=== PATIENT | male | born 1950 | race Caucasian/White ===

== ENCOUNTER 2020-04-09 20:00 | Inpatient (IN) | payer MEDICARE, SELFPAY ==
[2020-04-09] VITALS (35 sets, daily range): BP systolic 135–148; BP diastolic 77–84; PULSE 89–108; RESP 18–38; TEMP 36.4–36.7; O2SAT 84–98; BMI 25.0
--- NOTE | 2020-04-09 20:06 | ECG_ITS ---
[facility] Test Date: 2020-04-09 Pat Name: Mirza Sanchez Department: Room: Gender: Male Set Up Worker: : 1950 Requested By: Edilma Taylor Order Number: [id number] Monique MD: Diane Nelson M.D. Measurements Intervals [place] Rate: 101 P: 15 IN: 146 QRS: 13 QRSD: 89 T: 18 QT: 329 QTc: 427 Interpretive Statements SINUS TACHYCARDIA LEFT ATRIAL ENLARGEMENT [-0.15mV P WAVE IN V1/V2] No previous ECG available for comparison Electronically Signed On 04-09-2020 21:30:41 BOOKIE by Diane Nelson M.D. [id number]
--- NOTE | 2020-04-09 20:06 | XRR_ITS ---
PROCEDURE INFORMATION: Exam: XR Chest, 1 View Exam date and time: 04/09/2020 8:15 PM Age: 69 years old Clinical indication: Shortness of breath; Additional info: SOB TECHNIQUE: Imaging protocol: XR of the chest Views: 1 view. COMPARISON: No relevant prior studies available. FINDINGS: Lungs: There are extensive prominent nearly diffuse bilateral interstitial pulmonary infiltrates predominantly in the lung periphery. This may represent an acute interstitial pneumonia possibly viral in nature. Pleural space: Unremarkable. No pleural effusion. No pneumothorax. Heart/Mediastinum: Unremarkable. No cardiomegaly. Bones/joints: Unremarkable. XR/XR chest 1V portable [id number] IMPRESSION: Prominent bilateral interstitial pulmonary infiltrates consistent with med acute interstitial pneumonia probably viral in nature.
[2020-04-09 20:43] LABS: Basophils # 0.1 10^3/uL (0.0-0.1); Basophils % 0.7 %; Eosinophils # 0.2 10^3/uL (0.0-0.8); Eosinophils % 1.1 %; Hemoglobin 14.5 g/dL (11.7-16.6); Lymphocytes # 1.6 10^3/uL (0.8-4.8); Lymphocytes % 8.5 %; Mean Corpuscular HGB Conc 32.2 g/dL (30.0-36.0); Mean Corpuscular Hemoglobin 28.5 pg (28.0-34.0); Mean Corpuscular Volume 88.4 fL (80-94); Mean Platelet Volume 11.6 fL (7.4-10.4); Monocytes % 21.8 %; Neutrophils # 11.73 10^3/uL (1.8-7.7); Neutrophils % 63.7 %; Nucleated Red Blood Cells # 0.1 /100WBC; Nucleated Red Blood Cells % 0.3 %; Platelet Count 146 10^3/cmm (130-400); Red Blood Count 5.09 10^6/uL (4.1-5.3); Red Cell Distribution Width 17.2 % (12.1-15.1); White Blood Count 18.4 10^3/uL (4.0-10.0)
[2020-04-09 20:47] LABS: ABG PCO2 29.8 mmHg (35-45); ABG PH Result 7.46 (7.35-7.45); Arterial Blood Gas Hematocrit 46.3 % (42-52); Base Excess ABG -1.3 mmol/L (-2.0-2.0); Blood Gas Allen Test Pos; Blood Gas Sample Site Radial, left; Blood Gas Sample Type Arterial; Carboxyhemoglobin 1.8 %THgb (0.4-20.1); HCO3 ABG 21.3 mmol/L (22-26); HGB O2 Sat 94.6 % (95-100); Methemoglobin 0.6 % (0.4-1.5); Oxygen Device NC; PO2 ABG 81.6 mmHg (80.0-100.0); Total Hemoglobin 15.1 g/dL (14-18)
[2020-04-09 21:01] LABS: Troponin(5th) Baseline 6 ng/L (0-15)
[2020-04-09] MEDS: cefTRIAXone 1,000 MG in sodium chloride 0.9% (plus) 50 ML 100 MG IV (21:09)
[2020-04-09] MEDS: sodium chloride 0.9% 1,000 ML 999 ML IV ×2 (21:09→23:09)
[2020-04-09 21:10] LABS: Alanine Aminotransferase 27 U/L (0-41); Albumin Level 3.9 g/dL (3.5-5.2); Alkaline Phosphatase 49 IU/L (40-130); Anion Gap 14.1 (5-19); Aspartate Amino Transferase 23 U/L (0-40); Blood Urea Nitrogen 14 mg/dL (8-23); Calcium 8.8 mg/dL (8.5-10.5); Carbon Dioxide 21 mmol/L (22-29); Chloride 101 mmol/L (98-107); Globulin 2.5 g/dL (1.3-4.6); Glucose 106 mg/dL (65-115); NT Pro B Type Natriuretic Pept 94 pg/mL (0-125); Osmolality Calculated 275 mOsm/kg (285-295); Potassium 4.1 mmol/L (3.5-5.1); Sodium 132 mmol/L (136-145); Total Bilirubin 1.5 mg/dL (0.15-1.2); Total Protein 6.4 g/dL (6.6-8.7)
[2020-04-09] MEDS: ipratropium-albuterol 3 mL Neb INHALATION (21:10)
[2020-04-09] MEDS: azithromycin 500 MG in sodium chloride 0.9% 250 ML 250 MG IV (21:59)
[2020-04-09 22:05] LABS: Lactic Sepsis W/Reflex 1.1 mmol/L (0.5-2.2)
[2020-04-09 22:07] LABS: Influenza A by IFA Negative (Negative); Influenza B by IFA Negative (Negative); SARS Covid-2 Antigen Negative (Negative)
--- NOTE | 2020-04-09 22:17 | PC.NURSE ---
EKG done at 2215 and shown to ER doctor
--- NOTE | 2020-04-09 22:23 | ECG_ITS ---
[facility] Test Date: 2020-04-09 Pat Name: Mirza Sanchez Department: Room: Gender: Male Heel Turner: : 1950 Requested By: Rickey Douglas Order Number: [id number] Amaya MD: Lilian Phillips M.D. Measurements Intervals [place] Rate: 94 P: 54 [place]: 151 QRS: 50 QRSD: 85 T: 33 QT: 339 QTc: 424 Interpretive Statements SINUS RHYTHM LEFT ATRIAL ENLARGEMENT [-0.15mV P WAVE IN V1/V2] Compared to ECG 04/09/2020 20:36:34 Sinus tachycardia no longer present Electronically Signed On 04-13-2020 10:11:04 CHEMISTRY INSTRUCTOR by Lilian Phillips M.D. [id number]
--- NOTE | 2020-04-09 22:26 | ED_ITS ---
HPI - SOB/Dyspnea General: Chief Complaint: Shortness of Breath/Dyspnea Stated Complaint: pneumonia, low o2 Time Seen by Provider: 04/09/20 20:18 History of Present Illness: HPI Narrative: The patient is a 69-year-old male recently diagnosed with pneumonia a few days ago who comes to the ER complaining of increased cough, shortness of breath over the past couple days. He he was satting 84% on room air and is requiring 4 L to saturate in the low 90s. MD elicited complaint: shortness of breath and cough Pertinent past history: pneumonia Severity: moderate Exacerbating factors: exertion Relieving factors: oxygen Associated symptoms: Reports chest congestion, cough and other (fatigue); Deny abdominal pain, chest pain, dizziness, extremity pain, orthopnea, palpitations or polyuria Treatment prior to arrival: other (doxycycline) Review of Systems General: Reports: 10 or more systems reviewed and unremarkable except in HPI and below Const: Reports: chills and fatigue Eyes: Denies: change in vision, blurry vision or eye redness ENMT: Denies: throat pain, swelling of lips/tongue, ear or mastoid pain or nasal congestion Card: Denies: chest pain, palpitations, irregular heart rhythm, edema, dyspnea on exertion or orthopnea Resp: Reports: dyspnea, productive cough and chest congestion GI: Denies: abdominal pain, diarrhea or GI cramping : Denies: flank pain, urinary frequency or urinary urgency Musc: Denies: neck pain, back pain, extremity pain, joint pain, joint redness, limited range of motion or muscle weakness Skin/Breast: Denies: rash, pruritus, erythema, skin pain or skin tenderness Neuro: Denies: headache(s), numbness in extremities, weakness in extremities, sensory changes, difficulty walking, dizziness, confusion or Slurred speech present Psych: Denies: anxiety or depression Endo: Denies: polyuria All/Imm: Denies: urticaria, throat swelling or tongue swelling Physical Exam Const: COMMON NORMALS: no acute distress, average body habitus, patient oriented x3, no limitations, healthy appearing, alert and well nourished GENERAL APPEARANCE: cooperative, comfortable, well kempt and well developed ORIENTATION/CONSCIOUSNESS: Yes awake, Yes oriented to person, Yes oriented to place and Yes oriented to time HENMT: COMMON NORMALS: normocephalic, external ears normal and Normal external nose present HEAD & SCALP: normal to inspection and normocephalic NOSE: Normal external nose present EXTERNAL EAR: Yes external ears normal MOUTH: Normal oral and palatal mucosa present THROAT: posterior oropharynx normal Eye: COMMON NORMALS: Equal, round and reactive pupils present and EOMs intact bilaterally GENERAL EYE: appearance normal, both eyes and all related structures PUPIL: Yes Equal, round and reactive pupils present Neck/C-Spine: COMMON NORMALS: full ROM, no lymphadenopathy, no meningeal signs and no JVD GENERAL: Yes normal visual inspection Lymph: LYMPHATIC: no lymphadenopathy noted Chest: COMMONS NORMALS: normal inspection of the chest and normal palpation of entire chest wall Resp: EFFORT & INSPECTION: Yes able to speak in complete sentences, Yes tachyp neic, Yes respiratory distress and Yes uses accessory muscles AUSCULTATION: diminished lung sounds Cardio: COMMON NORMALS: no JVD, regular rate, regular rhythm, S1 normal heart sound present, S2 normal heart sound present and Peripheral pulses 2+ throughout RATE: regular rate RHYTHM: regular rhythm HEART SOUNDS: S1 normal heart sound present and S2 normal heart sound present PERIPHERAL PULSES: Peripheral pulses 2+ throughout GI: COMMON NORMALS: Normal to inspection, nondistended, normoactive bowel sounds present, Soft to palpation, non-tender and no masses INSPECTION: Yes normal to inspection PALPATION: Yes Soft to palpation : COMMON NORMALS: Yes no CVA tenderness BLADDER/KIDNEY EXAM: Yes no CVA tenderness Back/Pelvis: COMMON NORMALS: no CVA tenderness, thoracic and lumbar spine normal to inspection, no thoracic nor lumbar tenderness and thoraco-lumbar ROM normal Extremity: COMMON NORMALS: normal to inspection, full ROM, capillary refill normal, no joint enlargement and no pedal edema GENERAL: Yes normal exam except as noted Neuro: COMMON NORMALS: patient oriented x3, CN's II-XII intact bilaterally, moves all extremities, no focal motor deficits, no sensory deficits noted and gait normal SENSORIUM/ORIENTATION: Yes alert, Yes oriented to person, Yes oriented to place and Yes oriented to time MENINGEAL SIGNS: Yes no meningeal signs Psych: COMMON NORMALS: mental status grossly normal, Normal thought process present, cooperative, normal affect and speech normal APPEARANCE: Yes well kempt ATTITUDE: Yes calm SPEECH: Yes normal speech THOUGHT PROCESS: Normal thought process present Skin: COMMON NORMALS: no rashes or lesions noted GENERAL SKIN EXAM: no rashes or lesions noted Course ED course: The patient came in complaining of increased shortness of breath after being diagnosed with pneumonia a few days ago and failing outpatient doxycycline. Chest x-ray shows pretty diffuse bilateral pneumonia. He came in tachycardic as well and requiring 4 L of oxygen to saturate in the low 90s. He is septic from pneumonia source. Levofloxacin and nebs were given in the ER as well as [address] Singh accepts to cardiac stepdown unit. Vital Signs: Vital signs: Vital Signs Temperature 98.0 F 04/09/20 20:15 Pulse Rate 91 04/09/20 22:10 Respiratory Rate 28 H 04/09/20 22:10 Blood Pressure 146/84 04/09/20 22:15 Pulse Oximetry 98 04/09/20 22:15 MDM - SOB/Dyspnea Differential Diagnosis: Shortness of Breath Differential Diagnosis: Likely acute exacerbation of chronic obstructive airways disease, congestive heart failure, community acquired pneumonia and asthma with exacerbation Lab Data: Labs: Lab Results 04/09/20 04/09/20 04/09/20 Range/Units 20:36 20:36 20:36 WBC 18.4 H (4.0-10.0) 10^3/ uL RBC 5.09 (4.1-5.3) 10^6/u L Hgb 14.5 (11.7-16.6) g/dL Hct 45.0 (42.0-52.0) % MCV 88.4 (80-94) fL MCH 28.5 (28.0-34.0) pg MCHC 32.2 (30.0-36.0) g/dL RDW 17.2 H (12.1-15.1) % Plt Count 146 (130-400) 10^3/c mm MPV 11.6 H (7.4-10.4) fL Neut % (Auto) 63.7 % Lymph % (Auto) 8.5 % [place] % (Auto) 21.8 % Eos % (Auto) 1.1 % Baso % (Auto) 0.7 % Neut # (Auto) 11.73 H (1.8-7.7) 10^3/u L Lymph # (Auto) 1.6 (0.8-4.8) 10^3/u L [place] # (Auto) 4.0 H (0.2-0.9) 10^3/u L Eos # (Auto) 0.2 (0.0-0.8) 10^3/u L Baso # (Auto) 0.1 (0.0-0.1) 10^3/u L Nucleated RBC % (a uto) 0.3 % Nucleated RBCs # 0.1 /100WBC Specimen Type Sample Site ABG pH (7.35-7.45) ABG pCO2 (35-45) mmHg ABG pO2 (80.0-100.0) mmH g ABG HCO3 (22-26) mmol/L ABG Base Excess (-2.0-2.0) mmol/ L Adonis Test Hematocrit (42-52) % Hgb O2 Saturation (95-100) % Carboxyhemoglobin (0.4-20.1) %THgb Methemoglobin (0.4-1.5) % Total Hemoglobin (14-18) g/dL O2 Delivery Device O2 Liters/Min % FiO2 % Supervisor Instrument Repair ID Sodium 132 L (136-145) mmol/L Potassium 4.1 (3.5-5.1) mmol/L Chloride 101 (98-107) mmol/L Carbon Dioxide 21 L (22-29) mmol/L Anion Gap 14.1 (5-19) BUN 14 (8-23) mg/dL Creatinine 0.8 (0.7-1.2) mg/dL GFR Calculation Not Reportable Glucose 106 (65-115) mg/dL Calculated Osmolal ity 275 L (285-295) mOsm/k g Lactic Acid (0.5-2.2) mmol/L Calcium 8.8 (8.5-10.5) mg/dL Total Bilirubin 1.5 H (0.15-1.2) mg/dL AST 23 (0-40) U/L ALT 27 (0-41) U/L Alkaline Phosphata se 49 (40-130) IU/L Troponin T Baselin e 6 (0-15) ng/L NT-Pro-B Natriuret Pep 94 (0-125) pg/mL Total Protein 6.4 L (6.6-8.7) g/dL Albumin 3.9 (3.5-5.2) g/dL Globulin 2.5 (1.3-4.6) g/dL Influenza Type A A g (Negative) Influenza Type B A g (Negative) SARS-CoV-2 Ag (Rap id) (Negative) 04/09/20 04/09/20 04/09/20 Range/Units 20:38 20:51 20:51 WBC (4.0-10.0) 10^3/ uL RBC (4.1-5.3) 10^6/u L Hgb (11.7-16.6) g/dL Hct (42.0-52.0) % MCV (80-94) fL MCH (28.0-34.0) pg MCHC (30.0-36.0) g/dL RDW (12.1-15.1) % Plt Count (130-400) 10^3/c mm MPV (7.4-10.4) fL Neut % (Auto) % Lymph % (Auto) % [place] % (Auto) % Eos % (Auto) % Baso % (Auto) % Neut # (Auto) (1.8-7.7) 10^3/u L Lymph # (Auto) (0.8-4.8) 10^3/u L [place] # (Auto) (0.2-0.9) 10^3/u L Eos # (Auto) (0.0-0.8) 10^3/u L Baso # (Auto) (0.0-0.1) 10^3/u L Nucleated RBC % (a uto) % Nucleated RBCs # /100WBC Specimen Type Arterial Sample Site Radial, left ABG pH 7.46 H (7.35-7.45) ABG pCO2 29.8 L (35-45) mmHg ABG pO2 81.6 (80.0-100.0) mmH g ABG HCO3 21.3 L (22-26) mmol/L ABG Base Excess -1.3 (-2.0-2.0) mmol/ L Adonis Test Pos Hematocrit 46.3 (42-52) % Hgb O2 Saturation 94.6 L (95-100) % Carboxyhemoglobin 1.8 (0.4-20.1) %THgb Methemoglobin 0.6 (0.4-1.5) % Total Hemoglobin 15.1 (14-18) g/dL O2 Delivery Device Nc O2 Liters/Min 5.0 % FiO2 40.0 % Supervisor Instrument Repair ID [id number] Sodium (136-145) mmol/L Potassium (3.5-5.1) mmol/L Chloride (98-107) mmol/L Carbon Dioxide (22-29) mmol/L Anion Gap (5-19) BUN (8-23) mg/dL Creatinine (0.7-1.2) mg/dL GFR Calculation Glucose (65-115) mg/dL Calculated Osmolal ity (285-295) mOsm/k g Lactic Acid (0.5-2.2) mmol/L Calcium (8.5-10.5) mg/dL Total Bilirubin (0.15-1.2) mg/dL AST (0-40) U/L ALT (0-41) U/L Alkaline Phosphata se (40-130) IU/L Troponin T Baselin e (0-15) ng/L NT-Pro-B Natriuret Pep (0-125) pg/mL Total Protein (6.6-8.7) g/dL Albumin (3.5-5.2) g/dL Globulin (1.3-4.6) g/dL Influenza Type A A g Negative (Negative) Influenza Type B A g Negative (Negative) SARS-CoV-2 Ag (Rap id) Negative (Negative) 04/09/20 Range/Units 21:34 WBC (4.0-10.0) 10^3/ uL RBC (4.1-5.3) 10^6/u L Hgb (11.7-16.6) g/dL Hct (42.0-52.0) % MCV (80-94) fL MCH (28.0-34.0) pg MCHC (30.0-36.0) g/dL RDW (12.1-15.1) % Plt Count (130-400) 10^3/c mm MPV (7.4-10.4) fL Neut % (Auto) % Lymph % (Auto) % [place] % (Auto) % Eos % (Auto) % Baso % (Auto) % Neut # (Auto) (1.8-7.7) 10^3/u L Lymph # (Auto) (0.8-4.8) 10^3/u L [place] # (Auto) (0.2-0.9) 10^3/u L Eos # (Auto) (0.0-0.8) 10^3/u L Baso # (Auto) (0.0-0.1) 10^3/u L Nucleated RBC % (a uto) % Nucleated RBCs # /100WBC Specimen Type Sample Site ABG pH (7.35-7.45) ABG pCO2 (35-45) mmHg ABG pO2 (80.0-100.0) mmH g ABG HCO3 (22-26) mmol/L ABG Base Excess (-2.0-2.0) mmol/ L Adonis Test Hematocrit (42-52) % Hgb O2 Saturation (95-100) % Carboxyhemoglobin (0.4-20.1) %THgb Methemoglobin (0.4-1.5) % Total Hemoglobin (14-18) g/dL O2 Delivery Device O2 Liters/Min % FiO2 % Supervisor Instrument Repair ID Sodium (136-145) mmol/L Potassium (3.5-5.1) mmol/L Chloride (98-107) mmol/L Carbon Dioxide (22-29) mmol/L Anion Gap (5-19) BUN (8-23) mg/dL Creatinine (0.7-1.2) mg/dL GFR Calculation Glucose (65-115) mg/dL Calculated Osmolal ity (285-295) mOsm/k g Lactic Acid 1.1 (0.5-2.2) mmol/L Calcium (8.5-10.5) mg/dL Total Bilirubin (0.15-1.2) mg/dL AST (0-40) U/L ALT (0-41) U/L Alkaline Phosphata se (40-130) IU/L Troponin T Baselin e (0-15) ng/L NT-Pro-B Natriuret Pep (0-125) pg/mL Total Protein (6.6-8.7) g/dL Albumin (3.5-5.2) g/dL Globulin (1.3-4.6) g/dL Influenza Type A A g (Negative) Influenza Type B A g (Negative) SARS-CoV-2 Ag (Rap id) (Negative) Discharge Plan Discharge Prescriptions: No Action doxycycline hyclate 100 mg capsule 100 mg PO BID@1000,2200 RF: 0 Trelegy Ellipta See Rx Instructions .ROUTE .COMPLEX RF: 0 Coding Level of Care Code ED All Source Intelligence Analyst for [employer]g Fwd Exam Comprehensive
--- NOTE | 2020-04-09 22:49 | P.HP_ITS ---
Providers/Chief Complaint Chief Complaint: pneumonia, low o2 History of Present Illness Mirza Sanchez is a 69 year old male with no significant past medical history other than hypertension presented today with chief complaint of worsening shortness of breath. Patient is stating that he has been getting short of breath for last few weeks, his tested positive for Covid last , he went to primary care physician who diagnosed him with pneumonia he has been getting doxycycline for that which he started on , he went back on Tuesday to get tested for Covid, he has not received results back yet. He has been getting short of breath on exertion but today it was getting worse at rest so he decided to come to the hospital for further evaluation. He is a non- smoker nonalcoholic. He has not experienced any vomiting, myalgias, fever, chest pain, leg cramps, dysuria. No previous history of SD, stroke, cancer, he quit smoking about 5 years ago. Diagnosis in the ER revealed sepsis secondary to community-acquired pneumonia he was given 2 L normal saline septic bolus and ceftriaxone and azithromycin, flu panel COVID-19 negative, I have requested PCR, D-dimer MRSA nares and procalcitonin along antigens, chest x-ray shows bilateral pneumonia however has COVID-19 typical features Review of Systems Const: Reports: chills, body aches and fatigue; Denies: fever(s) Eyes: Denies: change in vision ENMT: Denies: throat pain Card: Denies: chest pain Resp: Reports: dyspnea and non-productive cough GI: Reports: diarrhea, bloating and GI cramping; Denies: abdominal pain, nausea or vomiting : Denies: flank pain Musc: Denies: neck pain Skin/Breast: Denies: rash Neuro: Denies: headache(s) Psych: Denies: anxiety Endo: Denies: polyuria [place]/Lymph: Denies: easy bruising All/Imm: Denies: urticaria Medications/Allergies Home Medications Medication Instructions Recorded Confirmed Last Taken Type Trelegy Ellipta See Rx Instructions .ROUTE .COMPLEX 04/09/20 04/09/20 04/09/20 History doxycycline hyclate 100 mg PO BID@1000,2200 04/09/20 04/09/20 04/09/20 History Allergies Allergy/AdvReac Type Severity Reaction Status Date / Time Penicillins Allergy Mild Unknown Verified 04/09/20 21:58 PFSH Acute PFSH: Medical History (Updated 04/10/20 @ 01:03 by Zak Singh MD) Hypertension Surgical History (Updated 04/10/20 @ 01:03 by Zak Singh MD) No pertinent past surgical history Family History (Updated 04/10/20 @ 01:03 by Zak Singh MD) Father CAD (coronary artery disease) Social History (Updated 04/10/20 @ 01:03 by Zak Singh MD) Smoking and tobacco status: former smoker Quit status (tobacco): has quit using tobacco Former quit date comment: 2014 Alcohol intake: never Substance/Drug Use: never Household members: spouse Housing: House Vitals/I&O/Wt Last Vital Signs Temp 98.0 F 04/09/20 20:15 Pulse 91 04/09/20 22:10 Resp 28 H 04/09/20 22:10 BP 146/84 04/09/20 22:15 Pulse Ox 98 04/09/20 22:15 04/09/20 04/09/20 04/09/20 06:59 14:59 22:59 Intake Total 50 / 50 Balance 50 / 50 Weight last 48 hrs Weight 88.451 kg Physical Exam Narrative: EXAM NARRATIVE: Pleasant elderly male looks stated age Well-hydrated, Awake alert oriented x3 GCS 15 No neurological deficit EOMI, PERRLA Abdomen soft nontender bowel sound present S1, S2 no murmur or signs of heart failure Bilateral breath sounds with crepitations, coarse rhonchi bilateral, no acute respiratory distress, currently requiring 4 L nasal cannula to keep O2 saturation above 90% Lower extremity no edema gangrene ulcer Dorsalis pedis pulses 2+ bilaterally Appropriate mood and affect Data : 04/09/20 20:36 04/09/20 20:36 Micro: Microbiology 04/09/20 21:15 Blood Culture - Preliminary Blood SPECIMEN COLLECTED 04/09/20 21:00 Blood Culture - Preliminary Blood SPECIMEN COLLECTED A&P Assessment and plan (1) Sepsis: Status: Acute (2) Community acquired pneumonia: Status: Acute (3) Sepsis with acute hypoxic respiratory failure: Status: Acute Additional A&P Information Sepsis secondary to community-acquired pneumonia Rule out Covid (will send PCR), his has been diagnosed with COVID-19 pneumonia on last Sepsis criteria met with tachypnea, leukocytosis, tachycardia Source: bilateral infiltrates on chest x-ray start him on ceftriaxone and azithromycin, failed outpatient doxycycline therapy Would request urine antigens, procalcitonin and D-dimer, MRSA nares Acute hypoxic respiratory failure Most likely secondary to community-acquired pneumonia, rule out PE for which I have requested D-dimer Currently doing well on 4 L nasal cannula no acute respiratory distress I will keep him on prednisone along antibiotics Essential hypertension: I will start him on lisinopril low-dose for now Full code Cardiac diet DVT prophylaxis Lovenox Attestations Medical Necessity Statement*: Anticipating stay in the hospital course more than 2 midnights currently need management for sepsis secondary to community- acquired pneumonia Covid PCR sent Time Spent in Patient Care: (>than 50% of time spent in counselling and/or direct pt care on unit) . 50mins Coding Level of Care Code Acute Industrial Green Systems Designer for [facility] Fwd Diagnoses Sepsis A41.9 Community acquired pneumonia J18.9 Sepsis with acute hypoxic respiratory failure A41.9; R65.20; J96.01
[2020-04-09 23:10] LABS: Troponin 5 2HR Delta 0 ABS# (0-10)
--- NOTE | 2020-04-09 23:33 | PC.NURSE ---
patient arrived to room 102 via stretcher. Pt is on 2 liters nasal canula and stated that he needed to have a bowel movement. Pt was assisted to the bedside commode.
[2020-04-10] VITALS (60 sets, daily range): BP systolic 116–151; BP diastolic 62–98; PULSE 76–88; RESP 18–32; TEMP 36.3–36.9; O2SAT 83–95
[2020-04-10] MEDS: enoxaparin 40 mg/0.4 mL Syringe SUBCUT ×2 (00:18→22:58)
[2020-04-10] MEDS: ipratropium-albuterol 3 mL Neb INHALATION ×3 (00:23→15:24)
--- NOTE | 2020-04-10 02:23 | ECG_ITS ---
[facility] Test Date: 2020-04-10 Pat Name: Mirza Sanchez Department: Room: 102 Gender: Male Condominium Property Manager: ARIAS MONK: 1950 Requested By: Rickey Douglas Order Number: [id number] Monique MD: Lilian Phillips M.D. Measurements Intervals [place] Rate: 87 P: 46 [place]: 159 QRS: 48 QRSD: 93 T: 28 QT: 341 QTc: 412 Interpretive Statements SINUS RHYTHM Compared to ECG 04/09/2020 22:14:22 Atrial abnormality no longer present Electronically Signed On 04-13-2020 10:10:05 MATERIAL PREPARATION WORKER by Lilian Phillips M.D. [id number]
[2020-04-10 06:10] LABS: Basophils # 0.1 10^3/uL (0.0-0.1); Basophils % 0.4 %; Eosinophils # 0.3 10^3/uL (0.0-0.8); Hematocrit 38.7 % (42.0-52.0); Hemoglobin 12.3 g/dL (11.7-16.6); Lymphocytes # 1.7 10^3/uL (0.8-4.8); Lymphocytes % 12.1 %; Mean Corpuscular HGB Conc 31.8 g/dL (30.0-36.0); Mean Corpuscular Volume 91.3 fL (80-94); Mean Platelet Volume 12.3 fL (7.4-10.4); Monocytes # 3.3 10^3/uL (0.2-0.9); Monocytes % 23.2 %; Neutrophils % 59.3 %; Nucleated Red Blood Cells % 0.2 %; Platelet Count 130 10^3/cmm (130-400); Red Blood Count 4.24 10^6/uL (4.1-5.3); Red Cell Distribution Width 17.2 % (12.1-15.1); White Blood Count 14.2 10^3/uL (4.0-10.0)
[2020-04-10 06:35] LABS: Anion Gap 11.8 (5-19); Blood Urea Nitrogen 12 mg/dL (8-23); Calcium 8.5 mg/dL (8.5-10.5); Carbon Dioxide 23 mmol/L (22-29); Chloride 105 mmol/L (98-107); Glucose 95 mg/dL (65-115); Osmolality Calculated 282 mOsm/kg (285-295); Potassium 3.8 mmol/L (3.5-5.1); Sodium 136 mmol/L (136-145)
[2020-04-10 06:36] LABS: Lactate Dehydrogenase 492 U/L (135-225)
[2020-04-10 06:50] LABS: INR 1.44 (0.8-1.2)
[2020-04-10 06:51] LABS: Partial Thromboplastin Time 40.7 SECONDS (23.9-36.7)
[2020-04-10 06:54] LABS: D Dimer 1.67 ug/mIFEU (0-0.59)
[2020-04-10 07:44] LABS: Fibrinogen 359 mg/dL (174-498)
[2020-04-10 07:53] LABS: Platelet Count 130 10^3/cmm (130-400)
[2020-04-10] MEDS: predniSONE 20 mg Tablet 40 MG PO (08:32)
[2020-04-10] MEDS: lisinopril 5 mg Tablet PO (08:32)
[2020-04-10] MEDS: cefTRIAXone 1,000 MG in sodium chloride 0.9% (plus) 50 ML 100 MG IV (08:33)
[2020-04-10] MEDS: azithromycin 250 mg Tablet 500 MG PO (08:33)
--- NOTE | 2020-04-10 18:30 | PC.NURSE ---
Hand-off report to thinner sprayer Pt had a good day today. SpO2 has been ranging in 87-91% on 5 L/ NC. Pt had an episode of blood streaked sputum as well. Dr. Ponce has been informed on these.
--- NOTE | 2020-04-10 18:36 | CTR_ITS ---
PROCEDURE INFORMATION: Exam: CT Angiography Chest With Contrast Exam date and time: 04/10/2020 7:43 PM Age: 69 years old Clinical indication: Shortness of breath; Patient HX: HTN, SOB, elev d-dimer; Additional info: Hypoxia, tachycardia TECHNIQUE: Imaging protocol: Computed tomographic angiography of the chest with intravenous contrast. 3D rendering (Not supervised by radiologist): MIP and/or 3D reconstructed images were created by the technologist. Radiation optimization: All CT scans at this facility use at least one of these dose optimization techniques: automated exposure control; mA and/or kV adjustment per patient size (includes targeted exams where dose is matched to clinical indication); or iterative reconstruction. Contrast material: OMNI 350; Contrast volume: 67 ml; Contrast route: INTRAVENOUS (IV); COMPARISON: CR XR chest 1V portable [id number] 04/09/2020 8:21 PM RADIATION DOSE METRICS: Total DLP (mGy-cm): 588.85 FINDINGS: Pulmonary arteries: Normal. No pulmonary emboli. Aorta: Unremarkable. No aortic aneurysm. No aortic dissection. Lungs: Severe peripheral interstitial fibrosis with honeycombing and a slight basilar predominance. Bronchiectasis which is greatest in the right lower and middle lobes. Pleural space: 4.5 cm focal area of consolidation in the posterior left lower lobe with adjacent pleural thickening and a small amount of pleural fluid. Small left pleural effusion. Heart: Unremarkable. No cardiomegaly. No pericardial effusion. Mediastinal space: Hiatal hernia. Lymph nodes: Multiple enlarged mediastinal and hilar lymph nodes measuring up to 1.2 cm short axis. Spleen: Partially visualized spleen appears enlarged. Bones/joints: Unremarkable. No acute fracture. Soft tissues: Unremarkable. CT/CT angio chest PE protcl [id number] IMPRESSION: 1. No evidence for pulmonary embolus. 2. Interstitial fibrosis with honeycombing, a typical UIP pattern. This can represent idiopathic pulmonary fibrosis, chronic drug reaction, or end-stage hypersensitivity pneumonitis. 3. Focal area of consolidation in the posterior left lower lobe with adjacent pleural thickening. This could represent infection or a neoplastic process. CT follow-up in 3 months versus tissue sampling is recommended. 4. Prominent mediastinal and hilar lymph nodes could be reactive. A neoplastic process such as lymphoma or metastatic disease is not entirely excluded. Radiation Dose CTDIVOL = (mGy): DLP = 588.85 (mGy-cm)
--- NOTE | 2020-04-10 19:48 | P.PN_ITS ---
Subjective Subjective: Interval history: He reports he is feeling somewhat better. He denies chest pain, but little bit of pressure in the epigastrium/lower chest. States feels like air bubble . Has some mild intermittent cough. Per nursing report earlier coughed up a small streak of blood in his sputum. He denies headache. No nausea vomiting or diarrhea. No abdominal discomfort. Vitals/I&O/Wt Last Vital Signs Temp 97.7 F 04/10/20 17:00 Pulse 84 04/10/20 19:36 Resp 32 H 04/10/20 19:36 BP 144/68 04/10/20 19:36 Pulse Ox 92 04/10/20 19:36 04/10/20 04/10/20 04/10/20 06:59 14:59 22:59 Intake Total 2420 / 2470 764 / 764 Output Total 500 / 500 200 / 200 725 / 925 Balance 1919 / 1969 564 / 564 -725 / -161 Weight last 48 hrs Weight 88.451 kg Physical Exam Const: COMMON NORMALS: no acute distress and patient oriented x3 HENMT: COMMON NORMALS: oropharynx normal Neck/C-Spine: COMMON NORMALS: no JVD Resp: COMMON NORMALS: normal respiratory effort AUSCULTATION: wheezes (mild) Cardio: COMMON NORMALS: no JVD, regular rhythm, S1 normal heart sound present, S2 normal heart sound present and No murmurs present (Cardio) RHYTHM: regular rhythm HEART SOUNDS: S1 normal heart sound present and S2 normal heart sound present GI: COMMON NORMALS: Normal to inspection, nondistended, normoactive bowel sounds present, Soft to palpation and non-tender PALPATION: Yes Soft to palpation Extremity: COMMON NORMALS: no joint enlargement and no pedal edema Neuro: COMMON NORMALS: patient oriented x3 and moves all extremities Skin: COMMON NORMALS: no rashes or lesions noted GENERAL SKIN EXAM: no rashes or lesions noted Data : 04/10/20 04:41 04/10/20 04:41 Micro: Microbiology 04/10/20 04:54 Bacterial Antigens - Final Urine,Voided 04/10/20 04:54 Legionella Urinary Antigen - Final Urine,Voided 04/09/20 21:15 Blood Culture - Preliminary Blood SPECIMEN COLLECTED 04/09/20 21:00 Blood Culture - Preliminary Blood SPECIMEN COLLECTED A&P Assessment and plan (1) Acute respiratory failure with hypoxia: Community-acquired pneumonia. Bilateral infiltrates. Continue. Antibiotics at this time. He is feeling little bit better. Due to new onset hypoxia (no baseline supplemental oxygen requirement), mild tachycardia, abnormal D-dimer will assess CTA as discussed with him. Discussed risk of possible kidney injury with contrast. He is agreeable to proceed. COVID-19 PCR is pending. Reports his had COVID-19 and went through illness pretty quickly after was diagnosed 2 weeks ago. His rapid COVID-19 antigen is negative. Negative rapid type a and B influenza. Urine bacterial antigens negative for GBS, Haemophilus, strep pneumo, meningococcus, Legionella antigen. Status: Acute (2) Community acquired pneumonia: As above. Continue Rocephin and azithromycin. Status: Acute (3) Sepsis: Improving. Leukocytosis improving. Still tachypneic. A little bit better. Status: Acute Additional A&P Information Essential hypertension: I will start him on lisinopril low-dose for now Full code Cardiac diet DVT prophylaxis Lovenox Attestations Medical Necessity Statement*: Continue admission for assessment management of acute hypoxic respiratory failure, sepsis, community-acquired pneumonia failed outpatient treatment. 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
[2020-04-10] MEDS: iohexol 350 mg/mL 100 mL Btl IV (20:22)
[2020-04-11] VITALS (17 sets, daily range): BP systolic 126–145; BP diastolic 64–78; PULSE 73–108; RESP 18–34; TEMP 36.2–36.6; O2SAT 81–95
--- NOTE | 2020-04-11 06:04 | PC.NURSE ---
Patient has no complaints at this time. Will monitor.
[2020-04-11 06:15] LABS: Basophils # 0.2 10^3/uL (0.0-0.1); Basophils % 0.8 %; Eosinophils # 0.1 10^3/uL (0.0-0.8); Eosinophils % 0.7 %; Hemoglobin 13.5 g/dL (11.7-16.6); Lymphocytes # 1.6 10^3/uL (0.8-4.8); Mean Corpuscular HGB Conc 32.1 g/dL (30.0-36.0); Mean Corpuscular Hemoglobin 28.6 pg (28.0-34.0); Mean Platelet Volume 11.1 fL (7.4-10.4); Monocytes # 3.9 10^3/uL (0.2-0.9); Neutrophils % 63.9 %; Nucleated Red Blood Cells % 0.2 %; Platelet Count 143 10^3/cmm (130-400); Red Blood Count 4.72 10^6/uL (4.1-5.3); Red Cell Distribution Width 16.9 % (12.1-15.1); White Blood Count 17.9 10^3/uL (4.0-10.0)
[2020-04-11 06:39] LABS: Alanine Aminotransferase 21 U/L (0-41); Albumin Level 3.4 g/dL (3.5-5.2); Alkaline Phosphatase 43 IU/L (40-130); Anion Gap 15.9 (5-19); Aspartate Amino Transferase 21 U/L (0-40); Blood Urea Nitrogen 12 mg/dL (8-23); Calcium 8.7 mg/dL (8.5-10.5); Carbon Dioxide 19 mmol/L (22-29); Chloride 103 mmol/L (98-107); Globulin 2.8 g/dL (1.3-4.6); Glucose 103 mg/dL (65-115); Osmolality Calculated 278 mOsm/kg (285-295); Potassium 3.9 mmol/L (3.5-5.1); Sodium 134 mmol/L (136-145); Total Bilirubin 0.8 mg/dL (0.15-1.2); Total Protein 6.2 g/dL (6.6-8.7)
[2020-04-11] MEDS: ipratropium-albuterol 3 mL Neb INHALATION ×5 (07:45→19:50)
[2020-04-11] MEDS: levofloxacin-dextrose 5 % 750 MG/150 ML PREMIX 100 MG IV (08:32)
[2020-04-11] MEDS: dexamethasone 4 mg Tablet PO ×2 (08:32→13:30)
[2020-04-11] MEDS: lisinopril 5 mg Tablet PO (10:12)
--- NOTE | 2020-04-11 11:00 | PC.NURSE ---
visitor Keely was informed that pt is on covid r/o. She had covid last and is off Isolation per . Relayed the information to hospitalist if it is okay for her to visit since she is already in here for visiting hours. is okay with her to visit.
[2020-04-11 16:14] LABS: Quest SARS-CoV-2 RNA DETECTED (NOT DETECTED)
[2020-04-11] MEDS: remdesivir 200 MG in sodium chloride 0.9% (100 ml) 100 ML 100 MG IV (18:00)
[2020-04-11 18:30] LABS: D Dimer 1.83 ug/mIFEU (0-0.59)
--- NOTE | 2020-04-11 19:00 | PC.NURSE ---
Informed and pt Regarding pt's test result. and a Transfer to [facility] per policy. and Pt verbalizes understanding.
[2020-04-11 19:11] LABS: C Reactive Protein 25.4 mg/L (0.0-4.9)
--- NOTE | 2020-04-11 19:19 | P.PN_ITS ---
Subjective Subjective: Interval history: This morning he was more short of breath, became more hypoxic, required 10 L of oxygen by high flow cannula. During my visit a bit later he is feeling somewhat better. Oxygen requirement has decreased slightly. He denies chest pain or pressure. No headache. No nausea vomiting or diarrhea. His is at bedside. We discussed his condition, as well as findings CTA last night. He and his were not aware of chronic lung condition. He used to smoke, but quit about 5 years ago and does not smoke anymore. They do state that recently they had d isassembled a barn, burning a lot of the wood. They do also state that they have had a pet parrot at home for the last 3 years. Later in the evening I was notified he tested positive for coronavirus on PCR. Vitals/I&O/Wt Last Vital Signs Temp 97.6 F 04/11/20 12:00 Pulse 101 H 04/11/20 15:35 Resp 22 H 04/11/20 15:30 BP 130/78 04/11/20 12:00 Pulse Ox 95 04/11/20 15:30 04/11/20 04/11/20 04/11/20 06:59 14:59 22:59 Intake Total 300 / 1064 746 / 746 Output Total 900 / 1825 Balance -600 / -761 746 / 746 Weight last 48 hrs Weight 88.451 kg Physical Exam Const: COMMON NORMALS: no acute distress and patient oriented x3 HENMT: COMMON NORMALS: oropharynx normal Neck/C-Spine: COMMON NORMALS: no JVD Resp: COMMON NORMALS: normal respiratory effort AUSCULTATION: crackles (coarse, worse LLL) and no wheezes Cardio: COMMON NORMALS: no JVD, regular rhythm, S1 normal heart sound present, S2 normal heart sound present and No murmurs present (Cardio) RHYTHM: regular rhythm HEART SOUNDS: S1 normal heart sound present and S2 normal heart sound present GI: COMMON NORMALS: Normal to inspection, nondistended, normoactive bowel sounds present, Soft to palpation and non-tender PALPATION: Yes Soft to palpation Extremity: COMMON NORMALS: no joint enlargement and no pedal edema Neuro: COMMON NORMALS: patient oriented x3 and moves all extremities Skin: COMMON NORMALS: no rashes or lesions noted GENERAL SKIN EXAM: no rashes or lesions noted Data : 04/11/20 05:45 04/11/20 05:45 Micro: Microbiology 04/11/20 10:16 Gram Stain - Final Sputum - Expectorated Sputum 04/09/20 21:15 Blood Culture - Preliminary Blood NEGATIVE TO DATE 04/09/20 21:00 Blood Culture - Preliminary Blood NEGATIVE TO DATE A&P Assessment and plan (1) Acute respiratory failure with hypoxia: Noted more hypoxic this morning. Antibiotic broadened with vancomycin in addition to Levaquin in view of CT findings. Appears to have chronic inter stitial disease, also 4.5 cm focal area of consolidation in posterior left lower lobe, possibly infectious, but cannot exclude malignancy. Discussed all this with him and his . Later this evening his test result also came back positive for COVID-19 PCR. Severe COVID-19 pneumonia. Initiate remdesivir. He has been transitioned to Decadron earlier today. Continue. Continue oxygen support. Prone as tolerating. Check CRP, D-dimer. Lovenox VTE prophylaxis. Community-acquired pneumonia. Continue. Antibiotics at this time. Reports his had COVID-19 and went through illness pretty quickly after was diagnosed 2 weeks ago. His rapid COVID-19 antigen is negative. Negative rapid type a and B influenza. Urine bacterial antigens negative for GBS, Haemophilus, strep pneumo, meningococcus, Legionella antigen. Possible IPF. Typical UIP pattern on CT. I do not see any chronic medication should lead to this. Possible hypersensitivity pneumonitis. We discussed his condition, as well as findings CTA last night. He and his were not aware of chronic lung condition. He used to smoke, but quit about 5 years ago and does not smoke anymore. They do state that recently they had disassembled a barn, burning a lot of the wood. They do also state that they have had a pet parrot at home for the last 3 years. Later in the evening I was notified he tested positive for coronavirus on PCR. Once available pulmonology consultation would be beneficial to evaluate his images, possible ILD, as well as consolidation in posterior left lower lobe, recommendation regarding follow-up imaging versus tissue sampling. Status: Acute (2) Community acquired pneumonia: As above. Status: Acute (3) Sepsis: Improving. Leukocytosis improving. Still tachypneic. A little bit better. Status: Acute Additional A&P Information Essential hypertension: lisinopril low-dose for now Full code Cardiac diet DVT prophylaxis Lovenox Attestations Medical Necessity Statement*: Continue admission for assessment of acute hypoxic respiratory failure, with chronic underlying undiagnosed pulmonary disease, severe COVID-19 pneumonia, possible bacterial pneumonia, unidentified pulmonary consolidation. 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
--- NOTE | 2020-04-11 22:20 | PC.NURSE ---
Patient is assisted to a wheel chair and is transported via wheel chair with O2 to the VICU without incident. All belongings transported with the patient and were left at the bedside. Care transferred to the VICU RN at this time.
[2020-04-12] VITALS (22 sets, daily range): BP systolic 104–168; BP diastolic 57–79; PULSE 74–124; RESP 21–40; TEMP 36.6–37.6; O2SAT 89–98
[2020-04-12] MEDS: enoxaparin 40 mg/0.4 mL Syringe SUBCUT (00:33)
[2020-04-12] MEDS: pantoprazole DR 40 mg Tablet PO ×2 (00:34→08:55)
[2020-04-12] MEDS: vancomycin 1,500 MG/300 ML PIGGYBACK 150 MG IV ×3 (00:35→15:34)
[2020-04-12 06:45] LABS: Alanine Aminotransferase 21 U/L (0-41); Albumin Level 3.5 g/dL (3.5-5.2); Alkaline Phosphatase 47 IU/L (40-130); Aspartate Amino Transferase 19 U/L (0-40); Basophils # 0.1 10^3/uL (0.0-0.1); Basophils % 0.5 %; Blood Urea Nitrogen 13 mg/dL (8-23); Calcium 8.7 mg/dL (8.5-10.5); Carbon Dioxide 20 mmol/L (22-29); Chloride 103 mmol/L (98-107); Eosinophils % 0.1 %; Globulin 2.8 g/dL (1.3-4.6); Glucose 95 mg/dL (65-115); Hematocrit 43.4 % (42.0-52.0); Hemoglobin 13.9 g/dL (11.7-16.6); Lymphocytes # 1.4 10^3/uL (0.8-4.8); Lymphocytes % 6.7 %; Mean Corpuscular Hemoglobin 28.5 pg (28.0-34.0); Mean Corpuscular Volume 89.1 fL (80-94); Mean Platelet Volume 11.6 fL (7.4-10.4); Monocytes % 18.5 %; Neutrophils % 70.6 %; Nucleated Red Blood Cells % 0.1 %; Osmolality Calculated 278 mOsm/kg (285-295); Platelet Count 151 10^3/cmm (130-400); Red Blood Count 4.87 10^6/uL (4.1-5.3); Red Cell Distribution Width 17.1 % (12.1-15.1); Sodium 134 mmol/L (136-145); Total Bilirubin 0.7 mg/dL (0.15-1.2); Total Protein 6.3 g/dL (6.6-8.7); White Blood Count 21.5 10^3/uL (4.0-10.0)
[2020-04-12] MEDS: levofloxacin-dextrose 5 % 750 MG/150 ML PREMIX 100 MG IV (07:40)
[2020-04-12 08:42] LABS: ABG PCO2 27.4 mmHg (35-45); ABG PH Result 7.46 (7.35-7.45); Alveolar-Arterial Oxygen Gradi 9.8 mmHg (5-10); Arterial Blood Gas Hematocrit 46.8 % (42-52); Base Excess ABG -2.8 mmol/L (-2.0-2.0); Blood Gas Allen Test Pos; Blood Gas Operator Identificat MONRO; Blood Gas Sample Site Radial, left; Blood Gas Sample Type Arterial; Carboxyhemoglobin 1.7 %THgb (0.4-20.1); HCO3 ABG 19.4 mmol/L (22-26); HGB O2 Sat 78.3 % (95-100); Ionized Calcium Level - ABG 1.2 mmol/L (1.1-1.4); Methemoglobin 0.8 % (0.4-1.5); Oxygen Device NRB; Oxygen Saturation ABG 80.3; PO2 ABG 40.1 mmHg (80.0-100.0); Potassium Level - ABG 3.7 mmol/L (3.5-5.0); Total Hemoglobin 15.3 g/dL (14-18)
[2020-04-12] MEDS: FUROsemide 10 mg/mL SDV 4mL 40 MG IVP (08:55)
[2020-04-12] MEDS: ipratropium-albuterol 3 mL Neb INHALATION (09:22)
[2020-04-12] MEDS: lisinopril 5 mg Tablet PO (09:39)
[2020-04-12] MEDS: LORazepam 0.5 mg Tablet 0.25 MG PO (11:12)
--- NOTE | 2020-04-12 12:34 | P.PN_ITS ---
Subjective Subjective: Interval history: He is feeling little bit better. He denies chest pain or pressure. No nausea vomiting or diarrhea. No headache. Gets short of breath with exertion. Did not try proning yesterday. Vitals/I&O/Wt Last Vital Signs Temp 99.2 F 04/12/20 12:02 Pulse 122 H 04/12/20 12:02 Resp 38 H 04/12/20 12:02 BP 118/79 04/12/20 12:02 Pulse Ox 94 04/12/20 12:02 04/11/20 04/12/20 04/12/20 22:59 06:59 14:59 Intake Total 360 / 1106 880 / 1986 450 / 450 Output Total 375 / 375 450 / 825 475 / 475 Balance -15 / 731 430 / 1161 - Physical Exam Const: COMMON NORMALS: no acute distress and patient oriented x3 HENMT: COMMON NORMALS: oropharynx normal Neck/C-Spine: COMMON NORMALS: no JVD Resp: COMMON NORMALS: normal respiratory effort AUSCULTATION: crackles (coarse, worse LLL, without change) and no wheezes Cardio: COMMON NORMALS: no JVD, regular rhythm, S1 normal heart sound present, S2 normal heart sound present and No murmurs present (Cardio) RHYTHM: regular rhythm HEART SOUNDS: S1 normal heart sound present and S2 normal heart sound present GI: COMMON NORMALS: Normal to inspection, nondistended, normoactive bowel sounds present, Soft to palpation and non-tender PALPATION: Yes Soft to palpation Extremity: COMMON NORMALS: no joint enlargement and no pedal edema Neuro: COMMON NORMALS: patient oriented x3 and moves all extremities Skin: COMMON NORMALS: no rashes or lesions noted GENERAL SKIN EXAM: no rashes or lesions noted Data : 04/12/20 05:10 04/12/20 05:10 Micro: Microbiology 04/11/20 10:16 Gram Stain - Final Sputum - Expectorated Sputum Sputum Culture - Preliminary A&P Assessment and plan (1) Acute respiratory failure with hypoxia: More hypoxic this morning, transiently on nonrebreather 15 L. Hypoxemia and ABG. Subsequently on high flow cannula at 90% with saturations in 89-92%. Discussed with him. He would be willing to undergo intubation, but would like to avoid and reserve this until it is absolute necessity. He understands with w hat appears to be interstitial lung disease on CT he is at risk of severe illness, poor outcome. With intubation itself also posing significant risk. He is agreeable for transient BiPAP support. Given findings in his lungs I suspect he has for a while tolerated baseline hypoxia. Overnight appears to be in positive balance. Requested for 40 mg IV Lasix for him. Discussed also elevated risk of VTE with coronavirus. Elevated D-dimer. For now continue prophylactic Lovenox pending repeat D-dimer which has been requested. Discussed with him if rising high, may benefit from therapeutic anticoagulation. He states in that case would be agreeable. Understands elevated risk of bleeding. States for now will not let his know regarding worsening his condition, will discuss with his daughters, granddaughter. They may call us with any questions. Yesterday was started on remdesivir. Steroid was changed to Decadron. We will continue both for severe COVID-19 pneumonia. Further care discussed with and transferred over to VICU physician. Continue antibiotics with Levaquin, vancomycin for possible pneumonia. Sputum culture requested. Appears to have chronic interstitial disease, also 4.5 cm focal area of consolidation in posterior left lower lobe, possibly infectious, but cannot e xclude malignancy. This was discussed with him and his . Would benefit from additional assessment by pulmonology once available. Reports his had COVID-19 and went through illness pretty quickly after was diagnosed 2 weeks ago. His rapid COVID-19 antigen was negative. Negative rapid type a and B influenza. Urine bacterial antigens negative for GBS, Haemophilus, strep pneumo, meningoco ccus, Legionella antigen. Possible IPF. Typical UIP pattern on CT. I do not see any chronic medication should lead to this. Possible hypersensitivity pneumonitis. We discussed his condition, as well as findings CTA last night. He and his were not aware of chronic lung condition. He used to smoke, but quit about 5 years ago and does not smoke anymore. They do state that recently they had disassembled a barn, burning a lot of the wood. They do also state that they have had a pet parrot at home for the last 3 years. Status: Acute (2) Community acquired pneumonia: As above. Status: Acute (3) Sepsis: As above. Status: Acute Additional A&P Information Essential hypertension: This afternoon blood pressure soft. Hold lisinopril. Monitor blood pressures. Full code Cardiac diet DVT prophylaxis Lovenox Attestations Medical Necessity Statement*: Continue admission for assessment management of respiratory failure, severe COVID-19 pneumonia with underlying interstitial lung disease, superimposed bacterial infection. 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
[2020-04-12 13:13] LABS: C Reactive Protein 63.1 mg/L (0.0-4.9)
[2020-04-12 13:17] LABS: D Dimer 3.99 ug/mIFEU (0-0.59)
[2020-04-12 13:28] LABS: ABG PCO2 28.4 mmHg (35-45); ABG PH Result 7.46 (7.35-7.45); Arterial Blood Gas Hematocrit 46.4 % (42-52); Base Excess ABG -2.4 mmol/L (-2.0-2.0); Blood Gas Allen Test Pos; Blood Gas Operator Identificat MONRO; Blood Gas Sample Site Radial, left; Blood Gas Sample Type Arterial; HCO3 ABG 20.1 mmol/L (22-26); Oxygen Device BIPAP; PO2 ABG 71.4 mmHg (80.0-100.0)
--- NOTE | 2020-04-12 13:32 | PC.NURSE ---
Nurse Alerted Dr Renteria to D-Dimer value of 3.99
[2020-04-12] MEDS: levalbuterol 0.63 mg/3 mL Neb INHALATION ×4 (13:53→23:24)
[2020-04-12] MEDS: morphine 4 mg/mL SDV 1 mL 2 MG IVP (14:22)
--- NOTE | 2020-04-12 14:31 | PC.NURSE ---
Respiratory rate of 38. PRN morphine given for high respiratory rate .
[2020-04-12] MEDS: enoxaparin 100 mg/mL Syringe 90 MG SUBCUT (15:30)
--- NOTE | 2020-04-12 15:44 | PC.NURSE ---
Nurse Offered Patient assisstance with a bed bath or bed bath supplies if patient would like to perform by himself. Patient declined, said he is very tired and just wants to sleep, and had a bed bath yesterday in [facility].
[2020-04-12] MEDS: dexamethasone 4 mg/mL INJ 6 MG IVP (18:10)
[2020-04-12] MEDS: remdesivir 100 MG in sodium chloride 0.9% (100 ml) 100 ML IV (18:12)
[2020-04-13] VITALS (17 sets, daily range): BP systolic 105–149; BP diastolic 61–88; PULSE 81–108; RESP 17–29; TEMP 36.7–36.8; O2SAT 88–95
[2020-04-13] MEDS: vancomycin 1,500 MG/300 ML PIGGYBACK 150 MG IV ×2 (00:10→08:09)
[2020-04-13] MEDS: levalbuterol 0.63 mg/3 mL Neb INHALATION ×6 (03:30→23:15)
[2020-04-13] MEDS: enoxaparin 100 mg/mL Syringe 90 MG SUBCUT ×2 (05:49→17:39)
[2020-04-13 06:33] LABS: Basophils # 0.1 10^3/uL (0.0-0.1); Basophils % 0.5 %; Hematocrit 41.1 % (42.0-52.0); Hemoglobin 13.4 g/dL (11.7-16.6); Lymphocytes # 1.2 10^3/uL (0.8-4.8); Lymphocytes % 5.3 %; Mean Corpuscular HGB Conc 32.6 g/dL (30.0-36.0); Mean Corpuscular Hemoglobin 28.8 pg (28.0-34.0); Mean Corpuscular Volume 88.4 fL (80-94); Mean Platelet Volume 11.9 fL (7.4-10.4); Monocytes # 4.1 10^3/uL (0.2-0.9); Monocytes % 17.6 %; Neutrophils # 16.88 10^3/uL (1.8-7.7); Neutrophils % 72.1 %; Nucleated Red Blood Cells % 0.1 %; Platelet Count 130 10^3/cmm (130-400); Red Blood Count 4.65 10^6/uL (4.1-5.3); Red Cell Distribution Width 17.2 % (12.1-15.1); White Blood Count 23.4 10^3/uL (4.0-10.0)
[2020-04-13 06:53] LABS: Alanine Aminotransferase 20 U/L (0-41); Albumin Level 3.3 g/dL (3.5-5.2); Alkaline Phosphatase 57 IU/L (40-130); Anion Gap 16.9 (5-19); Aspartate Amino Transferase 18 U/L (0-40); Blood Urea Nitrogen 28 mg/dL (8-23); Calcium 8.6 mg/dL (8.5-10.5); Carbon Dioxide 18 mmol/L (22-29); Chloride 104 mmol/L (98-107); Glucose 115 mg/dL (65-115); Osmolality Calculated 286 mOsm/kg (285-295); Potassium 3.9 mmol/L (3.5-5.1); Sodium 135 mmol/L (136-145); Total Bilirubin 0.8 mg/dL (0.15-1.2); Total Protein 6.3 g/dL (6.6-8.7)
[2020-04-13] MEDS: levofloxacin-dextrose 5 % 750 MG/150 ML PREMIX 100 MG IV (08:16)
[2020-04-13] MEDS: dexamethasone 4 mg/mL INJ 6 MG IVP ×2 (08:58→17:36)
[2020-04-13] MEDS: pantoprazole DR 40 mg Tablet PO (08:58)
--- NOTE | 2020-04-13 13:24 | PM.PN ---
Subjective Subjective: Interval history: 69 year old with male who was recently treated for suspected community aquired pneumonia with doxycycline presented to the hospital for increased dyspnea. Initial Laboratory workup showed a WBC of 14.2, hemoglobin of 12.3, hematocrit of 38.7 and platelet count of 130. sodium 136, potassium 3.8, chloride 105, bicarb 23, BUN 12 and creatinine is 0.9. LDH of 492, AST of 23, ALT 27, total bilirubin 1.5. d-dimer of 1.83. Imaging studies on 04/09/2020 included a chest x-ray which showed prominent bilateral interstitial pulmonary infiltrates consistent with acute interstitial pneumonia. Subsequently a CTA chest PE protocol was performed which did not show any evidence of PE however did show interstitial fibrosis with honeycombing UIP pattern. Possibly related to IPF vs hypersensitivity pneumonitis. Also noted to have focal consolidation in the posterior left lower lobe iwth adjacent pleural thickening and prominent mediastinal and hilar lymph node enlargement. Patient was started on antibiotics for suspected community acquired pneumonia with azithromycin and azithromycin. Blood culture x 2, sputum culture did not show any growth. on 04/10 his COVID-19 PCR was found to be positive. During this time his respiratory status continued to worsening. Inital required 4L of o2 via NC however this was up to 15L via NRB. On 04/11 he was started on remdesivir 5 day tx protocol in addition to decadron 6 mg daily. Due to progressive decline he was transitioned to VICU. His ABG had shown a PH of 7.46, PCO2 of 28.4, Po2 of 71.4 and HCO3 of 20.1 where he was started on CPAP which was transitioned to HFNC at 80% FIO2. D-dimer was checked and noted to be markedly elevated from 1.83 -> 3.99. His lovenox dose was increased to full dose despite negative PE on CTA of chest. Antibiotics were changed to vancomycin and levaquin 750 mg IV daily. Pro-calcitonin however was 0.20. Subjective 04/13 - Patient was transitioned to heated HFNC. Oxygen saturation was 93% on 50L flow and Fio2 of 80%. Patient did not have any new complaints overnight. Noted stable respiratory status. No Fever, chills, nausea or vomiting. Denied any pleuritic chest pain. D/w patient regarding code status and again confirmed FULL CODE. Vitals/I&O/Wt Last Vital Signs Temp 98.2 F 04/13/20 17:02 Pulse 108 H 04/13/20 17:02 Resp 26 H 04/13/20 17:02 BP 149/88 04/13/20 17:02 Pulse Ox 88 L 04/13/20 17:02 04/13/20 04/13/20 04/13/20 06:59 14:59 22:59 Intake Total 550 / 2120 480 / 480 790 / 1270 Output Total 750 / 1600 600 / 600 200 / 800 Balance -200 / 520 -120 / -120 590 / 470 Physical Exam Narrative: EXAM NARRATIVE: General: Alert/Awake and oriented x 3 on HFNC HEENT : Grossly unremarkable Chest : Appeared non-labored CVS: Sinus tachycardia ABD : Non-distended Ext : No edema Data : 04/13/20 06:00 04/13/20 06:00 Micro: Microbiology 04/11/20 10:16 Gram Stain - Final Sputum - Expectorated Sputum Sputum Culture - Final A&P Assessment and plan (1) Acute respiratory failure with hypoxia: Status: Acute (2) Sepsis: Status: Acute (3) ILD (interstitial lung disease): Status: Acute Acute hypoxic respiratory failure due to COVID-19 pneumonia with suspected undiagnosed underlying chronic interstitial lung disease/ Pulmonary fibrosis - Decadron 6 mg IV BID - Xopenex q6hr scheduled ( due to tachycardia ) - Will stop vancomycin and monitor off - unlikely underlying bacterial infection - Procalcitonin 0.21, Sputum and blood culture - NGTD - Continue levaquin 750 mg IV daily - Total 7 days of abx - D-dimer - > increased to 3.99 - due to high suspicion and risk of VTE he was transitioned to full dose lovenox while inpatient. - Wean Flow and Fio2 on Heated HFNC - Repeat chest x-ray in am - Repeat ABG in am - Check proBMP, ECHO and Ferritin in am - Consider pulmonary consult - High risk for intubation if continue to decompensation requiring high Fio2 Acclerated hypertension - Sinus tachy - Will start metoprolol 25 mg PO BID GI ppx - Pepcid 20 mg BID DVT ppx - Lovenox 90 mg SQ BID Attestations Medical Necessity Statement*: Continue hospitalization for management of acute hypoxic respiratory failure Time Spent in Patient Care: Greater than 35 minutes (>than 50% of time spent in counselling and/or direct pt care on unit). 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
[2020-04-13 16:19] LABS: Vancomycin Trough 26.3 ug/mL (10-15)
[2020-04-13] MEDS: remdesivir 100 MG in sodium chloride 0.9% (100 ml) 100 ML IV (17:36)
[2020-04-13 20:57] LABS: Glucose Point of Care 154 mg/dL (70-110)
[2020-04-13] MEDS: metoprolol tartrate 25 mg Tablet PO (21:13)
--- NOTE | 2020-04-13 21:17 | PC.NURSE ---
assessment AO x4, answers questions, follows commands, O2 drops with any movement but regains with deep breaths, denies SOB, supine 45 degrees call light within reach
[2020-04-14] VITALS (27 sets, daily range): BP systolic 70–138; BP diastolic 49–72; PULSE 77–96; RESP 14–41; O2SAT 82–94
[2020-04-14] MEDS: enoxaparin 100 mg/mL Syringe 90 MG SUBCUT ×2 (01:47→14:16)
[2020-04-14] MEDS: LORazepam 2 mg/mL INJ 1 mL 1 MG IVP (01:47)
[2020-04-14 04:34] LABS: Arterial Blood Gas Hematocrit 42.1 % (42-52); Base Excess ABG -0.7 mmol/L (-2.0-2.0); Blood Gas Allen Test Pos; Blood Gas Sample Site Radial, right; Blood Gas Sample Type Arterial; HCO3 ABG 21.1 mmol/L (22-26)
--- NOTE | 2020-04-14 07:00 | XR_ITS ---
WS: [id number] Exam: XR chest 1V portable [id number] Date/Time of Exam: 04/14/2020 7:05 AM Reason For Exam: respiratory failure Comparison 04/09/2020. Widespread bilateral interstitial infiltrates noted. Infiltrates on the right shows slight improvemen t. There is slightly more diffuse infiltrate in the left lung since previous study. Normal cardiomedi astinal structures. No pleural effusion. Bony elements are intact. XR/XR chest 1V portable [id number] IMPRESSION: 1. Bilateral interstitial pneumonia. Some improvement noted in the right basal region however infiltrates in the left lung are slightly more extensive.
[2020-04-14 07:23] LABS: Basophils # 0.1 10^3/uL (0.0-0.1); Basophils % 0.5 %; Eosinophils % 0.1 %; Hematocrit 42.2 % (42.0-52.0); Hemoglobin 13.5 g/dL (11.7-16.6); Lymphocytes % 4.4 %; Mean Corpuscular Hemoglobin 28.5 pg (28.0-34.0); Mean Platelet Volume 12.9 fL (7.4-10.4); Monocytes # 3.8 10^3/uL (0.2-0.9); Monocytes % 16.1 %; Neutrophils % 74.1 %; Nucleated Red Blood Cells % 0.2 %; Platelet Count 147 10^3/cmm (130-400); Red Blood Count 4.74 10^6/uL (4.1-5.3); Red Cell Distribution Width 17.1 % (12.1-15.1); White Blood Count 23.9 10^3/uL (4.0-10.0)
[2020-04-14 07:45] LABS: Glucose Point of Care 112 mg/dL (70-110)
[2020-04-14 07:59] LABS: Alanine Aminotransferase 20 U/L (0-41); Albumin Level 3.4 g/dL (3.5-5.2); Alkaline Phosphatase 72 IU/L (40-130); Blood Urea Nitrogen 26 mg/dL (8-23); Calcium 8.7 mg/dL (8.5-10.5); Carbon Dioxide 20 mmol/L (22-29); Chloride 101 mmol/L (98-107); Ferritin 603 ng/mL (30-400); Globulin 2.8 g/dL (1.3-4.6); Glucose 119 mg/dL (65-115); NT Pro B Type Natriuretic Pept 280 pg/mL (0-125); Osmolality Calculated 288 mOsm/kg (285-295); Sodium 136 mmol/L (136-145); Total Bilirubin 0.6 mg/dL (0.15-1.2); Total Protein 6.2 g/dL (6.6-8.7)
[2020-04-14 08:08] LABS: Aspartate Amino Transferase 21 U/L (0-40)
[2020-04-14] MEDS: levofloxacin-dextrose 5 % 750 MG/150 ML PREMIX 100 MG IV (08:48)
[2020-04-14] MEDS: pantoprazole DR 40 mg Tablet PO (08:49)
[2020-04-14] MEDS: metoprolol tartrate 25 mg Tablet PO (08:49)
[2020-04-14] MEDS: dexamethasone 4 mg/mL INJ 6 MG IVP ×2 (08:49→18:20)
[2020-04-14] MEDS: levalbuterol 0.63 mg/3 mL Neb INHALATION ×4 (09:20→20:49)
--- NOTE | 2020-04-14 10:27 | XR_ITS ---
WS: [id number] Exam: XR chest 1V portable [id number] Date/Time of Exam: 04/14/2020 10:27 AM Reason For Exam: post rsi Comparison made with the earlier study performed on the same day at 0720 hours. An endotracheal tube is been placed and appears to end about 6 cm above the erick in good position. The lungs are adequately ventilated. There are diffuse interstitial infiltrates throughout both lungs essentially unchanged. Normal cardiomediastinal structures. No pneumothorax or pleural effusion. XR/XR chest 1V portable [id number] IMPRESSION: 1. ET tube in place in satisfactory position. 2. Diffuse interstitial infiltrates noted bilaterally showing little change sin ce the prior study.
[2020-04-14] MEDS: propofol 1,000 MG/100 ML INJ 18.6 MG IV (11:17)
--- NOTE | 2020-04-14 11:30 | PM.ACPR ---
Procedure/Consent Procedure Narrative: 69 year old admitted to VICU with acute hypoxic respiratory failure due to covid-19 pneumonia with suspected underlying chronic interstitial lung disease who was noted profound hypoxia on HFNC with increased work of breathing as evident by accessory muscle use. Due to this patient was intubated and placed on mechanical ventilation. Acute Procedures Intubation: Time out performed: Yes Sedative: etomidate Mg given: 20 Paralytic: succinylcholine Mg given: 100 Laryngoscope: fiber optic video scope Assist device used: fiber optic device ET tube size: 8 ET tube uncuffed: No Tube secured depth (cm): 25 Tube secured location: teeth Tube placement confirmation: visualized tube passing through cords, equal breath sounds bilaterally, no breath sounds over epigastrium, confirmation by capnometry and color change noted Patient tolerated procedure: well Intubation complications: none
--- NOTE | 2020-04-14 11:34 | PM.PN ---
Subjective Subjective: Interval history: 69 year old with male who was recently treated for suspected community aquired pneumonia with doxycycline presented to the hospital for increased dyspnea. Initial Laboratory workup showed a WBC of 14.2, hemoglobin of 12.3, hematocrit of 38.7 and platelet count of 130. sodium 136, potassium 3.8, chloride 105, bicarb 23, BUN 12 and creatinine is 0.9. LDH of 492, AST of 23, ALT 27, total bilirubin 1.5. d-dimer of 1.83. Imaging studies on 04/09/2020 included a chest x-ray which showed prominent bilateral interstitial pulmonary infiltrates consistent with acute interstitial pneumonia. Subsequently a CTA chest PE protocol was performed which did not show any evidence of PE however did show interstitial fibrosis with honeycombing UIP pattern. Possibly related to IPF vs hypersensitivity pneumonitis. Also noted to have focal consolidation in the posterior left lower lobe iwth adjacent pleural thickening and prominent mediastinal and hilar lymph node enlargement. Patient was started on antibiotics for suspected community acquired pneumonia with azithromycin and azithromycin. Blood culture x 2, sputum culture did not show any growth. on 04/10 his COVID-19 PCR was found to be positive. During this time his respiratory status continued to worsening. Inital required 4L of o2 via NC however this was up to 15L via NRB. On 04/11 he was started on remdesivir 5 day tx protocol in addition to decadron 6 mg daily. Due to progressive decline he was transitioned to VICU. His ABG had shown a PH of 7.46, PCO2 of 28.4, Po2 of 71.4 and HCO3 of 20.1 where he was started on CPAP which was transitioned to HFNC at 80% FIO2. D-dimer was checked and noted to be markedly elevated from 1.83 -> 3.99. His lovenox dose was increased to full dose despite negative PE on CTA of chest. Antibiotics were changed to vancomycin and levaquin 750 mg IV daily. Pro-calcitonin however was 0.20. Subjective 04/13 - Patient was transitioned to heated HFNC. Oxygen saturation was 93% on 50L flow and Fio2 of 80%. Patient did not have any new complaints overnight. Noted stable respiratory status. No Fever, chills, nausea or vomiting. Denied any pleuritic chest pain. D/w patient regarding code status and again confirmed FULL CODE. 04/14 Overnight patient was noted to have progressive decline in respiratory status. He was not tolerated HFNC in am. Was noted to have increase work of breathing utilized accessory muscles. Patient was then intubated and placed on mechanical ventilation. Sedation with propofol was initiated. This was being weaned with addition of versed and fentanyl. Post intubation x-ray confirmed ET tube placement 6 cm about erick. OG and frey were also placed. Vitals/I&O/Wt Last Vital Signs Temp 98.0 F 04/13/20 22:37 Pulse 96 04/14/20 09:30 Resp 41 H 04/14/20 10:37 BP 134/72 04/14/20 09:30 Pulse Ox 87 L 04/14/20 09:30 04/13/20 04/14/20 04/14/20 22:59 06:59 14:59 Intake Total 790 / 1270 Output Total 450 / 1050 550 / 1600 250 / 250 Balance 340 / 220 -550 / -330 -250 / -250 Physical Exam Narrative: EXAM NARRATIVE: General: Intubated on MV HEENT : Grossly unremarkable Chest : Vented sounds B/L CVS: Sinus tachycardia ABD : Non-distended Ext : No edema Data : 04/14/20 03:30 04/14/20 03:30 Micro: Microbiology 04/11/20 10:16 Gram Stain - Final Sputum - Expectorated Sputum Sputum Culture - Final A&P Assessment and plan (1) Acute respiratory failure with hypoxia: Status: Acute (2) Sepsis: Status: Acute (3) ILD (interstitial lung disease): Status: Acute Acute respiratory failure with hypoxia due to COVID-19 pneumonia with suspected undiagnosed underlying chronic interstitial lung disease/ Pulmonary fibrosis - Patient was intubated and placed on MV - 04/14 Chest x-ray -> ET tube 6 cm above erick, bilateral infiltrates - Vent settings : PC-CMV - RR of 16, PIP of 25, I-time 1.3, PEEP 12, Fio2 decreased to 75%, TV 540, lung compliance 30, airway resistance 3, MV 13.6. Patietnt RR 35 - Follow up post intubation ABG pending - Propofol started will wean and titrate up on versed and fentanyl - Goal RASS neg 3 - Low likely [place] of underlying bacterial infection however due to progressive decline can not entirely rule out superimposed bacterial pneumonia. - Resume Vancomycin pharmacy to dose - Add Cefepime 2g IV q12hr - Will trend pro-calcitonin - recheck in am - Follow up on final blood culture x 2 on admit - NGTD - Follow up on sputum culture - ProBNP - > 280 -likely non-cardiogenic pulmonary edema - Follow up on ECHO - may cautiously diereses - Decadron 6 mg IV BID - Xopenex q6hr scheduled ( due to tachycardia ) - Remdesivir per 5 day protocolol - Will consider pulmonary consult - Will continue therapeutic dose of anticoagulation for now - Monitor for bleeding - Repeat ABG/Chest x-ray in am Hypertension - Currently hypotensive - Likely due to sedation - Will hold metoprolol 25 BID GI ppx - Pepcid 20 mg BID - Change to IV DVT ppx - Lovenox 90 mg SQ BID Attestations Medical Necessity Statement*: Will continue hospital stay for management of respiratory failrue rq vent support Time Spent in Patient Care: Greater than 35 minutes (>than 50% of time spent in counselling and/or direct pt care on unit). Coding Level of Care Code Acute Aging Room Operator for Jenna Santizo Diagnoses Acute respiratory failure with hypoxia J96.01 Sepsis A41.9 ILD (interstitial lung disease) J84.9
[2020-04-14 11:54] LABS: Glucose Point of Care 117 mg/dL (70-110)
--- NOTE | 2020-04-14 12:45 | PC.NURSE ---
Intubation this AM patients sats were running low 80's on heated high flow. Alert and oriented x 4. RT was in room placing patient on bipap without increase in oxygen level. was notified and decided to intubate patient. Family was notified and patient agreed with decision. 20 mg etomidate was given at 1016 followed by a flush and 100 mg of succinylcholine. After intubation positive change in color was noted in patient followed by visible and equal chest rise and increase in oxygen levels. OG tube was inserted. Restraints applied and Webster inserted. Will continue to monitor patient.
--- NOTE | 2020-04-14 13:33 | XR_ITS ---
WS: [id number] PORTABLE CHEST HISTORY: placement of OG COMPARISON: 04/14/2020 Nasogastric tube with tip in the stomach. The proximal port is at the GE junction and should be advan jhon further by 10 cm. Endotracheal tube in good position. Slight elevation of the RIGHT hemidiaphragm is stable. Coarsened reticular nodular changes over both lungs similar to the prior study. Very minimal progression of interstitial thickening in the peripher y of the RIGHT inferior lung is not excluded. May be superimposed pneumonia. Otherwise stable. No ple ural effusion or pneumothorax. Cardiac size: Normal. Mediastinum/Aorta: Mild atherosclerosis aorta. No osseous abnormality seen. XR/XR chest 1V portable [id number] IMPRESSION: 1. Recommend advancing nasogastric tube 10 more centimeters for more optimal p ositioning. 2. Endotracheal tube in good position. 3. Changes of interstitial fibrosis. Developing pneumonia superimposed on the chronic lung disease at the RIGHT lung base suspected.
[2020-04-14 13:36] LABS: ABG PCO2 52.4 mmHg (35-45); ABG PH Result 7.22 (7.35-7.45); Alveolar-Arterial Oxygen Gradi 52.3 mmHg (5-10); Arterial Blood Gas Hematocrit 46.3 % (42-52); Base Excess ABG -6.6 mmol/L (-2.0-2.0); Blood Gas Allen Test Pos; Blood Gas Operator Identificat CAK; Blood Gas Sample Site Radial, left; Blood Gas Sample Type Arterial; Carboxyhemoglobin 1.4 %THgb (0.4-20.1); HCO3 ABG 21.6 mmol/L (22-26); Ionized Calcium Level - ABG 1.3 mmol/L (1.1-1.4); Methemoglobin 0.9 % (0.4-1.5); Oxygen Device VENT; Oxygen Saturation ABG 93.1; PO2 ABG 75.6 mmHg (80.0-100.0); Potassium Level - ABG 4.3 mmol/L (3.5-5.0); Total Hemoglobin 15.1 g/dL (14-18)
[2020-04-14] MEDS: propofol 1,000 MG/100 ML INJ 13.3 MG IV (14:15)
[2020-04-14] MEDS: vancomycin 1,250 MG/250 ML PIGGYBACK 200 MG IV (14:16)
[2020-04-14] MEDS: cefepime 2,000 MG in sodium chloride 0.9% (plus) 50 ML 100 MG IV (14:18)
--- NOTE | 2020-04-14 15:53 | XRR_ITS ---
PROCEDURE INFORMATION: Exam: XR Chest, 1 View Exam date and time: 04/14/2020 4:31 PM Age: 69 years old Clinical indication: Other vascular access device placement or adjustment; Central line, non-tunnelled; Patient HX: Pneumonia, low o2; Additional info: Central line placement TECHNIQUE: Imaging protocol: XR of the chest Views: 1 view. COMPARISON: CR XR chest 1V portable [id number] 04/14/2020 1:40 PM FINDINGS: Tubes, catheters and devices: Central venous catheter via the right jugular approach with the tip projecting over the superior vena cava. The endotracheal tube is above the level of the erick. Nasogastric tube extends slightly below the diaphragm with the tip projecting over the cardia of the stomach. Consider further advancement with repeat imaging to document position. Lungs: Patchy diffuse interstitial and alveolar airspace disease. Edema and/or pneumonia. Fibrosis. Pleural space: Unremarkable. No pleural effusion. No pneumothorax. Heart/Mediastinum: Unremarkable. No cardiomegaly. Bones/joints: Unremarkable. XR/XR chest 1V portable [id number] IMPRESSION: 1. Patchy diffuse interstitial and alveolar airspace disease. Edema and/or pneumonia. Fibrosis. Covid within the differential diagnosis. 2. Nasogastric tube extends slightly below the diaphragm with the tip projecting over the cardia of the stomach. Consider further advancement with repeat imaging to document position.
--- NOTE | 2020-04-14 16:59 | PC.RESP ---
Pulmonary Rehab information sent to patient.
[2020-04-14 17:17] LABS: Glucose Point of Care 151 mg/dL (70-110)
[2020-04-14] MEDS: sodium chloride 0.9% 500 ML IV (17:38)
[2020-04-14] MEDS: remdesivir 100 MG in sodium chloride 0.9% (100 ml) 100 ML IV (18:20)
[2020-04-14 18:39] LABS: Arterial Blood Gas Hematocrit 44.7 % (42-52); Base Excess ABG -9.5 mmol/L (-2.0-2.0); Blood Gas Allen Test Pos; Blood Gas Sample Type Arterial; HCO3 ABG 20.7 mmol/L (22-26); PO2 ABG 86.4 mmHg (80.0-100.0)
[2020-04-14 18:45] LABS: ABG PCO2 62.6 mmHg (35-45); ABG PH Result 7.13 (7.35-7.45); Blood Gas Operator Identificat CAK
[2020-04-14 18:46] LABS: Blood Gas Tidal Volume 420; Oxygen Device VENT
--- NOTE | 2020-04-14 19:58 | PC.NURSE ---
Fentanyl found to be running at 125mcg/hr at time of shift change. This RN titrated med up in JUN to reflect rate drip is currently running at.
[2020-04-14] MEDS: lidocaine 1% INJ 20 mL SUBCUT (20:05)
--- NOTE | 2020-04-14 20:05 | PC.NURSE ---
Lidocaine medication not given on nightshift. Order placed by dayshift RN, and was given during time of intubation, artline placement, and IJ placement.
[2020-04-14] MEDS: propofol 1,000 MG/100 ML INJ 30 MG IV (20:58)
[2020-04-14 21:25] LABS: Glucose Point of Care 202 mg/dL (70-110)
[2020-04-14 21:40] LABS: Alveolar-Arterial Oxygen Gradi 34.9 mmHg (5-10); Arterial Blood Gas Hematocrit 46.2 % (42-52); Base Excess ABG -8.3 mmol/L (-2.0-2.0); Blood Gas Allen Test Pos; Blood Gas Operator Identificat JB; Blood Gas Sample Site Radial, left; Blood Gas Sample Type Arterial; Carboxyhemoglobin 1.3 %THgb (0.4-20.1); HCO3 ABG 22.1 mmol/L (22-26); HGB O2 Sat 93.4 % (95-100); Ionized Calcium Level - ABG 1.2 mmol/L (1.1-1.4); Oxygen Device VENT; Oxygen Saturation ABG 95.6; PO2 ABG 86.4 mmHg (80.0-100.0); Potassium Level - ABG 5.3 mmol/L (3.5-5.0); Total Hemoglobin 15.1 g/dL (14-18)
[2020-04-14 21:41] LABS: ABG PCO2 66.1 mmHg (35-45); ABG PH Result 7.13 (7.35-7.45)
--- NOTE | 2020-04-14 21:47 | PM.ACPR ---
Procedure/Consent Procedure Narrative: Time performed at 1430 Procedure: Central venous access placement Indication: Shock , Vasopressors infusion Main Entree Cook And Cashier(s): Gerald Borreror Consent: Emergent Yes Time out called. [place] precautions applied. Site: right Internal Jugular Vein Catheter: 7 Fr, 20 cm, Triple Lumen Sutured at: 16 cm Anesthesia: 8 cc 1% lidocaine without epinephrine Description: Area prepped with chlorhexidine and draped in a universal sterile manner. The vessel anatomy and patency was examined by ultrasound probe which was covered with sterile probe cover. The needle was inserted into the vessel under ultrasound guidance, after venous blood aspirated the guidewire was inserted through the needle and kept in situ while the needle was removed. Placement of guidewire in the vein and in relation to the adjacent artery was verified by ultrasound. Catheter was then advanced over the guidewire after dilation and guidewire successfully removed.The catheter was sutured to the skin and sterile dressing with chlorhexidine patch placed. Number of attempts: 1 Dilator applied: yes, number of Dilations: 1 Placement Verified by: Blood draw from all ports and Ultrasound exam and Chest Xray EBL: 10 cc Complications: None Ultrasound guidance used: Yes. Images saved: Yes
--- NOTE | 2020-04-14 21:48 | PM.ACPR ---
Procedure/Consent Procedure Narrative: Time performed: 1539 Procedure: Arterial line placement Indication: Need for invasive BP monitoring and frequent abg Consent: Emergent Site: Right radial arterial line Anesthesia: 5 cc 1% lidocaine without epinephrine Description: Area prepped with chlorhexidine and draped in a sterile manner. Catheter inserted using Seldinger technique. Arterial waveform obtained. Ultrasound guidance used: yes. EBL: 5 cc Complications:None Gerald Quezada MD Pulmonary, Critical Care Medicine
--- NOTE | 2020-04-14 22:42 | PM.CONSULT ---
Providers/Reason For Consult Consulting Physican/Specialty*: ZARA QUEZADA MD/ Pulmonary Critical Care Reason for Consult*: Vent management in patient with acute hypoxic respiratory failure due to ARDS secondary to COVID-19 pneumonia Attending Physician: Kimberly Renteria History of Present Illness History of Present Illness 69 year old with male, recently treated for suspected community aquired pneumonia with doxycycline presented to the hospital for worsening shortness of breath. Imaging studies on 04/09/2020 included a chest x-ray which showed prominent bilateral interstitial pulmonary infiltrates consistent with acute interstitial pneumonia. Subsequently a CTA chest PE protocol was performed which did not show any evidence of PE however did show interstitial fibrosis with honeycombing UIP pattern. Possibly related to IPF vs hypersensitivity pneumonitis. Also noted to have focal consolidation in the posterior left lower lobe iwth adjacent pleural thickening and prominent mediastinal and hilar lymph node enlargement. Patient was started on antibiotics for suspected community acquired pneumonia. Blood culture x 2, sputum culture did not show any growth. on 04/10 his COVID-19 PCR was found to be positive. During this time his respiratory status continued to worsening. Inital required 4L of o2 via NC however this was up to 15L via NRB. On 04/11 he was started on remdesivir 5 day tx protocol in addition to decadron 6 mg daily. Due to progressive decline he was transitioned to VICU. His ABG had shown a PH of 7.46, PCO2 of 28.4, Po2 of 71.4 and HCO3 of 20.1 where he was started on CPAP which was transitioned to HFNC at 80% FIO2. D-dimer was checked and noted to be markedly elevated from 1.83 -> 3.99. His lovenox dose was increased to full dose despite negative PE on CTA of chest. Antibiotics were changed to vancomycin and levaquin 750 mg IV daily. Pro-calcitonin however was 0.20. Oxygen requirements kept increasing and eventually was intubated today morning. Pulmonary critical care consult requested for vent management. Patient IV line came off and temporarily he was off sedation and started to breathe. And attempted to increase propofol patient blood pressure started dropping and maps were 55. Immediately right internal jugular and arterial line placed and started on Levophed. Saturating 94% on 70% FiO2 but ABG still acidotic with combined respiratory acidosis and metabolic acidosis likely due to lactic acidosis. Review of Systems General: Reports: ROS unobtainable due to endotracheal tube, ROS unobtainable due to medical condition and ROS unobtainable due to mental status Meds/Allergies Home Medications and Allergies Home Medications Medication Instructions Recorded Confirmed Last Taken Type Deb Burdick See Rx Instructions .ROUTE .COMPLEX 04/09/20 04/09/20 04/09/20 History doxycycline hyclate 100 mg PO BID@1000,2200 04/09/20 04/09/20 04/09/20 History Allergies Allergy/AdvReac Type Severity Reaction Status Date / Time Penicillins Allergy Mild Unknown Verified 04/09/20 21:58 Current Medications Current Medications Generic Name Dose Route Start Last Admin Trade Name Freq PRN Reason Stop Dose Admin Dexamethasone 6 mg 04/12/20 18:00 04/14/20 18:20 Dexamethasone 4 Mg/Ml Inj IVP 6 mg BID BETTE Administration Enoxaparin Sodium 90 mg 04/12/20 14:30 04/14/20 14:16 Enoxaparin 100 Mg/Ml Syringe 1 mg/kg (90 mg) 90 mg SUBCUT Administration Q12H BETTE Levofloxacin/Dextrose 750 mg in 150 mls @ 100 mls/hr 04/11/20 08:00 04/14/20 11:57 Levaquin-D5w IV Infused Q24H BETTE Infusion Protocol Remdesivir 100 mg/ Sodium 100 mls @ 100 mls/hr 04/12/20 18:00 04/14/20 19:38 Chloride IV 04/15/20 18:59 Infused Q24H BETTE Infusion Propofol 1,000 mg in 100 mls @ 0 mls/hr 04/14/20 10:00 04/14/20 21:57 Diprivan IV 20 mcg/kg/min .Q0M BETTE 10.6 mls/hr Titration Protocol Per Protocol Midazolam HCl 100 mg/ Sodium 100 mls @ 0 mls/hr 04/14/20 11:00 04/14/20 21:59 Chloride IV 5 mg/hr .Q0M BETTE 5 mls/hr Titration Protocol Per Protocol Fentanyl 1,000 mcg/ Sodium 100 mls @ 0 mls/hr 04/14/20 11:00 04/14/20 19:29 Chloride IV 125 mcg/hr .Q0M BETTE 12.5 mls/hr Titration Protocol Per Protocol Vancomycin/PEG/NADA/Lysine/Water 1,250 mg in 250 mls @ 200 mls/hr 04/14/20 12:30 04/14/20 18:50 Vancocin IV Infused Q12H BETTE Infusion Sodium Chloride 500 mls @ 3 mls/hr 04/14/20 15:30 04/14/20 17:38 Sodium Chloride 0.9% IV 3 mls/hr .Q24H BETTE Administration Norepinephrine Bitartrate 4 mg 254 mls @ 0 mls/hr 04/14/20 16:15 04/14/20 19:00 / Dextrose IV 12 mcg/min .Q0M BETTE 45.7 mls/hr Titration Protocol Per Protocol Sodium Bicarbonate 100 meq/ 1,100 mls @ 100 mls/hr 04/14/20 18:48 04/14/20 19:38 Dextrose IV 04/15/20 05:47 100 mls/hr .Q11H ONE Administration Insulin Aspart 0 unit 04/13/20 21:00 04/14/20 21:49 Insulin Aspart 100 Unit/1 Ml SUBCUT 4 unit WM&BEDTIME BETTE Administration Protocol Levalbuterol HCl 0.63 mg 04/12/20 12:00 04/14/20 20:49 Levalbuterol 0.63 Mg/3 Ml Neb INHALATION 0.63 mg Q4H.RESPIRATORY BETTE Administration Metoprolol Tartrate 25 mg 04/13/20 21:00 04/14/20 08:49 Metoprolol Tartrate 25 Mg Tablet PO 25 mg BID@0900,2100 BETTE Administration Pantoprazole Sodium 40 mg 04/11/20 23:18 04/14/20 08:[address] 40 Mg Tablet PO 40 mg DAILY BETTE Administration PFSH Acute PFSH: Medical History Hypertension Surgical History No pertinent past surgical history Family History Father CAD (coronary artery disease) Social History Smoking and tobacco status: former smoker Quit status (tobacco): has quit using tobacco Former quit date comment: 2014 Alcohol intake: never Substance/Drug Use: never Household members: spouse Housing: House Vitals/I&O/Wt Last Vital Signs Temp 98.0 F 04/13/20 22:37 Pulse 96 04/14/20 20:46 Resp 25 H 04/14/20 20:49 BP 97/62 04/14/20 18:07 Pulse Ox 93 04/14/20 20:46 04/14/20 04/14/20 04/14/20 06:59 14:59 22:59 Intake Total 207.413 / 207.413 641.579 / 848.992 Output Total 550 / 1600 250 / 250 Balance -550 / -330 -42.587 / -42.587 641.579 / 598.992 Physical Exam Narrative: EXAM NARRATIVE: PHYSICAL EXAM: General: lying in bed, sedated and intubated. 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 SKIN: no rash LDA: # CVC: Right internal jugular 04/14/2020 # A line: Right radial art line 04/14/2020 Urinary Catheter Management^: Frey: Cath Placed During This Visit: yes Reason for Continuing Indwelling Catheter: Accurate Measurement of Urinary Output in Critically Ill Patients Urinary Catheter Date of Insertion: 04/14/20 Urinary Catheter Time of Insertion: 11:30 Data Micro: Micro: Microbiology 04/09/20 21:15 Blood Culture - Fi nal Blood NO GROWTH AFTER 5 DAYS 04/09/20 21:00 Blood Culture - Fi nal Blood NO GROWTH AFTER 5 DAYS 04/14/20 11:40 Gram Stain - Final Sputum - Endotrac heal Tube Aspirate Other Data: Other data: CTA 04/10/2020: 1. No evidence for pulmonary embolus. 2. Interstitial fibrosis with honeycombing, a typical UIP pattern. This can represent idiopathic pulmonary fibrosis, chronic drug reaction, or end-stage hypersensitivity pneumonitis. 3. Focal area of consolidation in the posterior left lower lobe with adjacent pleural thickening. This could represent infection or a neoplastic process. CT follow-up in 3 months versus tissue sampling is recommended. 4. Prominent mediastinal and hilar lymph nodes could be reactive. A neoplastic process such as lymphoma or metastatic disease is not entirely excluded. A&P Assessment and plan (1) Acute respiratory distress syndrome (ARDS) due to 2019 novel coronavirus: Status: Acute (2) ILD (interstitial lung disease): Status: Acute (3) Acute respiratory failure with hypoxia: Status: Acute (4) Sepsis with acute hypoxic respiratory failure: Status: Acute Qualifiers: Sepsis type: sepsis due to unspecified organism Severe sepsis shock status: with septic shock Qualified Code(s): A41.9 - Sepsis, unspecified organism; R65.21 - Severe sepsis with septic shock; J96.01 - Acute respiratory failure with hypoxia Overall: 69 year old with male with no significant past medical history but with possible interstitial lung disease based on the CT chest admitted initially for suspected community acquired pneumonia found to be COVID-19 PCR positive, progressively worsening respiratory failure admitted to viral ICU for management of acute hypoxemic respiratory failure secondary to acute respiratory distress syndrome due to COVID-19 pneumonia requiring intubation and mechanical ventilation. NEURO: # Sedation -Recommended to increase sedation with drips drips fentanyl 150 MCG/hr, Versed 2 mg/hr, and taper down propofol -If patient is overbreathing the vent then start paralytic Nimbex/rocuronium PULM: #Acute hypoxic and hypercapneic respiratory failure secondary to ARDS due to COVID pna #Respiratory status worsened by contribution from exacerbation of underlying interstitial lung disease ?? UIP pattern -Intubated on 04/14/2020 -Post intubation ABG: On PC PIP 29, PEEP 12, FIO2 60% MV 10 - 7.13/66/86/22/93% -Recommended -DuoNeb nebulization every 4 hours and Pulmicort 0.5 twice daily -If hypoxia is persistent on maximum settings recommended starting on paralytic and prone -CXR Changes of interstitial fibrosis. Developing pneumonia superimposed on the chronic lung disease at the RIGHT lung base suspected. -please send other inflammatory markers ESR, LDH, CRP, ferritin and repeat every 2 days to trend markers of inflammation -Currently on remdesivir and dexamethasone daily -On Vancomycin and Levaquin CVS: -shock secondary to sedation vs sepsis -Recommended to taper down propofol -Monitor heart rate and blood pressure - Currently on Levophed - please maintain MAP > 65 -Please send for echo; BNP 280 GI: - N.p.o. - PPI daily for GI prophylaxis RENAL: -Renal functions normal -Electrolytes within normal limits -Send for magnesium, phosphorus, lactic acid and CK -ABG suggestive of coexisitng metabolic acidosis likely due to hypoperfusion leading to lactic acidosis; please send lactate; ph 7.13 - ordered bicarb 100 meq -Monitor input output -Continue frey cath -Avoid nephrotoxins -Monitor BUN/creatinine and electrolytes and supplement accordingly to keep k>4, Mg >2 HEM: H&H stable Plts stable,will trend Coags stable ENDO: -No active issues -monitor sugars and insulin scale coverage ID: #Severe sepsis secondary to COVID pna -WBC 23 K - could be due to steroids - Afebrile -Covered with vancomycin and levaquin -Send for procalcitonin and lactic acid -sputum cx negative; If patient spikes fever or WBC worsens please send for pancultures -BC,UA,Sputum culture Prognosis: Critical Disposition: Remains in ICU Code: Full code Plan of care and recommendations conveyed to Dr. Renteria hospitalist on the case, RN and RT ICU CHECKLIST: Problem list updated Verbal orders reviewed and signed Analgesia: Fentanyl Glycemic Control: scale coverage Nutrition: N.p.o. Restraint Renewal (within 24 hrs): Yes Ulcer Prophylaxis:PPI yes Chemical Thromboprophylaxis: Prophylaxis: Lovenox Mechanical Thromboprophylaxis: Yes Need for Central line: Yes requiring any infusions sedation and pressors Need for Frey catheter: Yes for urine output monitoring Critical Care Time (No Overlap): 45 min This patient has a high probability of sudden, clinically significant deterioration, which requires the highest level of physician preparedness to intervene urgently. I managed/supervised life or organ supporting interventions that required frequent physician assessment. I devoted my full attention in the ICU to the direct care of this patient for the period of time indicated above. Time I spent with family or surrogate(s) is included only if the patient was incapable of providing necessary information or participating in decision making. Time devoted to teaching and to any procedures I billed separately is not included. Services Provided: Telemetry review Mechanical Ventilation Hemodynamic interpretation, assessment and management Review and interpretation of CXR Review and interpretation of lab values Review and interpretation of microbiologic data and culture results Review of medications and administration Review and interpretation of Nutrition requirements and management Discussion of management with other consultants and services Clinical update to family members Consult Attestations Medical Necessity Statement: acute hypoxemic respiratory failure requiring intubation and mechanical ventilation secondary to acute respiratory distress syndrome due to COVID-19 pneumonia in patient with history of asthma. Coding Level of Care Code New Pt Acute Machined Parts Quality Inspector for Chg Fwd Patient Type New History Comprehensive Exam Comprehensive Medical Decision Making High Complexity Diagnoses Acute respiratory distress syndrome (ARDS) due to 2019 novel coronavirus U07.1; J80 ILD (interstitial lung disease) J84.9 Acute respiratory failure with hypoxia J96.01 Sepsis with acute hypoxic respiratory failure A41.9; R65.21; J96.01 Sepsis type: sepsis due to unspecified organism Severe sepsis shock status: with septic shock Time Spent (min) 45
[2020-04-15] VITALS (55 sets, daily range): BP systolic 94–131; BP diastolic 55–82; PULSE 80–94; RESP 22–34; TEMP 36.7–37.1; O2SAT 89–96
[2020-04-15] MEDS: levalbuterol 0.63 mg/3 mL Neb INHALATION ×6 (00:13→20:10)
[2020-04-15] MEDS: phenylephrine inj 25 MG in sodium chloride 0.9% 250 ML 24.2 MG IV (00:31)
[2020-04-15] MEDS: vancomycin 1,250 MG/250 ML PIGGYBACK 200 MG IV (03:02)
[2020-04-15] MEDS: enoxaparin 100 mg/mL Syringe 90 MG SUBCUT ×2 (03:02→13:45)
[2020-04-15 03:53] LABS: Hemoglobin 14.4 g/dL (11.7-16.6); Mean Corpuscular HGB Conc 31.3 g/dL (30.0-36.0); Mean Corpuscular Hemoglobin 28.3 pg (28.0-34.0); Mean Corpuscular Volume 90.4 fL (80-94); Platelet Count 200 10^3/cmm (130-400); Red Blood Count 5.09 10^6/uL (4.1-5.3); Red Cell Distribution Width 17.3 % (12.1-15.1)
[2020-04-15 04:13] LABS: D Dimer 1.87 ug/mIFEU (0-0.59)
[2020-04-15 04:27] LABS: Alanine Aminotransferase 22 U/L (0-41); Albumin Level 3.2 g/dL (3.5-5.2); Alkaline Phosphatase 69 IU/L (40-130); Anion Gap 15.7 (5-19); Aspartate Amino Transferase 16 U/L (0-40); Blood Urea Nitrogen 48 mg/dL (8-23); C Reactive Protein 88.9 mg/L (0.0-4.9); Calcium 8.5 mg/dL (8.5-10.5); Carbon Dioxide 22 mmol/L (22-29); Chloride 100 mmol/L (98-107); Globulin 3.1 g/dL (1.3-4.6); Glucose 189 mg/dL (65-115); Osmolality Calculated 294 mOsm/kg (285-295); Potassium 4.7 mmol/L (3.5-5.1); Sodium 133 mmol/L (136-145); Total Bilirubin 0.6 mg/dL (0.15-1.2); Total Protein 6.3 g/dL (6.6-8.7)
[2020-04-15 04:28] LABS: White Blood Count 62.7 10^3/uL (4.0-10.0)
[2020-04-15 04:30] LABS: Absolute Neutrophil 54.5 10^3/cmm (1.4-6.5); Absolute Segmented Neutrophil 54.5 10/cmm (1.6-7.1); Eosinophils 0 %; Lymphocytes 7 %; Monocytes Absolute 2.5 10^3/cmm (0.1-0.6); Platelet Estimate Normal (Normal); Segmented Neutrophils 87 %; Total Cells Counted 100 (0-100)
[2020-04-15 04:31] LABS: Anisocytosis Trace; Hypochromasia Trace
[2020-04-15 04:32] LABS: Procalcitonin 0.67 ng/mL (0-0.5)
[2020-04-15 04:43] LABS: Ferritin 627 ng/mL (30-400); Lactate Dehydrogenase 894 U/L (135-225)
[2020-04-15] MEDS: propofol 1,000 MG/100 ML INJ 10.6 MG IV ×2 (06:18→17:53)
[2020-04-15 06:44] LABS: ABG PCO2 49.3 mmHg (35-45); Alveolar-Arterial Oxygen Gradi 36.7 mmHg (5-10); Arterial Blood Gas Hematocrit 45.9 % (42-52); Blood Gas Sample Site Radial, right; Blood Gas Sample Type Arterial; Carboxyhemoglobin 1.3 %THgb (0.4-20.1); HGB O2 Sat 95.3 % (95-100); Ionized Calcium Level - ABG 1.1 mmol/L (1.1-1.4); Methemoglobin 0.8 % (0.4-1.5); Oxygen Device VENT; Oxygen Saturation ABG 97.4; PO2 ABG 90.9 mmHg (80.0-100.0); Potassium Level - ABG 4.4 mmol/L (3.5-5.0)
--- NOTE | 2020-04-15 07:00 | USCV_ITS ---
Mirza Sanchez Age: 69 Gender: M : 1950 Exam Date: 04/15/2020 08:39 Ordering Phys: Kimberly Renteria MD Technologist: Michelle Faith Exam Location: [facility] [place] Indication: EDEMA BP: 120 / 66 HR: Rhythm: Sinus Technical Quality: Very technically difficult study MEASUREMENTS (Male / Female) Normal Values DOPPLER TR Peak Velocity 298.8 cm/s TR Peak Gradient 35.7 mmHg TR Mean Velocity 208.1 cm/s TR Mean Gradient 20.9 mmHg TR Velocity Time Integral 67.8 cm Right Atrial Pressure 15.0 mmHg Pulmonary Artery Systolic Pressu 50.7 mmHg FINDINGS Left Ventricle Left ventricular cavity not well visualized. This study is inadequate for estimation of left ventricle systolic function. Right Ventricle Right ventricle not well visualized. Right ventricular systolic pressure 50.7 mmHg. Right Atrium Right atrium not well visualized. Left Atrium Left atrium not well visualized. Mitral Valve Mitral valve not well visualized. Aortic Valve Aortic valve not well visualized. Tricuspid Valve Tricuspid valve not well visualized. Pulmonic Valve Pulmonic valve not well visualized. Pericardium No pericardial effusion. Echo free space anterior to the right ventricle likely represents a fat pad. Aorta Aorta not well visualized. CONCLUSIONS 1. This is a technically very difficult study due to poor ultrasonic windows. 2. This study is inadequate for estimation of left ankle systolic function. 3. Probably normal right ventricle size and systolic function. 4. No prior similar studies to compare. Lilian Phillips MD (Electronically Signed) Final Date: 15 April 2020 16:58 S
[2020-04-15] MEDS: phenylephrine inj 25 MG in sodium chloride 0.9% 250 ML 42.4 MG IV (07:12)
[2020-04-15 07:33] LABS: Glucose Point of Care 131 mg/dL (70-110)
[2020-04-15] MEDS: levofloxacin-dextrose 5 % 750 MG/150 ML PREMIX 100 MG IV (07:40)
[2020-04-15] MEDS: dexamethasone 4 mg/mL INJ 6 MG IVP ×2 (08:04→17:47)
[2020-04-15] MEDS: aztreonam 1,000 MG in sodium chloride 0.9% (plus) 50 ML 100 MG IV ×2 (09:06→20:51)
[2020-04-15 11:17] LABS: Lactate (Lactic Acid level) 1.4 mmol/L (0.5-2.2)
[2020-04-15 11:21] LABS: Glucose Point of Care 127 mg/dL (70-110)
[2020-04-15] MEDS: phenylephrine inj 25 MG in sodium chloride 0.9% 250 ML 30.3 MG IV ×2 (15:13→23:41)
[2020-04-15 16:55] LABS: Glucose Point of Care 152 mg/dL (70-110)
[2020-04-15 17:36] LABS: ABG PCO2 42.7 mmHg (35-45); ABG PH Result 7.35 (7.35-7.45); Arterial Blood Gas Hematocrit 44.6 % (42-52); Base Excess ABG -2.3 mmol/L (-2.0-2.0); Blood Gas Operator Identificat CAK; Blood Gas Sample Site ALINE; Blood Gas Sample Type Arterial; HCO3 ABG 23.4 mmol/L (22-26); Oxygen Device VENT; PO2 ABG 69.3 mmHg (80.0-100.0)
[2020-04-15] MEDS: famotidine 20 mg/2 mL INJ IVP (17:47)
[2020-04-15] MEDS: remdesivir 100 MG in sodium chloride 0.9% (100 ml) 100 ML IV (17:47)
--- NOTE | 2020-04-15 18:19 | P.PN_ITS ---
Subjective Subjective: Interval history: 69 year old with male who was recently treated for suspected community aquired pneumonia with doxycycline presented to the hospital for increased dyspnea. Initial Laboratory workup showed a WBC of 14.2, hemoglobin of 12.3, hematocrit of 38.7 and platelet count of 130. sodium 136, potassium 3.8, chloride 105, bicarb 23, BUN 12 and creatinine is 0.9. LDH of 492, AST of 23, ALT 27, total bilirubin 1.5. d-dimer of 1.83. Imaging studies on 04/09/2020 included a chest x-ray which showed prominent bilateral interstitial pulmonary infiltrates consistent with acute interstitial pneumonia. Subsequently a CTA chest PE protocol was performed which did not show any evidence of PE however did show interstitial fibrosis with honeycombing UIP pattern. Possibly related to IPF vs hypersensitivity pneumonitis. Also noted to have focal consolidation in the posterior left lower lobe iwth adjacent pleural thickening and prominent mediastinal and hilar lymph node enlargement. Patient was started on antibiotics for suspected community acquired pneumonia wi th azithromycin and azithromycin. Blood culture x 2, sputum culture did not show any growth. on 04/10 his COVID-19 PCR was found to be positive. During this time his respiratory status continued to worsening. Inital required 4L of o2 via NC however this was up to 15L via NRB. On 04/11 he was started on remdesivir 5 day tx protocol in addition to decadron 6 mg daily. Due to progressive decline he was transitioned to VICU. His ABG had shown a PH of 7.46, PCO2 of 28.4, Po2 of 71.4 and HCO3 of 20.1 where he was started on CPAP which was transitioned to HFNC at 80% FIO2. D-dimer was checked and noted to be markedly elevated from 1.83 -> 3.99. His lovenox dose was increased to full dose despite negative PE on CTA of chest. Antibiotics were changed to vancomycin and levaquin 750 mg IV daily. Pro-calcitonin however was 0.20. Subjective 04/13 - Patient was transitioned to heated HFNC. Oxygen saturation was 93% on 50L flow and Fio2 of 80%. Patient did not have any new complaints overnight. Noted stable respiratory status. No Fever, chills, nausea or vomiting. Denied any pleuritic chest pain. D/w patient regarding code status and again confirmed FULL CODE. 04/14 Overnight patient was noted to have progressive decline in respiratory status. He was not tolerated HFNC in am. Was noted to have increase work of breathing utilized accessory muscles. Patient was then intubated and placed on mechanical ventilation. Sedation with propofol was initiated. This was being weaned with addition of versed and fentanyl. Post intubation x-ray confirmed ET tube placement 6 cm about erick. OG and frey were also placed. 04/15 Patient was started on IV vasopresors overnight. No reported fevers. Leukocytosis markedly increased as well as creatinine. Medications: Reviewed: Yes Vitals/I&O/Wt Last Vital Signs Temp 98.7 F 04/15/20 16:00 Pulse 93 04/15/20 16:00 Resp 29 H 04/15/20 17:45 BP 111/67 04/15/20 16:00 Pulse Ox 93 04/15/20 16:00 04/15/20 04/15/20 04/15/20 06:59 14:59 22:59 Intake Total 1139.611 / 8755.281 4333.662 / 1874.662 122.267 / 1996.929 Output Total 1150 / 1400 550 / 550 400 / 950 Balance -10.389 / 535.071 4500.662 / 1324.662 -277.733 / 1046.929 Physical Exam Narrative: EXAM NARRATIVE: General: Intubated on MV HEENT : Grossly unremarkable Chest : Vented sounds B/L CVS: Sinus tachycardia ABD : Non-distended Ext : No edema Urinary Catheter Management^: Frey: Cath Placed During This Visit: yes Reason for Continuing Indwelling Catheter: Accurate Measurement of Urinary Output in Critically Ill Patients Urinary Catheter Date of Insertion: 04/14/20 Urinary Catheter Time of Insertion: 11:30 Data : 04/15/20 03:10 04/15/20 03:10 Micro: Microbiology 04/14/20 11:40 Gram Stain - Final Sputum - Endotracheal Tube Aspirate Sputum Culture - Preliminary 04/15/20 07:50 Blood Culture - Preliminary Blood SPECIMEN COLLECTED 04/15/20 07:40 Blood Culture - Preliminary Blood SPECIMEN COLLECTED 04/09/20 21:15 Blood Culture - Final Blood NO GROWTH AFTER 5 DAYS 04/09/20 21:00 Blood Culture - Final Blood NO GROWTH AFTER 5 DAYS A&P Assessment and plan (1) Acute respiratory failure with hypoxia: Status: Acute (2) Sepsis: Status: Acute (3) ILD (interstitial lung disease): Status: Acute Acute respiratory failure with hypoxia due to COVID-19 pneumonia with suspected undiagnosed underlying chronic interstitial lung disease/ Pulmonary fibrosis - Patient was intubated and placed on MV - 04/14 Chest x-ray -> ET tube 6 cm above erick, bilateral infiltrates - Vent settings : Changes per pulmonary today - Continue sedation - Goal RASS neg 2 - ProBNP - > 280 - Follow up on ECHO - may cautiously diereses - Decadron 6 mg IV BID ( monitor BS - goal < 180 ) - Xopenex q6hr scheduled ( due to tachycardia ) - Remdesivir per 5 day protocolol - Pulmonary on consult - Repeat ABG/Chest x-ray in am Leukocytosis - WBC increased to 62.7 - Procalcitonin 0.67 - Emperically on abx - Cefepime 2 g daily - Vancomycin pharmacy to dose - Follow up on culture - Continue to trend wbc/pro-calcitonin Acute kidney injury - Creatinine 1.7 today - Likely pre-renal from hypotension - Renally dose medication - Repeat BMP in AM Hypertension - Currently hypotensive - Likely due to sedatives vs sepstic shock - On vasopressors. - Will hold metoprolol 25 BID GI ppx - Pepcid 20 IV BID DVT ppx - Lovenox 40 mg SQ Daily Attestations Medical Necessity Statement*: Will require additional days in hospital for management of acute hypoxic respiratory failure due to COVID 19 pneumonia and acute renal insufficiency Time Spent in Patient Care: Greater than 35 minutes (>than 50% of time spent in counselling and/or direct pt care on unit) . Critical Care Time: Critical Care Time (min): 40 Coding Level of Care Code Acute Functional Manager for [facility] [employer]ukh[employer] Diagnoses Acute respiratory failure with hypoxia J96.01 Sepsis A41.9 ILD (interstitial lung disease) J84.9
--- NOTE | 2020-04-15 18:57 | XR_ITS ---
WS: [id number] Exam: XR chest 1V portable [id number] Date/Time of Exam: 04/15/2020 6:57 PM Reason For Exam: verify placement Comparison 04/14/2020. Radiographic evaluation of the mid and lower chest and upper abdomen demonstra amna an enteric tube in place within the stomach in good position. The tube has been advanced since prior study. There are diffuse infiltrates in the visualized bilateral lungs. Normal heart size. XR/XR chest 1V portable [id number] IMPRESSION: 1. Enteric tube has been advanced and is now in satisfactory position in the [facility]. 2. Bilateral pulmonary infiltrates in the visualized lung zones unchanged
--- NOTE | 2020-04-15 19:39 | PC.NURSE ---
Fentanyl bag running at 75 at time of shift change. Most recent bag not scanned. This RN scanned new bag.
[2020-04-15 23:46] LABS: Glucose Point of Care 197 mg/dL (70-110)
[2020-04-16] VITALS (69 sets, daily range): BP systolic 96–132; BP diastolic 55–77; PULSE 78–98; RESP 20–37; TEMP 36.9–37.1; O2SAT 90–99
[2020-04-16] MEDS: propofol 1,000 MG/100 ML INJ 21.2 MG IV ×2 (00:51→19:18)
--- NOTE | 2020-04-16 02:15 | XR_ITS ---
WS: [id number] Exam: XR chest 1V portable [id number] Date/Time of Exam: 04/16/2020 2:58 AM Reason For Exam: chest/neck Compared to the most recent exam performed on 04/16/2020 2324 hours. Increasing pneumothorax of the right lung now estimated at 10-15%. No tension noted. ET tube is in go od position ending about 3 cm above the erick. There is also pneumomediastinum. Extensive interstiti al infiltrates noted throughout both lungs. Extensive subcutaneous emphysema over the chest. Right-si ded IJ catheter is noted. The exact position of this catheter is undetermined. Normal heart size. The mediastinum is not widened. An enteric tube enters the stomach but the tip is not visible. XR/XR chest 1V portable [id number] IMPRESSION: 1. Increasing right-sided pneumothorax estimated at 10-15%. No tension or midli ne shift noted. 2. Extensive bilateral interstitial infiltrates unchanged. 3. Pneumomediastinum as well as extensive subcutaneous emphysema over the chest and neck. 4. A right-sided IJ catheter is in place. Catheter position is indeterminate.
[2020-04-16] MEDS: levalbuterol 0.63 mg/3 mL Neb INHALATION ×6 (03:16→20:21)
--- NOTE | 2020-04-16 03:32 | ED_ITS ---
HPI - SOB/Dyspnea General: Chief Complaint: Shortness of Breath/Dyspnea Stated Complaint: pneumonia, low o2 Time Seen by Provider: 04/09/20 20:18 History of Present Illness: Severity: moderate Exacerbating factors: exertion Relieving factors: oxygen Treatment prior to arrival: other (doxycycline) Related Data: Home oxygen amount: none PFSH ED PFSH: Medical History Hypertension Surgical History No pertinent past surgical history Family History Father CAD (coronary artery disease) Social History Smoking and tobacco status: former smoker Quit status (tobacco): has quit using tobacco Former quit date comment: 2014 Alcohol intake: never Substance/Drug Use: never Household members: spouse Housing: House Procedures Chest Tube Chest Tube 1: Chest Tube Location: right and mid axillary line Size of Tube (cm): 28 Chest Tube Prep: Yes betadine prep Incision Made With: #11 blade Post Procedure: sutured to skin and sterile dressing applied Post Procedure CXR?: Yes Patient Tolerated Procedure: Yes Course Vital Signs: Vital signs: Vital Signs Temperature 98.7 F 04/15/20 16:00 Pulse Rate 98 04/16/20 03:29 Respiratory Rate 25 H 04/16/20 03:24 Blood Pressure 122/72 04/15/20 18:00 Pulse Oximetry 98 04/16/20 03:22 MDM - SOB/Dyspnea MDM Narrative: Medical decision making narrative: I was called over to the viral ICU as patient has a right-sided pneumothorax. I placed a chest tube had a good return of air chest x-ray showed reexpansion of the lung. Lab Data: Labs: Lab Results 04/09/20 04/09/20 04/09/20 Range/Units 20:36 20:36 20:36 WBC 18.4 H (4.0-10.0) 10^3/ uL RBC 5.09 (4.1-5.3) 10^6/u L Hgb 14.5 (11.7-16.6) g/dL Hct 45.0 (42.0-52.0) % MCV 88.4 (80-94) fL MCH 28.5 (28.0-34.0) pg MCHC 32.2 (30.0-36.0) g/dL RDW 17.2 H (12.1-15.1) % Plt Count 146 (130-400) 10^3/c mm MPV 11.6 H (7.4-10.4) fL Neut % (Auto) 63.7 % Lymph % (Auto) 8.5 % [place] % (Auto) 21.8 % Eos % (Auto) 1.1 % Baso % (Auto) 0.7 % Neut # (Auto) 11.73 H (1.8-7.7) 10^3/u L Lymph # (Auto) 1.6 (0.8-4.8) 10^3/u L [place] # (Auto) 4.0 H (0.2-0.9) 10^3/u L Eos # (Auto) 0.2 (0.0-0.8) 10^3/u L Baso # (Auto) 0.1 (0.0-0.1) 10^3/u L Nucleated RBC % (a uto) 0.3 % Nucleated RBCs # 0.1 /100WBC Specimen Type Sample Site ABG pH (7.35-7.45) ABG pCO2 (35-45) mmHg ABG pO2 (80.0-100.0) mmH g ABG HCO3 (22-26) mmol/L ABG Base Excess (-2.0-2.0) mmol/ L Adonis Test Hematocrit (42-52) % Hgb O2 Saturation (95-100) % Carboxyhemoglobin (0.4-20.1) %THgb Methemoglobin (0.4-1.5) % Total Hemoglobin (14-18) g/dL O2 Delivery Device O2 Liters/Min % FiO2 % Drill Doctor ID Sodium 132 L (136-145) mmol/L Potassium 4.1 (3.5-5.1) mmol/L Chloride 101 (98-107) mmol/L Carbon Dioxide 21 L (22-29) mmol/L Anion Gap 14.1 (5-19) BUN 14 (8-23) mg/dL Creatinine 0.8 (0.7-1.2) mg/dL GFR Calculation Not Reportable Glucose 106 (65-115) mg/dL Calculated Osmolal ity 275 L (285-295) mOsm/k g Lactic Acid (0.5-2.2) mmol/L Calcium 8.8 (8.5-10.5) mg/dL Total Bilirubin 1.5 H (0.15-1.2) mg/dL AST 23 (0-40) U/L ALT 27 (0-41) U/L Alkaline Phosphata se 49 (40-130) IU/L Troponin T Baselin e 6 (0-15) ng/L Troponin T 120 Min wiyot (0-15) ng/L Delta Troponin T (0-10) ABS# NT-Pro-B Natriuret Pep 94 (0-125) pg/mL Total Protein 6.4 L (6.6-8.7) g/dL Albumin 3.9 (3.5-5.2) g/dL Globulin 2.5 (1.3-4.6) g/dL Influenza Type A A g (Negative) Influenza Type B A g (Negative) SARS-CoV-2 Ag (Rap id) (Negative) 04/09/20 04/09/20 04/09/20 Range/Units 20:38 20:51 20:51 WBC (4.0-10.0) 10^3/ uL RBC (4.1-5.3) 10^6/u L Hgb (11.7-16.6) g/dL Hct (42.0-52.0) % MCV (80-94) fL MCH (28.0-34.0) pg MCHC (30.0-36.0) g/dL RDW (12.1-15.1) % Plt Count (130-400) 10^3/c mm MPV (7.4-10.4) fL Neut % (Auto) % Lymph % (Auto) % [place] % (Auto) % Eos % (Auto) % Baso % (Auto) % Neut # (Auto) (1.8-7.7) 10^3/u L Lymph # (Auto) (0.8-4.8) 10^3/u L [place] # (Auto) (0.2-0.9) 10^3/u L Eos # (Auto) (0.0-0.8) 10^3/u L Baso # (Auto) (0.0-0.1) 10^3/u L Nucleated RBC % (a uto) % Nucleated RBCs # /100WBC Specimen Type Arterial Sample Site Radial, left ABG pH 7.46 H (7.35-7.45) ABG pCO2 29.8 L (35-45) mmHg ABG pO2 81.6 (80.0-100.0) mmH g ABG HCO3 21.3 L (22-26) mmol/L ABG Base Excess -1.3 (-2.0-2.0) mmol/ L Adonis Test Pos Hematocrit 46.3 (42-52) % Hgb O2 Saturation 94.6 L (95-100) % Carboxyhemoglobin 1.8 (0.4-20.1) %THgb Methemoglobin 0.6 (0.4-1.5) % Total Hemoglobin 15.1 (14-18) g/dL O2 Delivery Device Nc O2 Liters/Min 5.0 % FiO2 40.0 % Drill Doctor ID [email or web address] Sodium (136-145) mmol/L Potassium (3.5-5.1) mmol/L Chloride (98-107) mmol/L Carbon Dioxide (22-29) mmol/L Anion Gap (5-19) BUN (8-23) mg/dL Creatinine (0.7-1.2) mg/dL GFR Calculation Glucose (65-115) mg/dL Calculated Osmolal ity (285-295) mOsm/k g Lactic Acid (0.5-2.2) mmol/L Calcium (8.5-10.5) mg/dL Total Bilirubin (0.15-1.2) mg/dL AST (0-40) U/L ALT (0-41) U/L Alkaline Phosphata se (40-130) IU/L Troponin T Baselin e (0-15) ng/L Troponin T 120 Min wiyot (0-15) ng/L Delta Troponin T (0-10) ABS# NT-Pro-B Natriuret Pep (0-125) pg/mL Total Protein (6.6-8.7) g/dL Albumin (3.5-5.2) g/dL Globulin (1.3-4.6) g/dL Influenza Type A A g Negative (Negative) Influenza Type B A g Negative (Negative) SARS-CoV-2 Ag (Rap id) Negative (Negative) 04/09/20 04/09/20 Range/Units 21:34 22:19 WBC (4.0-10.0) 10^3/ uL RBC (4.1-5.3) 10^6/u L Hgb (11.7-16.6) g/dL Hct (42.0-52.0) % MCV (80-94) fL MCH (28.0-34.0) pg MCHC (30.0-36.0) g/dL RDW (12.1-15.1) % Plt Count (130-400) 10^3/c mm MPV (7.4-10.4) fL Neut % (Auto) % Lymph % (Auto) % [place] % (Auto) % Eos % (Auto) % Baso % (Auto) % Neut # (Auto) (1.8-7.7) 10^3/u L Lymph # (Auto) (0.8-4.8) 10^3/u L [place] # (Auto) (0.2-0.9) 10^3/u L Eos # (Auto) (0.0-0.8) 10^3/u L Baso # (Auto) (0.0-0.1) 10^3/u L Nucleated RBC % (a uto) % Nucleated RBCs # /100WBC Specimen Type Sample Site ABG pH (7.35-7.45) ABG pCO2 (35-45) mmHg ABG pO2 (80.0-100.0) mmH g ABG HCO3 (22-26) mmol/L ABG Base Excess (-2.0-2.0) mmol/ L Adonis Test Hematocrit (42-52) % Hgb O2 Saturation (95-100) % Carboxyhemoglobin (0.4-20.1) %THgb Methemoglobin (0.4-1.5) % Total Hemoglobin (14-18) g/dL O2 Delivery Device O2 Liters/Min % FiO2 % Drill Doctor ID Sodium (136-145) mmol/L Potassium (3.5-5.1) mmol/L Chloride (98-107) mmol/L Carbon Dioxide (22-29) mmol/L Anion Gap (5-19) BUN (8-23) mg/dL Creatinine (0.7-1.2) mg/dL GFR Calculation Glucose (65-115) mg/dL Calculated Osmolal ity (285-295) mOsm/k g Lactic Acid 1.1 (0.5-2.2) mmol/L Calcium (8.5-10.5) mg/dL Total Bilirubin (0.15-1.2) mg/dL AST (0-40) U/L ALT (0-41) U/L Alkaline Phosphata se (40-130) IU/L Troponin T Baselin e (0-15) ng/L Troponin T 120 Min wiyot 6.00 (0-15) ng/L Delta Troponin T 0 (0-10) ABS# NT-Pro-B Natriuret Pep (0-125) pg/mL Total Protein (6.6-8.7) g/dL Albumin (3.5-5.2) g/dL Globulin (1.3-4.6) g/dL Influenza Type A A g (Negative) Influenza Type B A g (Negative) SARS-CoV-2 Ag (Rap id) (Negative) Discharge Plan Discharge Admit Provider: Zak Singh Condition: Stable Coding Level of Care Code ED Stock Feeder for Jenna Santizo
--- NOTE | 2020-04-16 03:36 | XRR_ITS ---
PROCEDURE INFORMATION: Exam: XR Chest, 1 View Exam date and time: 04/16/2020 3:36 AM Age: 69 years old Clinical indication: Device placement; Chest tube; Additional info: Chest tube placement TECHNIQUE: Imaging protocol: XR of the chest Views: 1 view. COMPARISON: CR XR chest 1V portable [id number] 04/16/2020 2:06 AM FINDINGS: Tubes, catheters and devices: An endotracheal tube is present with the tip about 4 cm above the erick. A nasogastric tube extends to the stomach. A central venous catheter tip projects on the SVC. There is a right chest tube in the right base. Lungs: There are extensive diffuse bilateral interstitial pulmonary infiltrates.. Pleural space: There is a tiny right pneumothorax which has near completely resolved. Heart/Mediastinum: Unremarkable. No cardiomegaly. Bones/joints: Unremarkable. Soft tissues: There is subcutaneous emphysema in the neck and mediastinum. XR/XR chest 1V portable [id number] IMPRESSION: 1. Satisfactory position of the endotracheal tube nasogastric tube central venous catheter and right chest tube. 2. Tiny near completely resolved right pneumothorax. 3. Extensive diffuse bilateral interstitial pulmonary infiltrates without significant change.
[2020-04-16 03:49] LABS: Arterial Blood Gas Hematocrit 45.7 % (42-52); Base Excess ABG -4.3 mmol/L (-2.0-2.0); Blood Gas Operator Identificat CAK; Blood Gas Sample Site ALINE; Blood Gas Sample Type Arterial; HCO3 ABG 27.1 mmol/L (22-26); Oxygen Device VENT; PO2 ABG 86.2 mmHg (80.0-100.0)
[2020-04-16 03:57] LABS: ABG PH Result 7.14 (7.35-7.45)
[2020-04-16 03:58] LABS: ABG PCO2 80.4 mmHg (35-45)
[2020-04-16] MEDS: norepinephrine 8 MG in dextrose 5 % 500 ML 45.7 MG IV (04:00)
[2020-04-16] MEDS: propofol 1,000 MG/100 ML INJ 26.5 MG IV ×3 (05:36→14:57)
[2020-04-16 05:43] LABS: Basophils # 0.4 10^3/uL (0.0-0.1); Eosinophils # 0.1 10^3/uL (0.0-0.8); Eosinophils % 0.4 %; Hematocrit 47.5 % (42.0-52.0); Hemoglobin 14.5 g/dL (11.7-16.6); Lymphocytes # 2.5 10^3/uL (0.8-4.8); Lymphocytes % 6.6 %; Mean Corpuscular HGB Conc 30.5 g/dL (30.0-36.0); Mean Corpuscular Hemoglobin 28.2 pg (28.0-34.0); Mean Corpuscular Volume 92.2 fL (80-94); Mean Platelet Volume 12.4 fL (7.4-10.4); Monocytes # 6.9 10^3/uL (0.2-0.9); Monocytes % 17.9 %; Neutrophils # 25.95 10^3/uL (1.8-7.7); Neutrophils % 67.1 %; Nucleated Red Blood Cells # 0.2 /100WBC; Nucleated Red Blood Cells % 0.5 %; Platelet Count 145 10^3/cmm (130-400); Red Blood Count 5.15 10^6/uL (4.1-5.3); Red Cell Distribution Width 17.5 % (12.1-15.1)
[2020-04-16 05:55] LABS: ABG PCO2 49.2 mmHg (35-45); ABG PH Result 7.29 (7.35-7.45); Arterial Blood Gas Hematocrit 43.1 % (42-52); Base Excess ABG -3.3 mmol/L (-2.0-2.0); Blood Gas Operator Identificat CAK; Blood Gas Sample Site ALINE; Blood Gas Sample Type Arterial; Carboxyhemoglobin 1.2 %THgb (0.4-20.1); HCO3 ABG 23.7 mmol/L (22-26); HGB O2 Sat 97.4 % (95-100); Ionized Calcium Level - ABG 1.2 mmol/L (1.1-1.4); Methemoglobin 1.1 % (0.4-1.5); Oxygen Device VENT; Oxygen Saturation ABG 99.6; Potassium Level - ABG 4.4 mmol/L (3.5-5.0); Total Hemoglobin 14.1 g/dL (14-18)
--- NOTE | 2020-04-16 05:55 | XRR_ITS ---
PROCEDURE INFORMATION: Exam: XR Chest, 1 View Exam date and time: 04/16/2020 6:01 AM Age: 69 years old Clinical indication: Device placement; Chest tube; Additional info: Tube placement TECHNIQUE: Imaging protocol: XR of the chest Views: 1 view. COMPARISON: CR XR chest 1V portable [id number] 04/16/2020 3:24 AM FINDINGS: Tubes, catheters and devices: An endotracheal tube, nasogastric tube and central venous catheter projects in satisfactory position. A chest tube is present in the right base. Lungs: There are extensive diffuse bilateral interstitial pulmonary infiltrates that have not significantly changed. Pleural space: There is a tiny right pneumothorax. Heart/Mediastinum: Unremarkable. No cardiomegaly. Bones/joints: Unremarkable. Soft tissues: There is subcutaneous emphysema around the chest and in the mediastinum. XR/XR chest 1V portable [id number] IMPRESSION: 1. Satisfactory positions of the endotracheal tube, nasogastric tube, central venous catheter and chest tube. 2. Extensive interstitial pulmonary infiltrates unchanged. 3. Tiny stable right pneumothorax.
[2020-04-16 06:09] LABS: Glucose Point of Care 136 mg/dL (70-110)
[2020-04-16 06:23] LABS: Anion Gap 15.2 (5-19); Blood Urea Nitrogen 36 mg/dL (8-23); Calcium 8.4 mg/dL (8.5-10.5); Carbon Dioxide 24 mmol/L (22-29); Chloride 103 mmol/L (98-107); Glucose 153 mg/dL (65-115); Osmolality Calculated 295 mOsm/kg (285-295); Potassium 5.2 mmol/L (3.5-5.1); Sodium 137 mmol/L (136-145)
[2020-04-16] MEDS: norepinephrine 8 MG in dextrose 5 % 500 ML 38.1 MG IV (06:42)
[2020-04-16] MEDS: famotidine 20 mg/2 mL INJ IVP ×2 (07:20→17:31)
--- NOTE | 2020-04-16 07:21 | PC.NURSE ---
Shift Summary: RN placed XR for verified placement of OG tube based on chart recommendations and before initiation of potential tube feedings based on information given in change of shift report. Patient continued to have ventilation issues and breathing over vent settings. RN adjusted IV rated based on needs, and RT adjusted vent settings as called for. 0145: RN found patient to have what appeared to be edema of some sort in the right chest/neck. RN stopped and changed IV lines to peripheral access' from right IJ access, and notified MD of findings. MD was on the floor and rounded on patient. RN placed orders for a STAT chest XR, and then notified Prn Occupational Therapist Adairr data reduction technician, with the recommendations of Vicente HAMMOND data reduction technician, and Jed ED MD. Findings of chest XR showed a need for chest tube to be placed on right side based on tension pneumo found. Claudia placed tube without incident on right side, and placement chest XR completed. Dry suction based on v/o. Edema continued to show advancement towards the left side. MD data reduction technician notified of findings. RN placed new orders for another chest XR, which imaging was completed. MD Damien gave orders for Moody drip to be discontinued with a new order for Vasopressin drip to be started. See MAR flowsheet for titration of drips throughout shift. Dr. Quezada called this early AM and was updated on patient's current status. No new orders were given at this time. Drips currently running @: Levo 8 Propofol 50 Vasopressin 0.06 Fentanyl 125 Versed
[2020-04-16] MEDS: levofloxacin-dextrose 5 % 750 MG/150 ML PREMIX 100 MG IV (07:40)
[2020-04-16] MEDS: aztreonam 1,000 MG in sodium chloride 0.9% (plus) 50 ML 100 MG IV ×2 (07:40→22:42)
[2020-04-16 07:57] LABS: Slide Review Slide Review Perform; White Blood Count 38.6 10^3/uL (4.0-10.0)
[2020-04-16] MEDS: dexamethasone 4 mg/mL INJ 6 MG IVP ×2 (08:58→17:27)
[2020-04-16] MEDS: vancomycin 1,250 MG/250 ML PIGGYBACK 200 MG IV ×2 (12:29→23:31)
[2020-04-16 12:46] LABS: Glucose Point of Care 135 mg/dL (70-110)
[2020-04-16] MEDS: enoxaparin 40 mg/0.4 mL Syringe SUBCUT (13:40)
[2020-04-16 16:20] LABS: ABG PCO2 50.1 mmHg (35-45); Arterial Blood Gas Hematocrit 39.6 % (42-52); Base Excess ABG -2.6 mmol/L (-2.0-2.0); Blood Gas Allen Test Pos; Blood Gas Sample Type Arterial; Carboxyhemoglobin 1.5 %THgb (0.4-20.1); HCO3 ABG 24.4 mmol/L (22-26); HGB O2 Sat 92.2 % (95-100); Ionized Calcium Level - ABG 1.2 mmol/L (1.1-1.4); Oxygen Saturation ABG 94.5; PO2 ABG 72.4 mmHg (80.0-100.0); Potassium Level - ABG 4.8 mmol/L (3.5-5.0); Total Hemoglobin 12.9 g/dL (14-18)
[2020-04-16 16:21] LABS: Alveolar-Arterial Oxygen Gradi 21.7 mmHg (5-10); Blood Gas Operator Identificat MONRO; Blood Gas Sample Site ART LIN; Oxygen Device VENT
--- NOTE | 2020-04-16 16:26 | P.PN_ITS ---
Subjective Subjective: Interval history: 69 year old with male who was recently treated for suspected community aquired pneumonia with doxycycline presented to the hospital for increased dyspnea. Initial Laboratory workup showed a WBC of 14.2, hemoglobin of 12.3, hematocrit of 38.7 and platelet count of 130. sodium 136, potassium 3.8, chloride 105, bicarb 23, BUN 12 and creatinine is 0.9. LDH of 492, AST of 23, ALT 27, total bilirubin 1.5. d-dimer of 1.83. Imaging studies on 04/09/2020 included a chest x-ray which showed prominent bilateral interstitial pulmonary infiltrates consistent with acute interstitial pneumonia. Subsequently a CTA chest PE protocol was performed which did not show any evidence of PE however did show interstitial fibrosis with honeycombing UIP pattern. Possibly related to IPF vs hypersensitivity pneumonitis. Also noted to have focal consolidation in the posterior left lower lobe iwth adjacent pleural thickening and prominent mediastinal and hilar lymph node enlargement. Patient was started on antibiotics for suspected community acquired pneumonia wi th azithromycin and azithromycin. Blood culture x 2, sputum culture did not show any growth. on 04/10 his COVID-19 PCR was found to be positive. During this time his respiratory status continued to worsening. Inital required 4L of o2 via NC however this was up to 15L via NRB. On 04/11 he was started on remdesivir 5 day tx protocol in addition to decadron 6 mg daily. Due to progressive decline he was transitioned to VICU. His ABG had shown a PH of 7.46, PCO2 of 28.4, Po2 of 71.4 and HCO3 of 20.1 where he was started on CPAP which was transitioned to HFNC at 80% FIO2. D-dimer was checked and noted to be markedly elevated from 1.83 -> 3.99. His lovenox dose was increased to full dose despite negative PE on CTA of chest. Antibiotics were changed to vancomycin and levaquin 750 mg IV daily. Pro-calcitonin however was 0.20. Subjective 04/13 - Patient was transitioned to heated HFNC. Oxygen saturation was 93% on 50L flow and Fio2 of 80%. Patient did not have any new complaints overnight. Noted stable respiratory status. No Fever, chills, nausea or vomiting. Denied any pleuritic chest pain. D/w patient regarding code status and again confirmed FULL CODE. 04/14 Overnight patient was noted to have progressive decline in respiratory status. He was not tolerated HFNC in am. Was noted to have increase work of breathing utilized accessory muscles. Patient was then intubated and placed on mechanical ventilation. Sedation with propofol was initiated. This was being weaned with addition of versed and fentanyl. Post intubation x-ray confirmed ET tube placement 6 cm about erick. OG and frey were also placed. 04/15 Patient was started on IV vasopresors overnight. No reported fevers. Leukocytosis markedly increased as well as creatinine. 04/[address] this am Medications: Reviewed: Yes Vitals/I&O/Wt Last Vital Signs Temp 98.6 F 04/16/20 19:00 Pulse 83 04/16/20 20:30 Resp 22 H 04/16/20 21:14 BP 121/68 04/16/20 20:30 Pulse Ox 92 04/16/20 20:30 04/16/20 04/16/20 04/16/20 06:59 14:59 22:59 Intake Total 976.383 / 3314.949 866.727 / 866.727 469.025 / 1335.752 Output Total 850 / 1800 500 / 500 250 / 750 Balance 126.383 / 1514.949 366.727 / 366.727 219.025 / 585.752 Physical Exam Narrative: EXAM NARRATIVE: General: Intubated on MV HEENT : Grossly unremarkable Chest : Vented sounds B/L CVS: Sinus tachycardia ABD : Non-distended Ext : No edema Urinary Catheter Management^: Frey: Cath Placed During This Visit: yes Reason for Continuing Indwelling Catheter: Accurate Measurement of Urinary Output in Critically Ill Patients Urinary Catheter Date of Insertion: 04/14/20 Urinary Catheter Time of Insertion: 11:30 Data : 04/16/20 03:51 04/16/20 03:51 Micro: Microbiology 04/15/20 07:40 Blood Culture - Preliminary Blood 04/14/20 11:40 Gram Stain - Final Sputum - Endotracheal Tube Aspirate Sputum Culture - Final 04/15/20 07:50 Blood Culture - Preliminary Blood NEGATIVE TO DATE A&P Assessment and plan (1) Acute respiratory failure with hypoxia: Status: Acute (2) Sepsis: Status: Acute (3) ILD (interstitial lung disease): Status: Acute Acute respiratory failure with hypoxia due to COVID-19 pneumonia with suspected undiagnosed underlying chronic interstitial lung disease/ Pulmonary fibrosis - Patient was intubated and placed on MV - 04/14 Chest x-ray -> ET tube 6 cm above erick, bilateral infiltrates - Vent settings : Changes per pulmonary today - Continue sedation - Goal RASS neg 2 - ProBNP - > 280 - Follow up on ECHO - may cautiously diereses - Decadron 6 mg IV BID ( monitor BS - goal < 180 ) - Xopenex q6hr scheduled ( due to tachycardia ) - Remdesivir per 5 day protocolol - Pulmonary on consult - Repeat ABG/Chest x-ray in am Pneumothorax - Chest tube placed - Continue to suction Leukocytosis - WBC increased to 62.7 - Improving - Procalcitonin 0.67 - Emperically on abx - Cefepime 2 g daily - Vancomycin pharmacy to dose - Follow up on culture - Continue to trend wbc/pro-calcitonin Acute kidney injury - Creatinine 1.7 today - Likely pre-renal from hypotension - Renally dose medication - Repeat BMP in AM Hypertension - Currently hypotensive - Likely due to sedatives vs sepstic shock - On vasopressors. - Will hold metoprolol 25 BID GI ppx - Pepcid 20 IV BID DVT ppx - Lovenox 40 mg SQ Daily Attestations Medical Necessity Statement*: Continue for vent managment Time Spent in Patient Care: Greater than 35 minutes Coding Level of Care Code Acute Import/Export Agent for Jenna Santizo Diagnoses Acute respiratory failure with hypoxia J96.01 Sepsis A41.9 ILD (interstitial lung disease) J84.9
[2020-04-16 17:16] LABS: Glucose Point of Care 161 mg/dL (70-110)
[2020-04-16] MEDS: sodium polystyrene sulfonate 15 gm/60 mL Btl 30 GM PO (17:26)
[2020-04-16] MEDS: norepinephrine 8 MG in dextrose 5 % 500 ML 26.7 MG IV (17:32)
--- NOTE | 2020-04-16 17:54 | PC.SOCIAL ---
IMM Not Given Page 2 of IMM not given as patient is not expected to d/c in the next 48 hours.
[2020-04-16 19:56] LABS: Glucose Point of Care 181 mg/dL (70-110)
--- NOTE | 2020-04-16 20:26 | P.PN_ITS ---
Subjective Subjective: Interval history: Patient with underlying COPD and interstitial lung disease with subpleural blebs admitted for acute hypoxic respiratory failure due to ARDS secondary to COVID-19 pneumonia requiring mechanical ventilation to provide oxygenation, course complicated by coexisting septic shock and development of subcutaneous emphysema and right pneumothorax (probably from rupture of subpleural blebs). Overnight patient developed subcutaneous emphysema and chest x-ray showed mild to moderate right pneumothorax with no tension. Immediately PEEP was decreased to 8 and chest tube placed by ER physician during the early hours. Chest tube connected to suction did not show any air leak. Still sedated and requiring pressors levo 6 and vaso-0.05 Oxygenating more than 92% on FiO2 42% and PEEP of 8 WBC trending down Medications: Reviewed: Yes Vitals/I&O/Wt Last Vital Signs Temp 98.5 F 04/16/20 16:00 Pulse 84 04/16/20 20:21 Resp 29 H 04/16/20 20:24 BP 104/63 04/16/20 17:00 Pulse Ox 91 04/16/20 20:21 04/16/20 04/16/20 04/16/20 06:59 14:59 22:59 Intake Total 976.383 / 3314.949 866.727 / 866.727 469.025 / 1335.752 Output Total 850 / 1800 500 / 500 250 / 750 Balance 126.383 / 1514.949 366.727 / 366.727 219.025 / 585.752 Physical Exam Narrative: EXAM NARRATIVE: PHYSICAL EXAM: General: lying in bed, sedated and intubated. HEENT:NCAT, PERRLA, EOMI, mild swelling present on right neck and supraclavicular area with no appreciable crepitus Neck: Supple Lungs: Bilateral diffuse crackles Heart: s1/s2, RRR Abd: soft, NT, ND, BS + Normoactive Extremities: No edema [employer]: sedated and limited [employer] exam possible. SKIN: no rash LDA: # CVC: Right internal jugular 04/14/2020 # A line: Right radial art line 04/14/2020 Urinary Catheter Management^: Frey: Cath Placed During This Visit: yes Reason for Continuing Indwelling Catheter: Accurate Measurement of Urinary Output in Critically Ill Patients Urinary Catheter Date of Insertion: 04/14/20 Urinary Catheter Time of Insertion: 11:30 Data : 04/16/20 03:51 04/16/20 03:51 Micro: Microbiology 04/15/20 07:40 Blood Culture - Preliminary Blood 04/14/20 11:40 Gram Stain - Final Sputum - Endotracheal Tube Aspirate Sputum Culture - Final 04/15/20 07:50 Blood Culture - Preliminary Blood NEGATIVE TO DATE A&P Assessment and plan (1) Acute respiratory distress syndrome (ARDS) due to 2019 novel coronavirus: Status: Acute (2) ILD (interstitial lung disease): Status: Acute (3) Acute respiratory failure with hypoxia: Status: Acute (4) Sepsis with acute hypoxic respiratory failure: Status: Acute Qualifiers: Sepsis type: sepsis due to unspecified organism Severe sepsis shock status: with septic shock Qualified Code(s): A41.9 - Sepsis, unspecified organism; R65.21 - Severe sepsis with septic shock; J96.01 - Acute respiratory failure with hypoxia Overall: 69 year old with male with no significant past medical history but with possible interstitial lung disease based on the CT chest admitted initially for suspected community acquired pneumonia found to be COVID-19 PCR positive, progressively worsening respiratory failure admitted to viral ICU for management of acute hypo xic respiratory failure secondary to acute respiratory distress syndrome due to COVID-19 pneumonia requiring mechanical ventilation to provide oxygenation, course complicated by coexisting septic shock and development of subcutaneous emphysema and right pneumothorax (probably from rupture of subpleural blebs). NEURO: # Sedation -Currently on fentanyl 125/Versed 5 and propofol 50 PULM: #Acute hypoxic and hypercapneic respiratory failure secondary to ARDS due to COVID pna #Respiratory status worsened by contribution from exacerbation of underlying interstitial lung disease ?? UIP pattern #Right subcutaneous emphysema and right lung pneumothorax likely secondary to report of pleural blebs -Intubated on 04/14/2020 -ABG On CMV TV 500/FiO2 42%/RR 22/PEEP 8-7.3 0/50/72/20 4/92% -Recommended -DuoNeb nebulization every 4 hours and Pulmicort 0.5 twice daily -If hypoxia is persistent on maximum settings recommended starting on paralytic and prone -CXR today morning after right-sided chest tube showed tiny right pneumothorax and subcutaneous emphysema around the chest and in the mediastinum. Extensive interstitial pulmonary infiltrates unchanged -Recommended to maintain PEEP less than 8 to avoid high positive pressures and increased FiO2 if required for oxygenation -No air leak noted in the chamber under suction. Recommended to turn off suction and clamp chest tube. Repeat x-ray at 8 PM tonight and follow-up chest x-ray tomorrow morning to see for any recurrence of pneumothorax. If no pneumo thorax seen after 12 hours of clamping then can take out the chest tube. If there is recurrence of pneumothorax then unclamped and connected to suction again and increased FiO2 100%. -Increased inflammatory markers ESR, LDH, CRP, ferritin and repeat every 2 days to trend markers of inflammation -Can discontinue remdesivir but continue dexamethasone daily -On vancomycin aztreonam and Levaquin; Follow-up final cultures and adjust antibiotics CVS: -Septic shock -Currently on Levophed 6 and vasopressin 0.05- please maintain MAP > 65 -Monitor blood pressure and taper of pressors -Please send for echo; BNP 280 GI: -Started on Pulmicort tube feeding at 10mL/hr -Started senna docusate at bedtime for bowel regimen - PPI daily for GI prophylaxis RENAL: -Renal functions improving -K5.2-recommended Kayexalate 30 g once -Send for magnesium, phosphorus, lactic acid and CK -I/O/N-3.3 L / 1.8 L/+1.5 L -hourly urine output is adequate -Maintain MAP goal greater than 65 -If patient is positive by tomorrow and clinically overloaded-give Lasix 40 mg if blood pressure allows -Continue frey cath -Avoid nephrotoxins -Monitor BUN/creatinine and electrolytes and supplement accordingly to keep K between 4-4.5, Mg >2 HEM: H&H stable Plts stable,will trend Coags stable ENDO: -No active issues -monitor sugars and insulin scale coverage ID: #Septic shock secondary to COVID pna -WBC 23 K > 62K> 38K-trending down - Afebrile -Covered with vancomycin, aztreonam and levaquin -Procalcitonin 0.67 and lactic acid 1.4 -sputum cx negative; follow-up blood cultures and send urine culture Prognosis: Critical Disposition: Remains in ICU Code: Full code Plan of care and recommendations conveyed to Dr. Renteria hospitalist on the case, RN and RT ICU CHECKLIST: Problem list updated Verbal orders reviewed and signed Analgesia: Fentanyl Glycemic Control: scale coverage Nutrition: Pulmicort tube feeding Restraint Renewal (within 24 hrs): Yes Ulcer Prophylaxis:PPI yes Chemical Thromboprophylaxis: Prophylaxis: Switch to heparin prophylactic dose Mechanical Thromboprophylaxis: Yes Need for Central line: Yes requiring any infusions sedation and pressors Need for Frey catheter: Yes for urine output monitoring Critical Care Time (No Overlap): 45 min This patient has a high probability of sudden, clinically significant deterioration, which requires the highest level of physician preparedness to intervene urgently. I managed/supervised life or organ supporting interventions that required frequent physician assessment. I devoted my full attention in the ICU to the direct care of this patient for the period of time indicated above. Time I spent with family or surrogate(s) is included only if the patient was incapable of providing necessary information or participating in decision making. Time devoted to teaching and to any procedures I billed separately is not included. Services Provided: Telemetry review Mechanical Ventilation Hemodynamic interpretation, assessment and management Review and interpretation of CXR Review and interpretation of lab values Review and interpretation of microbiologic data and culture results Review of medications and administration Review and interpretation of Nutrition requirements and management Discussion of management with other consultants and services Clinical update to family members Attestations Medical Necessity Statement*: acute hypoxemic respiratory failure secondary to acute respiratory distress syndrome due to COVID-19 pneumonia requiring mechanical ventilation to provide oxygenation, course complicated by coexisting septic shock and development of subcutaneous emphysema and right pneumothorax (probably from rupture of subpleural blebs). Time Spent in Patient Care: Greater than 35 minutes (>than 50% of time spent in counselling and/or direct pt care on unit) . 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
[2020-04-16] MEDS: sennosides-docusate Tablet 1 TAB PO (22:42)
[2020-04-16] MEDS: norepinephrine 8 MG in dextrose 5 % 500 ML 22.9 MG IV (23:55)
[2020-04-17] VITALS (86 sets, daily range): BP systolic 81–137; BP diastolic 33–73; PULSE 60–88; RESP 20–26; TEMP 35.9–37; O2SAT 85–99
[2020-04-17 00:24] LABS: Glucose Point of Care 188 mg/dL (70-110)
[2020-04-17] MEDS: levalbuterol 0.63 mg/3 mL Neb INHALATION ×6 (00:45→20:48)
--- NOTE | 2020-04-17 00:53 | PC.NURSE ---
Chest tube clamped at 1900
[2020-04-17] MEDS: propofol 1,000 MG/100 ML INJ 18.6 MG IV ×4 (01:06→20:10)
[2020-04-17 04:31] LABS: Anion Gap 10.2 (5-19); Blood Urea Nitrogen 45 mg/dL (8-23); Calcium 8.1 mg/dL (8.5-10.5); Carbon Dioxide 27 mmol/L (22-29); Chloride 104 mmol/L (98-107); Glucose 183 mg/dL (65-115); Osmolality Calculated 298 mOsm/kg (285-295); Potassium 5.2 mmol/L (3.5-5.1); Sodium 136 mmol/L (136-145)
[2020-04-17] MEDS: famotidine 20 mg/2 mL INJ IVP ×2 (05:30→17:51)
--- NOTE | 2020-04-17 06:00 | XR_ITS ---
WS: [id number] Exam: XR chest 1V portable [id number] Date/Time of Exam: 04/17/2020 6:15 AM Reason For Exam: Pneumothorax Comparison 04/16/2020. The right lung is almost completely expanded. A very tiny right apical pneumothorax is visualized. Th e left lung is fully inflated. Extensive bilateral infiltrates unchanged. Heart size is normal. ET tu be remains in good position. An NG tube extends into the stomach. Extensive subcutaneous emphysema se en over the chest and neck. Right-sided IJ catheter unchanged in location. Monitoring leads superimpo se the chest. XR/XR chest 1V portable [id number] IMPRESSION: 1. Very tiny right apical pneumothorax. Right chest tube in place unchanged. 2. Bilateral pulmonary infiltrates unchanged. 3. Subcutaneous emphysema over the chest and lower neck. 4. ET tube remaining in satisfactory position.
[2020-04-17 06:04] LABS: Glucose Point of Care 143 mg/dL (70-110)
--- NOTE | 2020-04-17 08:40 | XR_ITS ---
WS: [id number] Exam: XR chest 1V portable [id number] Date/Time of Exam: 04/17/2020 9:00 AM Reason For Exam: new SQ emphysema Comparison with most recent exam performed at 04/17/2020 at 0638 hours. Tiny right apical pneumothorax again noted. Right chest tube is unchanged in position. Extensive bila teral pulmonary infiltrates show no change. Heart size remains normal. ET tube remains in good positi on. NG tube is in satisfactory position in the stomach. Right-sided IJ catheter unchanged in location . Again noted is extensive subcutaneous emphysema over the bilateral neck and chest. XR/XR chest 1V portable [id number] IMPRESSION: 1. Chest radiograph showing no significant change since the earlier study perfo rmed on the same day.
[2020-04-17] MEDS: levofloxacin-dextrose 5 % 750 MG/150 ML PREMIX 100 MG IV (09:30)
[2020-04-17] MEDS: aztreonam 1,000 MG in sodium chloride 0.9% (plus) 50 ML 100 MG IV ×2 (09:30→20:14)
[2020-04-17] MEDS: dexamethasone 4 mg/mL INJ 6 MG IVP ×2 (09:31→17:51)
[2020-04-17 11:28] LABS: Vancomycin Trough 16.9 ug/mL (10-15)
--- NOTE | 2020-04-17 11:36 | P.PN_ITS ---
Subjective Subjective: Interval history: 69 year old with male who was recently treated for suspected community aquired pneumonia with doxycycline presented to the hospital for increased dyspnea. Initial Laboratory workup showed a WBC of 14.2, hemoglobin of 12.3, hematocrit of 38.7 and platelet count of 130. sodium 136, potassium 3.8, chloride 105, bicarb 23, BUN 12 and creatinine is 0.9. LDH of 492, AST of 23, ALT 27, total bilirubin 1.5. d-dimer of 1.83. Imaging studies on 04/09/2020 included a chest x-ray which showed prominent bilateral interstitial pulmonary infiltrates consistent with acute interstitial pneumonia. Subsequently a CTA chest PE protocol was performed which did not show any evidence of PE however did show interstitial fibrosis with honeycombing UIP pattern. Possibly related to IPF vs hypersensitivity pneumonitis. Also noted to have focal consolidation in the posterior left lower lobe iwth adjacent pleural thickening and prominent mediastinal and hilar lymph node enlargement. Patient was started on antibiotics for suspected community acquired pneumonia wi th azithromycin and azithromycin. Blood culture x 2, sputum culture did not show any growth. on 04/10 his COVID-19 PCR was found to be positive. During this time his respiratory status continued to worsening. Inital required 4L of o2 via NC however this was up to 15L via NRB. On 04/11 he was started on remdesivir 5 day tx protocol in addition to decadron 6 mg daily. Due to progressive decline he was transitioned to VICU. His ABG had shown a PH of 7.46, PCO2 of 28.4, Po2 of 71.4 and HCO3 of 20.1 where he was started on CPAP which was transitioned to HFNC at 80% FIO2. D-dimer was checked and noted to be markedly elevated from 1.83 -> 3.99. His lovenox dose was increased to full dose despite negative PE on CTA of chest. Antibiotics were changed to vancomycin and levaquin 750 mg IV daily. Pro-calcitonin however was 0.20. Subjective 04/13 - Patient was transitioned to heated HFNC. Oxygen saturation was 93% on 50L flow and Fio2 of 80%. Patient did not have any new complaints overnight. Noted stable respiratory status. No Fever, chills, nausea or vomiting. Denied any pleuritic chest pain. D/w patient regarding code status and again confirmed FULL CODE. 04/14 Overnight patient was noted to have progressive decline in respiratory status. He was not tolerated HFNC in am. Was noted to have increase work of breathing utilized accessory muscles. Patient was then intubated and placed on mechanical ventilation. Sedation with propofol was initiated. This was being weaned with addition of versed and fentanyl. Post intubation x-ray confirmed ET tube placement 6 cm about erick. OG and frey were also placed. 04/15 Patient was started on IV vasopresors overnight. No reported fevers. Leukocytosis markedly increased as well as creatinine. 04/[address] this am 04/17 Patient was noted to have SQ emphysema on left today. Chest x-ray was obtained which did not show any evidence of pneumothorax on left. Right sided chest tube in place with small apical ptx. No fever or chills overnight. Medications: Reviewed: Yes Vitals/I&O/Wt Last Vital Signs Temp 98.6 F 04/17/20 08:15 Pulse 68 04/17/20 11:29 Resp 22 H 04/17/20 11:29 BP 114/67 04/17/20 10:30 Pulse Ox 89 L 04/17/20 11:29 04/16/20 04/17/20 04/17/20 22:59 06:59 14:59 Intake Total 595.900 / 1462.627 560.055 / 2022.682 598.268 / 598.268 Output Total 450 / 950 950 / 1900 Balance 145.900 / 512.627 -389.945 / 122.682 598.268 / 598.268 Physical Exam Narrative: EXAM NARRATIVE: General: Intubated on MV HEENT : Grossly unremarkable Chest : Vented sounds B/L , right-sided chest tube in place, left subcu emphysema CVS: normal sinus rhythm ABD : Non-distended : Frey catheter in place Ext : No edema Urinary Catheter Management^: Frey: Cath Placed During This Visit: yes Reason for Continuing Indwelling Catheter: Accurate Measurement of Urinary Output in Critically Ill Patients Urinary Catheter Date of Insertion: 04/14/20 Urinary Catheter Time of Insertion: : Data : 04/16/20 03:51 04/17/20 03:35 Micro: Microbiology 04/15/20 07:40 Blood Culture - Preliminary Blood 04/14/20 11:40 Gram Stain - Final Sputum - Endotracheal Tube Aspirate Sputum Culture - Final 04/15/20 07:50 Blood Culture - Preliminary Blood NEGATIVE TO DATE A&P Assessment and plan (1) Acute respiratory failure with hypoxia: Status: Acute (2) Sepsis: Status: Acute (3) ILD (interstitial lung disease): Status: Acute Acute respiratory failure with hypoxia on mechanical ventilation - Etiology is multi-factorial COVID-19, underlying ILD, Right sided PTx, poss ible superimposed bacterial pneumonia - Intubated on MV ( 04/14) ET tube 8.0mm at 27cm at lip - 04/17 - CMV,TV 450, RR set at 22, PIP 21, PEEP decreased to 5 with a Fio2 of 40 percent - Patient RR - > 24, MV 9.6, Lung compliance 26, airway resistance 6 - On sedation Fentanyl gtt, Versed Gtt - Maintain RASS negative 2 - 04/17 - Chest x-ray - > right apical ptx with chest tube, extensive pulmonary infiltrates bilaterally - unchanged and extensive SQ emphysema over b/l neck and chest - ABG - pending from today - Repeat Chest x-ray in am - Repeat ABG in am COVID 19 pneumonia - Completed Remdesivir x 5 days - Decadron 6 mg IV BID - Ferritin 627, LDH 894, CRP of 88.9 - Ferritin, CRP, D-dimer in am Suspected Superimposed bacterial Pneumonia - Noted to have marked leukocytosis - WBC increased to 62.7 on 04/15 - Improving to 38.6 - 04/09 - Blood culture x 2 - NGTD - 04/11 - Sputum culture - negative - 04/14 - Sputum culture - negative - Pro-calcitonin 0.67 - Vancomycin pharmacy to dose - Levaquin 750 mg IV daily - Aztreonam 1g IV q12 hr - Repeat CBC in am - Pro-calcitonin in am - Check MRSA swab if analyzer available Chronic ILD/Pulmonary fibrosis - Newly seen and dx on admission imaging - Currently on Steroid as noted above Right Sided Pneumothorax s/p Chest tube - Continue current management - Repeat chest x-ray - > persistent r. ptx - Extensive SQ emphysema - Pulmonary medicine on board Shock - Septic vs med induced - Currently on pressers - Levophed / Vasopressin - Wean as tolerated - Maintain Map > 65 Hyperkalemia - K 5.2 - S/p Kayexalate 30 mg PO x 1 04/16 - May give lasix Acute kidney injury - Resolved - Creatinine 1.7 - > 0.9 - Likely pre-renal from hypotension - Renally dose medication - Repeat BMP in AM Hypertension - Currently hypotensive - Likely due to sedatives vs septic shock - Hold b-blockers GI ppx - Pepcid 20 IV BID DVT ppx - Lovenox 40 mg SQ Daily Attestations Medical Necessity Statement*: Patient require further hospitalization for management of vent, pneumonia, pneumothorax. Time Spent in Patient Care: Greater than 35 minutes (>than 50% of time spent in counselling and/or direct pt care on unit) . Coding Level of Care Code Acute Appointment Scheduler for Chg Fwd Diagnoses Acute respiratory failure with hypoxia J96.01 Sepsis A41.9 ILD (interstitial lung disease) J84.9
[2020-04-17 12:38] LABS: Glucose Point of Care 138 mg/dL (70-110)
[2020-04-17] MEDS: vancomycin 1,250 MG/250 ML PIGGYBACK 200 MG IV ×2 (12:42→23:15)
[2020-04-17 12:52] LABS: Basophils # 0.1 10^3/uL (0.0-0.1); Basophils % 0.4 %; Eosinophils # 0.2 10^3/uL (0.0-0.8); Eosinophils % 0.8 %; Hematocrit 39.6 % (42.0-52.0); Hemoglobin 12.3 g/dL (11.7-16.6); Lymphocytes # 1.3 10^3/uL (0.8-4.8); Lymphocytes % 6.8 %; Mean Corpuscular HGB Conc 31.1 g/dL (30.0-36.0); Mean Corpuscular Hemoglobin 28.4 pg (28.0-34.0); Mean Corpuscular Volume 91.5 fL (80-94); Mean Platelet Volume 11.2 fL (7.4-10.4); Monocytes % 15.9 %; Neutrophils # 13.56 10^3/uL (1.8-7.7); Neutrophils % 71.6 %; Nucleated Red Blood Cells # 0.1 /100WBC; Nucleated Red Blood Cells % 0.3 %; Platelet Count 98 10^3/cmm (130-400); Red Blood Count 4.33 10^6/uL (4.1-5.3); Red Cell Distribution Width 16.9 % (12.1-15.1); White Blood Count 18.9 10^3/uL (4.0-10.0)
[2020-04-17] MEDS: enoxaparin 40 mg/0.4 mL Syringe SUBCUT (14:08)
--- NOTE | 2020-04-17 15:29 | PC.RESP ---
AWARE OF [facility]
[2020-04-17 17:41] LABS: Glucose Point of Care 150 mg/dL (70-110)
--- NOTE | 2020-04-17 19:21 | PC.NURSE ---
Report given to GERARDO Trent.
--- NOTE | 2020-04-17 19:21 | PC.NURSE ---
Shift summary: pt remains intubated and sedated. Sedation has been turned down: fentanyl now at 35mcg/hr and Versed at 3mg/hr. Propofol remains at 35mcg/kg/min. Pt is on FIO2 of 40%. Lung sounds have improved this shift. Chest tube remains clamped, per xray small pneumothorax remains on right apex. Subq emphysema noted on right neck and chest, some moved to left chest during repositioning. Art line Patent with good waveform. Pulmocare infusing into OG at 20ml/hr with scheduled flushes. Good bowel sounds. Copious amount of flatulence noted. Pt has had 4 BMs. Pt had a bath and linen change.
[2020-04-18] VITALS (38 sets, daily range): BP systolic 87–126; BP diastolic 50–74; PULSE 63–101; RESP 20–25; TEMP 36.1–36.4; O2SAT 90–97
[2020-04-18] MEDS: levalbuterol 0.63 mg/3 mL Neb INHALATION ×6 (00:21→19:24)
[2020-04-18] MEDS: norepinephrine 8 MG in dextrose 5 % 500 ML 5.7 MG IV (00:24)
[2020-04-18 00:48] LABS: Glucose Point of Care 167 mg/dL (70-110)
[2020-04-18] MEDS: propofol 1,000 MG/100 ML INJ 18.6 MG IV (01:00)
[2020-04-18 04:20] LABS: Basophils # 0.1 10^3/uL (0.0-0.1); Basophils % 0.4 %; Eosinophils # 0.1 10^3/uL (0.0-0.8); Eosinophils % 0.4 %; Hematocrit 37.1 % (42.0-52.0); Hemoglobin 11.5 g/dL (11.7-16.6); Lymphocytes % 6.3 %; Mean Corpuscular Hemoglobin 27.9 pg (28.0-34.0); Monocytes # 2.9 10^3/uL (0.2-0.9); Monocytes % 18.4 %; Neutrophils # 10.99 10^3/uL (1.8-7.7); Neutrophils % 69.7 %; Nucleated Red Blood Cells % 0.2 %; Platelet Count 92 10^3/cmm (130-400); Red Blood Count 4.12 10^6/uL (4.1-5.3); Red Cell Distribution Width 16.8 % (12.1-15.1); White Blood Count 15.8 10^3/uL (4.0-10.0)
[2020-04-18 04:35] LABS: D Dimer 0.76 ug/mIFEU (0-0.59)
[2020-04-18 04:43] LABS: C Reactive Protein 4.2 mg/L (0.0-4.9)
[2020-04-18 04:45] LABS: Alanine Aminotransferase 25 U/L (0-41); Albumin Level 2.8 g/dL (3.5-5.2); Alkaline Phosphatase 36 IU/L (40-130); Anion Gap 10.5 (5-19); Aspartate Amino Transferase 16 U/L (0-40); Blood Urea Nitrogen 51 mg/dL (8-23); Calcium 7.9 mg/dL (8.5-10.5); Carbon Dioxide 28 mmol/L (22-29); Chloride 103 mmol/L (98-107); Glucose 159 mg/dL (65-115); Osmolality Calculated 301 mOsm/kg (285-295); Potassium 4.5 mmol/L (3.5-5.1); Sodium 137 mmol/L (136-145); Total Bilirubin 0.5 mg/dL (0.15-1.2); Total Protein 4.8 g/dL (6.6-8.7)
[2020-04-18 04:55] LABS: ABG PCO2 45.4 mmHg (35-45); Arterial Blood Gas Hematocrit 36.4 % (42-52); Base Excess ABG 2.4 mmol/L (-2.0-2.0); Blood Gas Operator Identificat JB; Blood Gas Sample Site ARTLINE; Blood Gas Sample Type Arterial; HCO3 ABG 27.8 mmol/L (22-26); Oxygen Device VENT; PO2 ABG 83.2 mmHg (80.0-100.0)
[2020-04-18 05:41] LABS: Procalcitonin 0.14 ng/mL (0-0.5)
[2020-04-18 05:53] LABS: Ferritin 382 ng/mL (30-400); Lactate Dehydrogenase 466 U/L (135-225)
[2020-04-18] MEDS: famotidine 20 mg/2 mL INJ IVP ×2 (05:53→19:05)
[2020-04-18 06:17] LABS: Glucose Point of Care 125 mg/dL (70-110)
[2020-04-18] MEDS: propofol 1,000 MG/100 ML INJ 15.9 MG IV ×2 (06:42→14:56)
[2020-04-18 08:45] LABS: Glucose Point of Care 115 mg/dL (70-110)
[2020-04-18] MEDS: dexamethasone 4 mg/mL INJ 6 MG IVP ×2 (08:48→19:05)
[2020-04-18] MEDS: levofloxacin-dextrose 5 % 750 MG/150 ML PREMIX 100 MG IV (08:48)
[2020-04-18] MEDS: aztreonam 1,000 MG in sodium chloride 0.9% (plus) 50 ML 100 MG IV ×2 (08:50→21:46)
--- NOTE | 2020-04-18 09:24 | DCPLANNER ---
Pg 2 of IM not given as pt is still on the vent, d/c date unknown at this time.
[2020-04-18] MEDS: vancomycin 1,250 MG/250 ML PIGGYBACK 200 MG IV (11:12)
[2020-04-18 11:45] LABS: Glucose Point of Care 128 mg/dL (70-110)
[2020-04-18] MEDS: enoxaparin 40 mg/0.4 mL Syringe SUBCUT (14:56)
--- NOTE | 2020-04-18 15:28 | XR_ITS ---
WS: [id number] Exam: XR chest 1V portable [id number] Date/Time of Exam: 04/18/2020 3:28 PM Reason For Exam: chest tube Comparison 04/17/2020. Bilateral pulmonary infiltrates show little change. ET tube remains in good position about 5 cm above the erick. An enteric tube extends into the stomach but the tip is not visible. Right IJ catheter i s unchanged in position. Right-sided chest tube is also unchanged. An additional opaque wire with met allic tip extends along the right heart border and courses laterally ending over the right lower lung zone. Significance of this line is undetermined. Subcutaneous emphysema over the bilateral chest and neck show little change. XR/XR chest 1V portable [id number] IMPRESSION: 1. Chest radiograph showing very little overall change since the last exam. 2. A new additional opaque line courses along the right heart border and ends o cristel the right lower lung zone. This line has a small metallic tip. Significance is undetermined.
--- NOTE | 2020-04-18 15:41 | P.PN_ITS ---
Subjective Subjective: Interval history: 69 year old with male who was recently treated for suspected community aquired pneumonia with doxycycline presented to the hospital for increased dyspnea. Initial Laboratory workup showed a WBC of 14.2, hemoglobin of 12.3, hematocrit of 38.7 and platelet count of 130. sodium 136, potassium 3.8, chloride 105, bicarb 23, BUN 12 and creatinine is 0.9. LDH of 492, AST of 23, ALT 27, total bilirubin 1.5. d-dimer of 1.83. Imaging studies on 04/09/2020 included a chest x-ray which showed prominent bilateral interstitial pulmonary infiltrates consistent with acute interstitial pneumonia. Subsequently a CTA chest PE protocol was performed which did not show any evidence of PE however did show interstitial fibrosis with honeycombing UIP pattern. Possibly related to IPF vs hypersensitivity pneumonitis. Also noted to have focal consolidation in the posterior left lower lobe iwth adjacent pleural thickening and prominent mediastinal and hilar lymph node enlargement. Patient was started on antibiotics for suspected community acquired pneumonia wi th azithromycin and azithromycin. Blood culture x 2, sputum culture did not show any growth. on 04/10 his COVID-19 PCR was found to be positive. During this time his respiratory status continued to worsening. Inital required 4L of o2 via NC however this was up to 15L via NRB. On 04/11 he was started on remdesivir 5 day tx protocol in addition to decadron 6 mg daily. Due to progressive decline he was transitioned to VICU. His ABG had shown a PH of 7.46, PCO2 of 28.4, Po2 of 71.4 and HCO3 of 20.1 where he was started on CPAP which was transitioned to HFNC at 80% FIO2. D-dimer was checked and noted to be markedly elevated from 1.83 -> 3.99. His lovenox dose was increased to full dose despite negative PE on CTA of chest. Antibiotics were changed to vancomycin and levaquin 750 mg IV daily. Pro-calcitonin however was 0.20. Subjective 04/13 - Patient was transitioned to heated HFNC. Oxygen saturation was 93% on 50L flow and Fio2 of 80%. Patient did not have any new complaints overnight. Noted stable respiratory status. No Fever, chills, nausea or vomiting. Denied any pleuritic chest pain. D/w patient regarding code status and again confirmed FULL CODE. 04/14 Overnight patient was noted to have progressive decline in respiratory status. He was not tolerated HFNC in am. Was noted to have increase work of breathing utilized accessory muscles. Patient was then intubated and placed on mechanical ventilation. Sedation with propofol was initiated. This was being weaned with addition of versed and fentanyl. Post intubation x-ray confirmed ET tube placement 6 cm about erick. OG and frey were also placed. 04/15 Patient was started on IV vasopresors overnight. No reported fevers. Leukocytosis markedly increased as well as creatinine. 04/[address] this am 04/17 Patient was noted to have SQ emphysema on left today. Chest x-ray was obtained which did not show any evidence of pneumothorax on left. Right sided chest tube in place with small apical ptx. No fever or chills overnight. 04/18 Patient remained clnically stable overnight. Continued to have intermittent fever. Chest tube in place. Medications: Reviewed: Yes Vitals/I&O/Wt Last Vital Signs Temp 99.7 F H 04/19/20 11:03 Pulse 91 04/19/20 20:30 Resp 25 H 04/19/20 20:30 BP 128/71 04/19/20 18:00 Pulse Ox 94 04/19/20 20:30 04/19/20 04/19/20 04/19/20 06:59 14:59 22:59 Intake Total 350 / 1597.661 777.190 / 768.647 0895.776 / 2120.966 Output Total 625 / 1375 400 / 427 Balance -275 / 222.661 750.190 / 750.190 943.776 / 1693.966 Physical Exam Narrative: EXAM NARRATIVE: General: Intubated on MV HEENT : Grossly unremarkable Chest : Vented sounds B/L , right-sided chest tube in place, left subcu emphysema CVS: normal sinus rhythm ABD : Non-distended : Frey catheter in place Ext : No edema Urinary Catheter Management^: Frey: Cath Placed During This Visit: yes Reason for Continuing Indwelling Catheter: Accurate Measurement of Urinary Output in Critically Ill Patients Urinary Catheter Date of Insertion: 04/14/20 Urinary Catheter Time of Insertion: 11:30 Data : 04/19/20 03:55 04/18/20 04:05 Micro: Microbiology 04/15/20 07:40 Blood Culture - Preliminary Blood A&P Assessment and plan (1) Acute respiratory failure with hypoxia: Status: Acute (2) Sepsis: Status: Acute (3) ILD (interstitial lung disease): Status: Acute Acute respiratory failure with Hypoxia on mechanical ventilation - Etiology is multi-factorial COVID-19, underlying ILD, Right sided PTx, possible superimposed bacterial pneumonia - Intubated on MV ( 04/14) ET tube 8.0mm at 27cm at lip - 04/17 - CMV,TV 450, RR set at 22, PIP 21, PEEP decreased to 5 with a Fio2 of 40 percent - Patient RR - > 24, MV 9.6, Lung compliance 26, airway resistance 6 - On sedation Fentanyl gtt, Versed Gtt - Maintain RASS negative 2 - 04/17 - Chest x-ray - > right apical ptx with chest tube, extensive pulmonary infiltrates bilaterally - unchanged and extensive SQ emphysema over b/l neck and chest - ABG - pending from today - Repeat Chest x-ray in am - Repeat ABG in am COVID 19 pneumonia - Completed Remdesivir x 5 days - Decadron 6 mg IV BID - Ferritin 627, LDH 894, CRP of 88.9 - Ferritin, CRP, D-dimer in am Suspected Superimposed bacterial Pneumonia - Noted to have marked leukocytosis - WBC increased to 62.7 on 04/15 - Improving to 38.6 - 04/09 - Blood culture x 2 - NGTD - 04/11 - Sputum culture - negative - 04/14 - Sputum culture - negative - Pro-calcitonin 0.67 - Vancomycin pharmacy to dose - Levaquin 750 mg IV daily - Aztreonam 1g IV q12 hr - Repeat CBC in am - Pro-calcitonin in am - Check MRSA swab if analyzer available Chronic ILD/Pulmonary fibrosis - Newly seen and dx on admission imaging - Currently on Steroid as noted above Right Sided Pneumothorax s/p Chest tube - Continue current management - Repeat chest x-ray - > persistent r. ptx - Extensive SQ emphysema - Pulmonary medicine on board Shock - Septic vs med induced - Currently on pressers - Levophed / Vasopressin - Wean as tolerated - Maintain Map > 65 Hyperkalemia - K 5.2 - S/p Kayexalate 30 mg PO x 1 04/16 - May give lasix Acute kidney injury - Resolved - Creatinine 1.7 - > 0.9 - Likely pre-renal from hypotension - Renally dose medication - Repeat BMP in AM Hypertension - Currently hypotensive - Likely due to sedatives vs septic shock - Hold b-blockers GI ppx - Pepcid 20 IV BID DVT ppx - Lovenox 40 mg SQ Daily Attestations Medical Necessity Statement*: Continue current hospitaltalization for vent management Time Spent in Patient Care: Greater than 35 minutes (>than 50% of time spen t in counselling and/or direct pt care on unit) . Coding Level of Care Code Acute Mini Baccarat Dealer for Jenna Santizo Diagnoses Acute respiratory failure with hypoxia J96.01 Sepsis A41.9 ILD (interstitial lung disease) J84.9
[2020-04-18 18:14] LABS: Glucose Point of Care 118 mg/dL (70-110)
[2020-04-18] MEDS: propofol 1,000 MG/100 ML INJ 13.3 MG IV (21:46)
[2020-04-19] VITALS (49 sets, daily range): BP systolic 92–161; BP diastolic 37–88; PULSE 87–111; RESP 22–29; TEMP 36.3–38; O2SAT 86–94
[2020-04-19] MEDS: vancomycin 1,250 MG/250 ML PIGGYBACK 200 MG IV ×2 (01:18→13:38)
--- NOTE | 2020-04-19 01:39 | PC.NURSE ---
ASSUMING CARE Patient on ventilator VC-AC mode. FiO2 45%, rate of 22, PEEP of 8, TV 500. Patient on versed at 3 mg/hour, propofol at 30 mcg/kg/min, fentanyl at 25 mcg/hour, and levophed at 1 mcg/kg/min but nurse stopped levophed for BP of 151/57. Patients sedation paused while nurse in the room for approximately 15 minutes, patient never aroused to painful stimuli or verbal command. Patient did not open eyes and had no movement at all. Versed stopped and patient only on propofol and fentanyl. Pulmocare running at 20 mL/hour with Q6H H2O flushes. Right chest tube to water seal, no air leak, crepitus felt across entire chest beginning directly above insertion site. Crepitus felt across chest to below bilateral breasts and ends at bilateral clavicles.
--- NOTE | 2020-04-19 02:41 | PC.NURSE ---
NEURO STATUS Patients sedation paused while nurse in room doing assessment for approximately 15 minutes. Patient did not open eyes or slightly move at all. Painful stimuli inflicted and patient had no response. Versed stopped due to no neurological response at all and erwin scale order of 3 and patient at 6. Propofol remained at 25 mcg/kg/min and fentanyl at 25 mcg/hour. Nurse will continue to wean sedation as needed for sedation scale of 3.
[2020-04-19] MEDS: levalbuterol 0.63 mg/3 mL Neb INHALATION ×5 (03:05→20:34)
--- NOTE | 2020-04-19 03:16 | PC.NURSE ---
GRANDDAUGHTER CALLED Granddaughter called to check on patient. Notified her of current neurological status with sedation and that it would be paused again around 0600 to assess again. Notified of patient doing better respiratory almaraz and weaning of FiO2. Family asked about lab work, so labs gone over with her. Instructed to call back around 0800 once day shift nurse has assessed patient and can give more information.
[2020-04-19 03:44] LABS: ABG PCO2 43.1 mmHg (35-45); ABG PH Result 7.41 (7.35-7.45); Arterial Blood Gas Hematocrit 41.7 % (42-52); Base Excess ABG 2.3 mmol/L (-2.0-2.0); Blood Gas Sample Type Arterial; HCO3 ABG 27.3 mmol/L (22-26); Oxygen Device VENT; PO2 ABG 57.4 mmHg (80.0-100.0)
--- NOTE | 2020-04-19 05:10 | PC.NURSE ---
OXYGEN Patients oxygen decreased to 88%, patient had audible inspiratory and expiratory wheezing, coarse and crackled lung sounds in all [place]. Respiratory notified and nurse requested breathing treatment, respiratory states he just had one. Patients propofol had just been decreased to 20 mcg/kg/min from 25. Propofol increased back to 25 and patient no longer breathing over the vent or increased respiratory rate.
[2020-04-19] MEDS: propofol 1,000 MG/100 ML INJ 13.3 MG IV ×2 (05:26→18:28)
[2020-04-19 05:48] LABS: Glucose Point of Care 119 mg/dL (70-110)
[2020-04-19 06:18] LABS: Basophils # 0.1 10^3/uL (0.0-0.1); Basophils % 0.5 %; Eosinophils # 0.2 10^3/uL (0.0-0.8); Eosinophils % 0.7 %; Hematocrit 42.5 % (42.0-52.0); Hemoglobin 13.5 g/dL (11.7-16.6); Lymphocytes # 1.3 10^3/uL (0.8-4.8); Lymphocytes % 5.2 %; Mean Corpuscular HGB Conc 31.8 g/dL (30.0-36.0); Mean Corpuscular Hemoglobin 28.5 pg (28.0-34.0); Mean Corpuscular Volume 89.7 fL (80-94); Mean Platelet Volume 12.8 fL (7.4-10.4); Monocytes # 5.1 10^3/uL (0.2-0.9); Monocytes % 20.2 %; Neutrophils # 16.98 10^3/uL (1.8-7.7); Nucleated Red Blood Cells # 0.1 /100WBC; Nucleated Red Blood Cells % 0.2 %; Platelet Count 96 10^3/cmm (130-400); Red Blood Count 4.74 10^6/uL (4.1-5.3); Red Cell Distribution Width 17.2 % (12.1-15.1); White Blood Count 25.1 10^3/uL (4.0-10.0)
[2020-04-19] MEDS: famotidine 20 mg/2 mL INJ IVP ×2 (06:32→18:28)
[2020-04-19 06:37] LABS: Neutrophils % 73.4 %
[2020-04-19] MEDS: propofol 1,000 MG/100 ML INJ 18.6 MG IV ×2 (09:24→23:55)
[2020-04-19] MEDS: levofloxacin-dextrose 5 % 750 MG/150 ML PREMIX 100 MG IV (09:24)
[2020-04-19] MEDS: aztreonam 1,000 MG in sodium chloride 0.9% (plus) 50 ML 100 MG IV ×2 (09:24→20:29)
[2020-04-19] MEDS: dexamethasone 4 mg/mL INJ 6 MG IVP ×2 (09:25→18:28)
[2020-04-19] MEDS: acetaminophen 325 mg Tablet PO (10:08)
[2020-04-19 11:10] LABS: Vancomycin Trough 21.1 ug/mL (10-15)
[2020-04-19 11:44] LABS: Glucose Point of Care 151 mg/dL (70-110)
[2020-04-19 11:50] LABS: Glucose Point of Care 126 mg/dL (70-110)
[2020-04-19] MEDS: enoxaparin 40 mg/0.4 mL Syringe SUBCUT (13:40)
--- NOTE | 2020-04-19 14:04 | PC.NURSE ---
Neuro status JACKIE. PT doesn't not respond to pain or suctioning. Decreased sedation and still no response. I did use MiniStim PNS and patient did respond to train of 4, to both facial nerve and ulnar. Will continue to assess. Patient currently breathing over ventilator.
--- NOTE | 2020-04-19 15:52 | XRR_ITS ---
PROCEDURE INFORMATION: Exam: XR Chest, 1 View Exam date and time: 04/19/2020 3:53 PM Age: 69 years old Clinical indication: Device placement; Ett placement (vent status); Additional info: Chest tube eval TECHNIQUE: Imaging protocol: XR of the chest Views: 1 view. COMPARISON: CR XR chest 1V portable [id number] 04/18/2020 3:51 PM FINDINGS: Tubes, catheters and devices: There is an ET tube with tip just below the clavicular heads but well above the erick, orogastric tube with tip off the film, suspected temperature probe with tip in the right lower lobe bronchus, right-sided chest tube and right IJ central line with tip in the distal superior vena cava. Lungs: Increasing airspace and ground-glass opacities are noted in the lungs especially in the mid to lower right lung and medial left lower lobe. Pulmonary vessels are slightly more engorged compatible with a component of mild CHF compared to the prior exam. Pleural space: There is an unchanged small right lateral pneumothorax. Heart/Mediastinum: Unremarkable. No cardiomegaly. Bones/joints: No acute abnormality. Soft tissues: There is abundant subcutaneous emphysema. XR/XR chest 1V portable [id number] IMPRESSION: 1. Increasing airspace and ground-glass opacities are noted in the lungs especially in the mid to lower right lung and medial left lower lobe. 2. Pulmonary vessels are slightly more engorged compatible with a component of mild CHF compared to the prior exam.
[2020-04-19 18:19] LABS: ABG PCO2 32.8 mmHg (35-45); ABG PH Result 7.42 (7.35-7.45); Arterial Blood Gas Hematocrit 38.8 % (42-52); Base Excess ABG -2.2 mmol/L (-2.0-2.0); Blood Gas Sample Site Not specified; Blood Gas Sample Type Arterial; HCO3 ABG 21.5 mmol/L (22-26); Oxygen Device VENT
[2020-04-19 18:28] LABS: Glucose Point of Care 133 mg/dL (70-110)
--- NOTE | 2020-04-19 21:15 | PM.PN ---
Subjective Subjective: Interval history: 69 year old with male who was recently treated for suspected community aquired pneumonia with doxycycline presented to the hospital for increased dyspnea. Initial Laboratory workup showed a WBC of 14.2, hemoglobin of 12.3, hematocrit of 38.7 and platelet count of 130. sodium 136, potassium 3.8, chloride 105, bicarb 23, BUN 12 and creatinine is 0.9. LDH of 492, AST of 23, ALT 27, total bilirubin 1.5. d-dimer of 1.83. Imaging studies on 04/09/2020 included a chest x-ray which showed prominent bilateral interstitial pulmonary infiltrates consistent with acute interstitial pneumonia. Subsequently a CTA chest PE protocol was performed which did not show any evidence of PE however did show interstitial fibrosis with honeycombing UIP pattern. Possibly related to IPF vs hypersensitivity pneumonitis. Also noted to have focal consolidation in the posterior left lower lobe iwth adjacent pleural thickening and prominent mediastinal and hilar lymph node enlargement. Patient was started on antibiotics for suspected community acquired pneumonia with azithromycin and azithromycin. Blood culture x 2, sputum culture did not show any growth. on 04/10 his COVID-19 PCR was found to be positive. During this time his respiratory status continued to worsening. Inital required 4L of o2 via NC however this was up to 15L via NRB. On 04/11 he was started on remdesivir 5 day tx protocol in addition to decadron 6 mg daily. Due to progressive decline he was transitioned to VICU. His ABG had shown a PH of 7.46, PCO2 of 28.4, Po2 of 71.4 and HCO3 of 20.1 where he was started on CPAP which was transitioned to HFNC at 80% FIO2. D-dimer was checked and noted to be markedly elevated from 1.83 -> 3.99. His lovenox dose was increased to full dose despite negative PE on CTA of chest. Antibiotics were changed to vancomycin and levaquin 750 mg IV daily. Pro-calcitonin however was 0.20. Subjective 04/13 Patient was transitioned to heated HFNC. Oxygen saturation was 93% on 50L flow and Fio2 of 80%. Patient did not have any new complaints overnight. Noted stable respiratory status. No Fever, chills, nausea or vomiting. Denied any pleuritic chest pain. D/w patient regarding code status and again confirmed FULL CODE. 04/14 Overnight patient was noted to have progressive decline in respiratory status. He was not tolerated HFNC in am. Was noted to have increase work of breathing utilized accessory muscles. Patient was then intubated and placed on mechanical ventilation. Sedation with propofol was initiated. This was being weaned with addition of versed and fentanyl. Post intubation x-ray confirmed ET tube placement 6 cm about erick. OG and frey were also placed. 04/15 Patient was started on IV vasopresors overnight. No reported fevers. Leukocytosis markedly increased as well as creatinine. 04/[address] this am 04/17 Patient was noted to have SQ emphysema on left today. Chest x-ray was obtained which did not show any evidence of pneumothorax on left. Right sided chest tube in place with small apical ptx. No fever or chills overnight. 04/18 Patient remained clnically stable overnight. Continued to have intermittent fever. Chest tube in place. 04/19 Overnight patient was noted to have Tmax 100.8. Fio2 increased to 55%. Chest tube stable. Medications: Reviewed: Yes Vitals/I&O/Wt Last Vital Signs Temp 99.7 F H 04/19/20 11:03 Pulse 91 04/19/20 20:30 Resp 25 H 04/19/20 20:30 BP 128/71 04/19/20 18:00 Pulse Ox 94 04/19/20 20:30 04/19/20 04/19/20 04/19/20 06:59 14:59 22:59 Intake Total 350 / 1597.661 777.190 / 928.721 9146.776 / 2120.966 Output Total 625 / 1375 27 / 400 / 427 Balance -275 / 222.661 750.190 / 750.190 943.776 / 1693.966 Physical Exam Narrative: EXAM NARRATIVE: General: Intubated on MV HEENT : Grossly unremarkable Chest : Vented sounds B/L , right-sided chest tube in place, left subcu emphysema CVS: normal sinus rhythm ABD : Non-distended : Frey catheter in place Ext : No edema Urinary Catheter Management^: Frey: Cath Placed During This Visit: yes Reason for Continuing Indwelling Catheter: Accurate Measurement of Urinary Output in Critically Ill Patients Urinary Catheter Date of Insertion: 04/14/20 Urinary Catheter Time of Insertion: 11:30 Data : 04/19/20 03:55 04/18/20 04:05 Micro: Microbiology 04/15/20 07:40 Blood Culture - Preliminary Blood A&P Assessment and plan (1) Acute respiratory failure with hypoxia: Status: Acute (2) Sepsis: Status: Acute (3) ILD (interstitial lung disease): Status: Acute Acute respiratory failure with hypoxia on mechanical ventilation - Etiology is multi-factorial COVID-19, underlying ILD, Right sided PTx, possible superimposed bacterial pneumonia - Intubated on MV ( 04/14) ET tube 8.0mm at 27cm at lip Vent : - 04/17 - CMV,TV 450, RR set at 22, PIP 21, PEEP decreased to 5 with a Fio2 of 40 percent - Patient RR - > 24, MV 9.6, Lung compliance 26, airway resistance 6 - On sedation Fentanyl gtt, Versed Gtt - Maintain RASS negative 2 - 04/17 - Chest x-ray - > right apical ptx with chest tube, extensive pulmonary infiltrates bilaterally - unchanged and extensive SQ emphysema over b/l neck and chest - 04/18 Vent: CMV, RR-22, PIP fo 27, iTime 1.1, PEEP of 10, Fio2 55% - Patients : RR of 25, M.V of 12.8, compliance 26, Airway resistance 3 - 04/18- > 7.40, PCO2 of 83.2, HCO3 of 27.8 on Fio2 of 45% - 04/19 - > Fio2 increased to 55% - Repeat Chest x-ray in am - Repeat ABG in am Sepsis due to COVID 19 pneumonia/ Possible bacterial - Completed Remdesivir x 5 days - Decadron 6 mg IV BID - Ferritin 627, LDH 894, CRP of 88.9 - WBC 62.7-> 38.6-> 18.9 -> 15.8 - > 25 - 04/09 - Blood culture x 2 - NGTD - 04/11 - Sputum culture - negative - 04/14 - Sputum culture - negative - Pro-calcitonin 0.20 ->0.67-> 0.14 - Vancomycin pharmacy to dose - Levaquin 750 mg IV daily - Aztreonam 1g IV q12 hr - Continues to have fevers - Continue Vasopressors - Keep MAP>65 - Repeat Blcx in am due to fever / increasing wbc - Ferritin, CRP, D-dimer, Pro-calcitonin in am Thrombocytopenia - Due to sepsis vs anti-platelets - Will hold Lovenox - Send HITab - May consider initiating agatropban Chronic ILD/Pulmonary fibrosis - Newly seen and dx on admission imaging - Currently on Steroid as noted above Right Sided Pneumothorax s/p Chest tube - Continue current management - Repeat chest x-ray - no further ptx noted - Extensive SQ emphysema - Pulmonary medicine on board - Plan to remove chest tube in AM - D/w General surgery Hyperkalemia - Resolved - K 5.2 - 4.5 - S/p Kayexalate 30 mg PO x 1 04/16 - May give lasix - Repeat BMP in AM Acute kidney injury - Resolved - Creatinine 1.7 - > 0.9 - Likely pre-renal from hypotension - Renally dose medication - Repeat BMP in AM Hypertension - Currently hypotensive - Likely due to sedatives vs septic shock - Hold b-blockers GI ppx - Pepcid 20 IV BID DVT ppx - SCDs - ( lovenox held due to increasing thrombocytopenia ) Attestations Medical Necessity Statement*: Will require continued hospitalization for vent management. Time Spent in Patient Care: Greater than 35 minutes (>than 50% of time spent in counselling and/or direct pt care on unit). Coding Level of Care Code Acute Concrete Grinder Operator for Jenna Santizo Diagnoses Acute respiratory failure with hypoxia J96.01 Sepsis A41.9 ILD (interstitial lung disease) J84.9
[2020-04-20] VITALS (103 sets, daily range): BP systolic 91–162; BP diastolic 46–84; PULSE 80–109; RESP 16–24; TEMP 35.6–37.8; O2SAT 90–95
[2020-04-20] MEDS: levalbuterol 0.63 mg/3 mL Neb INHALATION ×3 (00:01→07:54)
[2020-04-20 00:38] LABS: Glucose Point of Care 143 mg/dL (70-110)
[2020-04-20] MEDS: vancomycin 1,250 MG/250 ML PIGGYBACK 200 MG IV ×3 (00:54→23:33)
--- NOTE | 2020-04-20 01:47 | PC.NURSE ---
ASSUMING CARE Patient resting in bed on ventilator, FiO2 at 55%, PEEP of 8, Rate of 22, and TV 500. Patient has levophed running at 6 mcg/kg/min, propofol at 45 mcg/kg/min, fentanyl at 75 mcg/hour, pulmocare through OG tube at 20 mL/hour. Patients neuro status has not improved and has GSC of 3, with no response when sedation paused. Pupils reactive and equal, no response to painful stimuli. Right midaxillary chest tube intact and draining, no air leak, crepitus covering chest from insertion site up to clavicle bilaterally.
--- NOTE | 2020-04-20 01:51 | PC.NURSE ---
GRANDDAUGHTER CALLED Patients granddaughter called to check on patient. Granddaughter notified of neuro status and no response with sedation vacation. Asked about kidney function and day shift nurse assessing reflexes. Notified of those outcomes and states she will call back in the morning.
[2020-04-20 04:50] LABS: ABG PH Result 7.36 (7.35-7.45); Arterial Blood Gas Hematocrit 37.3 % (42-52); Base Excess ABG 1.2 mmol/L (-2.0-2.0); Blood Gas Sample Type Arterial; HCO3 ABG 27.2 mmol/L (22-26); Oxygen Device VENT; PO2 ABG 73.1 mmHg (80.0-100.0)
[2020-04-20 05:15] LABS: Basophils # 0.2 10^3/uL (0.0-0.1); Basophils % 0.5 %; Eosinophils # 0.1 10^3/uL (0.0-0.8); Eosinophils % 0.2 %; Hematocrit 40.1 % (42.0-52.0); Hemoglobin 12.3 g/dL (11.7-16.6); Lymphocytes # 1.7 10^3/uL (0.8-4.8); Lymphocytes % 4.8 %; Mean Corpuscular HGB Conc 30.7 g/dL (30.0-36.0); Mean Corpuscular Hemoglobin 28.5 pg (28.0-34.0); Mean Platelet Volume 12.5 fL (7.4-10.4); Monocytes # 7.4 10^3/uL (0.2-0.9); Monocytes % 20.4 %; Neutrophils # 25.23 10^3/uL (1.8-7.7); Neutrophils % 69.2 %; Nucleated Red Blood Cells # 0.1 /100WBC; Nucleated Red Blood Cells % 0.2 %; Platelet Count 80 10^3/cmm (130-400); Red Blood Count 4.31 10^6/uL (4.1-5.3); Red Cell Distribution Width 17.4 % (12.1-15.1)
[2020-04-20 05:33] LABS: Lactate (Lactic Acid level) 1.1 mmol/L (0.5-2.2)
[2020-04-20] MEDS: famotidine 20 mg/2 mL INJ IVP ×2 (05:44→17:14)
[2020-04-20 05:46] LABS: Procalcitonin 0.72 ng/mL (0-0.5)
[2020-04-20 05:59] LABS: Alanine Aminotransferase 26 U/L (0-41); Albumin Level 2.7 g/dL (3.5-5.2); Alkaline Phosphatase 44 IU/L (40-130); Anion Gap 13.2 (5-19); Aspartate Amino Transferase 20 U/L (0-40); Blood Urea Nitrogen 51 mg/dL (8-23); C Reactive Protein 172.7 mg/L (0.0-4.9); Carbon Dioxide 26 mmol/L (22-29); Chloride 104 mmol/L (98-107); Ferritin 569 ng/mL (30-400); Globulin 2.8 g/dL (1.3-4.6); Glucose 152 mg/dL (65-115); Osmolality Calculated 305 mOsm/kg (285-295); Potassium 4.2 mmol/L (3.5-5.1); Sodium 139 mmol/L (136-145); Total Bilirubin 0.7 mg/dL (0.15-1.2); Total Protein 5.5 g/dL (6.6-8.7)
[2020-04-20 06:04] LABS: Glucose Point of Care 129 mg/dL (70-110)
[2020-04-20 06:05] LABS: D Dimer 1.41 ug/mIFEU (0-0.59)
[2020-04-20] MEDS: propofol 1,000 MG/100 ML INJ 18.6 MG IV (06:12)
[2020-04-20 06:15] LABS: Slide Review Slide Review Perform
[2020-04-20 06:16] LABS: White Blood Count 36.4 10^3/uL (4.0-10.0)
[2020-04-20] MEDS: dexamethasone 4 mg/mL INJ 6 MG IVP ×2 (08:49→17:14)
[2020-04-20] MEDS: aztreonam 1,000 MG in sodium chloride 0.9% (plus) 50 ML 100 MG IV ×2 (08:50→20:59)
[2020-04-20] MEDS: levofloxacin-dextrose 5 % 750 MG/150 ML PREMIX 100 MG IV (08:50)
--- NOTE | 2020-04-20 09:12 | PM.PN ---
Subjective Subjective: Interval history: 69 year old with male who was recently treated for suspected community aquired pneumonia with doxycycline presented to the hospital for increased dyspnea. Initial Laboratory workup showed a WBC of 14.2, hemoglobin of 12.3, hematocrit of 38.7 and platelet count of 130. sodium 136, potassium 3.8, chloride 105, bicarb 23, BUN 12 and creatinine is 0.9. LDH of 492, AST of 23, ALT 27, total bilirubin 1.5. d-dimer of 1.83. Imaging studies on 04/09/2020 included a chest x-ray which showed prominent bilateral interstitial pulmonary infiltrates consistent with acute interstitial pneumonia. Subsequently a CTA chest PE protocol was performed which did not show any evidence of PE however did show interstitial fibrosis with honeycombing UIP pattern. Possibly related to IPF vs hypersensitivity pneumonitis. Also noted to have focal consolidation in the posterior left lower lobe iwth adjacent pleural thickening and prominent mediastinal and hilar lymph node enlargement. Patient was started on antibiotics for suspected community acquired pneumonia with azithromycin and azithromycin. Blood culture x 2, sputum culture did not show any growth. on 04/10 his COVID-19 PCR was found to be positive. During this time his respiratory status continued to worsening. Inital required 4L of o2 via NC however this was up to 15L via NRB. On 04/11 he was started on remdesivir 5 day tx protocol in addition to decadron 6 mg daily. Due to progressive decline he was transitioned to VICU. His ABG had shown a PH of 7.46, PCO2 of 28.4, Po2 of 71.4 and HCO3 of 20.1 where he was started on CPAP which was transitioned to HFNC at 80% FIO2. D-dimer was checked and noted to be markedly elevated from 1.83 -> 3.99. His lovenox dose was increased to full dose despite negative PE on CTA of chest. Antibiotics were changed to vancomycin and levaquin 750 mg IV daily. Pro-calcitonin however was 0.20. Subjective 04/13 Patient was transitioned to heated HFNC. Oxygen saturation was 93% on 50L flow and Fio2 of 80%. Patient did not have any new complaints overnight. Noted stable respiratory status. No Fever, chills, nausea or vomiting. Denied any pleuritic chest pain. D/w patient regarding code status and again confirmed FULL CODE. 04/14 Overnight patient was noted to have progressive decline in respiratory status. He was not tolerated HFNC in am. Was noted to have increase work of breathing utilized accessory muscles. Patient was then intubated and placed on mechanical ventilation. Sedation with propofol was initiated. This was being weaned with addition of versed and fentanyl. Post intubation x-ray confirmed ET tube placement 6 cm about erick. OG and frey were also placed. 04/15 Patient was started on IV vasopresors overnight. No reported fevers. Leukocytosis markedly increased as well as creatinine. 04/[address] this am 04/17 Patient was noted to have SQ emphysema on left today. Chest x-ray was obtained which did not show any evidence of pneumothorax on left. Right sided chest tube in place with small apical ptx. No fever or chills overnight. 04/18 Patient remained clnically stable overnight. Continued to have intermittent fever. Chest tube in place. 04/19 Overnight patient was noted to have Tmax 100.8. Fio2 increased to 55%. Chest tube stable. 04/20 Fio2 decreased to 55 Chest tube remained in place Medications: Reviewed: Yes Vitals/I&O/Wt Last Vital Signs Temp 98.3 F 04/21/20 04:45 Pulse 96 04/21/20 08:34 Resp 20 H 04/21/20 08:34 BP 126/62 04/21/20 06:00 Pulse Ox 90 04/21/20 08:34 04/20/20 04/21/20 04/21/20 22:59 06:59 14:59 Intake Total 248.102 / 996.086 622.014 / 1618.100 Output Total 850 / 850 1000 / 1850 Balance -601.898 / 146.086 -377.986 / -231.900 Physical Exam Narrative: EXAM NARRATIVE: General: Intubated on MV HEENT : Grossly unremarkable Chest : Vented sounds B/L , right-sided chest tube in place, left subcu emphysema CVS: normal sinus rhythm ABD : Non-distended : Frey catheter in place Ext : No edema Urinary Catheter Management^: Frey: Cath Placed During This Visit: yes Reason for Continuing Indwelling Catheter: Accurate Measurement of Urinary Output in Critically Ill Patients Urinary Catheter Date of Insertion: 04/14/20 Urinary Catheter Time of Insertion: 11:30 Data : 04/21/20 04:30 04/21/20 04:30 Micro: Microbiology 01/03/21 04:40 Blood Culture - Preliminary Blood NEGATIVE TO DATE 04/20/20 04:36 Blood Culture - Preliminary Blood NEGATIVE TO DATE 04/15/20 07:40 Blood Culture - Final Blood 04/15/20 07:50 Blood Culture - Final Blood NO GROWTH AFTER 5 DAYS A&P Assessment and plan (1) Acute respiratory failure with hypoxia: Status: Acute (2) Sepsis: Status: Acute (3) ILD (interstitial lung disease): Status: Acute Acute respiratory failure with hypoxia on mechanical ventilation - Etiology is multi-factorial COVID-19, underlying ILD, Right sided PTx, possible superimposed bacterial pneumonia - Intubated on MV ( 04/14) ET tube 8.0mm at 27cm at lip Vent : - 04/17 - CMV,TV 450, RR set at 22, PIP 21, PEEP decreased to 5 with a Fio2 of 40 percent - Patient RR - > 24, MV 9.6, Lung compliance 26, airway resistance 6 - On sedation Fentanyl gtt, Versed Gtt - Maintain RASS negative 2 - 04/17 - Chest x-ray - > right apical ptx with chest tube, extensive pulmonary infiltrates bilaterally - unchanged and extensive SQ emphysema over b/l neck and chest - 04/18 Vent: CMV, RR-22, PIP fo 27, iTime 1.1, PEEP of 10, Fio2 55% - Patients : RR of 25, M.V of 12.8, compliance 26, Airway resistance 3 - 04/18- > 7.40, PCO2 of 83.2, HCO3 of 27.8 on Fio2 of 45% - 04/19 - > Fio2 increased to 55% - Repeat Chest x-ray in am - Repeat ABG in am - WEan fio2 to 50 percent Sepsis due to COVID 19 pneumonia/ Possible bacterial - Completed Remdesivir x 5 days - Decadron 6 mg IV BID - Ferritin 627, LDH 894, CRP of 88.9 - WBC 62.7-> 38.6-> 18.9 -> 15.8 - > 25 - 04/09 - Blood culture x 2 - NGTD - 04/11 - Sputum culture - negative - 04/14 - Sputum culture - negative - Pro-calcitonin 0.20 ->0.67-> 0.14 - Vancomycin pharmacy to dose - Levaquin 750 mg IV daily - Aztreonam 1g IV q12 hr - Continues to have fevers - Continue Vasopressors - Keep MAP>65 - Repeat Blcx in am due to fever / increasing wbc - Ferritin, CRP, D-dimer, Pro-calcitonin q2days Thrombocytopenia - Due to sepsis vs anti-platelets - Will hold Lovenox - Send HITab - May consider initiating agatropban Chronic ILD/Pulmonary fibrosis - Newly seen and dx on admission imaging - Currently on Steroid as noted above Right Sided Pneumothorax s/p Chest tube - Continue current management - Repeat chest x-ray - no further ptx noted - Extensive SQ emphysema - Pulmonary medicine on board - persistent ptx in right apical region - Keep chest x-ray - repeat in am - D/w General surgery Hyperkalemia - Resolved - K 5.2 - 4.5 - S/p Kayexalate 30 mg PO x 1 04/16 - May give lasix - Repeat BMP in AM Acute kidney injury - Resolved - Creatinine 1.7 - > 0.9 - Likely pre-renal from hypotension - Renally dose medication - Repeat BMP in AM Hypertension - Currently hypotensive - Likely due to sedatives vs septic shock - Hold b-blockers GI ppx - Pepcid 20 IV BID DVT ppx - SCDs - ( lovenox held due to increasing thrombocytopenia ) Attestations Medical Necessity Statement*: Continue hospitalization for managment for vent / respiratory falirue Time Spent in Patient Care: Greater than 35 minutes (>than 50% of time spent in counselling and/or direct pt care on unit). 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
[2020-04-20] MEDS: propofol 1,000 MG/100 ML INJ 26.5 MG IV (10:47)
[2020-04-20 12:12] LABS: Glucose Point of Care 126 mg/dL (70-110)
--- NOTE | 2020-04-20 12:31 | PC.SOCIAL ---
*IMM* Was able to give the patients the Important Message from [employer] over the phone due to the patient being on a vent.
[2020-04-20] MEDS: propofol 1,000 MG/100 ML INJ 13.3 MG IV (14:33)
[2020-04-20] MEDS: dexmedetomidine 400 MCG in sodium chloride 0.9% (100 ml) 100 ML IV (15:25)
[2020-04-20] MEDS: norepinephrine 8 MG in dextrose 5 % 500 ML 7.6 MG IV (15:25)
[2020-04-20 17:11] LABS: Glucose Point of Care 158 mg/dL (70-110)
--- NOTE | 2020-04-20 18:31 | PC.NURSE ---
Attempt to wean off Propofol Verbal order from to wean patient off propofol and to start pecedex gtt. shortly after propofol off and precedex on, patient was breathing over vent and beginning to cough. attempt to call to inform, no answer at this time. propofol gtt started again for patient sedation.
[2020-04-20] MEDS: propofol 1,000 MG/100 ML INJ 15.9 MG IV (20:55)
[2020-04-20] MEDS: sennosides-docusate Tablet 1 TAB PO (20:59)
[2020-04-21] VITALS (43 sets, daily range): BP systolic 77–167; BP diastolic 44–80; PULSE 89–107; RESP 16–29; TEMP 36.8–39.4; O2SAT 88–93
[2020-04-21 00:09] LABS: Glucose Point of Care 141 mg/dL (70-110)
[2020-04-21] MEDS: dexmedetomidine 400 MCG in sodium chloride 0.9% (100 ml) 100 ML 11.5 MCG IV ×3 (02:44→21:51)
--- NOTE | 2020-04-21 02:44 | PC.NURSE ---
Propofol was restarted at 10mcg/kg/hr due to pt's SBP going up into the 190's. Pt is currently staying around 160's/50's. Propofol was paused for greater than an hour and during that time the pt did not waken any. Pt did cough while being deep suctioned as he did not do this before decreasing the sedation. Pt does not withdraw or respond to painful stimuli. Negative babinski's sign noted in bilateral feet. No changes in respiratory status. Pt continues to sat 90-92% on 50% Fi02 with a respiratory rate 20-22. No s/sx of distress noted. Will continue to monitor pt.
[2020-04-21 06:03] LABS: Anion Gap 12.4 (5-19); Blood Urea Nitrogen 46 mg/dL (8-23); Calcium 7.9 mg/dL (8.5-10.5); Carbon Dioxide 27 mmol/L (22-29); Chloride 103 mmol/L (98-107); Glucose 134 mg/dL (65-115); Hematocrit 41.2 % (42.0-52.0); Hemoglobin 12.2 g/dL (11.7-16.6); Magnesium 2.6 mg/dL (1.7-2.3); Mean Corpuscular HGB Conc 29.6 g/dL (30.0-36.0); Mean Corpuscular Hemoglobin 28.4 pg (28.0-34.0); Mean Corpuscular Volume 95.8 fL (80-94); Osmolality Calculated 298 mOsm/kg (285-295); Phosphorus 2.6 mg/dL (2.5-4.5); Platelet Count 87 10^3/cmm (130-400); Potassium 5.4 mmol/L (3.5-5.1); Red Cell Distribution Width 17.6 % (12.1-15.1); Sodium 137 mmol/L (136-145); White Blood Count 30.1 10^3/uL (4.0-10.0)
[2020-04-21 06:04] LABS: D Dimer 1.74 ug/mIFEU (0-0.59)
[2020-04-21] MEDS: famotidine 20 mg/2 mL INJ IVP ×2 (06:22→18:48)
[2020-04-21] MEDS: propofol 1,000 MG/100 ML INJ 15.9 MG IV ×2 (06:25→11:31)
[2020-04-21 06:48] LABS: Glucose Point of Care 120 mg/dL (70-110)
[2020-04-21 07:12] LABS: Slide Review Slide Review Perform
[2020-04-21 07:46] LABS: Absolute Segmented Neutrophil 20.2 10/cmm (1.6-7.1); Anisocytosis 1+; Band Neutrophils Absolute 1.8 10^3/cmm (0.0-1.2); Basophils Absolute 0.6 10^3/cmm (0.0-0.2); Eosinophils 0 %; Lymphocytes 11 %; Monocytes Absolute 2.7 10^3/cmm (0.1-0.6); Poikilocytosis Trace; Segmented Neutrophils 67 %; Total Cells Counted 100 (0-100)
[2020-04-21 07:47] LABS: Platelet Estimate Decreased (Normal); Smudge Cells 1+
--- NOTE | 2020-04-21 08:49 | XRR_ITS ---
PROCEDURE INFORMATION: Exam: XR Chest, 1 View Exam date and time: 04/21/2020 9:22 AM Age: 69 years old Clinical indication: Device placement; Chest tube; Additional info: Covid, chest tube TECHNIQUE: Imaging protocol: XR of the chest Views: 1 view. COMPARISON: CR (CHEST, ) 04/19/2020 4:17 PM FINDINGS: Tubes, catheters and devices: Endotracheal tube, feeding tube, central venous catheter, and thoracostomy tube. The endotracheal tube terminates 4.7 cm above the erick. Lungs: Interstitial and mild airspace disease, with interval improvement in airspace disease. Pleural space: No significant pneumothorax or pleural effusion. Heart/Mediastinum: No cardiomegaly. Bones/joints: Unremarkable. Soft tissues: Bilateral subcutaneous emphysema. XR/XR chest 1V portable [id number] IMPRESSION: Interstitial and mild airspace disease, with interval improvement in airspace disease.
[2020-04-21] MEDS: aztreonam 1,000 MG in sodium chloride 0.9% (plus) 50 ML 100 MG IV ×2 (10:11→19:34)
[2020-04-21] MEDS: dexamethasone 4 mg/mL INJ 6 MG IVP ×2 (10:11→18:48)
[2020-04-21] MEDS: levofloxacin-dextrose 5 % 750 MG/150 ML PREMIX 125 MG IV (10:12)
[2020-04-21] MEDS: levalbuterol 0.63 mg/3 mL Neb INHALATION ×2 (10:55→15:55)
[2020-04-21] MEDS: vancomycin 1,250 MG/250 ML PIGGYBACK 200 MG IV ×2 (12:01→23:23)
[2020-04-21 12:13] LABS: Glucose Point of Care 125 mg/dL (70-110)
--- NOTE | 2020-04-21 15:48 | PC.NURSE ---
CHEST TUBE CLAMPED PER DATAR. WAS ON WATER SEAL.
[2020-04-21] MEDS: acetaminophen 325 mg Tablet PO ×2 (16:00→20:03)
[2020-04-21 16:14] LABS: ABG PCO2 55.8 mmHg (35-45); ABG PH Result 7.33 (7.35-7.45); Arterial Blood Gas Hematocrit 36.5 % (42-52); Blood Gas Operator Identificat AMH; Blood Gas Sample Type Arterial; Carboxyhemoglobin 1.9 %THgb (0.4-20.1); HCO3 ABG 29.1 mmol/L (22-26); Ionized Calcium Level - ABG 1.2 mmol/L (1.1-1.4); Methemoglobin 0.7 % (0.4-1.5); Oxygen Device VENT; Oxygen Saturation ABG 93.3; PO2 ABG 62.9 mmHg (80.0-100.0); Total Hemoglobin 11.9 g/dL (14-18)
[2020-04-21 18:03] LABS: Glucose Point of Care 145 mg/dL (70-110)
[2020-04-21] MEDS: propofol 1,000 MG/100 ML INJ 18.6 MG IV (19:29)
--- NOTE | 2020-04-21 20:09 | PC.NURSE ---
PRN Tylenol administered for rectal temp 103.1, groin and auxiliary iced
[2020-04-21] MEDS: sennosides-docusate Tablet 2 TAB PO (20:51)
--- NOTE | 2020-04-21 22:07 | PM.PN ---
Subjective Subjective: Interval history: 69 year old with male who was recently treated for suspected community aquired pneumonia with doxycycline presented to the hospital for increased dyspnea. Initial Laboratory workup showed a WBC of 14.2, hemoglobin of 12.3, hematocrit of 38.7 and platelet count of 130. sodium 136, potassium 3.8, chloride 105, bicarb 23, BUN 12 and creatinine is 0.9. LDH of 492, AST of 23, ALT 27, total bilirubin 1.5. d-dimer of 1.83. Imaging studies on 04/09/2020 included a chest x-ray which showed prominent bilateral interstitial pulmonary infiltrates consistent with acute interstitial pneumonia. Subsequently a CTA chest PE protocol was performed which did not show any evidence of PE however did show interstitial fibrosis with honeycombing UIP pattern. Possibly related to IPF vs hypersensitivity pneumonitis. Also noted to have focal consolidation in the posterior left lower lobe iwth adjacent pleural thickening and prominent mediastinal and hilar lymph node enlargement. Patient was started on antibiotics for suspected community acquired pneumonia with azithromycin and azithromycin. Blood culture x 2, sputum culture did not show any growth. on 04/10 his COVID-19 PCR was found to be positive. During this time his respiratory status continued to worsening. Inital required 4L of o2 via NC however this was up to 15L via NRB. On 04/11 he was started on remdesivir 5 day tx protocol in addition to decadron 6 mg daily. Due to progressive decline he was transitioned to VICU. His ABG had shown a PH of 7.46, PCO2 of 28.4, Po2 of 71.4 and HCO3 of 20.1 where he was started on CPAP which was transitioned to HFNC at 80% FIO2. D-dimer was checked and noted to be markedly elevated from 1.83 -> 3.99. His lovenox dose was increased to full dose despite negative PE on CTA of chest. Antibiotics were changed to vancomycin and levaquin 750 mg IV daily. Pro-calcitonin however was 0.20. Subjective 04/13 Patient was transitioned to heated HFNC. Oxygen saturation was 93% on 50L flow and Fio2 of 80%. Patient did not have any new complaints overnight. Noted stable respiratory status. No Fever, chills, nausea or vomiting. Denied any pleuritic chest pain. D/w patient regarding code status and again confirmed FULL CODE. 04/14 Overnight patient was noted to have progressive decline in respiratory status. He was not tolerated HFNC in am. Was noted to have increase work of breathing utilized accessory muscles. Patient was then intubated and placed on mechanical ventilation. Sedation with propofol was initiated. This was being weaned with addition of versed and fentanyl. Post intubation x-ray confirmed ET tube placement 6 cm about erick. OG and frey were also placed. 04/15 Patient was started on IV vasopresors overnight. No reported fevers. Leukocytosis markedly increased as well as creatinine. 04/[address] this am 04/17 Patient was noted to have SQ emphysema on left today. Chest x-ray was obtained which did not show any evidence of pneumothorax on left. Right sided chest tube in place with small apical ptx. No fever or chills overnight. 04/18 Patient remained clnically stable overnight. Continued to have intermittent fever. Chest tube in place. 04/19 Overnight patient was noted to have Tmax 100.8. Fio2 increased to 55%. Chest tube stable. 04/20 Fio2 decreased to 55 Chest tube remained in place 04/21 Patient continues to have fevers. This is despite being on broad-spectrum antibiotics. Starting to have diarrhea. Difficult to arouse. Weaning sedation. Chest tube remains in place. Medications: Reviewed: Yes Medication Review Details: Vitals/I&O/Wt Last Vital Signs Temp 102.9 F H 04/21/20 22:00 Pulse 97 04/21/20 22:00 Resp 16 04/21/20 22:00 BP 90/47 04/21/20 22:00 Pulse Ox 93 04/21/20 22:00 04/21/20 04/21/20 04/21/20 06:59 14:59 22:59 Intake Total 622.014 / 1618.100 679.36 / 679.36 718.057 / 1397.417 Output Total 1000 / 1850 700 / 700 800 / 1500 Balance -377.986 / -231.900 -20.64 / -20.64 -81.943 / -102.583 Physical Exam Narrative: EXAM NARRATIVE: General: Intubated on MV HEENT : Grossly unremarkable Chest : Vented sounds B/L , right-sided chest tube in place, left subcu emphysema CVS: normal sinus rhythm ABD : Non-distended : Frey catheter in place Ext : No edema Urinary Catheter Management^: Frey: Cath Placed During This Visit: yes Reason for Continuing Indwelling Catheter: Accurate Measurement of Urinary Output in Critically Ill Patients Urinary Catheter Date of Insertion: 04/14/20 Urinary Catheter Time of Insertion: 11:30 Data : 04/22/20 04:20 04/22/20 04:20 Micro: Microbiology 04/21/20 15:38 Blood Culture - Preliminary Blood SPECIMEN COLLECTED 04/21/20 15:30 Blood Culture - Preliminary Blood SPECIMEN COLLECTED 04/20/20 04:40 Blood Culture - Preliminary Blood NEGATIVE TO DATE 04/20/20 04:36 Blood Culture - Preliminary Blood NEGATIVE TO DATE A&P Assessment and plan (1) Acute respiratory failure with hypoxia: Status: Acute (2) Sepsis: Status: Acute (3) ILD (interstitial lung disease): Status: Acute Acute respiratory failure with hypoxia on mechanical ventilation - Etiology is multi-factorial COVID-19, underlying ILD, Right sided PTx, possible superimposed bacterial pneumonia - Intubated on MV ( 04/14) ET tube 8.0mm at 27cm at lip Vent : - 04/17 - CMV,TV 450, RR set at 22, PIP 21, PEEP decreased to 5 with a Fio2 of 40 percent - Patient RR - > 24, MV 9.6, Lung compliance 26, airway resistance 6 - On sedation Fentanyl gtt, Versed Gtt - Maintain RASS negative 2 - 04/17 - Chest x-ray - > right apical ptx with chest tube, extensive pulmonary infiltrates bilaterally - unchanged and extensive SQ emphysema over b/l neck and chest - 04/18 Vent: CMV, RR-22, PIP fo 27, iTime 1.1, PEEP of 10, Fio2 55% - Patients : RR of 25, M.V of 12.8, compliance 26, Airway resistance 3 - 04/18- > 7.40, PCO2 of 83.2, HCO3 of 27.8 on Fio2 of 45% - 04/19 - > Fio2 increased to 55% - Repeat Chest x-ray in am - Repeat ABG in am - WEan fio2 to 50 percent Sepsis due to COVID 19 pneumonia/ Possible bacterial - Completed Remdesivir x 5 days - Decadron 6 mg IV BID - Ferritin 627, LDH 894, CRP of 88.9 - WBC 62.7-> 38.6-> 18.9 -> 15.8 - > 25 - 04/09 - Blood culture x 2 - NGTD - 04/11 - Sputum culture - negative - 04/14 - Sputum culture - negative - Pro-calcitonin 0.20 ->0.67-> 0.14 - Vancomycin pharmacy to dose - Levaquin 750 mg IV daily - Aztreonam 1g IV q12 hr - Continues to have fevers - Continue Vasopressors - Keep MAP>65 - Repeat Blcx in am due to fever / increasing wbc - Ferritin, CRP, D-dimer, Pro-calcitonin q2days Thrombocytopenia - Due to sepsis vs anti-platelets - Will hold Lovenox - Send HITab - May consider initiating agatropban Chronic ILD/Pulmonary fibrosis - Newly seen and dx on admission imaging - Currently on Steroid as noted above Right Sided Pneumothorax s/p Chest tube - Continue current management - Repeat chest x-ray - no further ptx noted - Extensive SQ emphysema - Pulmonary medicine on board - persistent ptx in right apical region - Keep chest x-ray - repeat in am - D/w General surgery Hyperkalemia - Resolved - K 5.2 - 4.5 - S/p Kayexalate 30 mg PO x 1 04/16 - May give lasix - Repeat BMP in AM Acute kidney injury - Resolved - Creatinine 1.7 - > 0.9 - Likely pre-renal from hypotension - Renally dose medication - Repeat BMP in AM Hypertension - Currently hypotensive - Likely due to sedatives vs septic shock - Hold b-blockers GI ppx - Pepcid 20 IV BID DVT ppx - SCDs - Lovenox daily Attestations Medical Necessity Statement*: Patient remains critical will need continued hospitalization Coding Level of Care Code 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
[2020-04-21 22:24] LABS: Vancomycin Trough 18.8 ug/mL (10-15)
--- NOTE | 2020-04-21 23:31 | PM.PN ---
Subjective Medications: Reviewed: Yes Medication Review Details: patient persistently spiking fevers despite on vancomycin, aztreonam and levaquin, pending results of repeat silva cultures tried weaning off sedation to check for mentation but patient was overbreathing the vent Vitals/I&O/Wt Last Vital Signs Temp 102.9 F H 04/21/20 22:00 Pulse 97 04/21/20 23:03 Resp 20 H 04/21/20 23:03 BP 90/47 04/21/20 22:00 Pulse Ox 93 04/21/20 23:03 04/21/20 04/21/20 04/22/20 14:59 22:59 06:59 Intake Total 679.36 / 679.36 718.057 / 1397.417 Output Total 700 / 700 800 / 1500 Balance -20.64 / -20.64 -81.943 / -102.583 Physical Exam Narrative: EXAM NARRATIVE: PHYSICAL EXAM: General: lying in bed, sedated and intubated. HEENT:NCAT, PERRLA, EOMI, mild swelling present on right neck and supraclavicular area with no appreciable crepitus Neck: Supple Lungs: Bilateral diffuse crackles Heart: s1/s2, RRR Abd: soft, NT, ND, BS + Normoactive Extremities: No edema ANNUAL CAMPAIGN MANAGER: sedated and limited ANNUAL CAMPAIGN MANAGER exam possible. SKIN: no rash LDA: # CVC: Right internal jugular 04/14/2020 # A line: Right radial art line 04/14/2020 Urinary Catheter Management^: Frey: Cath Placed During This Visit: yes Reason for Continuing Indwelling Catheter: Accurate Measurement of Urinary Output in Critically Ill Patients Urinary Catheter Date of Insertion: 04/14/20 Urinary Catheter Time of Insertion: 11:30 Data : 04/22/20 04:20 04/22/20 15:30 Micro: Microbiology 04/21/20 15:38 Blood Culture - Preliminary Blood SPECIMEN COLLECTED 04/21/20 15:30 Blood Culture - Preliminary Blood SPECIMEN COLLECTED 04/20/20 04:40 Blood Culture - Preliminary Blood NEGATIVE TO DATE 04/20/20 04:36 Blood Culture - Preliminary Blood NEGATIVE TO DATE A&P Assessment and plan (1) Acute respiratory distress syndrome (ARDS) due to 2019 novel coronavirus: Status: Acute (2) ILD (interstitial lung disease): Status: Acute (3) Acute respiratory failure with hypoxia: Status: Acute (4) Sepsis with acute hypoxic respiratory failure: Status: Acute Qualifiers: Sepsis type: sepsis due to unspecified organism Severe sepsis shock status: with septic shock Qualified Code(s): A41.9 - Sepsis, unspecified organism; R65.21 - Severe sepsis with septic shock; J96.01 - Acute respiratory failure with hypoxia Overall: 69 year old with male with no significant past medical history but with possible interstitial lung disease based on the CT chest admitted initially for suspected community acquired pneumonia found to be COVID-19 PCR positive, progressively worsening respiratory failure admitted to viral ICU for management of acute hypoxic respiratory failure secondary to acute respiratory distress syndrome due to COVID-19 pneumonia requiring mechanical ventilation to provide oxygenation, course complicated by coexisting septic shock and development of subcutaneous emphysema and right pneumothorax (probably from rupture of subpleural blebs). NEURO: #AMS likely secondary to sedation -Currently off fentanyl/Versed/propofol -Only on Precedex -CT head no acute events PULM: #Acute hypoxic and hypercapneic respiratory failure secondary to ARDS due to COVID pna #Respiratory status worsened by contribution from exacerbation of underlying interstitial lung disease ?? UIP pattern #right and left chest subcutaneous emphysema and right lung pneumothorax likely secondary to rupture of subpleural blebs -Intubated on 04/14/2020 -ABG On CMV TV 500/FiO2 50%/RR 22/PEEP 10-7.35/47/63/26/91% -Recommended -DuoNeb nebulization every 4 hours and Pulmicort 0.5 twice daily -If hypoxia is persistent on maximum settings recommended starting on paralytic and prone -CXR today morning No clearly visualized pneumothorax of significance.Extensive subcutaneous emphysema about the right and left chest and neck, Possible pneumo mediastinum hello -We will follow-up CT chest abdomen pelvis -No air leak noted in the chamber under waterseal; - recommended to take off chest tube -Increased inflammatory markers CRP, ferritin and repeat every 2 days to trend markers of inflammation -On dexamethasone daily -Currently on [id number]-keyyvsiyxnt CVS: -Septic shock - resolved -Currently off pressors- please maintain MAP > 65 -Monitor blood pressure and taper of pressors -Echo technically difficult study due to poor ultrasonic windows; BNP 280 GI: -On Pulmicort tube feeding -Noted to have diarrhea ; hold senna docusate at bedtime for bowel regimen -Send stool for C. difficile - started PO Vanco -H2 sahil for GI prophylaxis -Normal LFTs RENAL: -Renal functions improving -K5.2-patient is having diarrhea -Send for magnesium, phosphorus, lactic acid and CK -I/O/N-1.8/2.4/-500 -hourly urine output is adequate -Maintain MAP goal greater than 65 -Continue frey cath -Avoid nephrotoxins -Monitor BUN/creatinine and electrolytes and supplement accordingly to keep K between 4-4.5, Mg >2 HEM: - H&H stable -DVT prophylaxis on Lovenox- Switch to heparin prophylactic dos #Thrombocytopenia - -Heparin antibodies negative -Monitor platelets and signs of bleeding ENDO: -Sugars well controlled -monitor sugars and insulin scale coverage ID: #Septic shock secondary to COVID pna -Persistently elevated and patient has persistent fevers despite being on antibiotics -Covered with vancomycin, imipenem and micafungin and p.o. vancomycin -Procalcitonin 0. 7 2 and lactic acid 1.4 -Follow-up pancultures sent on 04/21/2020 and stool for C. difficile, galactomannan Prognosis: Critical Disposition: Remains in ICU Code: Full code Plan of care and recommendations conveyed to Dr. Renteria hospitalist on the case, RN and RT ICU CHECKLIST: Problem list updated Verbal orders reviewed and signed Analgesia: Fentanyl Glycemic Control: scale coverage Nutrition: Pulmicort tube feeding Restraint Renewal (within 24 hrs): Yes Ulcer Prophylaxis: H2 sahil Chemical Thromboprophylaxis: Prophylaxis: Switch to heparin prophylactic dose Mechanical Thromboprophylaxis: Yes Need for Central line: Yes requiring any infusions sedation and pressors Need for Frey catheter: Yes for urine output monitoring Critical Care Time (No Overlap): 45 min This patient has a high probability of sudden, clinically significant deterioration, which requires the highest level of physician preparedness to intervene urgently. I managed/supervised life or organ supporting interventions that required frequent physician assessment. I devoted my full attention in the ICU to the direct care of this patient for the period of time indicated above. Time I spent with family or surrogate(s) is included only if the patient was incapable of providing necessary information or participating in decision making. Time devoted to teaching and to any procedures I billed separately is not included. Services Provided: Telemetry review Mechanical Ventilation Hemodynamic interpretation, assessment and management Review and interpretation of CXR Review and interpretation of lab values Review and interpretation of microbiologic data and culture results Review of medications and administration Review and interpretation of Nutrition requirements and management Discussion of management with other consultants and services Clinical update to family members Attestations Medical Necessity Statement*: acute hypoxemic respiratory failure secondary to acute respiratory distress syndrome due to COVID-19 pneumonia requiring mechanical ventilation to provide oxygenation, course complicated by coexisting septic shock and development of subcutaneous emphysema and right pneumothorax (probably from rupture of subpleural blebs) requiring chest tube. Time Spent in Patient Care: Greater than 35 minutes (>than 50% of time spent in counselling and/or direct pt care on unit). Critical Care Time: Critical Care Time (min): 45 Coding Level of Care Code Established Pt Acute Remedial Project Manager for Chg Fwd Patient Type Established History Comprehensive Exam Comprehensive Medical Decision Making High Complexity Diagnoses Acute respiratory distress syndrome (ARDS) due to 2019 novel coronavirus U07.1; J80 ILD (interstitial lung disease) J84.9 Acute respiratory failure with hypoxia J96.01 Sepsis with acute hypoxic respiratory failure A41.9; R65.21; J96.01 Sepsis type: sepsis due to unspecified organism Severe sepsis shock status: with septic shock Time Spent (min) 45
[2020-04-21 23:49] LABS: Glucose Point of Care 166 mg/dL (70-110)
[2020-04-22] VITALS (23 sets, daily range): BP systolic 91–134; BP diastolic 48–73; PULSE 85–104; RESP 17–30; TEMP 39.1–40.6; O2SAT 90–96
[2020-04-22] MEDS: propofol 1,000 MG/100 ML INJ 18.6 MG IV (02:35)
[2020-04-22] MEDS: acetaminophen 325 mg Tablet PO ×3 (02:35→21:56)
[2020-04-22 03:11] LABS: Triglycerides 158 mg/dL (0-150)
[2020-04-22 03:51] LABS: ABG PCO2 47.8 mmHg (35-45); ABG PH Result 7.35 (7.35-7.45); Arterial Blood Gas Hematocrit 30.3 % (42-52); Blood Gas Sample Type Arterial; Oxygen Device VENT; PO2 ABG 63.3 mmHg (80.0-100.0)
[2020-04-22 04:43] LABS: Basophils # 0.1 10^3/uL (0.0-0.1); Basophils % 0.3 %; Hematocrit 38.3 % (42.0-52.0); Hemoglobin 11.3 g/dL (11.7-16.6); Lymphocytes # 2.6 10^3/uL (0.8-4.8); Lymphocytes % 8.1 %; Mean Corpuscular HGB Conc 29.5 g/dL (30.0-36.0); Mean Corpuscular Hemoglobin 28.5 pg (28.0-34.0); Mean Corpuscular Volume 96.5 fL (80-94); Mean Platelet Volume 13.7 fL (7.4-10.4); Monocytes # 4.2 10^3/uL (0.2-0.9); Monocytes % 13.3 %; Neutrophils # 21.45 10^3/uL (1.8-7.7); Neutrophils % 68.4 %; Nucleated Red Blood Cells # 0.1 /100WBC; Nucleated Red Blood Cells % 0.4 %; Platelet Count 79 10^3/cmm (130-400); Red Blood Count 3.97 10^6/uL (4.1-5.3); Red Cell Distribution Width 17.5 % (12.1-15.1)
[2020-04-22 05:28] LABS: Alanine Aminotransferase 32 U/L (0-41); Albumin Level 2.8 g/dL (3.5-5.2); Alkaline Phosphatase 36 IU/L (40-130); Anion Gap 12.5 (5-19); Aspartate Amino Transferase 36 U/L (0-40); Blood Urea Nitrogen 51 mg/dL (8-23); Calcium 7.8 mg/dL (8.5-10.5); Carbon Dioxide 28 mmol/L (22-29); Chloride 105 mmol/L (98-107); Globulin 2.6 g/dL (1.3-4.6); Glucose 131 mg/dL (65-115); Osmolality Calculated 305 mOsm/kg (285-295); Potassium 5.5 mmol/L (3.5-5.1); Sodium 140 mmol/L (136-145); Total Bilirubin 0.5 mg/dL (0.15-1.2); Total Protein 5.4 g/dL (6.6-8.7)
--- NOTE | 2020-04-22 06:00 | XRR_ITS ---
PROCEDURE INFORMATION: Exam: XR Chest, 1 View Exam date and time: 04/22/2020 7:15 AM Age: 69 years old Clinical indication: Condition or disease; Lung condition and disease; Pneumonia; Additional info: Pneumo right TECHNIQUE: Imaging protocol: XR of the chest Views: 1 view. COMPARISON: CR XR chest 1V portable [id number] 04/21/2020 9:18 AM FINDINGS: Tubes, catheters and devices: Central venous catheter via the right jugular approach with the tip projecting over the superior vena cava. The endotracheal tube is above the level of the erick. nasogastric tube extends below the diaphragm although the location of the tip not identified as it is outside of the [id number]. Thoracotomy tube partially within the right hemithorax. Stable from the previous exam. No clearly visualized pneumothorax of significance. Lungs: Coarse interstitial pattern within the lung parenchyma much of which is likely fibrotic. Stable. Pleural space: See Tubes, catheters and devices finding. Heart/Mediastinum: See Soft tissues finding. Bones/joints: Unremarkable. Soft tissues: Extensive subcutaneous emphysema about the right and left chest and neck. Possible pneumo mediastinum. XR/XR chest 1V portable [id number] IMPRESSION: 1. Thoracotomy tube partially within the right hemithorax. Stable from the previous exam. No clearly visualized pneumothorax of significance. 2. Extensive subcutaneous emphysema about the right and left chest and neck. Possible pneumo mediastinum. Consider CT chest if indicated. 3. Coarse interstitial pattern within the lung parenchyma much of which is likely fibrotic. Stable.
[2020-04-22 06:06] LABS: Glucose Point of Care 149 mg/dL (70-110)
[2020-04-22] MEDS: famotidine 20 mg/2 mL INJ IVP ×2 (06:10→17:10)
[2020-04-22 07:31] LABS: White Blood Count 31.4 10^3/uL (4.0-10.0)
[2020-04-22 07:32] LABS: Slide Review Slide Review Perform
[2020-04-22 08:17] LABS: Glucose Point of Care 124 mg/dL (70-110)
--- NOTE | 2020-04-22 09:39 | CT_ITS ---
WS: [id number] CT HEAD NONCONTRAST HISTORY: mental status change TECHNIQUE: Contiguous axial imaging performed through the brain in 2.5 mm imaging. Bone and soft tiss ue windows. Sagittal and coronal reformats reviewed. All CT scans at [facility] use at ast one of these dose optimization techniques: automated exposure control; mA and/or kV adjustment pe r patient size (includes targeted exams where dose is matched to clinical indication); or iterative r econstruction. DLP: 865.7 mGy.cm COMPARISON: None available. No acute intracranial hemorrhage, midline shift or mass effect. Mild atrophy and mild chronic microvascular ischemic disease. No focal areas of sulcal effacement. No prior infarct. Ventricles: Normal size with no hydrocephalus. Paranasal sinuses: As visualized are clear. Mastoid air cells: Well pneumatized. Calvarium and scalp: No fracture. There is air in the RIGHT masseter space. This air may be progressi on from the subcutaneous air noted over the RIGHT thorax and greatest to the RIGHT neck. CT/CT head wo con* [id number] IMPRESSION: 1. No acute intracranial hemorrhage or edema. 2. Mild atrophy. 3. Subcutaneous air in the RIGHT masseter space. May be air dissecting through the soft tissues from the RIGHT neck subcutaneous emphysema.
[2020-04-22] MEDS: levofloxacin-dextrose 5 % 750 MG/150 ML PREMIX 125 MG IV (12:39)
[2020-04-22] MEDS: vancomycin 1,250 MG/250 ML PIGGYBACK 200 MG IV ×2 (12:40→23:12)
[2020-04-22] MEDS: dexamethasone 4 mg/mL INJ 6 MG IVP (12:40)
[2020-04-22] MEDS: dexmedetomidine 400 MCG in sodium chloride 0.9% (100 ml) 100 ML 6.9 MCG IV (13:15)
[2020-04-22 13:48] LABS: Heparin-Induced Platelet AB Negative (Negative)
--- NOTE | 2020-04-22 15:01 | CTR_ITS ---
PROCEDURE INFORMATION: Exam: CT Angiography Chest With Contrast Exam date and time: 04/22/2020 5:06 PM Age: 69 years old Clinical indication: Fever; Additional info: Suspected pe / unexplained fever TECHNIQUE: Imaging protocol: Computed tomographic angiography of the chest with intravenous contrast. 3D rendering (Not supervised by radiologist): MIP and/or 3D reconstructed images were created by the technologist. Radiation optimization: All CT scans at this facility use at least one of these dose optimization techniques: automated exposure control; mA and/or kV adjustment per patient size (includes targeted exams where dose is matched to clinical indication); or iterative reconstruction. Contrast material: OMNI 350; Contrast volume: 95 ml; Contrast route: INTRAVENOUS (IV); Other contrast: Oral, OMNI 300, 25; COMPARISON: CT angio chest PE protcl [id number] 04/10/2020 8:09 PM, chest radiograph from 04/22/2020 RADIATION DOSE METRICS: Total DLP (mGy-cm): 2133.44 FINDINGS: Tubes, catheters and devices: A right-sided chest tube still ends in the major fissure in the mid right lung. The endotracheal tube ends between the clavicles and erick. Nasogastric tube enters the stomach. Pulmonary arteries: Overall exam quality is good for evaluating the pulmonary arteries. There are no intraluminal filling defects to indicate pulmonary embolism. Aorta: Unremarkable. No aortic aneurysm. No aortic dissection. Lungs: Extensive chronic centrilobular emphysema has an asymmetric distribution greatest in the lower lung apices and periphery and in the basal segments. Bibasilar dependent atelectasis the and infiltration. The central bronchi and trachea remain patent. Pleural space: No pneumothorax. No pleural effusion. Heart: Numerous calcified plaques in the coronary arteries. Lymph nodes: There is 1 enlarged right hilar lymph node measuring up to 2.4 cm. Other mediastinal nodes are more normal in size. Gallbladder and bile ducts: The gallbladder is moderately distended but without wall thickening or visible stones. Bones/joints: Unremarkable. No acute fracture. Soft tissues: There is bilateral chest wall subcutaneous emphysema as well as extensive central mediastinal emphysema extending into the lower neck and upper abdomen. IMPRESSION: 1. Right chest tube. No pneumothorax or pleural fluid. However there is moderately severe bilateral chest, lower thoracic , upper abdominal and mediastinal emphysema. 2. Pulmonary emphysema. 3. Bilateral lower lobe dependent atelectasis and infiltration. 4. One enlarged right hilar lymph node of indeterminate significance. PROCEDURE INFORMATION: Exam: CT Abdomen And Pelvis With Contrast Exam date and time: 04/22/2020 5:06 PM Age: 69 years old Clinical indication: Fever; Additional info: Suspected pe / unexplained fever TECHNIQUE: Imaging protocol: Computed tomography of the abdomen and pelvis with intravenous contrast. Radiation optimization: All CT scans at this facility use at least one of these dose optimization techniques: automated exposure control; mA and/or kV adjustment per patient size (includes targeted exams where dose is matched to clinical indication); or iterative reconstruction. Contrast material: OMNI 350; Contrast volume: 95 ml; Contrast route: INTRAVENOUS (IV); Other contrast: Oral, OMNI 300, 25; COMPARISON: CT angio chest PE protcl [id number] 04/10/2020 8:09 PM RADIATION DOSE METRICS: Total DLP (mGy-cm): 2133.44 FINDINGS: Liver: Normal. No mass. Gallbladder and bile ducts: Mildly enlarged gallbladder. No stones or wall thickening. Pancreas: Normal. No ductal dilation. Spleen: The spleen is enlarged measuring up to 18.2 cm but enhances normally. Adrenal glands: Normal. No mass. Kidneys and ureters: Normal. No hydronephrosis. Stomach and bowel: The small bowel and colon are unremarkable. Appendix: No evidence of appendicitis. Intraperitoneal space: No free intraperitoneal fluid or free air. Vasculature: Unremarkable. No abdominal aortic aneurysm. Lymph nodes: Unremarkable. No enlarged lymph nodes. Urinary bladder: The urinary bladder is decompressed by a catheter. Reproductive: The prostate is small. Bones/joints: Mild chronic lower lumbar degenerative disc disease. Soft tissues: Unremarkable. CT/CT angio chest w abd pel w con IMPRESSION: 1. No acute abdominopelvic findings. 2. Splenomegaly. Radiation Dose CTDIVOL = (mGy): DLP = 2133.44~2133.44 (mGy-cm)
--- NOTE | 2020-04-22 15:10 | P.PN_ITS ---
Subjective Subjective: Interval history: 69 year old with male who was recently treated for suspected community aquired pneumonia with doxycycline presented to the hospital for increased dyspnea. Initial Laboratory workup showed a WBC of 14.2, hemoglobin of 12.3, hematocrit of 38.7 and platelet count of 130. sodium 136, potassium 3.8, chloride 105, bicarb 23, BUN 12 and creatinine is 0.9. LDH of 492, AST of 23, ALT 27, total bilirubin 1.5. d-dimer of 1.83. Imaging studies on 04/09/2020 included a chest x-ray which showed prominent bilateral interstitial pulmonary infiltrates consistent with acute interstitial pneumonia. Subsequently a CTA chest PE protocol was performed which did not show any evidence of PE however did show interstitial fibrosis with honeycombing UIP pattern. Possibly related to IPF vs hypersensitivity pneumonitis. Also noted to have focal consolidation in the posterior left lower lobe iwth adjacent pleural thickening and prominent mediastinal and hilar lymph node enlargement. Patient was started on antibiotics for suspected community acquired pneumonia wi azithromycin and azithromycin. Blood culture x 2, sputum culture did not show any growth. on 04/10 his COVID-19 PCR was found to be positive. During this time his respiratory status continued to worsening. Inital required 4L of o2 via NC however this was up to 15L via NRB. On 04/11 he was started on remdesivir 5 day tx protocol in addition to decadron 6 mg daily. Due to progressive decline he was transitioned to VICU. His ABG had shown a PH of 7.46, PCO2 of 28.4, Po2 of 71.4 and HCO3 of 20.1 where he was started on CPAP which was transitioned to HFNC at 80% FIO2. D-dimer was checked and noted to be markedly elevated from 1.83 -> 3.99. His lovenox dose was increased to full dose despite negative PE on CTA of chest. Antibiotics were changed to vancomycin and levaquin 750 mg IV daily. Pro-calcitonin however was 0.20. Subjective 04/13 Patient was transitioned to heated HFNC. Oxygen saturation was 93% on 50L flow and Fio2 of 80%. Patient did not have any new complaints overnight. Noted stable respiratory status. No Fever, chills, nausea or vomiting. Denied any pleuritic chest pain. D/w patient regarding code status and again confirmed FULL CODE. 04/14 Overnight patient was noted to have progressive decline in respiratory status. He was not tolerated HFNC in am. Was noted to have increase work of breathing utilized accessory muscles. Patient was then intubated and placed on mechanical ventilation. Sedation with propofol was initiated. This was being weaned with addition of versed and fentanyl. Post intubation x-ray confirmed ET tube placement 6 cm about erick. OG and frey were also placed. 04/15 Patient was started on IV vasopresors overnight. No reported fevers. Leukocytosis markedly increased as well as creatinine. 04/[address] this am 04/17 Patient was noted to have SQ emphysema on left today. Chest x-ray was obtained which did not show any evidence of pneumothorax on left. Right sided chest tube in place with small apical ptx. No fever or chills overnight. 04/18 Patient remained clnically stable overnight. Continued to have intermittent fever. Chest tube in place. 04/19 Overnight patient was noted to have Tmax 100.8. Fio2 increased to 55%. Chest tube stable. 04/20 Fio2 decreased to 55 Chest tube remained in place 04/21 Patient continues to have fevers. This is despite being on broad-spectrum antibiotics. Starting to have diarrhea. Difficult to arouse. Weaning sedation. Chest tube remains in place. 04/22 Continues to have fever of up to 104 despite antibiotics, noted to have diarrhea today. Plan to remove chest tube today. Medications: Reviewed: Yes Medication Review Details: Vitals/I&O/Wt Last Vital Signs Temp 104.4 F H 04/22/20 06:00 Pulse 104 H 04/22/20 10:57 Resp 23 H 04/22/20 13:40 BP 111/59 04/22/20 06:00 Pulse Ox 90 04/22/20 10:57 04/22/20 04/22/20 04/22/20 06:59 14:59 22:59 Intake Total 495.428 / 1892.845 49.375 / 49.375 Output Total 900 / 2400 Balance -404.572 / -507.155 49.375 / 49.375 Physical Exam Narrative: EXAM NARRATIVE: General: Intubated on MV HEENT : Grossly unremarkable Chest : Vented sounds B/L , right-sided chest tube in place, left subcu emphysema CVS: normal sinus rhythm ABD : Non-distended : Frey catheter in place Ext : No edema Urinary Catheter Management^: Frey: Cath Placed During This Visit: yes Reason for Continuing Indwelling Catheter: Accurate Measurement of Urinary Output in Critically Ill Patients Urinary Catheter Date of Insertion: 04/14/20 Urinary Catheter Time of Insertion: 11:30 Data : 04/22/20 04:20 04/22/20 04:20 Micro: Microbiology 04/21/20 21:50 Sputum Culture - Preliminary Sputum - Endotracheal Tube Aspirate 04/21/20 15:38 Blood Culture - Preliminary Blood SPECIMEN COLLECTED 04/21/20 15:30 Blood Culture - Preliminary Blood SPECIMEN COLLECTED A&P Assessment and plan (1) Acute respiratory failure with hypoxia: Status: Acute (2) Sepsis: Status: Acute (3) ILD (interstitial lung disease): Status: Acute Acute respiratory failure with hypoxia on mechanical ventilation - Etiology is multi-factorial COVID-19, underlying ILD, Right sided PTx, possible superimposed bacterial pneumonia - Intubated on MV ( 04/14) ET tube 8.0mm at 27cm at lip Vent : CMV, TV 500, RR 16, PIP 27, i-Time 1.1, PEEP 10, Fio2 at 50% - 04/21- ABG PH 7.33 PCO2 of 62.9, p02 of 62.9, HCO3 of 29.1 - 04/22 -ABG PH 7.35, PCO2 47.8, Po2 63.3, HCO3 26 - Continue sedation- wean fio2 as tolerated - Will check CTA chest PE protocol - Repeat ABG in am - Pulmonary medicine on board Sepsis due to COVID 19 pneumonia/ Possible V.A.P / Persistent Fever - Completed Remdesivir x 5 days - Decadron 6 mg IV BID - change to daily - Ferritin 627, LDH 894, CRP of 88.9 - Pro-calcitonin 0.20 ->0.67-> 0.14 - > 0.72 - WBC 62.7-> 38.6-> 18.9 -> 15.8 -> 36-> 30.1 -> 31.4 - 04/09 - Blood culture x 2 - NGTD - 04/11 - Sputum culture - negative - 04/14 - Sputum culture - negative - 04/15 - Blood culture x 2 - NGTD - 04/20 - Blood culture x 2 - NGTD - 04/21 - Blood culture x 2 - NGTD - 04/21 - Sputum culture - negative - 04/22 - C. Difficile toxin send - Vancomycin pharmacy to dose - Aztreonam 1g IV q12hr (04/15->04/22 ) - Levaquin 750 mg IV daily ( 04/11 - 04/22) - T-max 104 today - D/c Azteronam/Levaquin - Changed to Primixin 500 mg IV q6hr - Caspofungin 50 mg IV q24hr added - Cdiff pending - Vancomycin 250 mg pOG QID added - Aspergillus ag,EIA serum sent - CTA Chest, CT Abdomen/Pelvis w contrast ordered - Venous duplex bilaterally ordered to r/o dvt Marked Leukocytosis - WBC 62.7-> 38.6-> 18.9 -> 15.8 -> 36-> 30.1 -> 31.4 - Lymphoma panel ordered - Covering for infectious process Hyperkalemia - Potassium 5.5 - Repeat K now - Will treat if positive Thrombocytopenia - Plt 87 - 79 - Due to sepsis vs antiplatlets - HITab - Negative - Continue lovenox Right Sided Pneumothorax s/p Chest tube - Continue current management - Repeat chest x-ray - no further ptx noted - Extensive SQ emphysema - Pulmonary medicine on board - Plan to remove chest tube today Chronic ILD/Pulmonary fibrosis - Newly seen and dx on admission imaging - Currently on Steroid as noted above Acute kidney injury - Resolved - Creatinine 1.7 - > 0.9 - Likely pre-renal from hypotension - Renally dose medication - Repeat BMP in AM Hypertension - Currently hypotensive - Likely due to sedatives vs septic shock - Hold b-blockers GI ppx - Pepcid 20 IV BID DVT ppx - Lovenox 40 mg SQ Daily Attestations Medical Necessity Statement*: Patient remains in critical condition. will need continued hospitalization Time Spent in Patient Care: Greater than 35 minutes (>than 50% of time spent in counselling and/or direct pt care on unit) . Critical Care Time: Critical Care Time (min): 55 Coding Level of Care Code Acute Coagulating Drying Supervisor for Jenna Fwvee Diagnoses Acute respiratory failure with hypoxia J96.01 Sepsis A41.9 ILD (interstitial lung disease) J84.9
[2020-04-22 16:16] LABS: Potassium 5.2 mmol/L (3.5-5.1)
[2020-04-22 16:49] LABS: Glucose Point of Care 133 mg/dL (70-110)
--- NOTE | 2020-04-22 17:01 | PC.NURSE ---
ORAL CONTRAST GIVEN PER OG TUBE.
[2020-04-22] MEDS: iohexol 300 mg/mL 50 mL Btl IV (18:43)
[2020-04-22] MEDS: levalbuterol 0.63 mg/3 mL Neb INHALATION (19:37)
[2020-04-22] MEDS: iohexol 350 mg/mL 100 mL Btl IV (20:04)
--- NOTE | 2020-04-22 20:08 | PC.NURSE ---
UPDATED GRANDDAUGHTER LITTLE, IN REGARDS TO PT STATUS. PT HAS BEEN TO CT, AWAITING DR FORD TO PULL CHEST TUBE. PRECEDEX IS CURRENTLY ONLY SEDATION INFUSING AT PRESENT.
[2020-04-22 20:09] LABS: Glucose Point of Care 114 mg/dL (70-110)
[2020-04-22] MEDS: propofol 1,000 MG/100 ML INJ 13.3 MG IV (22:02)
[2020-04-22 23:46] LABS: Glucose Point of Care 131 mg/dL (70-110)
[2020-04-23] VITALS (25 sets, daily range): BP systolic 96–130; BP diastolic 56–75; PULSE 81–110; RESP 16–32; TEMP 37.1–40.9; O2SAT 91–96
[2020-04-23] MEDS: acetaminophen 325 mg Tablet PO ×2 (02:53→10:19)
[2020-04-23 03:58] LABS: ABG PCO2 29.9 mmHg (35-45); ABG PH Result 7.44 (7.35-7.45); Blood Gas Sample Type Arterial; HCO3 ABG 20.4 mmol/L (22-26); PO2 ABG 74.5 mmHg (80.0-100.0)
[2020-04-23 04:01] LABS: Blood Gas Operator Identificat HARKR; Blood Gas Sample Site ART LINE; Oxygen Device VENT
[2020-04-23 04:09] LABS: Basophils # 0.2 10^3/uL (0.0-0.1); Basophils % 0.7 %; Eosinophils % 0.1 %; Hematocrit 37.8 % (42.0-52.0); Hemoglobin 11.3 g/dL (11.7-16.6); Lymphocytes # 2.1 10^3/uL (0.8-4.8); Lymphocytes % 6.7 %; Mean Corpuscular HGB Conc 29.9 g/dL (30.0-36.0); Mean Corpuscular Hemoglobin 28.5 pg (28.0-34.0); Mean Corpuscular Volume 95.2 fL (80-94); Monocytes % 13.1 %; Neutrophils # 22.58 10^3/uL (1.8-7.7); Neutrophils % 73.3 %; Nucleated Red Blood Cells # 0.1 /100WBC; Nucleated Red Blood Cells % 0.2 %; Platelet Count 65 10^3/cmm (130-400); Red Blood Count 3.97 10^6/uL (4.1-5.3); Red Cell Distribution Width 17.3 % (12.1-15.1)
--- NOTE | 2020-04-23 04:30 | PC.NURSE ---
Dr. Quezada called to check on patient. Updated on patients current vital signs and continued elevation of temp 102.9-104.3 tonight. Notified of current hyperventilation with respiratory rate 27-30's. Dr. Quezada states to restart fentanyl for sedation.
[2020-04-23 04:34] LABS: Lactate (Lactic Acid level) 1.5 mmol/L (0.5-2.2)
[2020-04-23] MEDS: dexmedetomidine 400 MCG in sodium chloride 0.9% (100 ml) 100 ML 9.2 MCG IV (04:47)
--- NOTE | 2020-04-23 05:00 | USCV_ITS ---
Mirza Sanchez Age: 69 Gender: M : 1950 Exam Date: 04/23/2020 14:17 Ordering Phys: Kimberly Renteria MD Technologist: Tao Navarro Exam Location: [facility] [place] Indication: DVT HISTORY: DVT. PROCEDURES: Venous duplex imaging was performed in bilateral lower extremities. The following venous structures were evaluated: common femoral vein, profunda vein, proximal portion of the greater saphenous vein, superficial femoral vein, and the popliteal vein. In addition, the posterior tibial and peroneal trunk were evaluated. Serial compression, augmentation maneuvers, and spectral Doppler flow evaluation were performed. FINDINGS: Normal 2-D Doppler and augmentation and compressibility throughout the lower extremity venous structures. Additional imaging through the proximal calf veins also reveals no thrombus. Limited evaluation of the greater saphenous vein is patent with no thrombus. CONCLUSIONS No DVT bilateral lower extremities. Dr. Regi Natarajan DO (Electronically Signed) Final Date: 24 April 2020 07:42 S
[2020-04-23] MEDS: famotidine 20 mg/2 mL INJ IVP ×2 (05:15→17:52)
[2020-04-23 05:24] LABS: Slide Review Slide Review Perform; White Blood Count 30.8 10^3/uL (4.0-10.0)
[2020-04-23 05:26] LABS: Glucose Point of Care 124 mg/dL (70-110)
[2020-04-23 06:21] LABS: INR 1.49 (0.8-1.2)
[2020-04-23 06:22] LABS: Fibrinogen 316 mg/dL (174-498); Partial Thromboplastin Time 35.6 SECONDS (23.9-36.7)
[2020-04-23 06:25] LABS: Ferritin 1252 ng/mL (30-400)
[2020-04-23 06:36] LABS: Alanine Aminotransferase 47 U/L (0-41); Albumin Level 2.8 g/dL (3.5-5.2); Alkaline Phosphatase 29 IU/L (40-130); Anion Gap 12.1 (5-19); Aspartate Amino Transferase 36 U/L (0-40); Blood Urea Nitrogen 53 mg/dL (8-23); Calcium 7.9 mg/dL (8.5-10.5); Carbon Dioxide 27 mmol/L (22-29); Chloride 105 mmol/L (98-107); Globulin 2.5 g/dL (1.3-4.6); Glucose 126 mg/dL (65-115); Lactate Dehydrogenase 707 U/L (135-225); Osmolality Calculated 304 mOsm/kg (285-295); Potassium 5.1 mmol/L (3.5-5.1); Sodium 139 mmol/L (136-145); Total Bilirubin 0.7 mg/dL (0.15-1.2); Total Protein 5.3 g/dL (6.6-8.7)
[2020-04-23 06:52] LABS: Platelet Count 65 10^3/cmm (130-400)
[2020-04-23] MEDS: levalbuterol 0.63 mg/3 mL Neb INHALATION (07:33)
--- NOTE | 2020-04-23 10:11 | PC.NURSE ---
0745-- DR FORD IN ROOM. SUPPLIES AT BEDSIDE TO REMOVE CHEST TUBE. PT TOLERATED WELL. RESP THERAPY IN ROOM TO ASSIST WITH VENT. SITE COVERED WITH XEROFORM/VASOLINE GAUZE 4X4'S & FOAM TAPE.
[2020-04-23] MEDS: dexamethasone 4 mg/mL INJ 6 MG IVP (10:18)
[2020-04-23] MEDS: vancomycin 1,250 MG/250 ML PIGGYBACK 125 MG IV (10:18)
--- NOTE | 2020-04-23 11:14 | PC.NURSE ---
Washed hands and face
[2020-04-23 11:56] LABS: Glucose Point of Care 124 mg/dL (70-110)
--- NOTE | 2020-04-23 12:35 | XR_ITS ---
WS: [id number] Portable AP upright chest, 04/23/2020 Clinical Data: post chest tube removal Comparison: Portable chest, 04/22/2020 Findings: The right chest tube has been removed. No pneumothorax is noted. The right internal jugular venous catheter, endotracheal tube and nasogastric tube remain in the same position. There are monit or leads on the chest wall. Bilateral lung opacities remain unchanged. The heart size is normal. Ther e is subcutaneous emphysema in both axilla. XR/XR chest 1V portable [id number] Impression: 1. Removal of right chest tube. 2. No change in position of multiple tubes. 3. No change in coarse bilateral opacities of the lungs.
--- NOTE | 2020-04-23 12:36 | PC.NURSE ---
DR FORD SPOKE TO FAMILY IN REGARDS TO PT OUTCOME POTENTIAL. IMMEDIATE FAMILY ALLOWED TO VISIT. PT PHONE & BOX OF BELONGINGS SENT WITH FAMILY AFTER VISIT. verbalized to extubate pt & keep him comfortable.
[2020-04-23] MEDS: enoxaparin 40 mg/0.4 mL Syringe SUBCUT (15:05)
[2020-04-23 15:21] LABS: ABG PCO2 40.8 mmHg (35-45); ABG PH Result 7.42 (7.35-7.45); Alveolar-Arterial Oxygen Gradi 31.5 mmHg (5-10); Arterial Blood Gas Hematocrit 37.2 % (42-52); Base Excess ABG 1.7 mmol/L (-2.0-2.0); Blood Gas Allen Test Pos; Blood Gas Sample Site Radial, left; Blood Gas Sample Type Arterial; HCO3 ABG 26.4 mmol/L (22-26); HGB O2 Sat 91.5 % (95-100); Ionized Calcium Level - ABG 1.2 mmol/L (1.1-1.4); Methemoglobin 0.7 % (0.4-1.5); Oxygen Device VENT; PO2 ABG 64.5 mmHg (80.0-100.0); Potassium Level - ABG 5.1 mmol/L (3.5-5.0); Total Hemoglobin 12.1 g/dL (14-18)
--- NOTE | 2020-04-23 16:08 | PM.PN ---
Subjective Subjective: Interval history: 69 year old with male who was recently treated for suspected community aquired pneumonia with doxycycline presented to the hospital for increased dyspnea. Initial Laboratory workup showed a WBC of 14.2, hemoglobin of 12.3, hematocrit of 38.7 and platelet count of 130. sodium 136, potassium 3.8, chloride 105, bicarb 23, BUN 12 and creatinine is 0.9. LDH of 492, AST of 23, ALT 27, total bilirubin 1.5. d-dimer of 1.83. Imaging studies on 04/09/2020 included a chest x-ray which showed prominent bilateral interstitial pulmonary infiltrates consistent with acute interstitial pneumonia. Subsequently a CTA chest PE protocol was performed which did not show any evidence of PE however did show interstitial fibrosis with honeycombing UIP pattern. Possibly related to IPF vs hypersensitivity pneumonitis. Also noted to have focal consolidation in the posterior left lower lobe iwth adjacent pleural thickening and prominent mediastinal and hilar lymph node enlargement. Patient was started on antibiotics for suspected community acquired pneumonia with azithromycin and azithromycin. Blood culture x 2, sputum culture did not show any growth. on 04/10 his COVID-19 PCR was found to be positive. During this time his respiratory status continued to worsening. Inital required 4L of o2 via NC however this was up to 15L via NRB. On 04/11 he was started on remdesivir 5 day tx protocol in addition to decadron 6 mg daily. Due to progressive decline he was transitioned to VICU. His ABG had shown a PH of 7.46, PCO2 of 28.4, Po2 of 71.4 and HCO3 of 20.1 where he was started on CPAP which was transitioned to HFNC at 80% FIO2. D-dimer was checked and noted to be markedly elevated from 1.83 -> 3.99. His lovenox dose was increased to full dose despite negative PE on CTA of chest. Antibiotics were changed to vancomycin and levaquin 750 mg IV daily. Pro-calcitonin however was 0.20. Subjective 04/13 Patient was transitioned to heated HFNC. Oxygen saturation was 93% on 50L flow and Fio2 of 80%. Patient did not have any new complaints overnight. Noted stable respiratory status. No Fever, chills, nausea or vomiting. Denied any pleuritic chest pain. D/w patient regarding code status and again confirmed FULL CODE. 04/14 Overnight patient was noted to have progressive decline in respiratory status. He was not tolerated HFNC in am. Was noted to have increase work of breathing utilized accessory muscles. Patient was then intubated and placed on mechanical ventilation. Sedation with propofol was initiated. This was being weaned with addition of versed and fentanyl. Post intubation x-ray confirmed ET tube placement 6 cm about erick. OG and frey were also placed. 04/15 Patient was started on IV vasopresors overnight. No reported fevers. Leukocytosis markedly increased as well as creatinine. 04/[address] this am 04/17 Patient was noted to have SQ emphysema on left today. Chest x-ray was obtained which did not show any evidence of pneumothorax on left. Right sided chest tube in place with small apical ptx. No fever or chills overnight. 04/18 Patient remained clnically stable overnight. Continued to have intermittent fever. Chest tube in place. 04/19 Overnight patient was noted to have Tmax 100.8. Fio2 increased to 55%. Chest tube stable. 04/20 Fio2 decreased to 55 Chest tube remained in place 04/21 Patient continues to have fevers. This is despite being on broad-spectrum antibiotics. Starting to have diarrhea. Difficult to arouse. Weaning sedation. Chest tube remains in place. 04/22 Continues to have fever of up to 104 despite antibiotics, noted to have diarrhea today. Plan to remove chest tube today. 04/23 Cotninues to have high fevers Medications: Reviewed: Yes Medication Review Details: Vitals/I&O/Wt Last Vital Signs Temp 105.1 F H 04/23/20 10:00 Pulse 92 04/23/20 10:00 Resp 22 H 04/23/20 14:16 BP 112/63 04/23/20 10:00 Pulse Ox 95 04/23/20 10:00 04/23/20 04/23/20 04/23/20 06:59 14:59 22:59 Intake Total 658.14 / 2184.645 520.934 / 520.934 Output Total 825 / 1825 475 / 475 Balance -166.86 / 359.645 45.934 / 45.934 Physical Exam Narrative: EXAM NARRATIVE: General: Intubated on MV HEENT : Grossly unremarkable Chest : Vented sounds B/L , right-sided chest tube in place, left subcu emphysema CVS: normal sinus rhythm ABD : Non-distended : Frey catheter in place Ext : No edema Urinary Catheter Management^: Frey: Cath Placed During This Visit: yes Reason for Continuing Indwelling Catheter: Accurate Measurement of Urinary Output in Critically Ill Patients Urinary Catheter Date of Insertion: 04/14/20 Urinary Catheter Time of Insertion: 11:30 Data : 04/23/20 06:04 04/23/20 05:00 Micro: Microbiology 04/21/20 21:50 Sputum Culture - Preliminary Sputum - Endotracheal Tube Aspirate 04/21/20 15:30 Urine Culture - Final Urine Catheterized 04/21/20 15:38 Blood Culture - Preliminary Blood NEGATIVE TO DATE 04/21/20 15:30 Blood Culture - Preliminary Blood NEGATIVE TO DATE A&P Assessment and plan (1) Acute respiratory failure with hypoxia: Status: Acute (2) Sepsis: Status: Acute (3) ILD (interstitial lung disease): Status: Acute Acute respiratory failure with hypoxia on mechanical ventilation - Etiology is multi-factorial COVID-19, underlying ILD, Right sided PTx, possible superimposed bacterial pneumonia - Intubated on MV ( 04/14) ET tube 8.0mm at 27cm at lip Vent : CMV, TV 500, RR 16, PIP 27, i-Time 1.1, PEEP 10, Fio2 at 50% - 04/21- ABG PH 7.33 PCO2 of 62.9, p02 of 62.9, HCO3 of 29.1 - 04/22 -ABG PH 7.35, PCO2 47.8, Po2 63.3, HCO3 26 - Continue sedation- wean fio2 as tolerated - CTA chest PE protocol - no pe - Repeat ABG in am - Pulmonary medicine on board Sepsis due to COVID 19 pneumonia/ Possible V.A.P / Persistent Fever - Completed Remdesivir x 5 days - Decadron 6 mg IV BID - change to daily - Ferritin 627, LDH 894, CRP of 88.9 - Pro-calcitonin 0.20 ->0.67-> 0.14 - > 0.72 - WBC 62.7-> 38.6-> 18.9 -> 15.8 -> 36-> 30.1 -> 31.4 - 04/09 - Blood culture x 2 - NGTD - 04/11 - Sputum culture - negative - 04/14 - Sputum culture - negative - 04/15 - Blood culture x 2 - NGTD - 04/20 - Blood culture x 2 - NGTD - 04/21 - Blood culture x 2 - NGTD - 04/21 - Sputum culture - negative - 04/22 - C. Difficile toxin send - Vancomycin pharmacy to dose - Aztreonam 1g IV q12hr (04/15->04/22 ) - Levaquin 750 mg IV daily ( 04/11 - 04/22) - T-max 104 today - D/c Azteronam/Levaquin - Changed to Primixin 500 mg IV q6hr 04/22 - Caspofungin 50 mg IV q24hr added 04/22 - Cdiff pending - Vancomycin 250 mg pOG QID added - Aspergillus ag,EIA serum sent - CTA Chest, CT Abdomen/Pelvis w contrast\- no acute finding - Venous duplex bilaterally ordered to r/o dvt - pending - Acylovir to cover for viral Marked Leukocytosis - WBC 62.7-> 38.6-> 18.9 -> 15.8 -> 36-> 30.1 -> 31.4 - Lymphoma panel ordered - Covering for infectious process Hyperkalemia - Potassium 5.5 - Repeat K now - Will treat if positive Thrombocytopenia - Plt 87 - 79 - Due to sepsis vs antiplatlets - HITab - Negative - Continue lovenox Right Sided Pneumothorax s/p Chest tube - Continue current management - Repeat chest x-ray - no further ptx noted - Extensive SQ emphysema - Pulmonary medicine on board - Plan to remove chest tube today Chronic ILD/Pulmonary fibrosis - Newly seen and dx on admission imaging - Currently on Steroid as noted above Acute kidney injury - Resolved - Creatinine 1.7 - > 0.9 - Likely pre-renal from hypotension - Renally dose medication - Repeat BMP in AM Hypertension - Currently hypotensive - Likely due to sedatives vs septic shock - Hold b-blockers GI ppx - Pepcid 20 IV BID DVT ppx - Lovenox 40 mg SQ Daily Attestations Medical Necessity Statement*: Critical condition will require continued hospitalization Time Spent in Patient Care: Greater than 35 minutes (>than 50% of time spent in counselling and/or direct pt care on unit). Coding Level of Care Code Acute Foreclosure Home Inspector for [facility] Fwd Diagnoses Acute respiratory failure with hypoxia J96.01 Sepsis A41.9 ILD (interstitial lung disease) J84.9
[2020-04-23 17:53] LABS: Glucose Point of Care 146 mg/dL (70-110)
--- NOTE | 2020-04-23 18:19 | PC.NURSE ---
1130-FAMILY CONFERENCE WITH DR FORD & BO FAMILY IN REGARDS TO PT TREATMENT. FAMILY DECIDED TO EXTUBATE PT & SEE IF HE WILL DO OK. SEDATION WAS TURNED OFF AT APPROXIMATELY 1030. NO PURPOSEFUL MOVEMENTS NOTED. FAMILY ALLOWED TO VISIT & SAY THEIR GOOD BYES. DR TOTH THEN SPOKE TO FAMILY & THEY AGREED TO HOLD OFF OF EXTUBATION & TRY X2 MORE DAYS OF ANTIBIOTICS. PT REMAINS FEBRILE UP TO 106 RECTALLY.. 1700--LOCATED COOLING BLANKET & PLACED UNDER PT. TEMP SET AT 98.5. 1830-UPDATED FAMILY ON CURRENT CONDITION.
--- NOTE | 2020-04-23 19:05 | PC.NURSE ---
RECEIVED CALL FROM FAMILY. WANTING AN UPDATE -- REPORTED NO CHANGES YET. STILL ATTEMPTING TO GET TEMP UNDER CONTROL & AWAITING FURTHER ORDERS
[2020-04-23] MEDS: acyclovir 1,000 MG in sodium chloride 0.9% (100 ml) 100 ML 120 MG IV (22:09)
[2020-04-23 23:24] LABS: Glucose Point of Care 152 mg/dL (70-110)
[2020-04-23] MEDS: vancomycin 1,250 MG/250 ML PIGGYBACK 200 MG IV (23:42)
[2020-04-24] VITALS (79 sets, daily range): BP systolic 81–138; BP diastolic 44–76; PULSE 66–115; RESP 17–27; TEMP 36.3–37.5; O2SAT 87–99
[2020-04-24] MEDS: levalbuterol 0.63 mg/3 mL Neb INHALATION ×6 (00:17→20:35)
--- NOTE | 2020-04-24 00:26 | PC.NURSE ---
Spoke with pt's and gave update on his current condition. Education given on current tx plan, and the course of action being utilized at this time. Updated her on central line removal, new abx initiated, and rectal temp current reading of 98. No further questions/needs verbalized by family.
[2020-04-24 04:52] LABS: ABG PCO2 52.1 mmHg (35-45); Arterial Blood Gas Hematocrit 40.8 % (42-52); Base Excess ABG -1.6 mmol/L (-2.0-2.0); Blood Gas Allen Test Pos; Blood Gas Sample Site Radial, left; Blood Gas Sample Type Arterial; HCO3 ABG 25.6 mmol/L (22-26); Oxygen Device VENT; PO2 ABG 73.3 mmHg (80.0-100.0)
[2020-04-24] MEDS: famotidine 20 mg/2 mL INJ IVP ×2 (05:00→17:12)
[2020-04-24] MEDS: dexmedetomidine 400 MCG in sodium chloride 0.9% (100 ml) 100 ML 9.2 MCG IV (05:07)
[2020-04-24] MEDS: acyclovir 1,000 MG in sodium chloride 0.9% (100 ml) 100 ML 120 MG IV ×3 (05:35→21:30)
[2020-04-24] MEDS: norepinephrine 8 MG in dextrose 5 % 500 ML 7.6 MG IV (05:35)
[2020-04-24 05:58] LABS: Glucose Point of Care 146 mg/dL (70-110)
--- NOTE | 2020-04-24 08:30 | P.PN_ITS ---
Subjective Subjective: Interval history: -No change in mentation after stopping sedation - persistent fevers-subsided for last 2 days after cooling blanket and cold saline lavage - Right chest tube removed 2 days ago: Chest x-ray no change in coarse infiltrates -Covered with vancomycin, imipenem(switched from ztreonam on 04/21/2020), micafungin, p.o. vancomycin for diarrhea -Due to persistent fevers with no identifiable source, added acyclovir to cover for viral encephalitis in view of altered mental status -Family were leaning towards comfort care but with no evidence of any endorgan damage and unidentifiable source of infection; -Last 48 hours no more other potential noninfectious causes of fever were considered -Plasmic score 4; low probability of TTP especially in the absence of brii roangiopathy hemolytic anemia -No evidence of bicytopenia or based on ferritin levels to consider HL H -Mentation slowly started to improve and following commands -If patient continues to improve then can aim for extubation tomorrow after breathing trial Medications: Reviewed: Yes Medication Review Details: Vitals/I&O/Wt Last Vital Signs Temp 99 F 04/24/20 06:00 Pulse 94 04/24/20 08:00 Resp 20 H 04/24/20 08:00 BP 126/67 04/24/20 08:00 Pulse Ox 93 04/24/20 08:00 04/23/20 04/24/20 04/24/20 22:59 06:59 14:59 Intake Total 350 / 870.934 483.934 / 1354.868 Output Total 800 / 1275 Balance 350 / 395.934 -316.066 / 79.868 Weight last 48 hrs Weight 200 lb 12.8 oz Physical Exam Narrative: EXAM NARRATIVE: PHYSICAL EXAM: General: lying in bed, sedated and intubated. HEENT:NCAT, PERRLA, EOMI, mild swelling present on right neck and supraclavicular area with no appreciable crepitus Neck: Supple Lungs: Bilateral diffuse crackles Heart: s1/s2, RRR Abd: soft, NT, ND, BS + Normoactive Extremities: No edema GRAIN ELEVATOR MOTOR STARTER: sedated and limited GRAIN ELEVATOR MOTOR STARTER exam possible. SKIN: no rash LDA: # CVC: Right internal jugular 04/14/2020 # A line: Right radial art line 04/14/2020 Urinary Catheter Management^: Frey: Cath Placed During This Visit: yes Reason for Continuing Indwelling Catheter: Accurate Measurement of Urinary Output in Critically Ill Patients Urinary Catheter Date of Insertion: 04/14/20 Urinary Catheter Time of Insertion: 11:30 Data : 04/25/20 03:20 04/25/20 08:45 Micro: Microbiology 04/21/20 21:50 Sputum Culture - Preliminary Sputum - Endotracheal Tube Aspirate 04/21/20 15:30 Urine Culture - Final Urine Catheterized A&P Assessment and plan (1) Acute respiratory distress syndrome (ARDS) due to 2019 novel coronavirus: Status: Acute (2) ILD (interstitial lung disease): Status: Acute (3) Acute respiratory failure with hypoxia: Status: Acute (4) Sepsis with acute hypoxic respiratory failure: Status: Acute Qualifiers: Sepsis type: sepsis due to unspecified organism Severe sepsis shock status: with septic shock Qualified Code(s): A41.9 - Sepsis, unspecified o rganism; R65.21 - Severe sepsis with septic shock; J96.01 - Acute respiratory failure with hypoxia Overall: 69 year old with male with no significant past medical history but with possible interstitial lung disease based on the CT chest admitted initially for suspected community acquired pneumonia found to be COVID-19 PCR positive, progressively worsening respiratory failure admitted to viral ICU for management of acute hypoxic respiratory failure secondary to acute respiratory distress syndrome due to COVID-19 pneumonia requiring mechanical ventilation to provide oxygenation, course complicated by coexisting septic shock and development of subcutaneous emphysema and right pneumothorax (probably from rupture of subpleural blebs) and FUO. NEURO: #AMS likely secondary to sedation; high fevers -Currently fever subsided -improving mentation and patient following commands -Currently off/Versed/propofol -Only on Precedex and fentanyl 25 -CT head no acute events PULM: #Acute hypoxic and hypercapneic respiratory failure secondary to ARDS due to COVID pna #Respiratory status worsened by contribution from exacerbation of underlying interstitial lung disease ?? UIP pattern #right and left chest subcutaneous emphysema and right lung pneumothorax likely secondary to rupture of subpleural blebs -Intubated on 04/14/2020 -On CMV 500/16/18/40 percent FiO2 saturating greater than 92% -Recommended -DuoNeb nebulization every 4 hours and Pulmicort 0.5 twice daily -CXR today morning: No change in bilateral interstitial opacities and bilateral subcutaneous emphysema. -Increased inflammatory markers CRP, ferritin and repeat every 2 days to trend markers of inflammation -On prednisone 20 mg daily for underlying interstitial lung disease -Currently on [id number]- acyclovir CVS: -Septic shock - resolved -Currently off pressors- please maintain MAP > 65 -Monitor blood pressure and taper of pressors -Echo technically difficult study due to poor ultrasonic windows; BNP 280 GI: -On Pulmicort tube feeding -C. difficile PCR negative; DC'd p.o. Vanco -H2 sahil for GI prophylaxis -Normal LFTs RENAL: -Renal functions improving -Electrolytes within normal limits -I/O/N-1.8 L/2.5 L / -600 mL-hourly urine output is adequate -Maintain MAP goal greater than 65 -Continue frey cath -Avoid nephrotoxins -Monitor BUN/creatinine and electrolytes and supplement accordingly to keep K between 4-4.5, Mg >2 HEM: - H&H stable -DVT prophylaxis : SCDs #Thrombocytopenia -no signs of bleeding -Heparin antibodies negative; will send for serotonin release assay -DC Lovenox -Monitor platelets and signs of bleeding -Plasmic score 4; low probability of TTP especially in the absence of microangiopathy hemolytic anemia ENDO: -Sugars well controlled -monitor sugars and insulin scale coverage ID: #Septic shock secondary to COVID pna #Fever of unknown origin -Currently afebrile for last 48 hours -Improving leukocytosis -Covered with vancomycin, imipenem and micafungin and acyclovir -Procalcitonin 0. 7 2 and lactic acid 1.4 -Pancultures negative and C. difficile PCR negative: Except sputum culture positive for Amaya albicans Prognosis: Critical -guarded Disposition: Remains in ICU Code: Full code Plan of care and recommendations conveyed to hospitalist on the case, RN and RT ICU CHECKLIST: Problem list updated Verbal orders reviewed and signed Analgesia: Fentanyl Glycemic Control: scale coverage Nutrition: Pulmicort tube feeding Restraint Renewal (within 24 hrs): Yes Ulcer Prophylaxis: H2 sahil Chemical Thromboprophylaxis: Prophylaxis: NO -suspicion for HIT Mechanical Thromboprophylaxis: Yes Need for Central line: No Need for Frey catheter: Yes for urine output monitoring Critical Care Time (No Overlap): 45 min This patient has a high probability of sudden, clinically significant deterio ration, which requires the highest level of physician preparedness to intervene urgently. I managed/supervised life or organ supporting interventions that required frequent physician assessment. I devoted my full attention in the ICU to the direct care of this patient for the period of time indicated above. Time I spent with family or surrogate(s) is included only if the patient was incapable of providing necessary information or participating in decision making. Time devoted to teaching and to any procedures I billed separately is not included. Services Provided: Telemetry review Mechanical Ventilation Hemodynamic interpretation, assessment and management Review and interpretation of CXR Review and interpretation of lab values Review and interpretation of microbiologic data and culture results Review of medications and administration Review and interpretation of Nutrition requirements and management Discussion of management with other consultants and services Clinical update to family members Attestations Medical Necessity Statement*: acute hypoxic respiratory failure secondary to acute respiratory distress syndrome due to COVID-19 pneumonia requiring mechanical ventilation to provide oxygenation, course complicated by coexisting septic shock and development of subcutaneous emphysema and right pneumothorax (probably from rupture of subpleural blebs) and FUO. Time Spent in Patient Care: Greater than 35 minutes (>than 50% of time sp ent in counselling and/or direct pt care on unit) . Critical Care Time: Critical Care Time (min): 45 Coding Level of Care Code Established Pt Acute Saloon Keeper for [facility] Fwd Patient Type Established History Comprehensive Exam Comprehensive Medical Decision Making High Complexity Diagnoses Acute respiratory distress syndrome (ARDS) due to 2019 novel coronavirus U07.1; J80 ILD (interstitial lung disease) J84.9 Acute respiratory failure with hypoxia J96.01 Sepsis with acute hypoxic respiratory failure A41.9; R65.21; J96.01 Sepsis type: sepsis due to unspecified organism Severe sepsis shock status: with septic shock Time Spent (min) 45
[2020-04-24] MEDS: dexamethasone 4 mg/mL INJ 6 MG IVP (09:24)
[2020-04-24] MEDS: vancomycin 1,250 MG/250 ML PIGGYBACK 200 MG IV ×2 (10:26→23:28)
[2020-04-24 11:20] LABS: Glucose Point of Care 167 mg/dL (70-110)
--- NOTE | 2020-04-24 11:46 | PM.PN ---
Subjective Subjective: Interval history: Patient continues to spike, Tmax : in the last 24 h : 105.7. Off sedation GCS : 8T Rt I.J was removed , Unfortunately Tip was not cultured. Has received 1 dose of amphotericin B. today will prefer to use caspofungin given its safety profile. Other vitals and labs have been reviewed. Medications: Reviewed: Yes Medication Review Details: Vitals/I&O/Wt Last Vital Signs Temp 99 F 04/24/20 06:00 Pulse 73 04/24/20 11:28 Resp 20 H 04/24/20 11:25 BP 121/59 04/24/20 10:00 Pulse Ox 92 04/24/20 11:23 04/23/20 04/24/20 04/24/20 22:59 06:59 14:59 Intake Total 350 / 870.934 583.934 / 1454.868 Output Total 800 / 1275 275 / 275 Balance 350 / 395.934 -216.066 / 179.868 -275 / -275 Weight last 48 hrs Weight 91.081 kg Physical Exam HENMT: COMMON NORMALS: normocephalic and atraumatic HEAD & SCALP: normocephalic and atraumatic Chest: COMMONS NORMALS: normal inspection of the chest CHEST: Yes Symmetrical chest wall rise Resp: COMMON NORMALS: normal respiratory effort EFFORT & INSPECTION: Yes symmetric chest movement OTHER: B/L Diffuse Crackles present in both lungs layton Cardio: COMMON NORMALS: regular rate, regular rhythm, S1 normal heart sound present, S2 normal heart sound present, No gallops present (Cardio), No murmurs present (Cardio), No rub (Cardio) and Peripheral pulses 2+ throughout RATE: regular rate RHYTHM: regular rhythm HEART SOUNDS: S1 normal heart sound present and S2 normal heart sound present PERIPHERAL PULSES: Peripheral pulses 2+ throughout GI: COMMON NORMALS: Normal to inspection, nondistended, normoactive bowel sounds present, Soft to palpation, non-tender, No hepatosplenomegaly present and no masses AUSCULTATION: Yes normoactive bowel sounds PALPATION: Yes Soft to palpation and Yes No hepatosplenomegaly present RECTAL EXAM: Yes deferred Extremity: COMMON NORMALS: no clubbing, cyanosis or edema and no pedal edema Urinary Catheter Management^: Webster: Cath Placed During This Visit: yes Reason for Continuing Indwelling Catheter: Accurate Measurement of Urinary Output in Critically Ill Patients Urinary Catheter Date of Insertion: 04/14/20 Urinary Catheter Time of Insertion: 11:30 Data : 04/24/20 16:30 04/23/20 05:00 Micro: Microbiology 04/21/20 21:50 Sputum Culture - Preliminary Sputum - Endotracheal Tube Aspirate 04/21/20 15:30 Urine Culture - Final Urine Catheterized A&P Assessment and plan (1) Acute respiratory failure with hypoxia: Status: Acute (2) Sepsis: Status: Acute (3) ILD (interstitial lung disease): Status: Acute Acute respiratory failure with hypoxia on mechanical ventilation - Etiology is multi-factorial COVID-19, underlying ILD, Right sided PTx, possible superimposed bacterial pneumonia - Intubated on MV ( 04/14) ET tube 8.0mm at 27cm at lip Vent : CMV, TV 500, RR 16, PIP 27, i-Time 1.1, PEEP 10, Fio2 at 50% - 04/21- ABG PH 7.33 PCO2 of 62.9, p02 of 62.9, HCO3 of 29.1 - 04/22 -ABG PH 7.35, PCO2 47.8, Po2 63.3, HCO3 26 - Continue sedation- wean fio2 as tolerated - CTA chest PE protocol - no pe - Repeat ABG in am - Pulmonary medicine on board Sepsis due to COVID 19 pneumonia/ Possible V.A.P / Persistent Fever - Completed Remdesivir x 5 days - Decadron 6 mg IV BID - change to daily - Ferritin 627, LDH 894, CRP of 88.9 - Pro-calcitonin 0.20 ->0.67-> 0.14 - > 0.72 - WBC 62.7-> 38.6-> 18.9 -> 15.8 -> 36-> 30.1 -> 31.4 - 04/09 - Blood culture x 2 - NGTD - 04/11 - Sputum culture - negative - 04/14 - Sputum culture - negative - 04/15 - Blood culture x 2 - NGTD - 04/20 - Blood culture x 2 - NGTD - 04/21 - Blood culture x 2 - NGTD - 04/21 - Sputum culture - negative - 04/22 - C. Difficile toxin send - Vancomycin pharmacy to dose - Aztreonam 1g IV q12hr (04/15->04/22 ) - Levaquin 750 mg IV daily ( 04/11 - 04/22) - D/c Azteronam/Levaquin - Changed to Primixin 500 mg IV q6hr 04/22 - Caspofungin 50 mg IV q24hr added 04/22 - Amphotericin B * 1 dose - Cdiff pending - Vancomycin 250 mg pOG QID added - Aspergillus ag,EIA serum sent - CTA Chest, CT Abdomen/Pelvis w contrast\- no acute finding - Venous duplex bilaterally ordered to r/o dvt - No dvt - Acylovir to cover for viral Marked Leukocytosis - WBC 62.7-> 38.6-> 18.9 -> 15.8 -> 36-> 30.1 -> 31.4 - Lymphoma panel ordered - Covering for infectious process Hyperkalemia: Resolved - Potassium 5.1 - Repeat K now - Will treat if positive Thrombocytopenia - Plt 87 - 79 - Due to sepsis vs antiplatlets - HITab - Negative - Continue lovenox Right Sided Pneumothorax s/p Chest tube - Continue current management - Repeat chest x-ray - no further ptx noted - Extensive SQ emphysema - Pulmonary medicine on board - S/P Rt sided chest tube removal Chronic ILD/Pulmonary fibrosis - Newly seen and dx on admission imaging - Currently on Steroid as noted above Acute kidney injury - Resolved - Creatinine 1.7 - > 0.9 - Likely pre-renal from hypotension - Renally dose medication - Repeat BMP in AM Hypertension - Currently hypotensive - Likely due to sedatives vs septic shock - Hold b-blockers GI ppx - Pepcid 20 IV BID DVT ppx - Lovenox 40 mg SQ Daily Additional A&P Information Essential hypertension: This afternoon blood pressure soft. Hold lisinopril. Monitor blood pressures. Full code Cardiac diet DVT prophylaxis Lovenox Attestations Medical Necessity Statement*: Patient needs to be in hospital for the management of sepsis/R/F/PNA Coding Level of Care Code Acute Superintendent Pipelines for [facility] Fwd Exam Detailed Diagnoses Acute respiratory failure with hypoxia J96.01 Sepsis A41.9 ILD (interstitial lung disease) J84.9
--- NOTE | 2020-04-24 13:02 | PC.SOCIAL ---
*IMM Update* Gave pt's Keely IMM. Signed, dated, timed and placed in chart.
[2020-04-24] MEDS: enoxaparin 40 mg/0.4 mL Syringe SUBCUT (13:25)
[2020-04-24 16:57] LABS: Basophils # 0.1 10^3/uL (0.0-0.1); Basophils % 0.3 %; Eosinophils % 0.1 %; Hematocrit 37.2 % (42.0-52.0); Lymphocytes # 1.8 10^3/uL (0.8-4.8); Lymphocytes % 5.1 %; Mean Corpuscular HGB Conc 29.6 g/dL (30.0-36.0); Mean Corpuscular Hemoglobin 28.8 pg (28.0-34.0); Mean Corpuscular Volume 97.4 fL (80-94); Monocytes # 3.3 10^3/uL (0.2-0.9); Monocytes % 9.6 %; Neutrophils # 26.82 10^3/uL (1.8-7.7); Neutrophils % 77.6 %; Nucleated Red Blood Cells % 0.1 %; Platelet Count 34 10^3/cmm (130-400); Red Blood Count 3.82 10^6/uL (4.1-5.3); Red Cell Distribution Width 17.3 % (12.1-15.1)
[2020-04-24 17:01] LABS: Glucose Point of Care 217 mg/dL (70-110)
[2020-04-24 18:03] LABS: Slide Review Slide Review Perform; White Blood Count 34.5 10^3/uL (4.0-10.0)
[2020-04-24] MEDS: FUROsemide 10 mg/mL SDV 2mL 20 MG IVP (18:07)
[2020-04-24] MEDS: dexmedetomidine 400 MCG in sodium chloride 0.9% (100 ml) 100 ML 6.9 MCG IV (18:28)
[2020-04-24 23:56] LABS: Alanine Aminotransferase 36 U/L (0-41); Albumin Level 2.9 g/dL (3.5-5.2); Alkaline Phosphatase 33 IU/L (40-130); Anion Gap 13.4 (5-19); Aspartate Amino Transferase 14 U/L (0-40); Blood Urea Nitrogen 59 mg/dL (8-23); Calcium 7.6 mg/dL (8.5-10.5); Carbon Dioxide 26 mmol/L (22-29); Chloride 110 mmol/L (98-107); Globulin 2.2 g/dL (1.3-4.6); Glucose 178 mg/dL (65-115); Osmolality Calculated 321 mOsm/kg (285-295); Potassium 4.4 mmol/L (3.5-5.1); Sodium 145 mmol/L (136-145); Total Bilirubin 0.6 mg/dL (0.15-1.2); Total Protein 5.1 g/dL (6.6-8.7)
[2020-04-25] VITALS (47 sets, daily range): BP systolic 86–137; BP diastolic 46–84; PULSE 69–108; RESP 18–29; TEMP 36.3–37.8; O2SAT 87–99
[2020-04-25 00:50] LABS: Glucose Point of Care 174 mg/dL (70-110)
[2020-04-25] MEDS: dexmedetomidine 400 MCG in sodium chloride 0.9% (100 ml) 100 ML 11.5 MCG IV (03:30)
[2020-04-25] MEDS: acyclovir 1,000 MG in sodium chloride 0.9% (100 ml) 100 ML 120 MG IV ×3 (05:07→21:06)
[2020-04-25] MEDS: levalbuterol 0.63 mg/3 mL Neb INHALATION ×3 (05:25→11:43)
[2020-04-25 05:40] LABS: Basophils # 0.1 10^3/uL (0.0-0.1); Basophils % 0.3 %; Eosinophils % 0.1 %; Hematocrit 36.2 % (42.0-52.0); Hemoglobin 10.9 g/dL (11.7-16.6); Lymphocytes # 0.6 10^3/uL (0.8-4.8); Mean Corpuscular HGB Conc 30.1 g/dL (30.0-36.0); Mean Corpuscular Hemoglobin 28.2 pg (28.0-34.0); Mean Corpuscular Volume 93.8 fL (80-94); Monocytes # 2.6 10^3/uL (0.2-0.9); Monocytes % 13.7 %; Neutrophils # 14.41 10^3/uL (1.8-7.7); Neutrophils % 76.7 %; Nucleated Red Blood Cells % 0.2 %; Platelet Count 49 10^3/cmm (130-400); Red Blood Count 3.86 10^6/uL (4.1-5.3); Red Cell Distribution Width 17.3 % (12.1-15.1); White Blood Count 18.8 10^3/uL (4.0-10.0)
[2020-04-25] MEDS: famotidine 20 mg/2 mL INJ IVP ×2 (05:44→17:28)
[2020-04-25 05:45] LABS: Glucose Point of Care 179 mg/dL (70-110)
--- NOTE | 2020-04-25 06:00 | XR_ITS ---
WS: [id number] Portable AP upright chest, 04/25/2020 Clinical Data: Hypoxia Comparison: Portable chest, 04/23/2020. Findings: The endotracheal tube has been retreated and now appears to end in the mid esophagus. The e ndotracheal tube remains above the erick. Bilateral interstitial opacities remain unchanged. Bilater al subcutaneous emphysema is again noted. The heart is normal. The aortic arch and descending aorta a re tortuous. Monitor leads are on the chest wall. XR/XR chest 1V portable [id number] Impression: 1. The nasogastric tube now ends in the mid esophagus. 2. No change in the endotracheal tube. 3. No change in bilateral interstitial opacities and bilateral subcutaneous emp hysema.
[2020-04-25 07:22] LABS: Slide Review Slide Review Perform
[2020-04-25 07:43] LABS: Glucose Point of Care 151 mg/dL (70-110)
--- NOTE | 2020-04-25 08:17 | PC.NURSE ---
Shift Summary: Drips titrated based on needs (See MAR flowsheet). Levo reinitiated. MD production coordinator updated on status of pt overnight, with increase work of breathing over vent settings by RT. Fentanyl reinitiated in efforts to try and decrease pt pain levels, and overall work of breathing. Pt responds to verbal command, and name being called. 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 Shakes head for yes and no to questions in response to pain/wants and needs. Q2H turns for skin integrity. Levo currently paused. Family updated on pt status wit multiple phone calls overnight. Education given on current plan of care, and procedures moving forward. Voicemails played to pt at request of family. Drips running @: Fent 50 Precedex 0.5 Levo (paused) 1750 u/o
[2020-04-25] MEDS: apixaban 5 mg Tablet 2.5 MG PO ×2 (08:23→17:28)
[2020-04-25] MEDS: predniSONE 20 mg Tablet PO (08:24)
--- NOTE | 2020-04-25 09:39 | PM.PN ---
Subjective Subjective: Interval history: Katerine is intubated and sedated. Off sedation GCS : 8T T-max: 100.0 Other vitals and labs have been reviewed. Medications: Reviewed: Yes Medication Review Details: Vitals/I&O/Wt Last Vital Signs Temp 100.0 F H 04/25/20 04:00 Pulse 107 H 04/25/20 08:15 Resp 27 H 04/25/20 07:54 BP 112/61 04/25/20 06:00 Pulse Ox 91 04/25/20 07:54 04/24/20 04/25/20 04/25/20 22:59 06:59 14:59 Intake Total 481.295 / 951.295 909.018 / 1860.313 Output Total 1250 / 1950 550 / 2500 Balance -768.705 / -998.705 359.018 / -639.687 Weight last 48 hrs Weight 91.081 kg Physical Exam HENMT: COMMON NORMALS: normocephalic and atraumatic HEAD & SCALP: normocephalic and atraumatic Chest: COMMONS NORMALS: normal inspection of the chest CHEST: Yes Symmetrical chest wall rise Resp: COMMON NORMALS: normal respiratory effort EFFORT & INSPECTION: Yes symmetric chest movement OTHER: B/L Diffuse Crackles present in both lungs layton Cardio: COMMON NORMALS: regular rate, regular rhythm, S1 normal heart sound present, S2 normal heart sound present, No gallops present (Cardio), No murmurs present (Cardio), No rub (Cardio) and Peripheral pulses 2+ throughout RATE: regular rate RHYTHM: regular rhythm HEART SOUNDS: S1 normal heart sound present and S2 normal heart sound present PERIPHERAL PULSES: Peripheral pulses 2+ throughout GI: COMMON NORMALS: Normal to inspection, nondistended, normoactive bowel sounds present, Soft to palpation, non-tender, No hepatosplenomegaly present and no masses AUSCULTATION: Yes normoactive bowel sounds PALPATION: Yes Soft to palpation and Yes No hepatosplenomegaly present RECTAL EXAM: Yes deferred Extremity: COMMON NORMALS: no clubbing, cyanosis or edema and no pedal edema Urinary Catheter Management^: Webster: Cath Placed During This Visit: yes Reason for Continuing Indwelling Catheter: Accurate Measurement of Urinary Output in Critically Ill Patients Urinary Catheter Date of Insertion: 04/14/20 Urinary Catheter Time of Insertion: 11:30 Data : 04/25/20 03:20 04/25/20 08:45 Micro: Microbiology 04/20/20 04:40 Blood Culture - Final Blood NO GROWTH AFTER 5 DAYS 04/20/20 04:36 Blood Culture - Final Blood NO GROWTH AFTER 5 DAYS A&P Assessment and plan (1) Acute respiratory failure with hypoxia: Status: Acute (2) Sepsis: Status: Acute (3) ILD (interstitial lung disease): Status: Acute Acute respiratory failure with hypoxia on mechanical ventilation - Etiology is multi-factorial COVID-19, underlying ILD, Right sided PTx, possible superimposed bacterial pneumonia - Intubated on MV ( 04/14) ET tube 8.0mm at 27cm at lip Vent : CMV, TV 500, RR 16, PIP 27, i-Time 1.1, PEEP 10, Fio2 at 50% - 04/21- ABG PH 7.33 PCO2 of 62.9, p02 of 62.9, HCO3 of 29.1 - 04/22 -ABG PH 7.35, PCO2 47.8, Po2 63.3, HCO3 26 - Continue sedation- wean fio2 as tolerated - CTA chest PE protocol - no pe - Repeat ABG in am - Pulmonary medicine on board Sepsis due to COVID 19 pneumonia/ Possible V.A.P / Persistent Fever - Completed Remdesivir x 5 days - Decadron 6 mg IV BID - change to dailY Initiaaly has been stopped. - Currently on Prednisone 20 mg oral daily tapering dose - Ferritin 627, LDH 894, CRP of 88.9 - Pro-calcitonin 0.20 ->0.67-> 0.14 - > 0.72 - WBC 62.7-> 38.6-> 18.9 -> 15.8 -> 36-> 30.1 -> 31.4->18 - 04/09 - Blood culture x 2 - NGTD - 04/11 - Sputum culture - negative - 04/14 - Sputum culture - negative - 04/15 - Blood culture x 2 - NGTD - 04/20 - Blood culture x 2 - NGTD - 04/21 - Blood culture x 2 - NGTD -04/25 - Repeat Blood Culture - 04/21 - Sputum culture - negative - 04/22 - C. Difficile toxin :Negative - Vancomycin pharmacy to dose - Aztreonam 1g IV q12hr (04/15->04/22 ) - Levaquin 750 mg IV daily ( 04/11 - 04/22) - D/c Azteronam/Levaquin - Changed to Primixin 500 mg IV q6hr 04/22 - Caspofungin 50 mg IV q24hr added 04/22 - Acylovir to cover for viral possible HSV Meningoencehalitis - Amphotericin B * 1 dose (04/24)* - Vancomycin 250 mg pOG QID stopped on 04/25 - Aspergillus ag,EIA serum sent - CTA Chest, CT Abdomen/Pelvis w contrast\- no acute finding - Venous duplex bilaterally ordered to r/o dvt - No dvt Marked Leukocytosis:Improving - WBC 62.7-> 38.6-> 18.9 -> 15.8 -> 36-> 30.1 -> 31.4 - Lymphoma panel ordered - Covering for infectious process Hyperkalemia: Resolved - Potassium 5.1 - Repeat K now - Will treat if positive Thrombocytopenia Likely 2/2 to sepsis - Monitor P/C - HITab - Negative Right Sided Pneumothorax s/p Chest tube - Continue current management - Repeat chest x-ray - no further ptx noted - Extensive SQ emphysema initially - Pulmonary medicine on board - S/P Rt sided chest tube removal Chronic ILD/Pulmonary fibrosis - Newly seen and dx on admission imaging - Currently on Steroid as noted above Acute kidney injury - Resolved - Creatinine 1.7 - > 0.9 - Likely pre-renal from hypotension - Renally dose medication - Repeat BMP in AM Hypertension - Currently hypotensive - Likely due to sedatives vs septic shock - Hold b-blockers GI ppx - Pepcid 20 IV BID DVT ppx - Lovenox 40 mg SQ Daily Additional A&P Information Essential hypertension: This afternoon blood pressure soft. Hold lisinopril. Monitor blood pressures. 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
[2020-04-25] MEDS: sodium chloride 0.9% 1,000 ML 75 ML IV (09:59)
[2020-04-25 10:08] LABS: Albumin Level 2.9 g/dL (3.5-5.2); Alkaline Phosphatase 34 IU/L (40-130); Blood Urea Nitrogen 55 mg/dL (8-23); Calcium 7.3 mg/dL (8.5-10.5); Carbon Dioxide 27 mmol/L (22-29); Chloride 111 mmol/L (98-107); Globulin 2.1 g/dL (1.3-4.6); Glucose 144 mg/dL (65-115); Magnesium 2.4 mg/dL (1.7-2.3); Osmolality Calculated 316 mOsm/kg (285-295); Sodium 144 mmol/L (136-145); Total Bilirubin 0.5 mg/dL (0.15-1.2)
[2020-04-25 10:26] LABS: Alanine Aminotransferase 31 U/L (0-41); Anion Gap 10.6 (5-19); Aspartate Amino Transferase 21 U/L (0-40); Potassium 4.6 mmol/L (3.5-5.1)
[2020-04-25 11:37] LABS: Glucose Point of Care 164 mg/dL (70-110)
[2020-04-25] MEDS: vancomycin 1,250 MG/250 ML PIGGYBACK 200 MG IV (12:08)
[2020-04-25] MEDS: dexmedetomidine 400 MCG in sodium chloride 0.9% (100 ml) 100 ML 13.8 MCG IV ×2 (13:15→21:10)
--- NOTE | 2020-04-25 15:17 | PC.RESP ---
NO MEDS IN PT. BOX
[2020-04-25 16:59] LABS: Glucose Point of Care 214 mg/dL (70-110)
[2020-04-25 18:03] LABS: Aspergillus AG,EIA,Serum NOT DETECTED; Aspergillus Galactomannan Inde <0.50
--- NOTE | 2020-04-25 21:58 | PM.PN ---
Subjective Subjective: Interval history: - persistent fevers-subsided for last 2 days after cooling blanket and cold saline lavage - Right chest tube removed 2 days ago: Chest x-ray no change in coarse infiltrates -Covered with vancomycin, imipenem(switched from ztreonam on 04/21/2020), micafungin, p.o. vancomycin for diarrhea -Due to persistent fevers with no identifiable source, added acyclovir to cover for viral encephalitis in view of altered mental status -Family were leaning towards comfort care but with no evidence of any endorgan damage and unidentifiable source of infection; -Last 48 hours no more other potential noninfectious causes of fever were considered -Plasmic score 4; low probability of TTP especially in the absence of microangiopathy hemolytic anemia -No evidence of bicytopenia or based on ferritin levels to consider HL H -Mentation slowly started to improve and following commands -If patient continues to improve then can aim for extubation tomorrow after breathing trial Medications: Reviewed: Yes Medication Review Details: Vitals/I&O/Wt Last Vital Signs Temp 97.8 F 04/25/20 11:00 Pulse 78 04/25/20 19:00 Resp 18 04/25/20 21:04 BP 111/58 04/25/20 19:00 Pulse Ox 93 04/25/20 19:00 04/25/20 04/25/20 04/25/20 06:59 14:59 22:59 Intake Total 909.018 / 1860.313 385.005 / 385.005 91.120 / 476.125 Output Total 550 / 2500 400 / 400 Balance 359.018 / -639.687 385.005 / 385.005 -308.880 / 76.125 Weight last 48 hrs Weight 200 lb 12.8 oz Physical Exam Narrative: EXAM NARRATIVE: PHYSICAL EXAM: General: lying in bed, sedated and intubated. HEENT:NCAT, PERRLA, EOMI, mild swelling present on right neck and supraclavicular area with no appreciable crepitus Neck: Supple Lungs: Bilateral diffuse crackles Heart: s1/s2, RRR Abd: soft, NT, ND, BS + Normoactive Extremities: No edema MARKETING FINANCE MANAGER: sedated and limited MARKETING FINANCE MANAGER exam possible. SKIN: no rash LDA: # CVC: Right internal jugular 04/14/2020 # A line: Right radial art line 04/14/2020 Urinary Catheter Management^: Frey: Cath Placed During This Visit: yes Reason for Continuing Indwelling Catheter: Accurate Measurement of Urinary Output in Critically Ill Patients Urinary Catheter Date of Insertion: 04/14/20 Urinary Catheter Time of Insertion: 11:30 Data : 04/25/20 03:20 04/25/20 08:45 Micro: Microbiology 04/21/20 21:50 Sputum Culture - Final Sputum - Endotracheal Tube Aspirate Amaya albicans 04/25/20 12:35 Blood Culture - Preliminary Blood SPECIMEN COLLECTED 04/25/20 08:45 Blood Culture - Preliminary Blood SPECIMEN COLLECTED 04/20/20 04:40 Blood Culture - Final Blood NO GROWTH AFTER 5 DAYS 04/20/20 04:36 Blood Culture - Final Blood NO GROWTH AFTER 5 DAYS A&P Assessment and plan (1) Acute respiratory distress syndrome (ARDS) due to 2019 novel coronavirus: Status: Acute (2) ILD (interstitial lung disease): Status: Acute (3) Acute respiratory failure with hypoxia: Status: Acute (4) Sepsis with acute hypoxic respiratory failure: Status: Acute Qualifiers: Sepsis type: sepsis due to unspecified organism Severe sepsis shock status: with septic shock Qualified Code(s): A41.9 - Sepsis, unspecified organism; R65.21 - Severe sepsis with septic shock; J96.01 - Acute respiratory failure with hypoxia Overall: 69 year old with male with no significant past medical history but with possible interstitial lung disease based on the CT chest admitted initially for suspected community acquired pneumonia found to be COVID-19 PCR positive, progressively worsening respiratory failure admitted to viral ICU for management of acute hypoxic respiratory failure secondary to acute respiratory distress syndrome due to COVID-19 pneumonia requiring mechanical ventilation to provide oxygenation, course complicated by coexisting septic shock and development of subcutaneous emphysema and right pneumothorax (probably from rupture of subpleural blebs) and FUO. NEURO: #AMS likely secondary to sedation; high fevers -Currently fever subsided -improving mentation and patient following commands -Currently off/Versed/propofol -Only on Precedex and fentanyl 25 -CT head no acute events PULM: #Acute hypoxic and hypercapneic respiratory failure secondary to ARDS due to COVID pna #Respiratory status worsened by contribution from exacerbation of underlying interstitial lung disease ?? UIP pattern #right and left chest subcutaneous emphysema and right lung pneumothorax likely secondary to rupture of subpleural blebs -Intubated on 04/14/2020 -On CMV 500/16/18/40 percent FiO2 saturating greater than 92% -Recommended -DuoNeb nebulization every 4 hours and Pulmicort 0.5 twice daily -CXR today morning: No change in bilateral interstitial opacities and bilateral subcutaneous emphysema. -Increased inflammatory markers CRP, ferritin and repeat every 2 days to trend markers of inflammation -On prednisone 20 mg daily for underlying interstitial lung disease -Currently on [id number]- acyclovir CVS: -Septic shock - resolved -Currently off pressors- please maintain MAP > 65 -Monitor blood pressure and taper of pressors -Echo technically difficult study due to poor ultrasonic windows; BNP 280 GI: -On Pulmicort tube feeding -C. difficile PCR negative; DC'd p.o. Vanco -H2 sahil for GI prophylaxis -Normal LFTs RENAL: -Renal functions improving -Electrolytes within normal limits -I/O/N-1.8 L/2.5 L / -600 mL-hourly urine output is adequate -Maintain MAP goal greater than 65 -Continue frey cath -Avoid nephrotoxins -Monitor BUN/creatinine and electrolytes and supplement accordingly to keep K between 4-4.5, Mg >2 HEM: - H&H stable -DVT prophylaxis : SCDs #Thrombocytopenia -no signs of bleeding -Heparin antibodies negative; will send for serotonin release assay -DC Lovenox -Monitor platelets and signs of bleeding -Plasmic score 4; low probability of TTP especially in the absence of microangiopathy hemolytic anemia ENDO: -Sugars well controlled -monitor sugars and insulin scale coverage ID: #Septic shock secondary to COVID pna #Fever of unknown origin -Currently afebrile for last 48 hours -Improving leukocytosis -Covered with vancomycin, imipenem and micafungin and acyclovir -Procalcitonin 0. 7 2 and lactic acid 1.4 -Pancultures negative and C. difficile PCR negative: Except sputum culture positive for Amaya albicans Prognosis: Critical -guarded Disposition: Remains in ICU Code: Full code Plan of care and recommendations conveyed to hospitalist on the case, RN and RT ICU CHECKLIST: Problem list updated Verbal orders reviewed and signed Analgesia: Fentanyl Glycemic Control: scale coverage Nutrition: Pulmicort tube feeding Restraint Renewal (within 24 hrs): Yes Ulcer Prophylaxis: H2 sahil Chemical Thromboprophylaxis: Prophylaxis: NO -suspicion for HIT Mechanical Thromboprophylaxis: Yes Need for Central line: No Need for Frey catheter: Yes for urine output monitoring Critical Care Time (No Overlap): 45 min This patient has a high probability of sudden, clinically significant deterioration, which requires the highest level of physician preparedness to intervene urgently. I managed/supervised life or organ supporting interventions that required frequent physician assessment. I devoted my full attention in the ICU to the direct care of this patient for the period of time indicated above. Time I spent with family or surrogate(s) is included only if the patient was incapable of providing necessary information or participating in decision making. Time devoted to teaching and to any procedures I billed separately is not included. Services Provided: Telemetry review Mechanical Ventilation Hemodynamic interpretation, assessment and management Review and interpretation of CXR Review and interpretation of lab values Review and interpretation of microbiologic data and culture results Review of medications and administration Review and interpretation of Nutrition requirements and management Discussion of management with other consultants and services Clinical update to family members Attestations Medical Necessity Statement*: acute hypoxic respiratory failure secondary to acute respiratory distress syndrome due to COVID-19 pneumonia requiring mechanical ventilation to provide oxygenation, course complicated by coexisting septic shock and development of subcutaneous emphysema and right pneumothorax (probably from rupture of subpleural blebs) and FUO. 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
[2020-04-26] VITALS (53 sets, daily range): BP systolic 92–158; BP diastolic 50–81; PULSE 66–122; RESP 17–33; TEMP 36.5–37.4; O2SAT 88–100
[2020-04-26] MEDS: vancomycin 1,250 MG/250 ML PIGGYBACK 200 MG IV ×2 (01:02→11:36)
[2020-04-26 04:10] LABS: Glucose Point of Care 146 mg/dL (70-110)
[2020-04-26 04:42] LABS: Basophils % 0.3 %; Eosinophils # 0.1 10^3/uL (0.0-0.8); Eosinophils % 0.6 %; Hematocrit 32.2 % (42.0-52.0); Hemoglobin 9.5 g/dL (11.7-16.6); Lymphocytes # 0.8 10^3/uL (0.8-4.8); Mean Corpuscular HGB Conc 29.5 g/dL (30.0-36.0); Mean Corpuscular Hemoglobin 28.4 pg (28.0-34.0); Mean Corpuscular Volume 96.1 fL (80-94); Monocytes # 2.1 10^3/uL (0.2-0.9); Monocytes % 14.8 %; Neutrophils # 10.07 10^3/uL (1.8-7.7); Neutrophils % 71.4 %; Nucleated Red Blood Cells % 0.3 %; Platelet Count 48 10^3/cmm (130-400); Red Blood Count 3.35 10^6/uL (4.1-5.3); Red Cell Distribution Width 17.3 % (12.1-15.1); White Blood Count 14.1 10^3/uL (4.0-10.0)
--- NOTE | 2020-04-26 04:49 | PC.NURSE ---
ASSUMING CARE Patient resting in bed on ventilator. FiO2 at 40%, PEEP at 10, TV 500, and rate of 18. Patient on fentanyl drip at 75 mcg/hour, precedex at 0.6 mcg/kg/hour, NS at 75 mL. Patient sedated but still follows commands, shakes head yes and no and squeezes nurses hand.
[2020-04-26 04:56] LABS: ABG PCO2 50.3 mmHg (35-45); ABG PH Result 7.34 (7.35-7.45); Arterial Blood Gas Hematocrit 34.4 % (42-52); Base Excess ABG 0.7 mmol/L (-2.0-2.0); Blood Gas Allen Test Pos; Blood Gas Sample Type Arterial; HCO3 ABG 27.1 mmol/L (22-26); PO2 ABG 60.9 mmHg (80.0-100.0)
[2020-04-26 04:57] LABS: Blood Gas Operator Identificat HARKR; Blood Gas Sample Site Radial, left; Oxygen Device VENT
[2020-04-26] MEDS: dexmedetomidine 400 MCG in sodium chloride 0.9% (100 ml) 100 ML 13.8 MCG IV (04:59)
[2020-04-26] MEDS: sodium chloride 0.9% 1,000 ML 75 ML IV (05:03)
[2020-04-26] MEDS: famotidine 20 mg/2 mL INJ IVP ×2 (05:05→17:35)
[2020-04-26] MEDS: acyclovir 1,000 MG in sodium chloride 0.9% (100 ml) 100 ML 120 MG IV ×3 (05:12→21:16)
[2020-04-26 05:15] LABS: Alanine Aminotransferase 26 U/L (0-41); Albumin Level 2.7 g/dL (3.5-5.2); Alkaline Phosphatase 34 IU/L (40-130); Aspartate Amino Transferase 15 U/L (0-40); Blood Urea Nitrogen 51 mg/dL (8-23); Calcium 7.4 mg/dL (8.5-10.5); Carbon Dioxide 25 mmol/L (22-29); Chloride 115 mmol/L (98-107); Glucose 166 mg/dL (65-115); Magnesium 2.7 mg/dL (1.7-2.3); Osmolality Calculated 319 mOsm/kg (285-295); Sodium 146 mmol/L (136-145); Total Bilirubin 0.5 mg/dL (0.15-1.2); Total Protein 4.7 g/dL (6.6-8.7)
[2020-04-26 05:19] LABS: Glucose Point of Care 169 mg/dL (70-110)
[2020-04-26 05:39] LABS: Anion Gap 10.4 (5-19); Potassium 4.4 mmol/L (3.5-5.1)
[2020-04-26 06:14] LABS: Slide Review Slide Review Perform
--- NOTE | 2020-04-26 06:18 | PC.NURSE ---
BOWEL MOVEMENTS Patient has had 2 large liquid bowel movements this shift. Dr. Sears notified of bowel movements and ordered CDIFF panel.
--- NOTE | 2020-04-26 06:56 | PC.NURSE ---
SHIFT SUMMARY Patient remains on mechanical ventilation at same settings as change of shift. Patient has approximately one liter of urine output, frey catheter changed out due to extreme leakage and bladder distention. Catheter irrigated sluggishly. Frey catheter changed. Once catheter removed, patient had steady stream of urine for approximately 30 seconds and urinary catheter is now draining adequately. Sinus rhythm this shift. Patient responds to commands.
[2020-04-26] MEDS: levalbuterol 0.63 mg/3 mL Neb INHALATION ×3 (08:09→23:18)
[2020-04-26] MEDS: apixaban 5 mg Tablet 2.5 MG PO ×2 (09:51→17:35)
[2020-04-26] MEDS: predniSONE 20 mg Tablet PO (09:51)
[2020-04-26] MEDS: FUROsemide 10 mg/mL SDV 4mL 40 MG IVP (09:51)
[2020-04-26] MEDS: sodium chloride 0.45% 1,000 ML 50 ML IV (10:47)
[2020-04-26 11:25] LABS: Glucose Point of Care 162 mg/dL (70-110)
--- NOTE | 2020-04-26 11:57 | P.PN_ITS ---
Subjective Subjective: Interval history: -Overall patient is clinically improving without any and organ damage -Overnight patient was agitated when they were turning him and so started back on fentanyl 100 and already on Precedex -Recommended to DC fentanyl and taper off Precedex and continue with awakening trial -ABG today a.m. mild respiratory acidosis likely secondary to sedation CMV 500/16/10/50 percent FiO2 -Recommended ABG during breathing trial and if passes proceed for extubation, if required on low-dose Precedex -No more fevers spikes, labs none revealed improving leukocytosis, -Patient is 1 L positive and sodium 146 -recommended to switch NS 75 cc/h to 1/2 NS 50 cc/h Medications: Reviewed: Yes Medication Review Details: Vitals/I&O/Wt Last Vital Signs Temp 99.1 F 04/26/20 07:29 Pulse 102 H 04/26/20 08:12 Resp 30 H 04/26/20 11:00 BP 125/57 04/26/20 06:00 Pulse Ox 92 04/26/20 08:12 04/25/20 04/26/20 04/26/20 22:59 06:59 14:59 Intake Total 311.120 / 712.338 2828 / 2500.125 581.68 / 581.68 Output Total 1150 / 1150 275 / 1425 275 / 275 Balance -838.880 / -965.718 5839 / 1075.125 306.68 / 306.68 Weight last 48 hrs Weight 204 lb 3.2 oz Physical Exam Narrative: EXAM NARRATIVE: PHYSICAL EXAM: General: lying in bed, sedated and intubated. HEENT:NCAT, PERRLA, EOMI, mild swelling present on right neck and supraclavicular area with no appreciable crepitus Neck: Supple Lungs: Improving bilateral diffuse crackles Heart: s1/s2, RRR Abd: soft, NT, ND, BS + Normoactive Extremities: No edema AIRCRAFT ORDNANCE TECHNICIAN: sedated and limited AIRCRAFT ORDNANCE TECHNICIAN exam possible. SKIN: no rash Urinary Catheter Management^: Frey: Cath Placed During This Visit: yes Reason for Continuing Indwelling Catheter: Accurate Measurement of Urinary Output in Critically Ill Patients Urinary Catheter Date of Insertion: 04/14/20 Urinary Catheter Time of Insertion: 11:30 Data : 04/26/20 03:50 04/26/20 03:50 Micro: Microbiology 04/25/20 08:45 Blood Culture - Preliminary Blood NEGATIVE TO DATE 04/21/20 21:50 Sputum Culture - Final Sputum - Endotracheal Tube Aspirate Amaya albicans 04/25/20 12:35 Blood Culture - Preliminary Blood SPECIMEN COLLECTED A&P Assessment and plan (1) Acute respiratory distress syndrome (ARDS) due to 2019 novel coronavirus: Status: Acute (2) ILD (interstitial lung disease): Status: Acute (3) Acute respiratory failure with hypoxia: Status: Acute (4) Sepsis with acute hypoxic respiratory failure: Status: Acute Qualifiers: Sepsis type: sepsis due to unspecified organism Severe sepsis shock status: with septic shock Qualified Code(s): A41.9 - Sepsis, unspecified organism; R65.21 - Severe sepsis with septic shock; J96.01 - Acute respiratory failure with hypoxia Overall: 69 year old with male with no significant past medical history but with possible interstitial lung disease based on the CT chest admitted initially for suspected community acquired pneumonia found to be COVID-19 PCR positive, progressively worsening respiratory failure admitted to viral ICU for management of acute hypoxic respiratory failure secondary to acute respiratory distress syndrome due to COVID-19 pneumonia requiring mechanical ventilation to provide oxygenation, course complicated by coexisting septic shock and development of subcutaneous emphysema and right pneumothorax (probably from rupture of subpleural blebs) and FUO. NEURO: #AMS likely secondary to sedation; high fevers -Currently fever subsided -improving mentation and patient following commands --Only on Precedex and fentanyl 25 -planning to discontinue sedation and do awakening -CT head no acute events PULM: #Acute hypoxic and hypercapneic respiratory failure secondary to ARDS due to COVID pna #Respiratory status worsened by contribution from exacerbation of underlying interstitial lung disease ?? UIP pattern #right and left chest subcutaneous emphysema and right lung pneumothorax likely secondary to rupture of subpleural blebs -Intubated on 04/14/2020 --ABG today a.m. mild respiratory acidosis likely secondary to sedation CMV 500/16/10/50 percent FiO2 -Recommended ABG during spontaneous breathing trial and extubate -Recommended -DuoNeb nebulization every 4 hours and Pulmicort 0.5 twice daily -CXR today morning: No change in bilateral interstitial opacities and bilateral subcutaneous emphysema. -Increased inflammatory markers CRP, ferritin and repeat every 2 days to trend markers of inflammation -On prednisone 20 mg daily for underlying interstitial lung disease -Currently on wehjgqxams-ykdlfulw-qayqljpstor- acyclovir CVS: -Septic shock - resolved -Currently off pressors- please maintain MAP > 65 -Monitor blood pressure and taper of pressors -Echo technically difficult study due to poor ultrasonic windows; BNP 280 GI: -On Pulmicort tube feeding -C. difficile PCR negative; DC'd p.o. Vanco -H2 sahil for GI prophylaxis -Normal LFTs RENAL: -Renal functions improving -+1 L last 24 hours and sodium 146; good hourly urine output -Changed NS at 50 NS at 75 cc/h to 1/850 cc/h -Maintain MAP goal greater than 65 -Continue frey cath -Avoid nephrotoxins -Monitor BUN/creatinine and electrolytes and supplement accordingly to keep K between 4-4.5, Mg >2 HEM: - H&H stable -DVT prophylaxis : SCDs #Thrombocytopenia -no signs of bleeding -Heparin antibodies negative; send for serotonin release assay -DC Lovenox -Monitor platelets and signs of bleeding -Plasmic score 4; low probability of TTP especially in the absence of microangiopathy hemolytic anemia ENDO: -Sugars well controlled -monitor sugars and insulin scale coverage ID: #Septic shock secondary to COVID pna #Fever of unknown origin -Currently afebrile for last 72 hours -Improving leukocytosis -Covered with vancomycin, imipenem and micafungin and acyclovir -Procalcitonin 0. 7 2 and lactic acid 1.4 -Pancultures negative and C. difficile PCR negative: Except sputum culture positive for Amaya albicans Prognosis: Critical -guarded Disposition: Remains in ICU Code: AND Plan of care and recommendations conveyed to hospitalist on the case, RN and RT ICU CHECKLIST: Problem list updated Verbal orders reviewed and signed Analgesia: Fentanyl Glycemic Control: scale coverage Nutrition: Pulmicort tube feeding Restraint Renewal (within 24 hrs): Yes Ulcer Prophylaxis: H2 sahil Chemical Thromboprophylaxis: Prophylaxis: NO -suspicion for HIT Mechanical Thromboprophylaxis: Yes Need for Central line: No Need for Frey catheter: Yes for urine output monitoring Critical Care Time (No Overlap): 45 min This patient has a high probability of sudden, clinically significant deterioration, which requires the highest level of physician preparedness to intervene urgently. I managed/supervised life or organ supporting interventions that required frequent physician assessment. I devoted my full attention in the ICU to the direct care of this patient for the period of time indicated above. Time I spent with family or surrogate(s) is included only if the patient was incapable of providing necessary information or participating in decision making. Time devoted to teaching and to any procedures I billed separately is not included. Services Provided: Telemetry review Mechanical Ventilation Hemodynamic interpretation, assessment and management Review and interpretation of CXR Review and interpretation of lab values Review and interpretation of microbiologic data and culture results Review of medications and administration Review and interpretation of Nutrition requirements and management Discussion of management with other consultants and services Clinical update to family members Attestations Medical Necessity Statement*: Acute hypoxic respiratory failure secondary to COVID-19 pneumonia in patient with underlying interstitial lung disease and COPD still requiring mechanical ventilation Time Spent in Patient Care: Greater than 35 minutes (>than 50% of time spent in counselling and/or direct pt care on unit) . 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
--- NOTE | 2020-04-26 15:35 | PC.SOCIAL ---
IMM Update Pg. 2 of IMM not updated, patient remains intubated and not anticipated to discharge within 48hours.
[2020-04-26 16:46] LABS: Glucose Point of Care 146 mg/dL (70-110)
[2020-04-26] MEDS: dexmedetomidine 400 MCG in sodium chloride 0.9% (100 ml) 100 ML 9.2 MCG IV (17:04)
--- NOTE | 2020-04-26 18:38 | PM.PN ---
Subjective Subjective: Interval history: Mr.McKinght richey remain intubated and sedated.Off sedation GCS is ;8T He has remained afebrile,has good urine output, leukocytosis is trending down. His other vitals and labs have been reviewed. Medications: Reviewed: Yes Vitals/I&O/Wt Last Vital Signs Temp 99.4 F 04/26/20 11:00 Pulse 108 H 04/26/20 14:00 Resp 18 04/26/20 17:17 BP 115/68 04/26/20 14:00 Pulse Ox 93 04/26/20 14:00 04/26/20 04/26/20 04/26/20 06:59 14:59 22:59 Intake Total 1674 / 2870.125 690.00 / 690.00 49.833 / 739.833 Output Total 275 / 1425 1825 / 1825 Balance 1399 / 1445.125 -1135.00 / -1135.00 49.833 / -1085.167 Weight last 48 hrs Weight 92.624 kg Physical Exam HENMT: COMMON NORMALS: normocephalic and atraumatic HEAD & SCALP: normocephalic and atraumatic Chest: CHEST: Yes Symmetrical chest wall rise Resp: COMMON NORMALS: clear to auscultation bilaterally EFFORT & INSPECTION: Yes symmetric chest movement AUSCULTATION: clear to auscultation bilaterally Cardio: COMMON NORMALS: regular rate, regular rhythm, S1 normal heart sound present, S2 normal heart sound present, No gallops present (Cardio), No murmurs present (Cardio), No rub (Cardio) and Peripheral pulses 2+ throughout RATE: regular rate RHYTHM: regular rhythm HEART SOUNDS: S1 normal heart sound present and S2 normal heart sound present PERIPHERAL PULSES: Peripheral pulses 2+ throughout GI: COMMON NORMALS: Normal to inspection, nondistended, normoactive bowel sounds present, Soft to palpation, non-tender, No hepatosplenomegaly present and no masses AUSCULTATION: Yes normoactive bowel sounds PALPATION: Yes Soft to palpation and Yes No hepatosplenomegaly present RECTAL EXAM: Yes deferred Urinary Catheter Management^: Webster: Cath Placed During This Visit: yes Reason for Continuing Indwelling Catheter: Accurate Measurement of Urinary Output in Critically Ill Patients Urinary Catheter Date of Insertion: 04/14/20 Urinary Catheter Time of Insertion: 11:30 Data : 04/26/20 03:50 04/26/20 03:50 Micro: Microbiology 04/21/20 15:38 Blood Culture - Final Blood NO GROWTH AFTER 5 DAYS 04/21/20 15:30 Blood Culture - Final Blood NO GROWTH AFTER 5 DAYS 04/25/20 12:35 Blood Culture - Preliminary Blood NEGATIVE TO DATE 04/25/20 08:45 Blood Culture - Preliminary Blood NEGATIVE TO DATE 04/21/20 21:50 Sputum Culture - Final Sputum - Endotracheal Tube Aspirate Amaya albicans A&P Assessment and plan (1) Acute respiratory failure with hypoxia: Status: Acute (2) Sepsis: Status: Acute (3) ILD (interstitial lung disease): Status: Acute Acute respiratory failure with hypoxia on mechanical ventilation - Etiology is multi-factorial COVID-19, underlying ILD, Right sided PTx, possible superimposed bacterial pneumonia - Intubated on MV ( 04/14) ET tube 8.0mm at 27cm at lip Vent : CMV, TV 500, RR 16, PIP 27, i-Time 1.1, PEEP 10, Fio2 at 50% - 04/21- ABG PH 7.33 PCO2 of 62.9, p02 of 62.9, HCO3 of 29.1 - 04/22 -ABG PH 7.35, PCO2 47.8, Po2 63.3, HCO3 26 - Continue sedation- wean fio2 as tolerated - CTA chest PE protocol - no pe - Repeat ABG in am - Pulmonary medicine on board Sepsis due to COVID 19 pneumonia/ Possible V.A.P / Persistent Fever - Completed Remdesivir x 5 days - Decadron 6 mg IV BID - change to dailY Initiaaly has been stopped. - Currently on Prednisone 20 mg oral daily tapering dose - Ferritin 627, LDH 894, CRP of 88.9 - Pro-calcitonin 0.20 ->0.67-> 0.14 - > 0.72 - WBC 62.7-> 38.6-> 18.9 -> 15.8 -> 36-> 30.1 -> 31.4->18 - 04/09 - Blood culture x 2 - NGTD - 04/11 - Sputum culture - negative - 04/14 - Sputum culture - negative - 04/15 - Blood culture x 2 - NGTD - 04/20 - Blood culture x 2 - NGTD - 04/21 - Blood culture x 2 - NGTD -04/25 - Blood Culture: *2 -NTD - 04/21 - Sputum culture - Amaya Albican - 04/22 - C. Difficile toxin :Negative - Vancomycin pharmacy to dose - Aztreonam 1g IV q12hr (04/15->04/22 ) - Levaquin 750 mg IV daily ( 04/11 - 04/22) - D/c Azteronam/Levaquin - Changed to Primixin 500 mg IV q6hr 04/22 - Caspofungin 50 mg IV q24hr added 04/22 - Acylovir to cover for viral possible HSV Meningoencehalitis - Amphotericin B * 1 dose (04/24)* - Vancomycin 250 mg pOG QID stopped on 04/25 - Aspergillus ag,EIA serum sent - CTA Chest, CT Abdomen/Pelvis w contrast\- no acute finding - Venous duplex bilaterally ordered to r/o dvt - No dvt Marked Leukocytosis:Improving - WBC 62.7-> 38.6-> 18.9 -> 15.8 -> 36-> 30.1 -> 31.4 - Lymphoma panel ordered - Covering for infectious process Hyperkalemia: Resolved - Potassium 5.1 - Repeat K now - Will treat if positive Thrombocytopenia Likely 2/2 to sepsis - Monitor P/C - HITab - Negative Right Sided Pneumothorax s/p Chest tube - Continue current management - Repeat chest x-ray - no further ptx noted - Extensive SQ emphysema initially - Pulmonary medicine on board - S/P Rt sided chest tube removal Chronic ILD/Pulmonary fibrosis - Newly seen and dx on admission imaging - Currently on Steroid as noted above Acute kidney injury - Resolved - Creatinine 1.7 - > 0.9 - Likely pre-renal from hypotension - Renally dose medication - Repeat BMP in AM Hypertension - Currently hypotensive - Likely due to sedatives vs septic shock - Hold b-blockers GI ppx - Pepcid 20 IV BID DVT ppx - Lovenox 40 mg SQ Daily Additional A&P Information Essential hypertension: This afternoon blood pressure soft. Hold lisinopril. Monitor blood pressures. 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
[2020-04-26] MEDS: propofol 1,000 MG/100 ML INJ 13.3 MG IV (19:55)
[2020-04-26 22:48] LABS: Vancomycin Trough 27.3 ug/mL (10-15)
--- NOTE | 2020-04-26 23:40 | PC.PHAR ---
Vancomycin trough level is 27.3. Hold Vancomycin and obtain random level in 12 hours.
[2020-04-27] VITALS (40 sets, daily range): BP systolic 98–144; BP diastolic 51–85; PULSE 87–117; RESP 17–45; TEMP 36.6–38; O2SAT 89–96
[2020-04-27 00:23] LABS: Glucose Point of Care 144 mg/dL (70-110)
[2020-04-27] MEDS: propofol 1,000 MG/100 ML INJ 15.9 MG IV (02:38)
[2020-04-27] MEDS: levalbuterol 0.63 mg/3 mL Neb INHALATION ×2 (03:09→15:46)
[2020-04-27 03:49] LABS: ABG PCO2 47.1 mmHg (35-45); ABG PH Result 7.36 (7.35-7.45); Alveolar-Arterial Oxygen Gradi 2.9 mmHg (5-10); Arterial Blood Gas Hematocrit 38.3 % (42-52); Base Excess ABG 0.8 mmol/L (-2.0-2.0); Blood Gas Allen Test Pos; Blood Gas Operator Identificat CAK; Blood Gas Sample Site Radial, left; Blood Gas Sample Type Arterial; Carboxyhemoglobin 1.3 %THgb (0.4-20.1); HCO3 ABG 26.7 mmol/L (22-26); HGB O2 Sat 92.3 % (95-100); Ionized Calcium Level - ABG 1.1 mmol/L (1.1-1.4); Methemoglobin 0.8 % (0.4-1.5); Oxygen Device VENT; Oxygen Saturation ABG 94.4; PO2 ABG 71.3 mmHg (80.0-100.0); Potassium Level - ABG 3.8 mmol/L (3.5-5.0); Total Hemoglobin 12.5 g/dL (14-18)
[2020-04-27] MEDS: morphine 4 mg/mL SDV 1 mL 2 MG IVP (04:59)
[2020-04-27] MEDS: acyclovir 1,000 MG in sodium chloride 0.9% (100 ml) 100 ML 120 MG IV ×3 (05:25→21:47)
[2020-04-27] MEDS: norepinephrine 8 MG in dextrose 5 % 500 ML 7.6 MG IV (05:28)
[2020-04-27] MEDS: famotidine 20 mg/2 mL INJ IVP ×2 (06:28→17:53)
[2020-04-27 06:31] LABS: Basophils # 0.2 10^3/uL (0.0-0.1); Eosinophils # 0.2 10^3/uL (0.0-0.8); Eosinophils % 1.5 %; Hemoglobin 9.1 g/dL (11.7-16.6); Lymphocytes % 6.3 %; Mean Corpuscular HGB Conc 29.4 g/dL (30.0-36.0); Mean Corpuscular Volume 95.4 fL (80-94); Monocytes # 3.2 10^3/uL (0.2-0.9); Monocytes % 19.3 %; Neutrophils # 11.01 10^3/uL (1.8-7.7); Nucleated Red Blood Cells # 0.1 /100WBC; Nucleated Red Blood Cells % 0.4 %; Platelet Count 43 10^3/cmm (130-400); Red Blood Count 3.25 10^6/uL (4.1-5.3); Red Cell Distribution Width 17.3 % (12.1-15.1); White Blood Count 16.5 10^3/uL (4.0-10.0)
[2020-04-27 06:37] LABS: Neutrophils % 71.9 %
[2020-04-27 06:40] LABS: Glucose Point of Care 149 mg/dL (70-110)
[2020-04-27 06:50] LABS: Alanine Aminotransferase 19 U/L (0-41); Albumin Level 2.7 g/dL (3.5-5.2); Alkaline Phosphatase 37 IU/L (40-130); Anion Gap 9.8 (5-19); Aspartate Amino Transferase 14 U/L (0-40); Blood Urea Nitrogen 47 mg/dL (8-23); Calcium 7.5 mg/dL (8.5-10.5); Carbon Dioxide 28 mmol/L (22-29); Chloride 112 mmol/L (98-107); Globulin 2.1 g/dL (1.3-4.6); Glucose 133 mg/dL (65-115); Magnesium 2.6 mg/dL (1.7-2.3); Osmolality Calculated 316 mOsm/kg (285-295); Potassium 3.8 mmol/L (3.5-5.1); Sodium 146 mmol/L (136-145); Total Bilirubin 0.5 mg/dL (0.15-1.2); Total Protein 4.8 g/dL (6.6-8.7)
[2020-04-27] MEDS: predniSONE 20 mg Tablet PO (09:22)
[2020-04-27] MEDS: apixaban 5 mg Tablet 2.5 MG PO (09:22)
[2020-04-27] MEDS: FUROsemide 10 mg/mL SDV 2mL 20 MG IVP (09:22)
--- NOTE | 2020-04-27 09:34 | PC.NURSE ---
Propofol and tube feedings held per Dr. Stacy. Pending extubation
[2020-04-27] MEDS: FUROsemide 10 mg/mL SDV 4mL 40 MG IVP (11:07)
[2020-04-27 11:33] LABS: Glucose Point of Care 128 mg/dL (70-110)
--- NOTE | 2020-04-27 13:31 | P.PN_ITS ---
Subjective Subjective: Interval history: No events overnight Afebrile-WBC 16 K ABG 7.3 6/47/71/20 6/94% on 400 TV/10 PEEP/35% FiO2 Today plan is to wean off sedation, do awakening trial and breathing trial, if passes-extubate to BiPAP Labs sent imaging reviewed. Continuing vancomycin/acyclovir/meropenem/micafungin Medications: Reviewed: Yes Medication Review Details: Vitals/I&O/Wt Last Vital Signs Temp 98.7 F 04/27/20 04:00 Pulse 112 H 04/27/20 13:00 Resp 24 H 04/27/20 13:00 BP 142/85 04/27/20 13:00 Pulse Ox 94 04/27/20 13:00 04/26/20 04/27/20 04/27/20 22:59 06:59 14:59 Intake Total 947.817 / 1637.817 409.332 / 2047.149 94.34 / 94.34 Output Total 1000 / 2825 600 / 3425 1725 / 1725 Balance -52.183 / -1187.183 -190.668 / -1377.851 -1630.66 / -1630.66 Weight last 48 hrs Weight 204 lb 3.2 oz Physical Exam Narrative: EXAM NARRATIVE: PHYSICAL EXAM: General: lying in bed, sedated and intubated. HEENT:NCAT, PERRLA, EOMI, improved swelling on right neck and supraclavicular area with no appreciable crepitus Neck: Supple Lungs: Improving bilateral diffuse crackles Heart: s1/s2, RRR Abd: soft, NT, ND, BS + Normoactive Extremities: No edema DIE CUTTER DIAMOND: sedated and limited DIE CUTTER DIAMOND exam possible. SKIN: no rash Urinary Catheter Management^: Frey: Cath Placed During This Visit: yes Reason for Continuing Indwelling Catheter: Accurate Measurement of Urinary Outpu t in Critically Ill Patients Urinary Catheter Date of Insertion: 04/14/20 Urinary Catheter Time of Insertion: 11:30 Data : 04/27/20 05:20 04/27/20 05:20 Micro: Microbiology 04/21/20 15:38 Blood Culture - Final Blood NO GROWTH AFTER 5 DAYS 04/21/20 15:30 Blood Culture - Final Blood NO GROWTH AFTER 5 DAYS 04/25/20 12:35 Blood Culture - Preliminary Blood NEGATIVE TO DATE 04/25/20 08:45 Blood Culture - Preliminary Blood NEGATIVE TO DATE A&P Assessment and plan (1) Acute respiratory distress syndrome (ARDS) due to 2019 novel coronavirus: Status: Acute (2) ILD (interstitial lung disease): Status: Acute (3) Acute respiratory failure with hypoxia: Status: Acute (4) Sepsis with acute hypoxic respiratory failure: Status: Acute Qualifiers: Sepsis type: sepsis due to unspecified organism Severe sepsis shock status: with septic shock Qualified Code(s): A41.9 - Sepsis, unspecified organism; R65.21 - Severe sepsis with septic shock; J96.01 - Acute respiratory failure with hypoxia Overall: 69 year old with male with no significant past medical history but with possible interstitial lung disease based on the CT chest admitted initially for suspected community acquired pneumonia found to be COVID-19 PCR positive, progressively worsening respiratory failure admitted to viral ICU for management of acute hypoxic respiratory failure secondary to acute respiratory distress syndrome due to COVID-19 pneumonia requiring mechanical ventilation to provide oxygenation, course complicated by coexisting septic shock and development of subcutaneous emphysema and right pneumothorax (probably from rupture of subpleural blebs) and FUO. NEURO: #AMS likely secondary to sedation; high fevers -Currently fever subsided -improving mentation and patient following commands -planning to discontinue sedation and do awakening -CT head no acute events PULM: #Acute hypoxic and hypercapneic respiratory failure secondary to ARDS due to COVID pna #Respiratory status worsened by contribution from exacerbation of underlying interstitial lung disease ?? UIP pattern #right and left chest subcutaneous emphysema and right lung pneumothorax likely secondary to rupture of subpleural blebs -Intubated on 04/14/2020 --ABG today a.m. 7.3 6/47/71/20 6/94% on CMV 500/16/40 percent/10 PEEP -Today plan is to do spontaneous breathing trial (extubate to BiPAP) - with underlying significant intersitial lung disease and no available PFTs not sure what his baseline lung volumes are (due to ILD restriction) - might pose a risk during extubation but on ventilator compliance looks good and should be good for extubation if mentation is acceptable. -Recommended -DuoNeb nebulization every 4 hours and Pulmicort 0.5 twice daily. -Increased inflammatory markers CRP, ferritin and repeat every 2 days to trend markers of inflammation -On prednisone 20 mg daily for underlying interstitial lung disease -Currently on mcvavlvuny-nwjnscfx-zeoipuxobhz- acyclovir CVS: -Septic shock - resolved -Currently off pressors- please maintain MAP > 65 -Monitor blood pressure and taper of pressors -Echo technically difficult study due to poor ultrasonic windows; BNP 280 GI: -On Pulmicort tube feeding - held in view if possible extubation -Dark-colored stool in the rectal tube; Hb/HCT stable -Recent C. difficile PCR negative; off p.o. Vanco -H2 sahil for GI prophylaxis -Normal LFTs -If patient develops temperature spikes and worsening leukocytosis- send for C. difficile work-up again RENAL: -Renal functions improving --1 L last 24 hours and sodium 146; good hourly urine output -Changed NS at 50 NS at 75 cc/h to 1/2 ns 50 cc/h -Maintain MAP goal greater than 65 -Continue frey cath -Avoid nephrotoxins -Monitor BUN/creatinine and electrolytes and supplement accordingly to keep K between 4-4.5, Mg >2 HEM: - H&H stable -DVT prophylaxis : SCDs #Thrombocytopenia -no signs of bleeding -Heparin antibodies negative; send for serotonin release assay - also cannot rule out medications induced; might have to DC Vancomycin -DC Lovenox -Monitor platelets and signs of bleeding -Plasmic score 4; low probability of TTP especially in the absence of microangiopathy hemolytic anemia ENDO: -Sugars well controlled -monitor sugars and insulin scale coverage ID: #Septic shock secondary to COVID pna #Fever of unknown origin - improving -Currently afebrile for last 4 days -Improving leukocytosis -Covered with vancomycin, imipenem and micafungin and acyclovir -Procalcitonin 0. 7 2 and lactic acid 1.4 -Pancultures negative and C. difficile PCR negative: Except sputum culture positive for Amaya albicans -Recommended to consider DC Vancomycin (already received 10 days) as he spiked fevers even on vancomycin and started improving after adding acyclovir and imipenam; Prognosis: guarded Disposition: Remains in ICU Code: Full code Plan of care and recommendations conveyed to hospitalist on the case, RN and RT ICU CHECKLIST: Problem list updated Verbal orders reviewed and signed Analgesia: Fentanyl Glycemic Control: scale coverage Nutrition: Pulmicort tube feeding Restraint Renewal (within 24 hrs): Yes Ulcer Prophylaxis: H2 sahil Chemical Thromboprophylaxis: Prophylaxis: NO -suspicion for HIT Mechanical Thromboprophylaxis: Yes Need for Central line: No Need for Frey catheter: Yes for urine output monitoring Critical Care Time (No Overlap): 45 min This patient has a high probability of sudden, clinically significant deterioration, which requires the highest level of physician preparedness to intervene urgently. I managed/supervised life or organ supporting interventions that required frequent physician assessment. I devoted my full attention in the ICU to the direct care of this patient for the period of time indicated above. Time I spent with family or surrogate(s) is included only if the patient was incapable of providing necessary information or participating in decision making. Time devoted to teaching and to any procedures I billed separately is not included. Services Provided: Telemetry review Mechanical Ventilation Hemodynamic interpretation, assessment and management Review and interpretation of CXR Review and interpretation of lab values Review and interpretation of microbiologic data and culture results Review of medications and administration Review and interpretation of Nutrition requirements and management Discussion of management with other consultants and services Clinical update to family members Attestations Medical Necessity Statement*: acute hypoxic respiratory failure secondary to acute respiratory distress syndrome due to COVID-19 pneumonia requiring mechanical ventilation to provide oxygenation, course complicated by coexisting septic shock and development of subcutaneous emphysema and right pneumothorax (probably from rupture of subpleural blebs) and FUO. Time Spent in Patient Care: Greater than 35 minutes (>than 50% of time spent in counselling and/or direct pt care on unit) . 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
--- NOTE | 2020-04-27 13:49 | PM.PN ---
Subjective Subjective: Interval history: s/p Extubation, to HHFONC.GCS :8.Tmax : 100.4. Other vitals and labs have been reviewed. Medications: Reviewed: Yes Vitals/I&O/Wt Last Vital Signs Temp 98.7 F 04/27/20 04:00 Pulse 112 H 04/27/20 13:00 Resp 24 H 04/27/20 13:00 BP 142/85 04/27/20 13:00 Pulse Ox 94 04/27/20 13:00 04/26/20 04/27/20 04/27/20 22:59 06:59 14:59 Intake Total 947.817 / 1637.817 409.332 / 2047.149 94.34 / 94.34 Output Total 1000 / 2825 600 / 3425 1725 / 1725 Balance -52.183 / -1187.183 -190.668 / -1377.851 -1630.66 / -1630.66 Weight last 48 hrs Weight 92.624 kg Physical Exam HENMT: COMMON NORMALS: normocephalic and atraumatic HEAD & SCALP: normocephalic and atraumatic Resp: COMMON NORMALS: clear to auscultation bilaterally EFFORT & INSPECTION: Yes symmetric chest movement AUSCULTATION: clear to auscultation bilaterally OTHER: B/L Diffuse Crackles present in both lungs layton Cardio: COMMON NORMALS: regular rate, regular rhythm, S1 normal heart sound present, S2 normal heart sound present, No gallops present (Cardio), No murmurs present (Cardio), No rub (Cardio) and Peripheral pulses 2+ throughout RATE: regular rate RHYTHM: regular rhythm HEART SOUNDS: S1 normal heart sound present and S2 normal heart sound present PERIPHERAL PULSES: Peripheral pulses 2+ throughout GI: COMMON NORMALS: Normal to inspection, nondistended, normoactive bowel sounds present, Soft to palpation, non-tender, No hepatosplenomegaly present and no masses AUSCULTATION: Yes normoactive bowel sounds PALPATION: Yes Soft to palpation and Yes No hepatosplenomegaly present RECTAL EXAM: Yes deferred Urinary Catheter Management^: Webster: Cath Placed During This Visit: yes Reason for Continuing Indwelling Catheter: Accurate Measurement of Urinary Output in Critically Ill Patients Urinary Catheter Date of Insertion: 04/14/20 Urinary Catheter Time of Insertion: 11:30 Data : 04/28/20 03:15 04/28/20 03:15 Micro: Microbiology 04/21/20 15:38 Blood Culture - Final Blood NO GROWTH AFTER 5 DAYS 04/21/20 15:30 Blood Culture - Final Blood NO GROWTH AFTER 5 DAYS 04/25/20 12:35 Blood Culture - Preliminary Blood NEGATIVE TO DATE 04/25/20 08:45 Blood Culture - Preliminary Blood NEGATIVE TO DATE A&P Assessment and plan (1) Acute respiratory failure with hypoxia: Status: Acute (2) Sepsis: Status: Acute (3) ILD (interstitial lung disease): Status: Acute Acute respiratory failure with hypoxia on mechanical ventilation - Etiology is multi-factorial COVID-19, underlying ILD, Right sided PTx, possible superimposed bacterial pneumonia - Intubated on MV ( 04/14) ET tube 8.0mm at 27cm at lip Vent : CMV, TV 500, RR 16, PIP 27, i-Time 1.1, PEEP 10, Fio2 at 50% - 04/21- ABG PH 7.33 PCO2 of 62.9, p02 of 62.9, HCO3 of 29.1 - 04/22 -ABG PH 7.35, PCO2 47.8, Po2 63.3, HCO3 26 - Continue sedation- wean fio2 as tolerated - CTA chest PE protocol - no pe - Repeat ABG in am - Pulmonary medicine on board Sepsis due to COVID 19 pneumonia/ Possible V.A.P / Persistent Fever : Has resolved - Completed Remdesivir x 5 days - Decadron 6 mg IV BID - change to dailY Initially has been stopped. - Currently on Prednisone 20 mg oral daily tapering dose - Ferritin 627, LDH 894, CRP of 88.9 - Pro-calcitonin 0.20 ->0.67-> 0.14 - > 0.72 - WBC 62.7-> 38.6-> 18.9 -> 15.8 -> 36-> 30.1 -> 31.4->18 - 04/09 - Blood culture x 2 - NGTD - 04/11 - Sputum culture - negative - 04/14 - Sputum culture - negative - 04/15 - Blood culture x 2 - NGTD - 04/20 - Blood culture x 2 - NGTD - 04/21 - Blood culture x 2 - NGTD -04/25 - Blood Culture: *2 -NTD - 04/21 - Sputum culture - Amaya Albican - 04/22 - C. Difficile toxin :Negative - Vancomycin pharmacy to dose - Aztreonam 1g IV q12hr (04/15->04/22 ) - Levaquin 750 mg IV daily ( 04/11 - 04/22) - D/c Azteronam/Levaquin - Changed to Primixin 500 mg IV q6hr 04/22 - Caspofungin 50 mg IV q24hr added 04/22 - Acylovir to cover for viral possible HSV Meningoencehalitis - Amphotericin B * 1 dose (04/24)* - Vancomycin 250 mg pOG QID stopped on 04/25 - Aspergillus ag,EIA serum sent - CTA Chest, CT Abdomen/Pelvis w contrast\- no acute finding - Venous duplex bilaterally ordered to r/o dvt - No dvt Marked Leukocytosis:Improving - WBC 62.7-> 38.6-> 18.9 -> 15.8 -> 36-> 30.1 -> 31.4 - Lymphoma panel ordered - Covering for infectious process Hyperkalemia: Resolved - Potassium 5.1 - Repeat K now - Will treat if positive Thrombocytopenia Likely 2/2 to sepsis: Stable - Monitor P/C - HITab - Negative Right Sided Pneumothorax s/p Chest tube - Continue current management - Repeat chest x-ray - no further ptx noted - Extensive SQ emphysema initially - Pulmonary medicine on board - S/P Rt sided chest tube removal Chronic ILD/Pulmonary fibrosis - Newly seen and dx on admission imaging - Currently on Steroid as noted above Acute kidney injury - Resolved - Creatinine 1.7 - > 0.9 - Likely pre-renal from hypotension - Renally dose medication - Repeat BMP in AM Hypertension - Currently hypotensive - Likely due to sedatives vs septic shock - Hold b-blockers GI ppx - Pepcid 20 IV BID DVT ppx - Lovenox 40 mg SQ Daily Additional A&P Information Essential hypertension: This afternoon blood pressure soft. Hold lisinopril. Monitor blood pressures. 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
[2020-04-27] MEDS: sodium chloride 0.45% 1,000 ML 50 ML IV (14:10)
[2020-04-27 14:26] LABS: Blood Gas Sample Site A-LINE
--- NOTE | 2020-04-27 14:48 | PC.NURSE ---
Extubated to BiPap at 1438. Patient still lethargic, follows simple commands. Will continue to assess and monitor. Dr. Stacy at bedside.
[2020-04-27 17:49] LABS: Glucose Point of Care 134 mg/dL (70-110)
[2020-04-27 22:50] LABS: Vancomycin Random 18.1 ug/mL (20.0-40.0)
[2020-04-28] VITALS (34 sets, daily range): BP systolic 103–161; BP diastolic 49–81; PULSE 72–108; RESP 18–49; TEMP 36.4–37.2; O2SAT 82–100
[2020-04-28 00:45] LABS: Glucose Point of Care 102 mg/dL (70-110)
[2020-04-28] MEDS: dexmedetomidine 400 MCG in sodium chloride 0.9% (100 ml) 100 ML 11.5 MCG IV (02:24)
[2020-04-28 04:54] LABS: Basophils # 0.1 10^3/uL (0.0-0.1); Basophils % 0.7 %; Eosinophils # 0.1 10^3/uL (0.0-0.8); Eosinophils % 0.9 %; Hematocrit 26.1 % (42.0-52.0); Hemoglobin 7.8 g/dL (11.7-16.6); Lymphocytes # 0.9 10^3/uL (0.8-4.8); Lymphocytes % 8.9 %; Mean Corpuscular HGB Conc 29.9 g/dL (30.0-36.0); Mean Corpuscular Hemoglobin 28.5 pg (28.0-34.0); Mean Corpuscular Volume 95.3 fL (80-94); Monocytes # 2.1 10^3/uL (0.2-0.9); Monocytes % 20.6 %; Neutrophils # 6.64 10^3/uL (1.8-7.7); Neutrophils % 66.2 %; Nucleated Red Blood Cells % 0.4 %; Platelet Count 42 10^3/cmm (130-400); Red Blood Count 2.74 10^6/uL (4.1-5.3); Red Cell Distribution Width 17.4 % (12.1-15.1)
[2020-04-28 05:18] LABS: Alanine Aminotransferase 15 U/L (0-41); Albumin Level 2.5 g/dL (3.5-5.2); Alkaline Phosphatase 32 IU/L (40-130); Anion Gap 7.8 (5-19); Aspartate Amino Transferase 13 U/L (0-40); Blood Urea Nitrogen 43 mg/dL (8-23); Calcium 7.3 mg/dL (8.5-10.5); Carbon Dioxide 30 mmol/L (22-29); Chloride 113 mmol/L (98-107); Globulin 1.7 g/dL (1.3-4.6); Glucose 116 mg/dL (65-115); Osmolality Calculated 316 mOsm/kg (285-295); Potassium 3.8 mmol/L (3.5-5.1); Sodium 147 mmol/L (136-145); Total Bilirubin 0.8 mg/dL (0.15-1.2); Total Protein 4.2 g/dL (6.6-8.7)
[2020-04-28 05:26] LABS: Glucose Point of Care 105 mg/dL (70-110)
[2020-04-28] MEDS: famotidine 20 mg/2 mL INJ IVP ×2 (05:27→18:21)
[2020-04-28] MEDS: acyclovir 1,000 MG in sodium chloride 0.9% (100 ml) 100 ML 120 MG IV ×3 (06:19→21:32)
--- NOTE | 2020-04-28 08:52 | PC.NURSE ---
Fentanyl gtt waste: 80 ml measured out ( 79.583er MAR flowsheet) witnessed by Gerry Horn RN.
--- NOTE | 2020-04-28 12:25 | P.PN_ITS ---
Subjective Subjective: Interval history: has remained somnolent and minimally responsive post extubation. He has been able to maintain oxygen saturation above 90 % on 10L/Min Oxymask. Tmax in last 24h :100.4 Medications: Reviewed: Yes Vitals/I&O/Wt Last Vital Signs Temp 98.6 F 04/28/20 08:00 Pulse 103 H 04/28/20 09:00 Resp 24 H 04/28/20 09:00 BP 122/64 04/28/20 09:00 Pulse Ox 95 04/28/20 09:00 04/27/20 04/28/20 04/28/20 22:59 06:59 14:59 Intake Total 650.909 / 745.249 427.831 / 1173.080 0 / 0 Output Total 600 / 2325 650 / 2975 Balance 50.909 / -1579.751 -222.169 / -1801.920 0 / 0 Physical Exam Narrative: EXAM NARRATIVE: Awake and minimally responsive. HENMT COMMON NORMALS: normocephalic and atraumatic HEAD & SCALP: normocephalic and atraumatic Resp COMMON NORMALS: clear to auscultation bilaterally EFFORT & INSPECTION: Yes symmetric chest movement AUSCULTATION: clear to auscultation bilaterally OTHER: B/L Diffuse Crackles present in both lungs layton Cardio COMMON NORMALS: regular rate, regular rhythm, S1 normal heart sound present, S2 normal heart sound present, No gallops present (Cardio), No murmurs present (Cardio), No rub (Cardio) and Peripheral pulses 2+ throughout RATE: regular rate RHYTHM: regular rhythm HEART SOUNDS: S1 normal heart sound present and S2 normal heart sound present PERIPHERAL PULSES: Peripheral pulses 2+ throughout GI COMMON NORMALS: Normal to inspection, nondistended, normoactive bowel sounds present, Soft to palpation, non-tender, No hepatosplenomegaly present and no masses AUSCULTATION: Yes normoactive bowel sounds PALPATION: Yes Soft to palpation and Yes No hepatosplenomegaly present RECTAL EXAM: Yes deferred Urinary Catheter Management^: Webster: Cath Placed During This Visit: yes Reason for Continuing Indwelling Catheter: Accurate Measurement of Urinary Output in Critically Ill Patients Urinary Catheter Date of Insertion: 04/14/20 Urinary Catheter Time of Insertion: 11:30 Data : 04/28/20 03:15 04/28/20 03:15 A&P Assessment and plan (1) Acute respiratory failure with hypoxia: Status: Acute (2) Sepsis: Status: Acute (3) ILD (interstitial lung disease): Status: Acute (4) Anemia: Status: Acute Acute respiratory failure with hypoxia on mechanical ventilation - Etiology is multi-factorial COVID-19, underlying ILD, Right sided PTx, possible superimposed bacterial pneumonia - Intubated on MV ( 04/14) S/P Extubation on 04/27 ( 10L/Min Oxymask. ) - CTA chest PE protocol - no pe - Repeat ABG in am - Pulmonary medicine on board Sepsis due to COVID 19 pneumonia/ Possible V.A.P / Persistent Fever : Has resolved - Completed Remdesivir x 5 days - Decadron 6 mg IV BID - change to dailY Initially has been stopped. - Currently on Prednisone 20 mg oral daily tapering dose - Ferritin 627, LDH 894, CRP of 88.9 - Pro-calcitonin 0.20 ->0.67-> 0.14 - > 0.72 - WBC 62.7-> 38.6-> 18.9 -> 15.8 -> 36-> 30.1 -> 31.4->18 - 04/09 - Blood culture x 2 - NGTD - 04/11 - Sputum culture - negative - 04/14 - Sputum culture - negative - 04/15 - Blood culture x 2 - NGTD - 04/20 - Blood culture x 2 - NGTD - 04/21 - Blood culture x 2 - NGTD -04/25 - Blood Culture: *2 -NTD - 04/21 - Sputum culture - Amaya Albican -04/28 - Repeat Sputum Culture ordered - 04/22 - C. Difficile toxin :Negative - Vancomycin I.V Stopped on 04/28 - Aztreonam 1g IV q12hr (04/15->04/22 ) - Levaquin 750 mg IV daily ( 04/11 - 04/22) - D/c Azteronam/Levaquin - Changed to Primixin 500 mg IV q6hr 04/22 - Caspofungin 50 mg IV q24hr added 04/22 - Acylovir to cover for viral possible HSV Meningoencehalitis - Amphotericin B * 1 dose (04/24)* - Vancomycin 250 mg pOG QID stopped on 04/25 - Aspergillus ag,EIA serum sent - CTA Chest, CT Abdomen/Pelvis w contrast\- no acute finding - Venous duplex bilaterally : No dvt Normocytic Anemia : S/P I U PRBC Transfusion Monitor CBC Follow FOBT Marked Leukocytosis:Improving - WBC 62.7-> 38.6-> 18.9 -> 15.8 -> 36-> 30.1 -> 31.4 - Lymphoma panel ordered - Covering for infectious process Hyperkalemia: Resolved - Potassium 5.1 - Repeat K now - Will treat if positive Thrombocytopenia Likely 2/2 to sepsis: Stable - Monitor P/C - HITab - Negative Right Sided Pneumothorax s/p Chest tube - Continue current management - Repeat chest x-ray - no further ptx noted - Extensive SQ emphysema initially - Pulmonary medicine on board - S/P Rt sided chest tube removal Chronic ILD/Pulmonary fibrosis - Newly seen and dx on admission imaging - Currently on Steroid as noted above Acute kidney injury - Resolved - Creatinine 1.7 - > 0.9 - Likely pre-renal from hypotension - Renally dose medication - Repeat BMP in AM Hypertension - Currently hypotensive - Likely due to sedatives vs septic shock - Hold b-blockers GI ppx - Pepcid 20 IV BID DVT ppx -Eliquis 2.5 mg q12 h daily Additional A&P Information Full code Cardiac diet DVT prophylaxis:On Eliquis Disposition : SNF ( will initiate Social work ) Attestations Medical Necessity Statement*: Patient needs to be in hospital for the the management of post COVID Syndrome. 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
[2020-04-28] MEDS: sodium chloride 0.45% 1,000 ML 50 ML IV (12:26)
[2020-04-28] MEDS: FUROsemide 10 mg/mL SDV 4mL 40 MG IVP (12:27)
[2020-04-28] MEDS: vancomycin 1,250 MG/250 ML PIGGYBACK 200 MG IV (14:18)
[2020-04-28] MEDS: sodium chloride 0.9% (100 ml) 100 ML (14:34)
--- NOTE | 2020-04-28 15:38 | PC.SOCIAL ---
IMM Not Updated IMM was not updated, Pt is not w/n 48hrs of d/c.
--- NOTE | 2020-04-28 17:06 | XRR_ITS ---
PROCEDURE INFORMATION: Exam: XR Abdomen, 1 View Exam date and time: 04/28/2020 5:09 PM Age: 69 years old Clinical indication: Device placement; Gi device; Other: Feeding tube placement TECHNIQUE: Imaging protocol: XR of the abdomen. Views: Frontal supine view of the abdomen. 1 View. COMPARISON: CT angio chest w abd pel w con 04/22/2020 7:02 PM FINDINGS: Tubes, catheters and devices: A feeding tube is looped on the upper edge of the film and still in the projection of the esophagus. It needs to be reinserted into appropriate position. Lungs: There are extensive bilateral pulmonary infiltrates. Gastrointestinal tract: Normal. No bowel dilation. Bones/joints: Unremarkable. XR/XR KUB portable [id number] IMPRESSION: The feeding tube is malpositioned and looped in the upper esophagus. It needs to be reinserted into the appropriate position.
--- NOTE | 2020-04-28 18:37 | PC.NURSE ---
NG insertion unsuccessful. insertion stopped when pt's o2 sats decreased. Dr Stacy notified of failed attempt.
--- NOTE | 2020-04-28 19:13 | PC.NURSE ---
Report given to GERARDO Boland.
--- NOTE | 2020-04-28 19:14 | PC.NURSE ---
Shift summary: Pt very lethargic. Pt finally answered one question today, this nurse asked if he ws ready to wake up he shook his head no. VSS. He remains on oxymask throughout the day. started the day on 15lpm, ended the day on 15lpm. 10lpm tried, but he did not tolerated that decrease. Lungs sounds are diminished and coarse in bases. Hgb low 7.8, 1 unit of RBCs administered. IV fluids discontinued and pt received IV Lasix today. His urine output was 2275ml. NG insertion attempted, unsuccessful. Attempt stopped when his O2 sats dropped. HIs O2 sats did recover.
--- NOTE | 2020-04-28 19:24 | PM.PN ---
Subjective Subjective: Interval history: - Patient was extubated yesterday and was placed on BiPAP. Later on 10 L facemask saturating 92% -Appeared to be mild respiratory distress improved with proper positioning in the bed-plan is to place him on high flow nasal cannula at least 40 L and 60% FiO2 -Opens eyes and looks on verbal commands but appeared 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 move his extremities and needs bedside physical therapy -Recommended to place NG tube and start tube feeding -Rectal tube still showing significant dark-colored stool-Hb/HCT 7.8/26-received 1 unit PRBC -Recommended to DC vancomycin And restart if temperature spikes again -Renal functions are stable and still maintaining good urine output. DC'd IV fluids Medications: Medication Review Details: Vitals/I&O/Wt Last Vital Signs Temp 98 F 04/28/20 16:00 Pulse 96 04/28/20 18:00 Resp 28 H 04/28/20 18:00 BP 147/67 04/28/20 18:00 Pulse Ox 97 04/28/20 18:00 04/28/20 04/28/20 04/28/20 06:59 14:59 22:59 Intake Total 427.831 / 7188.449 6226 / 1220 470 / 1690 Output Total 650 / 2975 1850 / 1850 425 / 2275 Balance -222.169 / -1801.920 -630 / -630 45 / -585 Physical Exam Narrative: EXAM NARRATIVE: PHYSICAL EXAM: General: lying in bed, extubated on 10 L facemask HEENT:NCAT, PERRLA, EOMI, persistent right neck and supraclavicular area with crepitus Neck: Supple Lungs: Improving bilateral diffuse crackles Heart: s1/s2, RRR Abd: soft, NT, ND, BS + Normoactive Extremities: 2+ bilateral ankle edema 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, 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 move extremities SKIN: no rash Urinary Catheter Management^: Frey: Cath Placed During This Visit: yes Reason for Continuing Indwelling Catheter: Accurate Measurement of Urinary Output in Critically Ill Patients Urinary Catheter Date of Insertion: 04/14/20 Urinary Catheter Time of Insertion: 11:30 Data : 04/28/20 03:15 04/28/20 03:15 A&P Assessment and plan (1) Acute respiratory distress syndrome (ARDS) due to 2019 novel coronavirus: Status: Acute (2) ILD (interstitial lung disease): Status: Acute (3) Acute respiratory failure with hypoxia: Status: Acute (4) Sepsis with acute hypoxic respiratory failure: Status: Acute Qualifiers: Sepsis type: sepsis due to unspecified organism Severe sepsis shock status: with septic shock Qualified Code(s): A41.9 - Sepsis, unspecified organism; R65.21 - Severe sepsis with septic shock; J96.01 - Acute respiratory failure with hypoxia Overall: 69 year old with male with no significant past medical history but with possible interstitial lung disease based on the CT chest admitted initially for suspected community acquired pneumonia found to be COVID-19 PCR positive, progressively worsening respiratory failure admitted to viral ICU for management of acute hypoxic respiratory failure secondary to acute respiratory distress syndrome due to COVID-19 pneumonia requiring mechanical ventilation to provide oxygenation, course complicated by coexisting septic shock and development of subcutaneous emphysema and right pneumothorax (probably from rupture of subpleural blebs) and FUO. NEURO: #AMS likely secondary to sedation; high fevers-improved opening eyes on verbal commands #Deconditioning -Extremely weak to move his extremities-recommended aggressive physical therapy for deconditioning -CT head no acute events PULM: #Acute hypoxic and hypercapneic respiratory failure secondary to ARDS due to COVID pna #Respiratory status worsened by contribution from exacerbation of underlying interstitial lung disease ?? UIP pattern #right hest subcutaneous emphysema and right lung pneumothorax likely secondary to rupture of subpleural blebs -Intubated on 04/14/2020-extubated 04/27/2020 -Recommended high flow 40 L 60% (work of breathing -Recommended -DuoNeb nebulization every 4 hours and Pulmicort 0.5 twice daily. -Increased inflammatory markers CRP, ferritin and repeat every 2 days to trend markers of inflammation -On prednisone 20 mg daily for underlying interstitial lung disease -Currently on eelcgaxewl-wentivel-[id number]- acyclovir = plan is to DC vancomycin CVS: -Septic shock - resolved -Currently off pressors- please maintain MAP > 65 -Monitor blood pressure and taper of pressors -Echo technically difficult study due to poor ultrasonic windows; BNP 280 GI: -On Pulmicort tube feeding - held in view if extubation yesterday-recommended to restart feeding -Dark-colored stool in the rectal tube; Hb/HCT 7.8/26 s/p 1 PRBC-monitor H&H-send for stool occult -Recent C. difficile PCR negative; off p.o. Vanco -H2 sahil for GI prophylaxis -Normal LFTs -If patient develops temperature spikes and worsening leukocytosis- send for C. difficile work-up again RENAL: -Renal functions improving --1.8 L last 24 hours and sodium 147; good hourly urine output -DC IV fluids -Maintain MAP goal greater than 65 -Continue frey cath -Avoid nephrotoxins -Monitor BUN/creatinine and electrolytes and supplement accordingly to keep K between 4-4.5, Mg >2 HEM: - H&H 9.12/11-given 1 unit PRBC -Monitor H&H and transfuse if H&H is less than 11/05 -DVT prophylaxis : SCDs #Thrombocytopenia -Heparin antibodies negative; send for serotonin release assay - also cannot rule out medications induced; might have to DC Vancomycin -DC Lovenox -Monitor platelets and signs of bleeding -Plasmic score 4; low probability of TTP especially in the absence of microangiopathy hemolytic anemia ENDO: -Sugars well controlled -monitor sugars and insulin scale coverage ID: #Septic shock secondary to COVID pna #Fever of unknown origin - improving -T-max 100.4;Improving leukocytosis -Covered with vancomycin, imipenem and micafungin and acyclovir -Procalcitonin 0. 7 2 and lactic acid 1.4 -Pancultures negative and C. difficile PCR negative: Except sputum culture positive for Amaya albicans -Recommended to consider DC Vancomycin (already received 10 days) as he spiked fevers even on vancomycin and started improving after adding acyclovir and imipenam; Prognosis: guarded Disposition: Remains in ICU Code: Full code Plan of care and recommendations conveyed to hospitalist on the case, RN and RT ICU CHECKLIST: Problem list updated Verbal orders reviewed and signed Analgesia: Fentanyl Glycemic Control: scale coverage Nutrition: Pulmicort tube feeding Restraint Renewal (within 24 hrs): Yes Ulcer Prophylaxis: H2 sahil Chemical Thromboprophylaxis: Prophylaxis: NO -thrombocytopenia Mechanical Thromboprophylaxis: Yes Need for Central line: No Need for Frey catheter: Yes for urine output monitoring Critical Care Time (No Overlap): 45 min This patient has a high probability of sudden, clinically significant deterioration, which requires the highest level of physician preparedness to intervene urgently. I managed/supervised life or organ supporting interventions that required frequent physician assessment. I devoted my full attention in the ICU to the direct care of this patient for the period of time indicated above. Time I spent with family or surrogate(s) is included only if the patient was incapable of providing necessary information or participating in decision making. Time devoted to teaching and to any procedures I billed separately is not included. Services Provided: Telemetry review Mechanical Ventilation Hemodynamic interpretation, assessment and management Review and interpretation of CXR Review and interpretation of lab values Review and interpretation of microbiologic data and culture results Review of medications and administration Review and interpretation of Nutrition requirements and management Discussion of management with other consultants and services Clinical update to family members Attestations Medical Necessity Statement*: acute hypoxic respiratory failure secondary to acute respiratory distress syndrome due to COVID-19 pneumonia requiring mechanical ventilation to provide oxygenation, course complicated by coexisting septic shock and development of subcutaneous emphysema and right pneumothorax (probably from rupture of subpleural blebs) and FUO. Time Spent in Patient Care: Greater than 35 minutes (>than 50% of time spent in counselling and/or direct pt care on unit). 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
[2020-04-29] VITALS (34 sets, daily range): BP systolic 87–149; BP diastolic 42–74; PULSE 70–98; RESP 16–54; TEMP 36.5–37.1; O2SAT 88–100
[2020-04-29 00:45] LABS: Glucose Point of Care 123 mg/dL (70-110)
[2020-04-29 00:45] LABS: Glucose Point of Care 122 mg/dL (70-110)
[2020-04-29 00:45] LABS: Glucose Point of Care 111 mg/dL (70-110)
[2020-04-29 04:33] LABS: Basophils # 0.1 10^3/uL (0.0-0.1); Basophils % 0.8 %; Eosinophils % 0.3 %; Hematocrit 32.7 % (42.0-52.0); Hemoglobin 9.7 g/dL (11.7-16.6); Lymphocytes # 0.9 10^3/uL (0.8-4.8); Lymphocytes % 6.8 %; Mean Corpuscular HGB Conc 29.7 g/dL (30.0-36.0); Mean Corpuscular Hemoglobin 28.4 pg (28.0-34.0); Mean Corpuscular Volume 95.6 fL (80-94); Mean Platelet Volume 13.2 fL (7.4-10.4); Monocytes # 3.1 10^3/uL (0.2-0.9); Monocytes % 24.2 %; Neutrophils # 8.37 10^3/uL (1.8-7.7); Neutrophils % 64.9 %; Nucleated Red Blood Cells # 0.1 /100WBC; Nucleated Red Blood Cells % 0.5 %; Platelet Count 51 10^3/cmm (130-400); Red Blood Count 3.42 10^6/uL (4.1-5.3); Red Cell Distribution Width 17.1 % (12.1-15.1); White Blood Count 12.9 10^3/uL (4.0-10.0)
[2020-04-29 04:39] LABS: Alanine Aminotransferase 16 U/L (0-41); Albumin Level 2.8 g/dL (3.5-5.2); Alkaline Phosphatase 41 IU/L (40-130); Anion Gap 7.8 (5-19); Aspartate Amino Transferase 18 U/L (0-40); Blood Urea Nitrogen 37 mg/dL (8-23); Calcium 7.8 mg/dL (8.5-10.5); Carbon Dioxide 32 mmol/L (22-29); Chloride 114 mmol/L (98-107); Glucose 125 mg/dL (65-115); Osmolality Calculated 320 mOsm/kg (285-295); Potassium 3.8 mmol/L (3.5-5.1); Sodium 150 mmol/L (136-145); Total Bilirubin 0.8 mg/dL (0.15-1.2); Total Protein 4.8 g/dL (6.6-8.7)
[2020-04-29] MEDS: acyclovir 1,000 MG in sodium chloride 0.9% (100 ml) 100 ML 120 MG IV ×3 (05:36→22:04)
[2020-04-29] MEDS: famotidine 20 mg/2 mL INJ IVP ×2 (05:37→19:09)
--- NOTE | 2020-04-29 08:49 | XRR_ITS ---
PROCEDURE INFORMATION: Exam: XR Chest, 1 View Exam date and time: 04/29/2020 9:20 AM Age: 69 years old Clinical indication: Condition or disease; Lung condition and disease; Pneumonia; Other: Not specified; Additional info: Pna TECHNIQUE: Imaging protocol: XR of the chest Views: 1 view. COMPARISON: CR XR chest 1V portable [id number] 04/25/2020 5:50 AM FINDINGS: Lungs: There are extensive diffuse bilateral pulmonary infiltrates which have not significantly changed since previous study. Pleural space: Unremarkable. No pleural effusion. No pneumothorax. Heart/Mediastinum: Unremarkable. No cardiomegaly. Bones/joints: Unremarkable. Soft tissues: There is subcutaneous emphysema around the chest. XR/XR chest 1V portable [id number] IMPRESSION: No significant change in the extensive bilateral interstitial pulmonary infiltrates.
--- NOTE | 2020-04-29 11:16 | XRR_ITS ---
PROCEDURE INFORMATION: Exam: XR Chest, 1 View Exam date and time: 04/29/2020 11:22 AM Age: 69 years old Clinical indication: Device placement; Other: Feeding tube placement TECHNIQUE: Imaging protocol: XR of the chest Views: 1 view. COMPARISON: CR XR chest 1V portable [id number] 04/29/2020 9:06 AM FINDINGS: Tubes, catheters and devices: The feeding tube is present and extends down into the stomach. Lungs: There are prominent diffuse bilateral pulmonary infiltrates that have not significantly changed since previous film. Pleural space: Unremarkable. No pleural effusion. No pneumothorax. Heart/Mediastinum: Unremarkable. No cardiomegaly. Bones/joints: Unremarkable. Soft tissues: Again noted is subcutaneous emphysema around the chest which is also unchanged. XR/XR chest 1V portable [id number] IMPRESSION: 1. A nasogastric feeding tube extends into the stomach. 2. Stable bilateral prominent pulmonary interstitial infiltrates.
--- NOTE | 2020-04-29 12:23 | PC.NURSE ---
NASAL TRUMPET & DOBHOFF FEEDING TUBE PLACED 32FRENCH NASAL TRUMPET PLACED IN RIGHT NARE. 8FR DOBHOFF PLACED IN LEFT NARE WITHOUT DIFFICULTY. PLACEMENT CHECKED BY XRAY. MEASURED AT 80CM.
[2020-04-29] MEDS: dextrose 5% 1,000 ML 50 ML IV (12:29)
--- NOTE | 2020-04-29 15:09 | P.PN_ITS ---
Subjective Subjective: Interval history: Mr.McKnight Blue is exteremely tachypenic and obtunded today,his work of breathing is extremely high. Serial ABG done today has shown significant CO2 Retention. His other vitals, labs, xray chest,have been reviewed. Medications: Reviewed: Yes Vitals/I&O/Wt Last Vital Signs Temp 98.1 F 04/29/20 08:00 Pulse 91 04/29/20 11:00 Resp 30 H 04/29/20 11:00 BP 138/73 04/29/20 11:00 Pulse Ox 95 04/29/20 11:00 04/29/20 04/29/20 04/29/20 06:59 14:59 22:59 Intake Total 320 / 2130 Output Total 550 / 2825 Balance -230 / -695 Physical Exam Narrative: EXAM NARRATIVE: EXAM NARRATIVE:Obtunded with no response [facility] COMMON NORMALS: normocephalic and atraumatic HEAD & SCALP: normocephalic and atraumatic Resp COMMON NORMALS: clear to auscultation bilaterally EFFORT & INSPECTION: Yes symmetric chest movement AUSCULTATION: clear to auscultation bilaterally OTHER: B/L basal Crackles present in both lungs [place] Cardio COMMON NORMALS: regular rate, regular rhythm, S1 normal heart sound present, S2 normal heart sound present, No gallops present (Cardio), No murmurs present (Cardio), No rub (Cardio) and Peripheral pulses 2+ throughout RATE: regular rate RHYTHM: regular rhythm HEART SOUNDS: S1 normal heart sound present and S2 normal heart sound present PERIPHERAL PULSES: Peripheral pulses 2+ throughout GI COMMON NORMALS: Normal to inspection, nondistended, normoactive bowel sounds present, Soft to palpation, non-tender, No hepatosplenomegaly present and no masses AUSCULTATION: Yes normoactive bowel sounds PALPATION: Yes Soft to palpation and Yes No hepatosplenomegaly present RECTAL EXAM: Yes deferred Urinary Catheter Management^: Webster: Cath Placed During This Visit: yes Reason for Continuing Indwelling Catheter: Accurate Measurement of Urinary Output in Critically Ill Patients Urinary Catheter Date of Insertion: 04/14/20 Urinary Catheter Time of Insertion: 11:30 Data : 04/29/20 03:00 04/29/20 03:00 Micro: Microbiology 04/29/20 00:00 Occult Blood (FIT) - Final Stool - Stool Aspirate A&P Assessment and plan (1) Acute respiratory failure with hypoxia: Status: Acute (2) Sepsis: Status: Acute (3) ILD (interstitial lung disease): Status: Acute (4) Anemia: Status: Acute Acute respiratory failure with hypoxia on mechanical ventilation - Etiology is multi-factorial COVID-19, underlying ILD, Right sided PTx, possible superimposed bacterial pneumonia - Intubated on MV ( 04/14) S/P Extubation on 04/27 (Currently on BIPAP ) - CTA chest PE protocol - no pe - Repeat ABG in am - Pulmonary medicine on board Sepsis due to COVID 19 pneumonia/ Possible V.A.P / Persistent Fever : Has resolved - Completed Remdesivir x 5 days - Decadron 6 mg IV BID - change to dailY Initially has been stopped. - Currently on Prednisone 20 mg oral daily tapering dose - Ferritin 627, LDH 894, CRP of 88.9 - Pro-calcitonin 0.20 ->0.67-> 0.14 - > 0.72 - WBC 62.7-> 38.6-> 18.9 -> 15.8 -> 36-> 30.1 -> 31.4->18 - 04/09 - Blood culture x 2 - NGTD - 04/11 - Sputum culture - negative - 04/14 - Sputum culture - negative - 04/15 - Blood culture x 2 - NGTD - 04/20 - Blood culture x 2 - NGTD - 04/21 - Blood culture x 2 - NGTD -04/25 - Blood Culture: *2 -NTD - 04/21 - Sputum culture - Amaya Albican -04/28 - Repeat Sputum Culture ordered - 04/22 - C. Difficile toxin :Negative - Vancomycin I.V Stopped on 04/28 - Aztreonam 1g IV q12hr (04/15->04/22 ) - Levaquin 750 mg IV daily ( 04/11 - 04/22) - D/c Azteronam/Levaquin - Changed to Primixin 500 mg IV q6hr 04/22 - Caspofungin 50 mg IV q24hr added 04/22 - Acylovir to cover for viral possible HSV Meningoencehalitis - Amphotericin B * 1 dose (04/24)* - Vancomycin 250 mg pOG QID stopped on 04/25 - Aspergillus ag,EIA serum sent - CTA Chest, CT Abdomen/Pelvis w contrast\- no acute finding - Venous duplex bilaterally : No dvt Ac on Chronic Hypercapnic R/F 2/2 ILD Exacerbation 2/2 PNA Continue BIAPP Continue Nebs Initiate Solumedrol 125mg I.V Q6 H Daily Normocytic Anemia : S/P I U PRBC Transfusion Monitor CBC FOBT : Positive Marked Leukocytosis:Improving - WBC 62.7-> 38.6-> 18.9 -> 15.8 -> 36-> 30.1 -> 31.4-->12.9 - Lymphoma panel ordered - Covering for infectious process Hyperkalemia: Resolved - Potassium 5.1 - Repeat K now - Will treat if positive Thrombocytopenia Likely 2/2 to sepsis: Stable - Monitor P/C - HITab - Negative Right Sided Pneumothorax s/p Chest tube - Continue current management - Repeat chest x-ray - no further ptx noted - Extensive SQ emphysema initially - Pulmonary medicine on board - S/P Rt sided chest tube removal Chronic ILD/Pulmonary fibrosis - Newly seen and dx on admission imaging - Currently on Steroid as noted above Acute kidney injury - Resolved - Creatinine 1.7 - > 0.9 - Likely pre-renal from hypotension - Renally dose medication - Repeat BMP in AM Hypertension - Currently hypotensive - Likely due to sedatives vs septic shock - Hold b-blockers GI ppx - Pepcid 20 IV BID DVT ppx -Eliquis 2.5 mg q12 h daily Additional A&P Information Full code Cardiac diet DVT prophylaxis:On Eliquis Disposition : SNF ( will initiate Social work ) Attestations Medical Necessity Statement*: Patient needs to be in hospital for the management of Hypercapnic r/f and post COVID syndrome. Coding Level of Care Code Acute Optometric Coordinator for [facility] Fwd Diagnoses Acute respiratory failure with hypoxia J96.01 Sepsis A41.9 ILD (interstitial lung disease) J84.9 Anemia D64.9
[2020-04-29 16:11] LABS: Glucose Point of Care 112 mg/dL (70-110)
[2020-04-29 16:11] LABS: ABG PH Result 7.31 (7.35-7.45); Arterial Blood Gas Hematocrit 30.6 % (42-52); Base Excess ABG 4.9 mmol/L (-2.0-2.0); Blood Gas Allen Test Pos; Blood Gas Operator Identificat MONRO; Blood Gas Sample Site Radial, left; Blood Gas Sample Type Arterial; Carboxyhemoglobin 2.1 %THgb (0.4-20.1); HCO3 ABG 32.5 mmol/L (22-26); HGB O2 Sat 93.6 % (95-100); Ionized Calcium Level - ABG 1.2 mmol/L (1.1-1.4); Methemoglobin 0.9 % (0.4-1.5); Oxygen Device OXY MASK; Oxygen Saturation ABG 96.5; PO2 ABG 87.6 mmHg (80.0-100.0); Potassium Level - ABG 3.8 mmol/L (3.5-5.0)
[2020-04-29 16:12] LABS: ABG PCO2 64.8 mmHg (35-45)
[2020-04-29 17:35] LABS: ABG PH Result 7.34 (7.35-7.45); Arterial Blood Gas Hematocrit 31.6 % (42-52); Blood Gas Allen Test Pos; Blood Gas Operator Identificat MONRO; Blood Gas Sample Site Radial, left; Blood Gas Sample Type Arterial; HCO3 ABG 33.2 mmol/L (22-26); Oxygen Device BIPAP; PO2 ABG 91.5 mmHg (80.0-100.0)
--- NOTE | 2020-04-29 17:42 | P.PN_ITS ---
Subjective Subjective: Interval history: Mr. Sanchez is opening eyes but too weak to follow commands -When asked to squeeze fingers he was attempting but could not do it -ABG on 10 L facemask 7.3 / 2/96% -recommended to start BiPAP to generate tidal volume 550 to 600 cc -Recommended to start low-dose Precedex for anxiety; monitor respiratory status and is at high risk for reintubation - Subcu emphysema appeared improved-chest x-ray:. Stable bilateral prominent pulmonary interstitial infiltrates. -Patient needs bedside physical therapy Medications: Reviewed: Yes Medication Review Details: Vitals/I&O/Wt Last Vital Signs Temp 98.1 F 04/29/20 08:00 Pulse 95 04/29/20 16:22 Resp 25 H 04/29/20 16:22 BP 117/56 04/29/20 15:00 Pulse Ox 94 04/29/20 16:22 04/29/20 04/29/20 04/29/20 06:59 14:59 22:59 Intake Total 320 / 2130 Output Total 550 / 2825 Balance -230 / -695 Physical Exam Narrative: EXAM NARRATIVE: PHYSICAL EXAM: General: lying in bed, extubated on 10 L facemask HEENT:NCAT, PERRLA, EOMI, persistent right neck and supraclavicular area with crepitus Neck: Supple Lungs: Improving bilateral diffuse crackles Heart: s1/s2, RRR Abd: soft, NT, ND, BS + Normoactive Extremities: 2+ bilateral ankle edema SERGEANT OF CORRECTIONS: Awake and opening eyes, 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 move extremities SKIN: no rash Urinary Catheter Management^: Frey: Cath Placed During This Visit: yes Reason for Continuing Indwelling Catheter: Accurate Measurement of Urinary Output in Critically Ill Patients Urinary Catheter Date of Insertion: 04/14/20 Urinary Catheter Time of Insertion: 11:30 Data : 04/29/20 03:00 04/29/20 03:00 Micro: Microbiology 04/29/20 00:00 Occult Blood (FIT) - Final Stool - Stool Aspirate A&P Assessment and plan (1) Acute respiratory distress syndrome (ARDS) due to 2019 novel coronavirus: Status: Acute (2) ILD (interstitial lung disease): Status: Acute (3) Acute respiratory failure with hypoxia: Status: Acute (4) Sepsis with acute hypoxic respiratory failure: Status: Acute Qualifiers: Sepsis type: sepsis due to unspecified organism Severe sepsis shock status: with septic shock Qualified Code(s): A41.9 - Sepsis, unspecified organism; R65.21 - Severe sepsis with septic shock; J96.01 - Acute respiratory failure with hypoxia Overall: 69 year old with male with no significant past medical history but with possible interstitial lung disease based on the CT chest admitted initially for suspected community acquired pneumonia found to be COVID-19 PCR positive, progressively worsening respiratory failure admitted to viral ICU for management of acute hypoxic respiratory failure secondary to acute respiratory distress syndrome due to COVID-19 pneumonia requiring mechanical ventilation to provide oxygenation, course complicated by coexisting septic shock and development of subcutaneous emphysema and right pneumothorax (probably from rupture of subpleural blebs) and FUO. NEURO: #AMS likely secondary to sedation; high fevers-improved opening eyes on verbal commands #Deconditioning -Extremely weak to move his extremities-recommended aggressive physical therapy for deconditioning -Mr. Sanchez is opening eyes but too weak to follow commands -When asked to squeeze fingers he was attempting but could not do it -CT head no acute events PULM: #Acute hypoxic and hypercapneic respiratory failure secondary to ARDS due to COVID pna #Respiratory status worsened by contribution from exacerbation of underlying interstitial lung disease ?? UIP pattern #right hest subcutaneous emphysema and right lung pneumothorax likely secondary to rupture of subpleural blebs -Intubated on 04/14/2020-extubated 04/27/2020 -ABG on 10 L facemask 7.3 //30 2/96% -recommended to start BiPAP to generate tidal volume 550 to 600 cc -Recommended to start low-dose Precedex for anxiety; monitor respiratory status as he is at high risk for reintubation -Subcu emphysema appeared improved-chest x-ray:. Stable bilateral prominent pulmonary interstitial infiltrates. -Patient needs bedside physical therapy & chest physiotherapy 3 times a day -Recommended -DuoNeb nebulization every 4 hours and Pulmicort 0.5 twice daily. -Increased inflammatory markers CRP, ferritin and repeat every 2 days to trend markers of inflammation -On prednisone 20 mg daily for underlying interstitial lung disease -Currently on [id number]- acyclovir = plan is to DC vancomycin CVS: -Septic shock - resolved -Currently off pressors- please maintain MAP > 65 -Monitor blood pressure and taper of pressors -Echo technically difficult study due to poor ultrasonic windows; BNP 280 GI: -On Pulmicort tube feeding - held in view if extubation yesterday-recommended to restart feeding -Dark-colored stool in the rectal tube; Hb/HCT 7.8/ s/p 1 PRBC-monitor H&H- send for stool occult -Recent C. difficile PCR negative; off p.o. Vanco -H2 sahil for GI prophylaxis -Normal LFTs -If patient develops temperature spikes and worsening leukocytosis- send for C. difficile work-up again RENAL: -Renal functions improving --1.8 L last 24 hours and sodium 150; patient on D5W 50 mL/hour good hourly urine output -Maintain MAP goal greater than 65 -Continue frey cath -Avoid nephrotoxins -Monitor sodium, BUN/creatinine and electrolytes and supplement accordingly to keep K between 4-4.5, Mg >2 HEM: - H&H 9.8-given 1 unit PRBC -Monitor H&H and transfuse if H&H is less than 11/05 -DVT prophylaxis : SCDs #Thrombocytopenia-improving -Heparin antibodies negative; send for serotonin release assay -Also cannot rule out medications induced; DC Vancomycin -DC Lovenox -Monitor platelets and signs of bleeding -Plasmic score 4; low probability of TTP especially in the absence of microangiopathy hemolytic anemia ENDO: -Sugars well controlled -monitor sugars and insulin scale coverage ID: #Septic shock secondary to COVID pna #Fever of unknown origin - improving -T-max 100.4;Improving leukocytosis -Covered with imipenem and micafungin and acyclovir -Procalcitonin 0. 7 2 and lactic acid 1.4 -Pancultures negative and C. difficile PCR negative: Except sputum culture positive for Amaya albicans -Recommended to consider DC Vancomycin (already received 10 days) as he spiked fevers even on vancomycin and started improving after adding acyclovir and imipenam; Prognosis: guarded Disposition: Remains in ICU Code: Full code Plan of care and recommendations conveyed to hospitalist on the case, RN and RT ICU CHECKLIST: Problem list updated Verbal orders reviewed and signed Analgesia: Fentanyl Glycemic Control: scale coverage Nutrition: Pulmicort tube feeding Restraint Renewal (within 24 hrs): Yes Ulcer Prophylaxis: H2 sahil Chemical Thromboprophylaxis: Prophylaxis: NO -thrombocytopenia Mechanical Thromboprophylaxis: Yes Need for Central line: No Need for Frey catheter: Yes for urine output monitoring Critical Care Time (No Overlap): 45 min This patient has a high probability of sudden, clinically significant deterioration, which requires the highest level of physician preparedness to intervene urgently. I managed/supervised life or organ supporting interventions that required frequent physician assessment. I devoted my full attention in the ICU to the direct care of this patient for the period of time indicated above. Time I spent with family or surrogate(s) is included only if the patient was incapable of providing necessary information or participating in decision making. Time devoted to teaching and to any procedures I billed separately is not included. Services Provided: Telemetry review Mechanical Ventilation Hemodynamic interpretation, assessment and management Review and interpretation of CXR Review and interpretation of lab values Review and interpretation of microbiologic data and culture results Review of medications and administration Review and interpretation of Nutrition requirements and management Discussion of management with other consultants and services Clinical update to family members Attestations Medical Necessity Statement*: acute hypoxic respiratory failure secondary to acute respiratory distress syndrome due to COVID-19 pneumonia requiring mechanical ventilation to provide oxygenation, course complicated by coexisting septic shock and development of subcutaneous emphysema and right pneumothorax (probably from rupture of subpleural blebs) and FUO still requiring BiPAP. Coding Level of Care Code Established Pt Acute Form Grader for [place] Fwd Patient Type Established History Comprehensive Exam Comprehensive Medical Decision Making High Complexity Diagnoses Acute respiratory distress syndrome (ARDS) due to 2019 novel coronavirus U07.1; J80 ILD (interstitial lung disease) J84.9 Acute respiratory failure with hypoxia J96.01 Sepsis with acute hypoxic respiratory failure A41.9; R65.21; J96.01 Sepsis type: sepsis due to unspecified organism Severe sepsis shock status: with septic shock Time Spent (min) 45
--- NOTE | 2020-04-29 17:42 | PC.PT ---
Unable to arouse patient on BiPAP machine despite sternal rub, rolling and turning for x-ray, unable to arouse patient for participation; Dr. Stacy requested PT intervention today, but unable to gain patient participation, assessed patient's range of motion only, and found no deficits patient demonstrating good range of motion throughout, but still unable to arouse patient, will await patient ability to participate meaningfully with physical therapy, and hope to be recontacted when appropriate. [ End ]
[2020-04-29] MEDS: dexmedetomidine 400 MCG in sodium chloride 0.9% (100 ml) 100 ML IV (19:00)
--- NOTE | 2020-04-29 20:41 | PC.NURSE ---
Spoke with Dr. Stacy regarding this patient's continued tachypnea despite precidex administration. Dr. Stacy is in contact with pulmonology and the plan now is to contact family with himself and the survey data technician to determine our plan of care forward.
[2020-04-29] MEDS: morphine 4 mg/mL SDV 1 mL 2 MG IVP (21:39)
--- NOTE | 2020-04-29 23:23 | PC.NURSE ---
At this time the patient was repositioned to his right side. The patient's respiratory rate was in the 50s prior to turning the patient. after the patent was reposition the patient respiratory rate has decreased to 18. There are no other appreciable changes noted at this time with the patient's assessment.
[2020-04-29 23:52] LABS: Glucose Point of Care 101 mg/dL (70-110)
[2020-04-30] VITALS (32 sets, daily range): BP systolic 88–149; BP diastolic 43–75; PULSE 58–92; RESP 14–34; TEMP 36.6; O2SAT 88–98
--- NOTE | 2020-04-30 00:50 | PC.NURSE ---
Pt has two sons at bedside at this time. Dr. Stacy as well as the clubhouse manager approved for them to be at bedside considering the patient's potential for decline and for the family's wishes for the patient to be placed on comfort care. The family still are wanting for this patient to be transported to their home and placed on hospice and they were advised that this would have to be done in the AM with case management's involvement. Patient's sons were advised of the risk associated with being in a covid unit and they stated that they are well aware. All questions from the family were answered to the best of my ability regarding the patient's current status and situation.
--- NOTE | 2020-04-30 01:15 | PC.NURSE ---
At change of shift, Dr. Stacy gave v/o that allows for the patient's family to come and visit while he is admitted into the VICU during dayshit/overnight. Family has expressed that they wish to advance to possible comfort care in the AM, and have asked if the patient's two sons would be able to visit with their father. This information was relayed over to security and house sup, and no objections were found. This RN and second RN Harry spoke with the sons on arrival, and verified that they were aware of the risks of coming onto a Covid positive unit and accepting of those risks associated. Pt's sons remain at bedside. No further needs voiced at this time.
[2020-04-30] MEDS: dexmedetomidine 400 MCG in sodium chloride 0.9% (100 ml) 100 ML 9.6 MCG IV (02:08)
--- NOTE | 2020-04-30 04:17 | PC.NURSE ---
verbal order per Dr. Stacy received at 2014 to titrate the precidex up to 0.8. at one point the precidex ran out and was off for approximately 30 minutes and during this period the patients heart rate came down to the low 60s high 50s. Once the medication was available again the precidex was restarted at 0.6.
[2020-04-30 04:19] LABS: Basophils % 0.4 %; Eosinophils % 0.4 %; Hematocrit 28.6 % (42.0-52.0); Hemoglobin 8.3 g/dL (11.7-16.6); Lymphocytes # 0.5 10^3/uL (0.8-4.8); Lymphocytes % 10.1 %; Mean Corpuscular Hemoglobin 28.2 pg (28.0-34.0); Mean Corpuscular Volume 97.3 fL (80-94); Monocytes # 0.5 10^3/uL (0.2-0.9); Monocytes % 11.6 %; Neutrophils # 3.24 10^3/uL (1.8-7.7); Neutrophils % 71.3 %; Nucleated Red Blood Cells # 0.1 /100WBC; Nucleated Red Blood Cells % 1.8 %; Platelet Count 53 10^3/cmm (130-400); Red Blood Count 2.94 10^6/uL (4.1-5.3); Red Cell Distribution Width 16.6 % (12.1-15.1); White Blood Count 4.6 10^3/uL (4.0-10.0)
[2020-04-30 04:44] LABS: Alanine Aminotransferase 16 U/L (0-41); Albumin Level 2.6 g/dL (3.5-5.2); Alkaline Phosphatase 36 IU/L (40-130); Anion Gap 7.1 (5-19); Aspartate Amino Transferase 19 U/L (0-40); Blood Urea Nitrogen 35 mg/dL (8-23); Calcium 7.7 mg/dL (8.5-10.5); Carbon Dioxide 32 mmol/L (22-29); Chloride 116 mmol/L (98-107); Globulin 1.7 g/dL (1.3-4.6); Glucose 150 mg/dL (65-115); Osmolality Calculated 323 mOsm/kg (285-295); Potassium 4.1 mmol/L (3.5-5.1); Sodium 151 mmol/L (136-145); Total Bilirubin 0.7 mg/dL (0.15-1.2); Total Protein 4.3 g/dL (6.6-8.7)
[2020-04-30] MEDS: acyclovir 1,000 MG in sodium chloride 0.9% (100 ml) 100 ML 120 MG IV ×3 (05:24→21:51)
[2020-04-30 05:31] LABS: Slide Review Slide Review Perform
[2020-04-30] MEDS: famotidine 20 mg/2 mL INJ IVP ×2 (05:31→18:24)
--- NOTE | 2020-04-30 05:48 | PC.NURSE ---
Spoke with Dr. Valdez hospitalist flight information expediter regarding this patient's decrease in blood pressure. Pt has plans in the works to go home to day on hospice however his blood pressure is 90/47. No new orders received at this time.
[2020-04-30 06:33] LABS: Alveolar-Arterial Oxygen Gradi 39.6 mmHg (5-10); Arterial Blood Gas Hematocrit 28.5 % (42-52); Base Excess ABG 7.7 mmol/L (-2.0-2.0); Blood Gas Allen Test Pos; Blood Gas Sample Site Radial, right; Blood Gas Sample Type Arterial; Carboxyhemoglobin 2.1 %THgb (0.4-20.1); HCO3 ABG 33.8 mmol/L (22-26); HGB O2 Sat 89.3 % (95-100); Ionized Calcium Level - ABG 1.2 mmol/L (1.1-1.4); Methemoglobin 0.6 % (0.4-1.5); Oxygen Device BIPAP; Oxygen Saturation ABG 91.8; PO2 ABG 59.6 mmHg (80.0-100.0); Potassium Level - ABG 3.6 mmol/L (3.5-5.0); Total Hemoglobin 9.3 g/dL (14-18)
--- NOTE | 2020-04-30 06:53 | NUR.SHIFT ---
New orders: Patient's BP decreased with a MAP fluctuating back and forth into the mid to low 50's and trending downwards. MD Regis was contacted and this RN received new orders to reinitiate levophed per protocol. See MAR flowsheet for rates.
[2020-04-30] MEDS: norepinephrine 8 MG in dextrose 5 % 500 ML 7.6 MG IV (07:06)
[2020-04-30] MEDS: dextrose 5% 1,000 ML 100 ML IV ×2 (09:53→22:22)
[2020-04-30] MEDS: apixaban 5 mg Tablet 2.5 MG PO ×2 (09:54→18:24)
[2020-04-30 12:14] LABS: Glucose Point of Care 149 mg/dL (70-110)
--- NOTE | 2020-04-30 13:11 | PM.PN ---
Subjective Subjective: Interval history: Tangela is tolerating BIPAP with switch to Oxymask ( 8L/Min ). Family meeting was held today and they were explained regarding the recovery course, they were told it will take him time to recover from the current COVID 19 insult. Family wants to continue with the current level of care.They do not intubation and chest compression, but agree with continuing with the current level of care. We have tried to put the patient on BIAPA as well as Oxymask with precedex to facilitate with his work of breathing and helping him tolerate the BIPAP.Patient was extubated to BIPAP to begin with but given him long and complicated hospital course with a good PTX ,Sub cut emphysema followed by chest tube ,he will need time to recuperate it will not be a quick fix. Medications: Reviewed: Yes Vitals/I&O/Wt Last Vital Signs Temp 97.9 F 04/30/20 07:00 Pulse 67 04/30/20 12:00 Resp 33 H 04/30/20 12:00 BP 127/59 04/30/20 12:00 Pulse Ox 94 04/30/20 12:00 04/29/20 04/30/20 04/30/20 22:59 06:59 14:59 Intake Total 1023.6 / 1243.6 381.28 / 1624.88 1494.257 / 1494.257 Output Total 450 / 450 250 / 700 Balance 573.6 / 793.6 131.28 / 924.88 1494.257 / 1494.257 Physical Exam Narrative: EXAM NARRATIVE: EXAM NARRATIVE: EXAM NARRATIVE:Alert with minimal response [facility] COMMON NORMALS: normocephalic and atraumatic HEAD & SCALP: normocephalic and atraumatic Resp COMMON NORMALS: clear to auscultation bilaterally EFFORT & INSPECTION: Yes symmetric chest movement AUSCULTATION: clear to auscultation bilaterally OTHER: B/L basal Crackles present in both lungs [place] Cardio COMMON NORMALS: regular rate, regular rhythm, S1 normal heart sound present, S2 normal heart sound present, No gallops present (Cardio), No murmurs present (Cardio), No rub (Cardio) and Peripheral pulses 2+ throughout RATE: regular rate RHYTHM: regular rhythm HEART SOUNDS: S1 normal heart sound present and S2 normal heart sound present PERIPHERAL PULSES: Peripheral pulses 2+ throughout GI COMMON NORMALS: Normal to inspection, nondistended, normoactive bowel sounds present, Soft to palpation, non-tender, No hepatosplenomegaly present and no masses AUSCULTATION: Yes normoactive bowel sounds PALPATION: Yes Soft to palpation and Yes No hepatosplenomegaly present RECTAL EXAM: Yes deferred Urinary Catheter Management^: Webster: Cath Placed During This Visit: yes Reason for Continuing Indwelling Catheter: Accurate Measurement of Urinary Output in Critically Ill Patients Urinary Catheter Date of Insertion: 04/14/20 Urinary Catheter Time of Insertion: 11:30 Data : 04/30/20 04:09 04/30/20 04:09 Micro: Microbiology 04/29/20 04:42 Sputum Culture - Preliminary Sputum - Expectorated Sputum 04/25/20 08:45 Blood Culture - Final Blood NO GROWTH AFTER 5 DAYS A&P Assessment and plan (1) Acute respiratory failure with hypoxia: Status: Acute (2) Sepsis: Status: Acute (3) ILD (interstitial lung disease): Status: Acute (4) Anemia: Status: Acute Acute respiratory failure with hypoxia on mechanical ventilation - Etiology is multi-factorial COVID-19, underlying ILD, Right sided PTx, possible superimposed bacterial pneumonia - Intubated on MV ( 04/14) S/P Extubation on 04/27 (Currently on BIPAP/Oxymask ) - CTA chest PE protocol - no pe - Repeat ABG in am - Pulmonary medicine on board Sepsis due to COVID 19 pneumonia/ Possible V.A.P / Persistent Fever : Has resolved - Completed Remdesivir x 5 days - Decadron 6 mg IV BID - change to dailY Initially has been stopped. - Currently on Prednisone 20 mg oral daily tapering dose - Ferritin 627, LDH 894, CRP of 88.9 - Pro-calcitonin 0.20 ->0.67-> 0.14 - > 0.72 - WBC 62.7-> 38.6-> 18.9 -> 15.8 -> 36-> 30.1 -> 31.4->18 - 04/09 - Blood culture x 2 - NGTD - 04/11 - Sputum culture - negative - 04/14 - Sputum culture - negative - 04/15 - Blood culture x 2 - NGTD - 04/20 - Blood culture x 2 - NGTD - 04/21 - Blood culture x 2 - NGTD -04/25 - Blood Culture: *2 -NTD - 04/21 - Sputum culture - Amaya Albican -04/28 - Repeat Sputum :Prelim : No growth - 04/22 - C. Difficile toxin :Negative - Vancomycin I.V Stopped on 04/28 - Aztreonam 1g IV q12hr (04/15->04/22 ) - Levaquin 750 mg IV daily ( 04/11 - 04/22) - D/c Azteronam/Levaquin - Changed to Primixin 500 mg IV q6hr 04/22 - Caspofungin 50 mg IV q24hr added 04/22-04/30 - Acylovir to cover for viral possible HSV Meningoencehalitis - Amphotericin B * 1 dose (04/24)* - Vancomycin 250 mg pOG QID stopped on 04/25 - Aspergillus ag,EIA serum sent - CTA Chest, CT Abdomen/Pelvis w contrast\- no acute finding - Venous duplex bilaterally : No dvt Ac on Chronic Hypercapnic R/F 2/2 ILD Exacerbation 2/2 PNA Continue BIAPP Continue Nebs Initiate Solumedrol 125mg I.V Daily Normocytic Anemia : S/P I U PRBC Transfusion Monitor CBC FOBT : Positive Marked Leukocytosis:Improving - WBC 62.7-> 38.6-> 18.9 -> 15.8 -> 36-> 30.1 -> 31.4-->12.9-->4.6 - Lymphoma panel ordered - Covering for infectious process Hyperkalemia: Resolved - Potassium 5.1 - Repeat K now - Will treat if positive Thrombocytopenia Likely 2/2 to sepsis: Stable - Monitor P/C - HITab - Negative Right Sided Pneumothorax s/p Chest tube - Continue current management - Repeat chest x-ray - no further ptx noted - Extensive SQ emphysema initially - Pulmonary medicine on board - S/P Rt sided chest tube removal Chronic ILD/Pulmonary fibrosis - Newly seen and dx on admission imaging - Currently on Steroid as noted above Acute kidney injury - Resolved - Creatinine 1.7 - > 0.9 - Likely pre-renal from hypotension - Renally dose medication - Repeat BMP in AM Hypertension - Currently hypotensive - Likely due to sedatives vs septic shock - Hold b-blockers GI ppx - Pepcid 20 IV BID DVT ppx -Eliquis 2.5 mg q12 h daily Additional A&P Information Full code Cardiac diet DVT prophylaxis:On Eliquis Disposition :Home Attestations Medical Necessity Statement*: Patient needs to be in hospital for recovery from POST COVID Syndrome. Coding Level of Care Code Acute Manager Technical Sales for Jenna Santizo Diagnoses Acute respiratory failure with hypoxia J96.01 Sepsis A41.9 ILD (interstitial lung disease) J84.9 Anemia D64.9
--- NOTE | 2020-04-30 13:30 | PC.SOCIAL ---
IMM Updated Updated pt's , Keely, via phone, on Pg 2 IMM. No questions voiced. Signed, dated, & timed copy in chart.
[2020-04-30] MEDS: morphine 4 mg/mL SDV 1 mL 2 MG IVP (13:38)
--- NOTE | 2020-04-30 16:08 | P.PN_ITS ---
Subjective Medications: Medication Review Details: Mr. Sanchez was on BiPAP overnight and Precedex 0.6 and received 1 dose morphine. His tachypnea was better and respiratory rate came down to 20 after all his interventions and repositioning and ABG 7.4 0/55/59/33/91% on 60%. My clinical impression patient is extremely deconditioned due to his 21-day hospitalization, COVID-19 pneumonia superimposed on underlying interstitial lung disease. Even though we were able to extubate him to facemask, there are times when he becomes extremely tachypneic but would not ventilate appropriately to washout CO2. As per family, patient has good baseline functional respiratory status before admission and they will not aware of underlying interstitial lung disease. I had a meeting with his sons' at bedside today morning and Dr. Calles, hospitalist taking care of the patient, and reported that it will be a prolonged course of recovery for him and needs physical therapy. Despite doing all this, his return to his baseline respiratory status with underlying interstitial lung disease is challenging and cannot assure until we give some time for recovery from COVID-19 related pulmonary compromise. We discussed about current available options: 1. If patient deteriorates or goes into-hypercapnic respiratory failure- reintubate trach and transfer to LTAC for physical therapy and to wean off t william. 2. Comfort care with no escalation of care and taking patient home. 3. Continue current management, BiPAP at night/facemask and Precedex for anxiety, do as much physical therapy during hospitalization and see how he does in 2 to 3 days. Sons verbalized understanding of the options and they do not want him to suffer anymore, based on patient's wishes, but were agreeable to continue current management without escalation of care, DNR/DNI. They will get back to us after discussing with patient's and other family members as well. All questions were answered and reported to ask if they have any further questions. Vitals/I&O/Wt Last Vital Signs Temp 97.9 F 04/30/20 07:00 Pulse 80 04/30/20 15:00 Resp 19 H 04/30/20 15:00 BP 120/60 04/30/20 15:00 Pulse Ox 91 04/30/20 15:00 04/30/20 04/30/20 04/30/20 06:59 14:59 22:59 Intake Total 381.28 / 1624.88 1594.257 / 1594.257 120 / 1714.257 Output Total 250 / 700 Balance 131.28 / 924.88 1594.257 / 1594.257 120 / 1714.257 Physical Exam Narrative: EXAM NARRATIVE: PHYSICAL EXAM: General: lying in bed, extubated on 10 L facemask HEENT:NCAT, PERRLA, EOMI, persistent right neck and supraclavicular area with crepitus Neck: Supple Lungs: Improving bilateral diffuse crackles Heart: s1/s2, RRR Abd: soft, NT, ND, BS + Normoactive Extremities: 2+ bilateral ankle edema 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, 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 move extremities SKIN: no rash Urinary Catheter Management^: Frey: Cath Placed During This Visit: yes Reason for Continuing Indwelling Catheter: Accurate Measurement of Urinary Output in Critically Ill Patients Urinary Catheter Date of Insertion: 04/14/20 Urinary Catheter Time of Insertion: 11:30 Data : 04/30/20 04:09 04/30/20 04:09 Micro: Microbiology 04/25/20 12:35 Blood Culture - Final Blood NO GROWTH AFTER 5 DAYS 04/29/20 04:42 Sputum Culture - Preliminary Sputum - Expectorated Sputum 04/25/20 08:45 Blood Culture - Final Blood NO GROWTH AFTER 5 DAYS A&P Assessment and plan (1) Acute respiratory distress syndrome (ARDS) due to 2019 novel coronavirus: Status: Acute (2) ILD (interstitial lung disease): Status: Acute (3) Acute respiratory failure with hypoxia: Status: Acute (4) Sepsis with acute hypoxic respiratory failure: Status: Acute Qualifiers: Sepsis type: sepsis due to unspecified organism Severe sepsis shock status: with septic shock Qualified Code(s): A41.9 - Sepsis, unspecified organism; R65.21 - Severe sepsis with septic shock; J96.01 - Acute respiratory failure with hypoxia Overall: 69 year old with male with no significant past medical history but with possible interstitial lung disease based on the CT chest admitted initially for suspected community acquired pneumonia found to be COVID-19 PCR positive, progressively worsening respiratory failure admitted to viral ICU for management of acute hypoxic respiratory failure secondary to acute respiratory distress syndrome due to COVID-19 pneumonia requiring mechanical ventilation to provide oxygenation, course complicated by coexisting septic shock and development of subcutaneous emphysema and right pneumothorax (probably from rupture of subpleural blebs) and FUO. NEURO: #AMS likely secondary to sedation; high fevers-improved opening eyes on verbal commands #Deconditioning -Extremely weak to move his extremities-recommended aggressive physical therapy for deconditioning -Mr. Sanchez is opening eyes but too weak to follow commands -When asked to squeeze fingers he was attempting but could not do it -CT head no acute events PULM: #Acute hypoxic and hypercapneic respiratory failure secondary to ARDS due to COVID pna #Respiratory status worsened by contribution from exacerbation of underlying interstitial lung disease ?? UIP pattern #right hest subcutaneous emphysema and right lung pneumothorax likely secondary to rupture of subpleural blebs -Intubated on 04/14/2020-extubated 04/27/2020 -ABG on 10 L facemask 7.3 //30 2/96% -recommended to start BiPAP to generate tidal volume 550 to 600 cc at night -Recommended to start low-dose Precedex for anxiety; monitor respiratory status as he is at high risk for reintubation -Subcu emphysema appeared improved-chest x-ray:. Stable bilateral prominent pulmonary interstitial infiltrates. -Patient needs bedside physical therapy & chest physiotherapy 3 times a day -Recommended -DuoNeb nebulization every 4 hours and Pulmicort 0.5 twice daily. -Increased inflammatory markers CRP, ferritin and repeat every 2 days to trend markers of inflammation -Recommended prednisone 40 every 8 for underlying interstitial lung disease -DC all antibiotics CVS: -Septic shock - resolved -Currently off pressors- please maintain MAP > 65 -Monitor blood pressure and taper of pressors -Echo technically difficult study due to poor ultrasonic windows; BNP 280 GI: -On Pulmicort tube feeding - held in view if extubation yesterday-recommended to restart feeding -Dark-colored stool in the rectal tube; Hb/HCT stable after s/p 1 PRBC-monitor H&H-send for stool occult -Recent C. difficile PCR negative; off p.o. Vanco -H2 sahil for GI prophylaxis -Normal LFTs -If patient develops temperature spikes and worsening leukocytosis- send for C. difficile work-up again RENAL: -Renal functions improving -Positive 900 cc last 24 hours and sodium 150; patient on D5W 50 mL/hour good hourly urine output -Maintain MAP goal greater than 65 -Continue frey cath -Avoid nephrotoxins -Monitor sodium, BUN/creatinine and electrolytes and supplement accordingly to keep K between 4-4.5, Mg >2 HEM: - H&H 9.8/-given 1 unit PRBC -Monitor H&H and transfuse if H&H is less than 7 -DVT prophylaxis : SCDs #Thrombocytopenia-improving -Heparin antibodies negative; send for serotonin release assay -Also cannot rule out medications induced; DC Vancomycin -DC Lovenox -Monitor platelets and signs of bleeding -Plasmic score 4; low probability of TTP especially in the absence of microangiopathy hemolytic anemia ENDO: -Sugars well controlled -monitor sugars and insulin scale coverage ID: #Septic shock secondary to COVID pna #Fever of unknown origin - improving -T-max 100.4;Improving leukocytosis -DC antibiotics -Procalcitonin 0. 7 2 and lactic acid 1.4 -Pancultures negative and C. difficile PCR negative: -Except sputum culture positive for Amaya albicans -Recommended to consider DC Vancomycin (already received 10 days) as he spiked fevers even on vancomycin and started improving after adding acyclovir and imipe nam; Prognosis: guarded Disposition: Remains in ICU Code: Full code Plan of care and recommendations conveyed to hospitalist on the case, RN and RT ICU CHECKLIST: Problem list updated Verbal orders reviewed and signed Analgesia: None Glycemic Control: scale coverage Nutrition: Currently n.p.o. Restraint Renewal (within 24 hrs): Yes Ulcer Prophylaxis: H2 sahil Chemical Thromboprophylaxis: Prophylaxis: NO -thrombocytopenia Mechanical Thromboprophylaxis: Yes Need for Central line: No Need for Frey catheter: Yes for urine output monitoring Critical Care Time (No Overlap): 45 min This patient has a high probability of sudden, clinically significant deterioration, which requires the highest level of physician preparedness to intervene urgently. I managed/supervised life or organ supporting interventions that required frequent physician assessment. I devoted my full attention in the ICU to the direct care of this patient for the period of time indicated above. Time I spent with family or surrogate(s) is included only if the patient was incapable of providing necessary information or participating in decision making. Time devoted to teaching and to any procedures I billed separately is not included. Services Provided: Telemetry review Mechanical Ventilation Hemodynamic interpretation, assessment and management Review and interpretation of CXR Review and interpretation of lab values Review and interpretation of microbiologic data and culture results Review of medications and administration Review and interpretation of Nutrition requirements and management Discussion of management with other consultants and services Clinical update to family members Attestations Medical Necessity Statement*: acute hypoxic respiratory failure secondary to acute respiratory distress syndrome due to COVID-19 pneumonia requiring mechanical ventilation to provide oxygenation, course complicated by coexisting septic shock and development of subcutaneous emphysema and right pneumothorax (probably from rupture of subpleural blebs) and FUO. Time Spent in Patient Care: Greater than 35 minutes (>than 50% of time spent in counselling and/or direct pt care on unit) . Critical Care Time: Critical Care Time (min): 45 Coding Level of Care Code Established Pt Acute Stock Raiser for Chg Fwd Patient Type Established History Comprehensive Exam Comprehensive Medical Decision Making High Complexity Diagnoses Acute respiratory distress syndrome (ARDS) due to 2019 novel coronavirus U07.1; J80 ILD (interstitial lung disease) J84.9 Acute respiratory failure with hypoxia J96.01 Sepsis with acute hypoxic respiratory failure A41.9; R65.21; J96.01 Sepsis type: sepsis due to unspecified organism Severe sepsis shock status: with septic shock Time Spent (min) 45
[2020-04-30 19:19] LABS: Glucose Point of Care 147 mg/dL (70-110)
--- NOTE | 2020-04-30 23:06 | PC.RESP ---
Therapist tried to place BIPAP on patient. Therapist tried both masks to try and make patient comfortable. Patient was not liking it. Daughter stated to take it off and not let him fight it. Therapist took off BIpap and placed oxymask of 10LPM with a sat of 92% HR 76.
[2020-04-30 23:29] LABS: Glucose Point of Care 130 mg/dL (70-110)
[2020-05-01] VITALS (27 sets, daily range): BP systolic 83–170; BP diastolic 46–90; PULSE 66–112; RESP 16–40; TEMP 36.5–36.8; O2SAT 88–98
[2020-05-01] MEDS: dexmedetomidine 400 MCG in sodium chloride 0.9% (100 ml) 100 ML 12 MCG IV (01:48)
[2020-05-01] MEDS: acyclovir 1,000 MG in sodium chloride 0.9% (100 ml) 100 ML 120 MG IV (04:44)
[2020-05-01] MEDS: acetaminophen 650 mg/20.3 mL UDC NG-TUBE ×2 (05:53→19:53)
[2020-05-01] MEDS: famotidine 20 mg/2 mL INJ IVP (07:15)
[2020-05-01] MEDS: apixaban 5 mg Tablet 2.5 MG PO (08:54)
[2020-05-01 09:17] LABS: ABG PH Result 7.47 (7.35-7.45); Arterial Blood Gas Hematocrit 30.4 % (42-52); Base Excess ABG 7.3 mmol/L (-2.0-2.0); Blood Gas Allen Test Pos; Blood Gas Sample Site Radial, left; Blood Gas Sample Type Arterial; Carboxyhemoglobin 2.1 %THgb (0.4-20.1); HCO3 ABG 31.8 mmol/L (22-26); Methemoglobin 0.7 % (0.4-1.5); Oxygen Device OXY MASK; PO2 ABG 62.3 mmHg (80.0-100.0); Total Hemoglobin 9.9 g/dL (14-18)
[2020-05-01 11:04] LABS: Glucose Point of Care 130 mg/dL (70-110)
[2020-05-01 11:06] LABS: Glucose Point of Care 125 mg/dL (70-110)
--- NOTE | 2020-05-01 12:39 | XR_ITS ---
WS: [id number] Portable AP upright chest, 05/01/2020 Clinical Data: sob Comparison: Portable chest, 04/29/2020 Findings: The feeding tube remains in the same position. Bilateral diffuse interstitial pulmonary opa cities have not changed. The heart size is normal. The aortic arch is tortuous. Monitor leads are on the chest wall. There is still subcutaneous emphysema of the anterior chest wall. XR/XR chest 1V portable [id number] Impression: No change from chest x-ray of 2 days ago.
[2020-05-01] MEDS: dextrose 5% 1,000 ML 50 ML IV (13:52)
[2020-05-01] MEDS: ipratropium-albuterol 3 mL Neb INHALATION ×2 (16:49→20:41)
[2020-05-01 16:53] LABS: Glucose Point of Care 147 mg/dL (70-110)
[2020-05-01] MEDS: ascorbic acid 500 mg Tablet 1000 MG PO (17:04)
--- NOTE | 2020-05-01 17:29 | P.PN_ITS ---
Subjective Subjective: Interval history: - Patient was more communicative yesterday as per family at bedside - We taper off Precedex and see how his mentation improves -If needed will give some Xanax for anxiety -Patient not tolerating BiPAP, will continue 10 L facemask -Plan is to continue physical therapy -we will try to move him out of the unit Medications: Reviewed: Yes Vitals/I&O/Wt Last Vital Signs Temp 97.8 F 05/01/20 15:00 Pulse 106 H 05/01/20 16:51 Resp 20 H 05/01/20 16:51 BP 161/90 05/01/20 16:00 Pulse Ox 92 05/01/20 16:51 05/01/20 05/01/20 05/01/20 06:59 14:59 22:59 Intake Total 200 / 3238.257 1072.6 / 1072.6 Output Total 350 / 1250 300 / 300 Balance -150 / 1988.257 772.6 / 772.6 Physical Exam Narrative: EXAM NARRATIVE: PHYSICAL EXAM: General: lying in bed, extubated on 10 L facemask HEENT:NCAT, PERRLA, EOMI, persistent right neck and supraclavicular area with crepitus Neck: Supple Lungs: Improving bilateral diffuse crackles Heart: s1/s2, RRR Abd: soft, NT, ND, BS + Normoactive Extremities: 2+ bilateral ankle edema ELECTRICAL SYSTEMS DESIGN ENGINEER: Awake and opening eyes, 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 move extremities SKIN: no rash Urinary Catheter Management^: Frey: Cath Placed During This Visit: yes Reason for Continuing Indwelling Catheter: Accurate Measurement of Urinary Output in Critically Ill Patients Urinary Catheter Date of Insertion: 04/14/20 Urinary Catheter Time of Insertion: 11:30 Data : 04/30/20 04:09 04/30/20 04:09 Micro: Microbiology 04/29/20 04:42 Sputum Culture - Final Sputum - Expectorated Sputum 04/25/20 12:35 Blood Culture - Final Blood NO GROWTH AFTER 5 DAYS A&P Assessment and plan (1) Acute respiratory distress syndrome (ARDS) due to 2019 novel coronavirus: Status: Acute (2) ILD (interstitial lung disease): Status: Acute (3) Acute respiratory failure with hypoxia: Status: Acute (4) Sepsis with acute hypoxic respiratory failure: Status: Acute Qualifiers: Sepsis type: sepsis due to unspecified organism Severe sepsis shock status: with septic shock Qualified Code(s): A41.9 - Sepsis, unspecified organism; R65.21 - Severe sepsis with septic shock; J96.01 - Acute respiratory failure with hypoxia Overall: 69 year old with male with no significant past medical history but with possible interstitial lung disease based on the CT chest admitted initially for suspected community acquired pneumonia found to be COVID-19 PCR positive, progressively worsening respiratory failure admitted to viral ICU for management of acute hypoxic respiratory failure secondary to acute respiratory distress syndrome due to COVID-19 pneumonia requiring mechanical ventilation to provide oxygenation, course complicated by coexisting septic shock and development of subcutaneous emphysema and right pneumothorax (probably from rupture of subpleural blebs) and FUO. NEURO: #AMS likely secondary to sedation; high fevers-improved opening eyes on verbal commands #Deconditioning -Extremely weak to move his extremities-recommended aggressive physical therapy for deconditioning -Mr. Sanchez is opening eyes but too weak to follow commands -When asked to squeeze fingers he was attempting but could not do it -CT head no acute events PULM: #Acute hypoxic and hypercapneic respiratory failure secondary to ARDS due to COVID pna #Respiratory status worsened by contribution from exacerbation of underlying interstitial lung disease ?? UIP pattern #right hest subcutaneous emphysema and right lung pneumothorax likely secondary to rupture of subpleural blebs -Intubated on 04/14/2020-extubated 04/27/2020 -ABG on 10 L facemask 7.4 7/44/62/30 % -Patient does not tolerate BiPAP -Recommended to taper down Precedex for anxiety; and start on Xanax for anxiety -Subcu emphysema appeared improved-chest x-ray:. Stable bilateral prominent pulmonary interstitial infiltrates. -Patient needs bedside physical therapy & chest physiotherapy 3 times a day -Recommended -DuoNeb nebulization every 4 hours and Pulmicort 0.5 twice daily. -Increased inflammatory markers CRP, ferritin and repeat every 2 days to trend markers of inflammation -We will DC steroids in view of GI bleed -DC all antibiotics CVS: -Septic shock - resolved -Currently off pressors- please maintain MAP > 65 -Monitor blood pressure and taper of pressors -Echo technically difficult study due to poor ultrasonic windows; BNP 280 GI: -On Pulmicort tube feeding --recommended to restart feeding -Dark-colored stool in the rectal tube; Hb/HCT stable after s/p 1 PRBC-monitor H&H-stool occult positive; but gradual drop in Hb/HCT -Repeat H&H and transfuse if less than 7 -Recent C. difficile PCR negative; off p.o. Vanco -Started on IV Protonix for GI prophylaxis -Normal LFTs -If patient develops temperature spikes and worsening leukocytosis- send for C. difficile work-up again RENAL: -Renal functions improving -Positive 900 cc last 24 hours and sodium 150; patient on D5W 100 mL/hour good hourly urine output; bladder free water flushes -Maintain MAP goal greater than 65 -Continue frey cath -Avoid nephrotoxins -Monitor sodium, BUN/creatinine and electrolytes and supplement accordingly to keep K between 4-4.5, Mg >2 HEM: - H&H gradual drop, received 1 unit PRBC 2 days ago -Monitor H&H and transfuse if H&H is less than 721 -DVT prophylaxis : SCDs #Thrombocytopenia-improving -Heparin antibodies negative; send for serotonin release assay -Also cannot rule out medications induced; DC Vancomycin -DC Lovenox/Eliquis -Monitor platelets and signs of bleeding -Plasmic score 4; low probability of TTP especially in the absence of microangiopathy hemolytic anemia ENDO: -Sugars well controlled -monitor sugars and insulin scale coverage ID: #Septic shock secondary to COVID pna #Fever of unknown origin - improving -No more fever spikes;Improving leukocytosis -DC antibiotics -Procalcitonin 0. 7 2 and lactic acid 1.4 -Pancultures negative and C. difficile PCR negative: -Except sputum culture positive for Amaya albicans Prognosis: guarded Disposition: Remains in ICU Code: DNR/DNI Plan of care and recommendations conveyed to hospitalist on the case, RN and RT ICU CHECKLIST: Problem list updated Verbal orders reviewed and signed Analgesia: None Glycemic Control: scale coverage Nutrition: Currently n.p.o. Restraint Renewal (within 24 hrs): Yes Ulcer Prophylaxis: H2 sahil Chemical Thromboprophylaxis: Prophylaxis: NO -thrombocytopenia Mechanical Thromboprophylaxis: Yes Need for Central line: No Need for Frey catheter: Yes for urine output monitoring Critical Care Time (No Overlap): 45 min This patient has a high probability of sudden, clinically significant deterioration, which requires the highest level of physician preparedness to intervene urgently. I managed/supervised life or organ supporting interventions that required frequent physician assessment. I devoted my full attention in the ICU to the direct care of this patient for the period of time indicated above. Time I spent with family or surrogate(s) is included only if the patient was incapable of providing necessary information or participating in decision making. Time devoted to teaching and to any procedures I billed separately is not included. Services Provided: Telemetry review Mechanical Ventilation Hemodynamic interpretation, assessment and management Review and interpretation of CXR Review and interpretation of lab values Review and interpretation of microbiologic data and culture results Review of medications and administration Review and interpretation of Nutrition requirements and management Discussion of management with other consultants and services Clinical update to family members Attestations Medical Necessity Statement*: acute hypoxic respiratory failure secondary to acute respiratory distress syndrome due to COVID-19 pneumonia requiring mechanical ventilation to provide oxygenation, course complicated by coexisting septic shock and development of subcutaneous emphysema and right pneumothorax (probably from rupture of subpleural blebs) and FUO. Time Spent in Patient Care: Greater than 35 minutes (>than 50% of time spent in counselling and/or direct pt care on unit) . Critical Care Time: Critical Care Time (min): 45 Coding Level of Care Code Acute Stencil Maker for [facility] Fwd Diagnoses Acute respiratory distress syndrome (ARDS) due to 2019 novel coronavirus U07.1; J80 ILD (interstitial lung disease) J84.9 Acute respiratory failure with hypoxia J96.01 Sepsis with acute hypoxic respiratory failure A41.9; R65.21; J96.01 Sepsis type: sepsis due to unspecified organism Severe sepsis shock status: with septic shock
[2020-05-01] MEDS: morphine 4 mg/mL SDV 1 mL 2 MG IVP (18:17)
--- NOTE | 2020-05-01 19:05 | PC.NURSE ---
0755 Dr. Quezada at bedside, orders to turn off Precedex. rounded with Dr. Olivera reported that labs were unable to be drawn per nursing and lab was called for an attempt. Orders to transfer to Med/Surg, decreased IVF, and add flushes to tube feeding diet.
--- NOTE | 2020-05-01 20:31 | P.PN_ITS ---
Subjective Subjective: Interval history: Hospital course noted. No labs done today. Previous labs appreciated. Examination family at bedside. Patient is on oxygen mask 10 L saturating more than 90%. Has remained afebrile. Patient has rectal tube, Webster catheter in place. Medications: Reviewed: Yes Medication Review Details: Vitals/I&O/Wt Last Vital Signs Temp 98.1 F 05/01/20 19:00 Pulse 109 H 05/01/20 19:00 Resp 27 H 05/01/20 19:00 BP 160/89 05/01/20 19:00 Pulse Ox 96 05/01/20 19:00 05/01/20 05/01/20 05/01/20 06:59 14:59 22:59 Intake Total 200 / 3238.257 1072.6 / 1072.6 Output Total 350 / 1250 300 / 300 200 / 500 Balance -150 / 1988.257 772.6 / 772.6 -200 / 572.6 Physical Exam 2 Narrative: EXAM NARRATIVE: PHYSICAL EXAM: General: lying in bed, extubated on 10 L facemask HEENT:NCAT, PERRLA, EOMI, persistent right neck and supraclavicular area with crepitus Neck: Supple Lungs: Improving bilateral diffuse crackles Heart: s1/s2, RRR Abd: soft, NT, ND, BS + Normoactive Extremities: 2+ bilateral ankle edema 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: 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 and opening eyes, 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 move extremities SKIN: no rash Urinary Catheter Management^: Webster: Cath Placed During This Visit: yes Reason for Continuing Indwelling Catheter: Accurate Measurement of Urinary Output in Critically Ill Patients Urinary Catheter Date of Insertion: 04/14/20 Urinary Catheter Time of Insertion: 11:30 Data : 04/30/20 04:09 04/30/20 04:09 Micro: Microbiology 04/29/20 04:42 Sputum Culture - Final Sputum - Expectorated Sputum A&P Assessment and plan (1) Acute respiratory failure with hypoxia: Status: Acute (2) Sepsis: Status: Acute (3) ILD (interstitial lung disease): Status: Acute (4) Anemia: Status: Acute Additional A&P Information Acute respiratory failure with hypoxia secondary to COVID-19 pneumonia in setting of moderate to severe ILD leading to COPD exacerbation: Extubated to BiPAp/oxygen mask on April 27. Stop remdesivir. Patient having signs of GI bleed so we will start steroids as well for now. Oxygen supplementation keeping saturation over 88%. Start patient on DuoNebs every 4 hours, budesonide twice daily. Patient has been in hospital for more than 22 days now and has received complete treatment of COVID-19 so is most likely safe to start on nebulization treatment now. Repeat COVID-19 was sent in today morning as per pulmonology recommendations. Check procalcitonin, proBNP, MRSA swab, urine Legionella. Patient has been on multiple antibiotics, antiviral and antifungal during the course of hospitalization. For now we will hold off on any further antimicrobial. We will continue to monitor. Stop acyclovir, vancomycin, imipenem. Strict input output charting. Daily weights. Case discussed with Dr. Quezada from pulmonology/self contained behavior unit teacher. He agrees with the above. Metabolic encephalopathy: Most likely secondary to prolonged hospitalization along with hypernatremia Sodium level still elevated. Continue with D5 but will decrease to 50 cc/h. We will monitor BMP daily. Normocytic Anemia: Stool for occult blood positive. Post 1 unit transfusion. No labs today. Will get stat CBC. Change famotidine to Protonix 40 mg IV daily for now. Check iron panel. Thrombocytopenia Likely 2/2 to sepsis: Stable - Monitor P/C - HITab - Negative Right Sided Pneumothorax s/p Chest tube: Stable now. Acute kidney injury - Resolved Medical reason for consultation done for nephrotoxic drugs. Continue to monitor BMP daily. Hypertension - Currently hypotensive - Likely due to sedatives vs septic shock - Hold b-blockers DNR/DNI Protonix for PUD prophylaxis. no pharmacological DVT prophylaxis in view of ongoing anemia. SCDs. Severely guarded prognosis Attestations Medical Necessity Statement*: Requires further hospitalization for management of severe hypoxic respiratory failure because of COVID-19 pneumonia in setting of ILD, severe generalized deconditioning Critical Care Time: Critical Care Time (min): 80 Coding Level of Care Code Acute Digital Printer Operator for [facility] Diagnoses Acute respiratory failure with hypoxia J96.01 Sepsis A41.9 ILD (interstitial lung disease) J84.9 Anemia D64.9
[2020-05-01] MEDS: budesonide 0.5 mg/2 mL Neb INHALATION (20:41)
--- NOTE | 2020-05-01 22:30 | PC.NURSE ---
Pt transferred to room 273. Report called to receiving nurse. Pt accompanied by this nurse, warehouse delivery driver and RT. Transferred without incident, with belongings. Family notified and in waiting room.
[2020-05-02] VITALS (14 sets, daily range): BP systolic 128–153; BP diastolic 66–71; PULSE 77–99; RESP 18–30; TEMP 36.6; O2SAT 81–98
[2020-05-02 00:17] LABS: Glucose Point of Care 139 mg/dL (70-110)
[2020-05-02] MEDS: ipratropium-albuterol 3 mL Neb INHALATION ×6 (00:20→21:00)
[2020-05-02] MEDS: budesonide 0.5 mg/2 mL Neb INHALATION ×3 (04:14→21:01)
[2020-05-02 05:57] LABS: Glucose Point of Care 134 mg/dL (70-110)
[2020-05-02] MEDS: ascorbic acid 500 mg Tablet 1000 MG PO (09:03)
[2020-05-02] MEDS: dextrose 5% 1,000 ML 50 ML IV (09:03)
--- NOTE | 2020-05-02 09:13 | PC.SOCIAL ---
*IMM* Updated IMM. Initialled in the chart.
[2020-05-02 12:37] LABS: Basophils # 0.1 10^3/uL (0.0-0.1); Basophils % 0.6 %; Hematocrit 32.8 % (42.0-52.0); Hemoglobin 9.8 g/dL (11.7-16.6); Lymphocytes # 0.7 10^3/uL (0.8-4.8); Lymphocytes % 8.3 %; Mean Corpuscular HGB Conc 29.9 g/dL (30.0-36.0); Mean Corpuscular Hemoglobin 28.7 pg (28.0-34.0); Mean Corpuscular Volume 96.2 fL (80-94); Mean Platelet Volume 11.3 fL (7.4-10.4); Monocytes # 2.3 10^3/uL (0.2-0.9); Monocytes % 27.2 %; Neutrophils # 5.14 10^3/uL (1.8-7.7); Neutrophils % 59.7 %; Nucleated Red Blood Cells # 0.2 /100WBC; Nucleated Red Blood Cells % 2.7 %; Platelet Count 76 10^3/cmm (130-400); Red Blood Count 3.41 10^6/uL (4.1-5.3); Red Cell Distribution Width 18.6 % (12.1-15.1); White Blood Count 8.6 10^3/uL (4.0-10.0)
[2020-05-02 13:02] LABS: Alanine Aminotransferase 24 U/L (0-41); Albumin Level 2.8 g/dL (3.5-5.2); Alkaline Phosphatase 56 IU/L (40-130); Anion Gap 8.5 (5-19); Aspartate Amino Transferase 25 U/L (0-40); Blood Urea Nitrogen 31 mg/dL (8-23); Calcium 7.8 mg/dL (8.5-10.5); Carbon Dioxide 32 mmol/L (22-29); Chloride 108 mmol/L (98-107); Glucose 130 mg/dL (65-115); Osmolality Calculated 308 mOsm/kg (285-295); Potassium 3.5 mmol/L (3.5-5.1); Sodium 145 mmol/L (136-145); Total Bilirubin 0.9 mg/dL (0.15-1.2); Total Protein 4.8 g/dL (6.6-8.7)
[2020-05-02 13:11] LABS: Magnesium 2.1 mg/dL (1.7-2.3); Phosphorus 2.7 mg/dL (2.5-4.5); Thyroid Stimulating Hormone 6.63 uIU/mL (0.27-4.20)
[2020-05-02 13:32] LABS: NT Pro B Type Natriuretic Pept 1169 pg/mL (0-125)
--- NOTE | 2020-05-02 15:15 | XR_ITS ---
WS: [id number] Portable AP semiupright chest, 05/02/2020 Clinical Data: PLACEMENT Comparison: Portable chest, 05/01/2020 Findings: Feeding tube remains in good position and is seen in the region of the stomach. The bilater al diffuse interstitial pulmonary passageways have not changed. The heart size remains same. The aort ic arch is tortuous. The subcutaneous emphysema of the anterior chest wall has cleared. XR/XR chest 1V portable [id number] Impression: 1. Feeding tube which is probably within the stomach. 2. No change in bilateral pulmonary opacities.
--- NOTE | 2020-05-02 15:47 | XR_ITS ---
WS: [id number] KUB, 05/02/2020 Clinical Data: ABD PAIN Comparison: KUB, 04/28/2020. Findings: The feeding tube does appear to and in the descending duodenum. Bilateral pulmonary opacities are see n and there are probably bilateral effusions. XR/XR KUB portable [id number] Impression: Feeding tube probably ends in descending duodenum.
--- NOTE | 2020-05-02 16:29 | P.PN_ITS ---
Subjective Subjective: Interval history: - Remains afebrile and normal WBC, off all antibiotics -He is a bit more awake and following commands -Main concern is his tachypnea and sudden desaturation which required to increase oxygen requirements from 10 L to 15 L -Patient indicated that rectal tube is hurting -Still has black stool through his rectum but Hb/HCT is normal -Clinically volume overloaded -we will give Lasix 40 mg IVP -Good urine output and yesterday +100 mL -LFTs and renal functions are normal -skilled nursing but as patient was requiring 15 L he was not accepted -Today's plan is to manage pain, physical therapy, continue 15 L O2 supplementation -Goals of care discussed with daughter and son-in-law at bedside and they reinforce DNR/DNI continue current management. -Improving today Medications: Reviewed: Yes Medication Review Details: Vitals/I&O/Wt Last Vital Signs Temp 97.9 F 05/02/20 04:00 Pulse 96 05/02/20 11:23 Resp 30 H 05/02/20 11:23 BP 153/71 05/02/20 04:00 Pulse Ox 81 L 05/02/20 11:23 05/02/20 05/02/20 05/02/20 06:59 14:59 22:59 Intake Total 959.167 / 959.167 Output Total 450 / 950 Balance -450 / 122.6 959.167 / 959.167 Physical Exam Narrative: EXAM NARRATIVE: PHYSICAL EXAM: General: lying in bed, extubated on 15 L facemask, appeared in respiratory distress HEENT:NCAT, PERRLA, EOMI, improved right neck and supraclavicular preoperative Neck: Supple Lungs: Improving bilateral diffuse crackles Heart: s1/s2, RRR Abd: soft, NT, ND, BS + Normoactive Extremities: 2+ bilateral ankle edema SHOE STITCHER: Awake and opening eyes, 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 move extremities SKIN: no rash Urinary Catheter Management^: Webster: Cath Placed During This Visit: yes Reason for Continuing Indwelling Catheter: Accurate Measurement of Urinary Output in Critically Ill Patients Urinary Catheter Date of Insertion: 04/14/20 Urinary Catheter Time of Insertion: 11:30 Data : 05/02/20 12:10 05/02/20 12:10 Micro: Microbiology 04/29/20 04:42 Sputum Culture - Final Sputum - Expectorated Sputum A&P Assessment and plan (1) Acute respiratory distress syndrome (ARDS) due to 2019 novel coronavirus: Status: Acute (2) ILD (interstitial lung disease): Status: Acute (3) Acute respiratory failure with hypoxia: Status: Acute (4) Sepsis with acute hypoxic respiratory failure: Status: Acute Qualifiers: Sepsis type: sepsis due to unspecified organism Severe sepsis shock status: with septic shock Qualified Code(s): A41.9 - Sepsis, unspecified organism; R65.21 - Severe sepsis with septic shock; J96.01 - Acute respiratory failure with hypoxia Overall: 69 year old with male with no significant past medical history but with possible interstitial lung disease based on the CT chest admitted initially for suspected community acquired pneumonia found to be COVID-19 PCR positive, progressively worsening respiratory failure admitted to viral ICU for management of acute hypoxic respiratory failure secondary to acute respiratory distress syndrome due to COVID-19 pneumonia requiring mechanical ventilation to provide oxygenation, course complicated by coexisting septic shock and development of subcutaneous emphysema and right pneumothorax (probably from rupture of subpleural blebs) and FUO -extubated but extremely deconditioned and tenuous respiratory status requiring 15 L nasal cannula. NEURO: #AMS likely secondary to sedation; high fevers-improved opening eyes on verbal commands #Severe deconditioning #Acute hypoxic and hypercapneic respiratory failure secondary to ARDS due to COVID pna #Respiratory status worsened by contribution from exacerbation of underlying interstitial lung disease ?? UIP pattern #right hest subcutaneous emphysema and right lung pneumothorax likely secondary to rupture of subpleural blebs -Extremely weak to move his extremities-recommended aggressive physical therapy for deconditioning #Thrombocytopenia-improving #Septic shock secondary to COVID pna -resolved #Fever of unknown origin -improved -Mr. Sanchez is opening eyes but too weak to follow commands -When asked to squeeze fingers he was able to do it -CT head no acute events -Intubated on 04/14/2020-extubated 04/27/2020 -Currently requiring 15 L facemask -Patient does not tolerate BiPAP -Refusing morphine, Dilaudid for pain -Resolution of subcu emphysema on chest x-ray:. Stable bilateral prominent pulmonary interstitial infiltrates. -Patient needs bedside physical therapy -Recommended -DuoNeb nebulization every 4 hours and Pulmicort 0.5 twice daily. -Increased inflammatory markers CRP, ferritin and repeat every 2 days to trend markers of inflammation -We will DC steroids in view of GI bleed -Septic shock - resolved; Currently off pressors- please maintain MAP > 65; -No more fever spikes;Improving leukocytosis -Off antibiotics -Procalcitonin 0. 7 2 and lactic acid 1.4 -Pancultures negative and C. difficile PCR negative: -Except sputum culture positive for Amaya albicans -Monitor blood pressure -Echo technically difficult study due to poor ultrasonic windows; BNP 280 -On Pulmicort tube feeding -recommended to restart feeding -Dark-colored stool in the rectal tube; Hb/HCT stable after s/p 1 PRBC-monitor H&H-stool occult positive; -Repeat H&H and transfuse if less than 11/05 -Recent C. difficile PCR negative; off p.o. Vanco -Started on IV Protonix for GI prophylaxis -Normal LFTs -If patient develops temperature spikes and worsening leukocytosis- send for C. difficile work-up again -Normal renal functions; potassium 3.5 supplemented 40 M EQ 1 dose-monitor input output; continue Lasix 40 mg daily as patient is clinically volume overloaded -Avoid nephrotoxins -Monitor sodium, BUN/creatinine and electrolytes and supplement accordingly to keep K between 4-4.5, Mg >2 - H&H gradual drop, received 1 unit PRBC few days ago days ago -Monitor H&H and transfuse if H&H is less than 11/05 -DVT prophylaxis : SCDs - Thrombocytopenia-improving -Heparin antibodies negative; -Held anticoagulation in view of dark stool -Plasmic score 4; low probability of TTP especially in the absence of microangiopathy hemolytic anemia -Sugars well controlled -monitor sugars and insulin scale coverage Prognosis: guarded Disposition: Remains in ICU Code: DNR/DNI Plan of care and recommendations conveyed to hospitalist on the case, RN and RT Family updated about guarded prognosis and explained in detail about the possible 2 outcomes 1. Either patient may deteriorate requiring higher oxygen in which case family would not want intubation and resuscitation. Or 2. Continue current management with physical therapy and see if patient improves clinically to the point where he will qualify for subacute rehab/SNIF. ICU CHECKLIST: Problem list updated Verbal orders reviewed and signed Analgesia: None Glycemic Control: scale coverage Nutrition: Currently n.p.o. Restraint Renewal (within 24 hrs): Yes Ulcer Prophylaxis: H2 sahil Chemical Thromboprophylaxis: Prophylaxis: NO -dark-colored stool occult positive Mechanical Thromboprophylaxis: Yes Need for Central line: No Need for Webster catheter: Yes for urine output monitoring Critical Care Time (No Overlap): 45 min This patient has a high probability of sudden, clinically significant deterioration, which requires the highest level of physician preparedness to intervene urgently. I managed/supervised life or organ supporting interventions that required frequent physician assessment. I devoted my full attention in the ICU to the direct care of this patient for the period of time indicated above. Time I spent with family or surrogate(s) is included only if the patient was incapable of providing necessary information or participating in decision making. Time devoted to teaching and to any procedures I billed separately is not included. Services Provided: Telemetry review Mechanical Ventilation Hemodynamic interpretation, assessment and management Review and interpretation of CXR Review and interpretation of lab values Review and interpretation of microbiologic data and culture results Review of medications and administration Review and interpretation of Nutrition requirements and management Discussion of management with other consultants and services Clinical update to family members Attestations Medical Necessity Statement*: acute hypoxic respiratory failure secondary to acute respiratory distress syndrome due to COVID-19 pneumonia requiring mechanical ventilation to provide oxygenation, course complicated by coexisting septic shock and development of subcutaneous emphysema and right pneumothorax (probably from rupture of subpleural blebs) and FUO -extubated but extremely deconditioned and tenuous respiratory status requiring 15 L nasal cannula. Coding Level of Care Code Established Pt Acute Administrative Associate for [facility] Fwd Patient Type Established History Comprehensive Exam Comprehensive Medical Decision Making High Complexity Diagnoses Acute respiratory distress syndrome (ARDS) due to 2019 novel coronavirus U07.1; J80 ILD (interstitial lung disease) J84.9 Acute respiratory failure with hypoxia J96.01 Sepsis with acute hypoxic respiratory failure A41.9; R65.21; J96.01 Sepsis type: sepsis due to unspecified organism Severe sepsis shock status: with septic shock Time Spent (min) 45
[2020-05-02 17:18] LABS: Quest SARS-CoV-2 RNA DETECTED (NOT DETECTED)
--- NOTE | 2020-05-02 18:54 | PM.PN ---
Subjective Subjective: Interval history: patient seen multiple times during the day today. Had multiple discussions with family regarding goals of care. Patient was transferred to floor yesterday. Patient has had 2-3 episodes of desaturation down to high 70s on minimal movement in the bed when had to go higher on oxygen supplementation through oxygen mask. On examination he is on 15 L saturating 92%, awake and able to follow simple commands. During multiple discussions with the family and Dr. Alcala from pulmonology goals of care were discussed including patient being severely ill with severely guarded prognosis and eventual possible transfer to LTAC for which patient might not qualify at present because of high oxygen supplementation versus patient being severely ill versus possible transition to hospice/comfort care. As per pulmonology patient might show some signs of stabilization within next 24 to 48 hours versus possible deterioration or even . This is all communicated with the family and they understand. Family has had multiple questions regarding pain medications. They do not want pain medications like morphine or Dilaudid which can decrease his respiratory drive. Plan to discuss them in detail the patient is in pain because of multiple issues including severe decubitus ulcer. For now family has agreed for [place] and fentanyl as needed. Labs and vitals noted. Medications: Reviewed: Yes Medication Review Details: Vitals/I&O/Wt Last Vital Signs Temp 97.9 F 05/02/20 04:00 Pulse 96 05/02/20 15:00 Resp 30 H 05/02/20 15:00 BP 153/71 05/02/20 04:00 Pulse Ox 95 05/02/20 15:00 05/02/20 05/02/20 05/02/20 06:59 14:59 22:59 Intake Total 959.167 / 959.167 Output Total 450 / 950 Balance -450 / 122.6 959.167 / 959.167 Physical Exam Narrative: EXAM NARRATIVE: PHYSICAL EXAM: General: lying in bed, extubated on 10 L facemask HEENT:NCAT, PERRLA, EOMI, persistent right neck and supraclavicular area with crepitus Neck: Supple Lungs: Improving bilateral diffuse crackles Heart: s1/s2, RRR Abd: soft, NT, ND, BS + Normoactive Extremities: 2+ bilateral ankle edema AS400 OPERATOR: Awake and opening eyes, 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 move extremities SKIN: no rash Urinary Catheter Management^: Webster: Cath Placed During This Visit: yes Reason for Continuing Indwelling Catheter: Accurate Measurement of Urinary Output in Critically Ill Patients Urinary Catheter Date of Insertion: 04/14/20 Urinary Catheter Time of Insertion: 11:30 Data : 05/02/20 12:10 05/02/20 12:10 Micro: Microbiology 04/29/20 04:42 Sputum Culture - Final Sputum - Expectorated Sputum A&P Assessment and plan (1) Acute respiratory failure with hypoxia: Status: Acute (2) Sepsis: Status: Acute (3) ILD (interstitial lung disease): Status: Acute (4) Anemia: Status: Acute Additional A&P Information Acute respiratory failure with hypoxia secondary to COVID-19 pneumonia in setting of moderate to severe ILD leading to COPD exacerbation: Extubated to BiPAp/oxygen mask on April 27. Patient is already finished course of remdesivir. Patient having signs of GI bleed so we will start steroids as well for now. Oxygen supplementation keeping saturation over 88%. Start patient on DuoNebs every 4 hours, budesonide twice daily. Patient has been in hospital for more than 22 days now and has received complete treatment of COVID-19 so is most likely safe to start on nebulization treatment now. Repeat COVID-19 was sent in today morning as per pulmonology recommendations. Patient has remained afebrile, procalcitonin negative, urine Legionella negative, bacterial antigen negative. Antimicrobials stopped yesterday. For now we will continue to hold off. Strict input output charting. Daily weights. Case discussed with Dr. Quezada from pulmonology/telecommunications administrator. He agrees with the above. Metabolic encephalopathy: Most likely secondary to prolonged hospitalization along with hypernatremia Hypernatremia resolved. Continue with D5 but will decrease to 50 cc/h. We will monitor BMP daily. Continue with IV albumin with Lasix 40 mg IV daily. Normocytic Anemia: Stool for occult blood positive. Post 1 unit transfusion. No labs today. Will get stat CBC. Change famotidine to Protonix 40 mg IV daily for now. Check iron panel. Thrombocytopenia Likely 2/2 to sepsis: Stable - Monitor P/C - HITab - Negative Right Sided Pneumothorax s/p Chest tube: Stable now. Acute kidney injury - Resolved Medical reason for consultation done for nephrotoxic drugs. Continue to monitor BMP daily. Hypertension - Currently hypotensive - Likely due to sedatives vs septic shock - Hold b-blockers DNR/DNI Protonix for PUD prophylaxis. no pharmacological DVT prophylaxis in view of ongoing anemia. SCDs. Severely guarded prognosis. Will continue to have family discussions regarding goals of care. Attestations Medical Necessity Statement*: Patient requires further hospitalization for management of severe hypoxic respiratory failure/ARDS because of COVID-19 pneumonia, patient requires high amount of oxygen supplementation to maintain saturation, severe generalized deconditioning Critical Care Time: Critical Care Time (min): 70 Coding Level of Care Code Acute Scientist Engineer for [facility] Fwd Diagnoses Acute respiratory failure with hypoxia J96.01 Sepsis A41.9 ILD (interstitial lung disease) J84.9 Anemia D64.9
--- NOTE | 2020-05-02 19:30 | PC.NURSE ---
Addendum entered by Treasure Portillo RN 05/02/20 20:15: PTS FAMILY CHANGED THEIR MIND ON THE DILAUDID,, NOTIFIED, , REC'D ORDER FOR 0.5MG DILAUDID IVP. Original Note: PTS FAMILY HAD A FAMILY MEETING TODAY AT APPROX. [address] TOTH, PULMONOLOGY SPECIALIST. REC'D ORDERS TO D/C RECTAL TUBE, GIVE 5/325MG HYDROCODONE VIA NG TUBE, D/C IVP DILAUDID .
[2020-05-02 21:45] LABS: Glucose Point of Care 113 mg/dL (70-110)
[2020-05-03] VITALS (9 sets, daily range): BP systolic 122–132; BP diastolic 50–68; PULSE 77–100; RESP 17–26; TEMP 36.5–36.9; O2SAT 88–96
[2020-05-03] MEDS: ipratropium-albuterol 3 mL Neb INHALATION ×3 (00:44→08:59)
[2020-05-03 01:12] LABS: Glucose Point of Care 107 mg/dL (70-110)
[2020-05-03] MEDS: dextrose 5% 1,000 ML 50 ML IV (05:21)
[2020-05-03 06:12] LABS: Glucose Point of Care 97 mg/dL (70-110)
[2020-05-03] MEDS: FUROsemide 10 mg/mL SDV 2mL 20 MG IVP ×2 (06:32→11:47)
[2020-05-03] MEDS: budesonide 0.5 mg/2 mL Neb INHALATION (08:59)
--- NOTE | 2020-05-03 10:20 | PC.NURSE ---
Patient has a rectal tube. We switched the bags out and the amount that was in old bag was 200
--- NOTE | 2020-05-03 11:34 | PC.NURSE ---
ER nurse at bedside attempting to obtain IV access via ultrasound guided iv placement. family at bedside.
[2020-05-03 11:43] LABS: Glucose Point of Care 112 mg/dL (70-110)
--- NOTE | 2020-05-03 11:52 | PC.NURSE ---
Per Dr. Olivera, he spoke with the patient's family and further decisions were made in regards to patient's progression of plan of care. He states they would like no further BiPAP use and no intubation (no escalation of care). Patient will continue to take Tylenol if experiencing pain/discomfort every 6 hours and nursing may also administer Dilaudid 0.5mg every 6 hours if Tylenol doesn't effectively alleviate pain. I spoke with Mick Douglas RN patient's primary nurse and informed her of this. She verbalizes understanding.
--- NOTE | 2020-05-03 12:10 | PC.NURSE ---
Dr. Olivera notified this nurse to remove dobhoff due to occlusion and inability to flush or aspirate, new order to place NG tube.
--- NOTE | 2020-05-03 12:15 | PC.NURSE ---
Inserted 14fr NG tube to left nare, auscultated air bolus with this nurse and GERARDO Morales charge nurse.
--- NOTE | 2020-05-03 12:30 | PC.NURSE ---
patient oxygen saturation continuing to drop, oxygen saturation at 30% on 15L, Dr. Olivera notified. patient agonal breathing, family at bedside.
--- NOTE | 2020-05-03 12:57 | PC.NURSE ---
Carmen, charge rn nurse at bedside no heart or lung sounds auscultated, confirmed by this nurse, family in room, Dr. Olivera notified. Family on the way to pecan picker patients to inform and bring to hospital.
[2020-05-03 14:15] LABS: Free T4 Free Thyroxine 0.69 ng/dL (0.82-1.77); T3 Free 1.4 PG/ML (2.0-4.4)
--- NOTE | 2020-05-03 14:21 | PC.NURSE ---
Addendum entered by Janet Douglas RN 05/03/20 14:58: ng tube also removed Original Note: Post mortal care completed by this nurse and yary IYERA, Webster cath removed, iv to left upper arm removed tip intact, removed rectal tube, cleaned with bath wipes, brief applied, isolation gown placed over patient, sheet placed over patient.
--- NOTE | 2020-05-03 15:25 | P.DES_ITS ---
Discharge Providers DDS Date of Admission: 04/09/20 22:39 Date Summary Completed: 05/03/20 Attending Provider at Admission: Zak Singh MD Time of : 12:54 Attending Provider at Discharge: Allan Olivera MD DS Diagnoses Hospital Diagnoses (1) Acute respiratory failure with hypoxia: (2) Sepsis: (3) ILD (interstitial lung disease): (4) Anemia: Reason for Visit Reason for Visit: pneumonia, low o2 Summary Date and Time of Date of : 05/03/20 Time of : 12:54 Summary Summary: Mirza Sanchez is a 69 year old male with no significant past medical history other than hypertension presented on Apr 09, 2020 with chief complaint of w orsening shortness of breath. Patient is stating that he has been getting short of breath for last few weeks, his tested positive for Covid last , he went to primary care physician who diagnosed him with pneumonia he has been getting doxycycline for that which he started on , he went back on Tuesday to get tested for Covid, he has not received results back yet. He has been getting short of breath on exertion but today it was getting worse at rest so he decided to come to the hospital for further evaluation. He is a non- smoker nonalcoholic. He has not experienced any vomiting, myalgias, fever, chest pain, leg cramps, dysuria. No previous history of [place], stroke, cancer, he quit smoking about 5 years ago. Diagnosis in the ER revealed sepsis secondary to community-acquired pneumonia he was given 2 L normal saline septic bolus and ceftriaxone and azithromycin, flu panel COVID-19 negative, I have requested PCR, D-dimer MRSA nares and procalcitonin along antigens, chest x-ray shows bilateral pneumonia however has COVID-19 typical features. He was admitted to VICU and started on treatment for COVID 19 PNA with steroid, antibiotic met with remdesivir and relation treatment. Patient had a prolonged hospitalization for over 3 weeks which was complicated by development of septic shock, ARDS requiring intubation after which he was finally extubated on April 27 to 10 L oxygen mask, right-sided pneumothorax for which he had a chest tube placement which was eventually removed on April 29, superadded bacterial pneumonia with sputum culture growing Amaya albicans for which he had finished treatment of antimicrobials. His hospital course was also complicated by worsening of baseline IPF, developing of anemia requiring 2 unit of blood transfusion and developing of NAVDEEP which resolved with management of fluid balance with creatinine going as high as as 1.7, severe protein energy malnutrition because of poor oral intake for which nutrition was supplemented through NG feeds. Patient continues to require high oxygen supplementation as high as 15 L of oxygen mask saturating in low 90s and desaturating to high 70s on minimal movement in bed. Patient was constantly seen by respiratory therapist and physical therapist. Multiple goals of care discussions were held between family members. Family goals of care discussion on May 02 was not to escalate care but to continue current treatment for next 24 to 48 hours and then decide further regarding comfort care versus hospice versus continuation of current care management without any escalation to BiPAP or mechanical ventilation and no resuscitation. Patient had another episode of severe hypoxia on 15 l oxygen mask on May 03 and he eventually with family at bedside on May 03 at 12:54 PM. Additional Data Confirmation of as documented by pronouncing clinician: no pulse Family: at bedside Additional persons at bedside: nursing staff Attending/PCP notified?: I am attending Was code activated?: No Autopsy requested?: No Advance directives?: No Hospice patient?: No Discharge Plan Discharge Patient Disposition: Home Condition: Stable Prescriptions: No Action doxycycline hyclate 100 mg capsule 100 mg PO BID@1000,2200 RF: 0 Trelegy Ellipta See Rx Instructions .ROUTE .COMPLEX RF: 0 DS Attestations Time Spent in /Discharge Care*: greater than 30 min Quality - AMI: AMI present?: No Clinical Trial Participant: No Quality - Stroke: CVA present?: No Quality - VTE: VTE present?: No Coding Level of Care Code Acute Licensed Vocational Nurse for [facility] Diagnoses Acute respiratory failure with hypoxia J96.01 Sepsis A41.9 ILD (interstitial lung disease) J84.9 Anemia D64.9
--- NOTE | 2020-05-03 16:25 | PC.NURSE ---
home here to clam picker patient, relinquished from care.
== END 2020-05-03 16:29 | disposition expired | DRG 870 ==
LOC: ER 20:33 → CSU 22:57 → ICU 04-11 22:29 → MEDSURG 05-01 22:19
PROVIDERS: Emergency Medicine; Hospitalist; Internal Medicine; Internal Medicine Pulmonary Disease; Admitting Provider Internal Medicine; Emergency Provider Family Medicine; Visit Provider Student in an Organized Health Care Education/Training Program
DX: A41.9 Sepsis, unspecified organism (principal); U07.1 COVID-19; J96.01 Acute respiratory failure with hypoxia; J12.82 Pneumonia due to coronavirus disease 2019; R65.21 Severe sepsis with septic shock; E43 Unspecified severe protein-calorie malnutrition; J15.8 Pneumonia due to other specified bacteria; J93.9 Pneumothorax, unspecified; J84.9 Interstitial pulmonary disease, unspecified; N17.9 Acute kidney failure, unspecified; E87.2 Acidosis; Z66 Do not resuscitate; Z51.5 Encounter for palliative care; D64.9 Anemia, unspecified; I10 Essential (primary) hypertension; Z68.26 Body mass index [BMI] 26.0-26.9, adult; Z87.891 Personal history of nicotine dependence
CPT/HCPCS: 12345; 32551; 36415; 36416; 36430; 36592; 36600; 51702; 70450; 71045; 71275; 74018; 74177; 80048; 80051; 80053; 80202; 80500; 82274; 82330; 82728; 82803; 82805; 82962; 83010; 83605; 83615; 83735; 83880; 84100; 84132; 84145; 84439; 84443; 84478; 84481; 84484; 85007; 85025; 85049; 85378; 85384; 85610; 85730; 86022; 86140; 86403; 86850; 86900; 86920; 87040; 87070; 87081; 87086; 87106; 87205; 87305; 87426; 87449; 87493; 87635; 87804; 88184; 88185; 93005; 93306; 93970; 94002; 94003; 94640; 94660; 94799; 96372; 97110; 97530; 99283; A4570; J0131; J0133; J0289; J0456; J0637; J0692; J0696; J0743; J1100; J1650; J1815; J1940; J1956; J2060; J2250; J2270; J2370; J2704; J2930; J3010; J3370; J3490; J7030; J7040; J7050; J7512; J7611; J7614; J7626; J8540; P9016; P9047; Q0144; Q9967